=== PATIENT | female | born 1950 | race Caucasian/White ===

== ENCOUNTER 2024-08-12 21:30 | Inpatient (IN) | payer MEDICARE, MEDICAID, SELFPAY ==
[2024-08-12] VITALS (9 sets, daily range): BP systolic 105–119; BP diastolic 58–86; PULSE 98–118; RESP 17–95; TEMP 38–38.9; O2SAT 93–96; BMI 27.4
--- NOTE | 2024-08-12 22:19 | XR_ITS ---
Examination: AP chest single view Technique: AP portable upright chest single view Exam date and time: August 12, 2024 1021 hrs. Indications: Sepsis protocol. Findings: Early pneumonia left base obscuring detail lateral portion left hemidiaphragm Mild enlargement cardiac contour No pulmonary edema Prominent osteopenia Impression: Early left base pneumonia
--- NOTE | 2024-08-12 22:22 | PD.EDSOB ---
ED SOB =RME/HPI General Chief Complaint: Shortness of Breath/Dyspnea Stated Complaint: SOB Arrival date/time: 08/12/24 21:30 RME / HPI RME / HPI Narrative: A 73-year-old female patient with past medical history of dementia with fluctuation level of orientation, CVA with right-sided deficit and chronic dysphagia status post G-tube placement, hypothyroidism, hypertension, hyperlipidemia, type 2 diabetes mellitus, was brought from senior living after she was noticed to have low-grade fever of 100.3, and wheezing with heart rate of 111. As per EMS the patient was wheezing during initial encounter and tachypneic. No history of cough, chest pain, abdominal pain, nausea or vomiting, no abdominal pain or diarrhea however she has chronic constipation. Patient mentally challenged and is unable to provide further details. Of note patient was recently admitted to the hospital because of sepsis secondary to UTI and was found to have leukopenia which was attributed to methimazole. Related Data Home Medications ?Medication ?Instructions ?Recorded ?Confirmed acetaminophen 325 mg tablet 650 mg feeding tube Q4H PRN Pain 03/22/19 06/12/24 bisacodyl 10 mg rectal suppository 10 mg DE PRN PRN Constipation 03/22/19 06/12/24 linagliptin 5 mg tablet (Tradjenta) 5 mg feeding tube QDAY 03/22/19 06/12/24 sennosides 8.6 mg tablet (senna) 8.6 mg feeding tube BID 03/22/19 06/12/24 sertraline 50 mg tablet (Zoloft) 50 mg feeding tube QDAY 10/07/19 06/12/24 atorvastatin 40 mg tablet 40 mg feeding tube HS 01/03/21 06/12/24 furosemide 20 mg tablet 20 mg feeding tube QDAY PRN Edema 01/03/21 06/12/24 polyethylene glycol 3350 17 17 g feeding tube QDAY PRN 01/03/21 06/12/24 gram/dose oral powder (Miralax) Constipation clotrimazole 1 % topical cream 1 applic topical BID 06/12/24 06/12/24 omeprazole 40 mg capsule,delayed 40 mg PO QPM 06/12/24 06/12/24 release Previous Rx's ?Medication ?Instructions ?Recorded amlodipine 10 mg tablet 10 mg feeding tube QDAY 30 days 08/02/24 #30 tabs Allergies Allergy/AdvReac Type Severity Reaction Status Date / Time No Known Allergies Allergy Verified 06/12/24 10:23 ED Exam Narrative Physical exam: GEN: AOx1 for self (baseline as per caregiver), mildly lethargic, has slurred speech, chopped sentences., Looks pale HEENT: NC/AC, oral mucosa dry, neck supple CVS: RRR, S1-S2 present, no murmurs appreciated RESP: CTAB GI: soft, seems to be distended, non tender, NBS MSK: Limited mobility of the right side, no lower extremity edema SKIN: warm and dry SENIOR PRINCIPAL SOFTWARE ENGINEER: Unable to assess due to mental status. Course Quality Measures Current suspected stage: sepsis Possible source: pulmonary and genitourinary Blood cultures ordered: yes Antibiotic ordered: Yes Pertinent labs: 08/12/24 22:30 Lactic Acid 1.9 mMol/L (0.4-2.0) Procalcitonin 0.36 ng/ml (0.0-0.49) sepsis Orders Category Date Time Status Bedside Blood Glucose NOW Care 08/12/24 22:19 Active Bedside COVID-19 Antigen Test NOW Care 08/12/24 22:20 Active Bedside Influenza A&B Antigen Test NOW Care 08/12/24 22:30 Completed Small Equipment Operator Q4H START 00 Care 08/12/24 22:19 Active Jovel [Urinary Catheter] QS Care 08/12/24 22:38 Active Insert IV NOW Care 08/12/24 22:19 Active Neutropenic precautions NOW Care 08/12/24 23:31 Active Occult Blood,Stool (Nursing) NOW Care 08/12/24 23:25 Active Strict Intake and Output Routine Care 08/12/24 22:19 Ordered XR chest 1V SEPSIS PROTOCOL Stat Exams 08/12/24 22:19 Completed Blood Culture (Lab) Stat Lab 08/12/24 22:48 Received CBC Stat Lab 08/12/24 22:30 Completed Comprehensive Metabolic Panel Stat Lab 08/12/24 22:30 Completed Lactate (Lactic Acid) Stat Lab 08/12/24 22:30 Completed Magnesium Stat Lab 08/12/24 22:30 Completed Partial Thromboplastin Time Stat Lab 08/12/24 22:30 Completed Procalcitonin Stat Lab 08/12/24 22:30 Completed Prothrombin Time with INR Stat Lab 08/12/24 22:30 Completed RSV [Respiratory Syncytial Virus Ag] Stat Lab 08/12/24 22:43 Completed Troponin I Stat Lab 08/12/24 22:30 Completed Urinalysis Stat Lab 08/12/24 22:19 Completed Urine Culture Stat Lab 08/12/24 22:19 Ordered Acetaminophen Tab [Tylenol ES Tab] Med 08/12/24 22:26 Discontinued 1,000 mg PO X1 ONE Sodium Chloride 0.9% 500 ml [Ns] 500 ml Med 08/12/24 23:30 Discontinued IV 999 mls/hr cefTRIAXone/D5w 1gm IV premix [Rocephin/D5w 1gm IV Med 08/12/24 22:30 Discontinued premix] 50 ml IV X1 Oxygen Delivery PRN RT 08/12/24 22:19 Active Vital Signs Vital signs: Vital Signs Temperature 100.8 F H 08/12/24 21:34 Pulse Rate 110 H 08/12/24 21:34 Respiratory Rate 20 08/12/24 21:34 Blood Pressure 108/62 08/12/24 21:34 Pulse Oximetry (%) 95 08/12/24 21:34 Oxygen Delivery Method Room Air 08/12/24 21:34 Shortness of Breath / Dyspnea MDM Narrative MDM Narrative:: On evaluation patient was noticed to have sepsis secondary to early pneumonia versus UTI. We noticed also she has severe leukopenia most likely secondary to methimazole. Patient was prescribed methimazole for her hyperthyroidism however 2 weeks ago she was instructed to stop the methimazole however patient was continued on the methimazole. Consultation to the hospitalist team was ordered and the patient will be admitted for treatment of sepsis. We noticed that the patient has 2 echoes one of them showed ejection fraction of 25% and the other 1 showed stage I diastolic dysfunction with ejection fraction of 60%. Patient was on Lasix and was prescribed recently for that reason because of the concern of fluid overload we will only give the patient 500 mL of IV fluids. Patient data External records reviewed:: [facility] previous records and Residential records Clinical information provided by:: beaver trapper Social determinants that could affect healthcare access:: mental health Patient has the following chronic illnesses:: Hypertension, diabetes mellitus, hyperlipidemia, dementia, CVA How is presenting disease/condition affected by chronic disease/condition?: exacerbated by Evaluation data The following diagnostics were reviewed and interpreted by me:: lab results, radiology exam(s) and EKG tracing(s) Lab and/or radiology exams considered but not ordered:: None Interpretation Summary: Sepsis secondary to UTI Sepsis secondary to pneumonia Medications / Prescriptions Medications or Prescriptions considered but not ordered:: None Medication administrations:: Medication Administration History Discontinued Medications Acetaminophen (Acetaminophen 500 Mg Tablet) 1,000 mg PO X1 ONE Stop: 08/12/24 22:27 Last Admin: 08/12/24 22:48 Dose: 1,000 mg Documented By: EMILY Comments: Med given via G-Tube Ceftriaxone Sodium/Dextrose (Rocephin/D5w 1gm Iv Premix) 50 mls @ 100 mls/hr IV X1 ONE Stop: 08/12/24 22:59 Last Infusion: 08/12/24 23:33 Dose: Infused Documented By: Admin: 08/12/24 22:53 Dose: 100 mls/hr Documented By: EMILY Sodium Chloride (Ns) 500 mls @ 999 mls/hr IV .Q31M ONE Stop: 08/13/24 00:00 Last Admin: 08/13/24 00:02 Dose: 999 mls/hr Documented By: ENRICO As above left given Consultations Consultation(s) initiated? (list below): Yes Diagnosis Shortness of Breath Differential Diagnosis: community acquired pneumonia and other Most likely diagnosis given after review of the tests above:: Sepsis secondary to hospital-acquired pneumonia Sepsis secondary to UTI Admission Indicated Admission indicated?: indicated Admission Request Was there a request for admission?: Yes Admission Attestation Admission request attestation: Discussed case with [] from Hospitalist service regarding admission. Discussed patients ED course, exam findings, labs, and radiology results. The Hospitalist [agrees,declines] to accept the patient for admission. Disposition Plan Disposition Plan: Admit Discharge Plan Plan Patient Disposition: Admit Acute Care w/in Hospital Prescriptions/Referrals Prescriptions/Med Rec: No Action sennosides [senna] 8.6 mg tablet 8.6 mg feeding tube BID acetaminophen 325 mg Tablet 650 mg feeding tube Q4H PRN (Reason: Pain) bisacodyl 10 mg Suppository 10 mg DE PRN PRN (Reason: Constipation) Tradjenta 5 mg tablet 5 mg feeding tube QDAY atorvastatin 40 mg Tablet 40 mg feeding tube HS furosemide 20 mg Tablet 20 mg feeding tube QDAY PRN (Reason: Edema) polyethylene glycol 3350 [Miralax] 17 gram/dose Powder 17 g feeding tube QDAY PRN (Reason: Constipation) sertraline [Zoloft] 50 mg Tablet 50 mg feeding tube QDAY amlodipine 10 mg tablet 10 mg feeding tube QDAY 30 Days Qty: 30 0RF omeprazole 40 mg Capsule,Delayed Release(Dr/Ec) 40 mg PO QPM clotrimazole 1 % Cream 1 applic TOPICAL BID Rx Instructions: Apply to all toenails for nail fungus. Referrals: Justin Alva MD [Primary Care Provider] - In 1 week Problem List Clinical Impression: Sepsis, Acute febrile illness, Acute UTI (urinary tract infection), HAP (hospital-acquired pneumonia) Patient/Caregiver Discharge Instructions Print Language: Croatian Stand Alone Forms: [employer] Award Info., Patient Portal Info Letter
[2024-08-12 22:42] LABS: Lactate (Lactic Acid) 1.9 mMol/L (0.4-2.0)
[2024-08-12 22:46] LABS: Basophils % (Auto) 0 % (0-2.5); Eosinophils % (Auto) 0 % (0-10); Hematocrit 21.2 % (36.0-46.0); Immature Granulocytes % (Auto) 0 % (0-0); Lymphocytes # (Auto) 0.2 Thou/mm3 (1.0-4.8); Lymphocytes % (Auto) 19 % (10-50); Mean Corpuscular HGB Conc 35.4 g/dl (31.0-37.0); Mean Corpuscular Hemoglobin 30.9 pg (25.0-35.0); Mean Corpuscular Volume 87 fL (80-100); Monocytes # (Auto) 0.6 Thou/mm3 (0.0-0.8); Monocytes % (Auto) 65 % (0-12); Neutrophils # (Auto) 0.1 Thou/mm3 (1.8-7.7); Neutrophils % (Auto) 16 % (37-80); Nucleated Red Blood Cell % 0 /100 WBC (0); Platelet Count 184 Thou/mm3 (140-440); RDW Standard Deviation 43.6 fL (36.4-46.3); Red Blood Count 2.43 Miln/mm3 (4.00-5.20)
[2024-08-12] MEDS: ACETAMINOPHEN 500 MG TABLET 1000 MG PO (22:48)
[2024-08-12] MEDS: cefTRIAXone/D5w 1gm IV premix 50 ML IV (22:53)
[2024-08-12 22:58] LABS: Hemoglobin 7.5 g/dL (12.0-16.0)
[2024-08-12 23:00] LABS: White Blood Count 0.9 Thou/mm3 (3.6-11.0)
[2024-08-12 23:03] LABS: Bacteria,Urine Rare; Bilirubin,Urine Negative (Negative); Blood,Urine 1+ (Negative); Clarity,Urine Clear (Clear/Hazy); Collection Type, Urine Catheter; Color,Urine Lt-Yellow (Lt Yel-Yel); Glucose, Urine Negative (Negative); Ketones,Urine Negative (Negative); Leukocyte Esterase,Urine Positive (Negative); Nitrite,Urine Negative (Negative); Protein,Urine 1+ (Neg - Trace); RBC,Urine 1 /hpf (0-3); Specific Gravity,Urine 1.011 (1.001-1.035); Squamous Epithelial Cell,Urine 2 /hpf (0-5); WBC,Urine 33 /hpf (0-5)
[2024-08-12 23:22] LABS: Alanine Aminotransferase 37 U/L (10-49); Albumin, Serum 3.3 gm/dL (3.4-4.8); Albumin/Globulin Ratio 1.1 (1.2-2.2); Alkaline Phosphatase 143 U/L (46-116); Anion Gap 6 (7-16); Aspartate Amino Transferase 42 U/L (0-34); BUN/Creatinine Ratio 42 Ratio (12-20); Blood Urea Nitrogen 42 mg/dL (9-23); Calcium 8.5 mg/dL (8.3-10.6); Calcium (Corrected) 9.1 mg/dL (8.5-10.1); Carbon Dioxide 27.8 mMol/L (20.0-31.0); Chloride 88 mMol/L (98-107); Estimated Creatinine Clearance 46.7 mL/min (>60); Glucose 244 mg/dL (74-106); Magnesium 2.5 mg/dL (1.6-2.6); Osmolality,Calculated 264 (275-295); Potassium 4.2 mMol/L (3.4-5.1); Procalcitonin 0.36 ng/ml (0.0-0.49); Sodium 122 mMol/L (136-145); Total Protein 6.3 gm/dL (5.7-8.2); Troponin I < 0.020 ng/mL (0.0-0.045); eGFR > 60 See Note
[2024-08-12 23:32] LABS: Respiratory Syncytial Virus Ag Negative (Negative)
[2024-08-12 23:34] LABS: Bilirubin,Total 0.7 mg/dL (0.3-1.2)
[2024-08-12 23:39] LABS: INR 1.1 (0.9-1.3); Prothrombin Time 11.9 Seconds (9.0-12.2)
[2024-08-13] VITALS (18 sets, daily range): BP systolic 76–117; BP diastolic 43–72; PULSE 81–98; RESP 18–95; TEMP 36.4–38; O2SAT 90–100; BMI 29.0
[2024-08-13] MEDS: SODIUM CHLORIDE 0.9% 500 ML 500 ML 999 ML IV ×2 (00:02→01:26)
--- NOTE | 2024-08-13 01:15 | PD.RESHP ---
Documentation for date of: 08/13/24 [facility] History of Present Illness History of present illness: 73-year-old female patient with significant medical history for dementia, CVA with right-sided deficit, chronic G-tube, HFpEF, hypothyroidism, hypertension, DM2 and hyperlipidemia [facility]ezing and low-grade fever. Patient was recently admitted at [facility] on 07/31/2024 for sepsis secondary to UTI. During last visit patient was also found to have leukopenia and was attributed to methimazole, patient was to have methimazole discontinued. Today patient is accompanied by caregiver who provides further information. Per caregiver, patient's mentation is at baseline but he was observed to be more demanding than usual this morning. There was no cough, nausea, vomiting, diarrhea, abdominal pain or other associate symptoms. In ED patient was found to be tachycardic and febrile with a temperature of 100.8 F which up trended to 102 F. CBC and labs was significant for leukopenia at 0.9, Hgb 7.5 (9.2 on 08/04/2024), HCT 21.2, MCV 87, NA 122, CL 88, BUN 42, glucose 244. Urinalysis indicated leukocyte esterase positive, WBC 33 and rare bacteria. Chest x-ray indicated early left basilar pneumonia. Patient will be admitted for sepsis secondary to UTI vs pneumonia. Review of Systems Review of Systems Systems Reviewed: All systems reviewed, normal except as documented Exam Vital Signs Temp Pulse Resp BP Pulse Ox O2 Del Method 100.4 F 91 18 96/59 L 95 Room Air 08/13/24 00:11 08/13/24 00:11 08/13/24 00:11 08/13/24 00:11 08/13/24 00:11 08/13/24 00:11 Narrative Exam Constitutional: Frail looking elderly woman, in no acute distress, lying in bed, pale looking HEENT: NCAT, EOMI, reactive round pupils b/l, patent nares b/l, moist mucous membranes Lung: CTAB, no wheezing, no rhonchi Heart: Regular S1S2, no murmurs, gallops, or rubs Abdomen: Soft, non-distended, non-tender, bowel sounds present throughout Extremities: No cyanosis, clubbing, or edema, LE pulses present b/l Neurologic: Right upper and lower extremity deficits, AOx1 Skin: Warm, dry, no lesions or rashes noted Results: Labs 08/12/24 22:30 08/12/24 22:30 Labs: Short CBC 08/12/24 Range/Units 22:30 WBC 0.9 L* (3.6-11.0) Thou/mm3 Hgb 7.5 L (12.0-16.0) g/dL Hct 21.2 L* (36.0-46.0) % Plt Count 184 D (140-440) Thou/mm3 BMP 08/12/24 22:30 Sodium 122 L Potassium 4.2 Chloride 88 L Carbon Dioxide 27.8 BUN 42 H Creatinine 1.0 Glucose 244 H Calcium 8.5 Cardiac Enzymes 08/12/24 Range/Units 22:30 Troponin I < 0.020 (0.0-0.045) ng/mL Liver Function 08/12/24 Range/Units 22:30 Total Bilirubin 0.7 (0.3-1.2) mg/dL AST 42 H (0-34) U/L ALT 37 (10-49) U/L Alkaline Phosphatase 143 H (46-116) U/L Albumin 3.3 L (3.4-4.8) gm/dL Urine 08/12/24 Range/Units 22:19 Urine Color Lt-Yellow (Lt Yel-Yel) Urine Clarity Clear (Clear/Hazy) Urine pH 7.0 (5.0-7.0) Ur Specific [place] 1.011 (1.001-1.035) Urine Protein 1+ A (Neg - Trace) Urine Glucose (UA) Negative (Negative) Quality Measures Quality Measures sepsis Current suspected stage: sepsis Possible source: pulmonary and genitourinary Blood cultures ordered: yes Antibiotic ordered: Yes Advance care planning discussed with:: other Medications Home Medications and Allergies Home Medications ?Medication ?Instructions ?Recorded ?Confirmed ?Type acetaminophen 325 mg tablet 650 mg feeding tube Q4H PRN Pain 03/22/19 06/12/24 History bisacodyl 10 mg rectal suppository 10 mg OR PRN PRN Constipation 03/22/19 06/12/24 History linagliptin 5 mg tablet (Tradjenta) 5 mg feeding tube QDAY 03/22/19 06/12/24 History sennosides 8.6 mg tablet (senna) 8.6 mg feeding tube BID 03/22/19 06/12/24 History sertraline 50 mg tablet (Zoloft) 50 mg feeding tube QDAY 10/07/19 06/12/24 History atorvastatin 40 mg tablet 40 mg feeding tube HS 01/03/21 06/12/24 History furosemide 20 mg tablet 20 mg feeding tube QDAY PRN Edema 01/03/21 06/12/24 History polyethylene glycol 3350 17 17 g feeding tube QDAY PRN 01/03/21 06/12/24 History gram/dose oral powder (Miralax) Constipation clotrimazole 1 % topical cream 1 applic topical BID 06/12/24 06/12/24 History omeprazole 40 mg capsule,delayed 40 mg PO QPM 06/12/24 06/12/24 History release Allergies Allergy/AdvReac Type Severity Reaction Status Date / Time No Known Allergies Allergy Verified 06/12/24 10:23 Visit Medications Acetaminophen (Acetaminophen 325 Mg Tablet) 650 mg PO Q6H PRN PRN Reason: Fever >101.5 Stop: 09/12/24 00:55 Albuterol/Ipratropium (Albuterol/Ipratropium (Duoneb) Rt Jelly 3 Ml Nebu) 3 ml INH Q4HRRT PRN PRN Reason: wheezing Stop: 09/12/24 02:59 Heparin Sodium (Porcine) (Heparin Sod Inj 5000 Unit/Ml Vial) 5,000 unit SC Q8HR AJAY Stop: 08/27/24 05:59 Piperacillin/Tazobactam/Dextrose (Zosyn) 3.375 gm in 50 mls @ 100 mls/hr IV Q8HR AJAY Stop: 08/20/24 05:59 Piperacillin/Tazobactam/Dextrose (Zosyn) 3.375 gm in 50 mls @ 100 mls/hr IV X1 ONE Stop: 08/13/24 01:44 Vancomycin/Sodium Chloride (Vancomycin/Ns 1 Gm Ivpb) 200 mls @ 200 mls/hr IV X1 ONE Stop: 08/13/24 02:14 Sodium Chloride (Ns) 1,000 mls @ 999 mls/hr IV .Q1H1M ONE Stop: 08/13/24 02:07 Sodium Chloride (Ns) 500 mls @ 999 mls/hr IV .Q31M ONE Stop: 08/13/24 01:37 Ondansetron HCl (Ondansetron Inj 2 Mg/Ml Inj 2 Ml) 4 mg IV Q6H PRN; Protocol PRN Reason: NAUSEA OR VOMITING Stop: 09/12/24 00:55 Pantoprazole Sodium (Pantoprazole Inj 40 Mg Vial) 40 mg IVP QDAY [facility] Stop: 09/12/24 08:59 Pharmacy Consult (Vancomycin Pharmacy To Dose 1 Each Each) 1 each IV QDAY AJAY Stop: 09/12/24 08:59 Discontinued Medications Acetaminophen (Acetaminophen 500 Mg Tablet) 1,000 mg PO X1 ONE Stop: 08/12/24 22:27 Last Admin: 08/12/24 22:48 Dose: 1,000 mg Ceftriaxone Sodium/Dextrose (Rocephin/D5w 1gm Iv Premix) 50 mls @ 100 mls/hr IV X1 ONE Stop: 08/12/24 22:59 Last Infusion: 08/12/24 23:33 Dose: Infused Sodium Chloride (Ns) 500 mls @ 999 mls/hr IV .Q31M ONE Stop: 08/13/24 00:00 Last Admin: 08/13/24 00:02 Dose: 999 mls/hr Sodium Chloride (Ns) 1,000 mls @ 999 mls/hr IV .Q1H1M AJAY Stop: 09/12/24 01:05 Assessment & Plan Plan 73-year-old female patient with significant medical history for dementia, CVA with right-sided deficit, chronic G-tube, HFpEF, hypothyroidism, hypertension, DM2 and hyperlipidemia [facility] for [facility]ezing and low-grade fever. Urinalysis indicated leukocyte esterase positive, WBC 33 and rare bacteria. Chest x-ray indicated early left basilar pneumonia. Patient will be admitted for sepsis secondary to UTI vs pneumonia. #Sepsis secondary to #Pneumonia #UTI #Neutropenic fever Patient recently admitted for UTI sepsis on 07/31/2024 On admission patient complaining of wheezing and fever Admission vital and labs significant for fever 102 F and WBC 0.9 Chest x-ray indicative of a left base pneumonia UA indicative of mild UTI Plan: ? Admit to med telemetry ? Bolus IV NS per sepsis protocol ? Start Vanco and Zosyn IV ? Neutropenic isolation ? ID Dr Brooks consulted, recommendations are greatly appreciated ? Consider hematology consult ? Blood cultures, cocci and urine cultures ordered ? Acetaminophen for fevers > 100.4 F ? Follow-up CBC #Acute normocytic anemia On admission patient with Hgb 7.5, MCV 87, HCT 21.2%, WBC 0.9 and elevated BUN 42 Most recent Hgb of 9.2 on 08/04/2024 Patient with history of methimazole for hyperthyroidism Plan: ? Occult FOBT pending ? Transfuse Hgb if < 7 ? Rule out aplastic anemia ? Consider hematology consult ? Follow-up CBC #History of CVA #Chronic PEG tube #Right-sided hemiplegia #Hyponatremia #Hypochloremia PEG tube replaced on 08/03/[address] Arreola Admission labs significant for NA 122 Plan: ? Dietitian referral ? Continue maintenance NS IVF until diet restarted ? Replete electrolytes as needed #History of hypertension On home amlodipine 10 mg Currently patient hypotensive Plan: ? Hold BP meds in setting of hypotension and sepsis #Hyperlipidemia Plan: ? Restart home med after reconciliation #Type 2 diabetes mellitus, well controlled HgB A1c of 5.2 % on May 2024 Plan: ? Withhold home medications ? SSI plus Accu-Cheks #History of Hyperthyroidism Plan: ? Withhold methimazole in setting of hypothyroidism and leukopenia ? Follow-up TSH Health Maintenance Dispo: Patient admitted for sepsis secondary to UTI versus pneumonia, neutropenic isolation, ID consulted Diet: N.p.o., PEG feeding, dietitian referral ordered DVT/PPx: Heparin GI ppx: Protonix Lines: PIV Code Status: Full Code This patient care was discussed with my attending Dr. Arthur Prado MD PGY-2 Disclaimer: Minor errors in personal security specialist may be present since this note was dictated by speech recognition software. Attending Provider Attestation/Addendum I reviewed labs, imaging, EKG, home medications and prior available records. Face to face evaluation was performed by me. I have personally examined the patient and discussed assessment and plan with the IM team. I reviewed the resident note and agree with the plan with exceptions as below. 73-year-old female with history of CVA with right-sided weakness status post G-tube, recent admission for UTI, who presented with a chief complaint of fevers and wheezing. She was found to have sepsis secondary to bilateral pneumonia versus UTI. Sepsis secondary to acute UTI versus bilateral pneumonia and lower lobes: In the setting of neutropenic fever. WBC is 0.9. Started the patient on vancomycin/Zosyn and consult ID. Sent cocci IgM. Follow-up urine and blood cultures. Neutropenic fever: WBC is 0.9. Antibiotics as above. Monitor CBC. Patient was on methimazole recently which could be contributing and is still on her medication list however it should be discontinued. Discharge instructions. Will make sure that is discontinued and manage infection as above. If not improving, consider hematology consultation. Hyponatremia: Started the patient on IV fluids and monitor sodium level. Avoid rapid correction.
[2024-08-13] MEDS: ALBUTEROL/IPRATROPIUM (Duoneb) RT SOL 3 ML NEBU INH (01:25)
[2024-08-13] MEDS: PIPER/TAZO 3.375 GM 3.375 GM/50 ML BAG IV ×4 (01:26→21:05)
[2024-08-13] MEDS: SODIUM CHLORIDE 0.9% 1000 ML 1,000 ML 999 ML IV (01:26)
[2024-08-13] MEDS: VANCOMYCIN/NS 1 GM IVPB 200 ML IV (02:52)
[2024-08-13] MEDS: SODIUM CHLORIDE 0.9% 1000 ML 1,000 ML 75 ML IV (02:53)
[2024-08-13] MEDS: HEPARIN SOD INJ 5000 UNIT/ML VIAL SC ×2 (05:35→20:29)
[2024-08-13] MEDS: INSULIN LISPRO (AdmeLOG) 1 UNIT/0.01 ML UNIT SC ×2 (07:33→11:30)
[2024-08-13 08:19] LABS: Basophils % (Auto) 0 % (0-2.5); Eosinophils % (Auto) 0 % (0-10); Hematocrit 23.7 % (36.0-46.0); Immature Granulocytes % (Auto) 0 % (0-0); Lymphocytes # (Auto) 0.1 Thou/mm3 (1.0-4.8); Lymphocytes % (Auto) 16 % (10-50); Mean Corpuscular Hemoglobin 30.9 pg (25.0-35.0); Mean Corpuscular Volume 88 fL (80-100); Monocytes # (Auto) 0.4 Thou/mm3 (0.0-0.8); Monocytes % (Auto) 63 % (0-12); Neutrophils # (Auto) 0.1 Thou/mm3 (1.8-7.7); Neutrophils % (Auto) 21 % (37-80); Nucleated Red Blood Cell % 0 /100 WBC (0); Platelet Count 129 Thou/mm3 (140-440); RDW Standard Deviation 44.7 fL (36.4-46.3); Red Blood Count 2.69 Miln/mm3 (4.00-5.20)
[2024-08-13 08:34] LABS: White Blood Count 0.6 Thou/mm3 (3.6-11.0)
[2024-08-13 08:35] LABS: Hemoglobin 8.3 g/dL (12.0-16.0)
[2024-08-13 09:03] LABS: Alanine Aminotransferase 40 U/L (10-49); Albumin, Serum 2.8 gm/dL (3.4-4.8); Alkaline Phosphatase 129 U/L (46-116); Anion Gap 5 (7-16); Aspartate Amino Transferase 49 U/L (0-34); BUN/Creatinine Ratio 37 Ratio (12-20); Blood Urea Nitrogen 33 mg/dL (9-23); Calcium 7.9 mg/dL (8.3-10.6); Calcium (Corrected) 8.9 mg/dL (8.5-10.1); Carbon Dioxide 26.7 mMol/L (20.0-31.0); Chloride 94 mMol/L (98-107); Creatinine (Component) 0.9 mg/dL (0.6-1.3); Estimated Creatinine Clearance 87.8 mL/min (>60); Globulin 2.8 gm/dL (2.3-3.5); Glucose 198 mg/dL (74-106); Magnesium 2.4 mg/dL (1.6-2.6); Osmolality,Calculated 266 (275-295); Potassium 3.7 mMol/L (3.4-5.1); Sodium 126 mMol/L (136-145); Thyroid Stimulating Hormone 0.22 uIU/mL (0.55-4.78); Total Protein 5.6 gm/dL (5.7-8.2); eGFR > 60 See Note
[2024-08-13] MEDS: VANCOMYCIN/D5W 1,250 MG IVPB 250 ML 120 MG IV ×2 (09:35→21:05)
[2024-08-13] MEDS: PANTOPRAZOLE INJ 40 MG VIAL IVP (09:36)
[2024-08-13 12:16] LABS: Bilirubin,Total 0.5 mg/dL (0.3-1.2)
--- NOTE | 2024-08-13 13:40 | ESPR_ITS ---
<Statement entered by Alta Chinchilla MD - 08/13/24 15:58> I discussed with and supervised the hospitality intern physician who took care of this patient. I personally saw and examined the patient and discussed the assessment and plan with the entire medicine team, including my attending , I agree with most of the assessment and plan as documented below Alta Chinchilla M.D. PGY-2 Documentation for date of: 08/13/24 Subjective Subjective Interval history: 08/13/2024: Patient is an overnight admit from [facility] secondary to subjective fever and wheezing, on presentation was febrile (102 Fahrenheit) with leukopenia/neutropenia. Patient on last admission was told to stop taking methimazole with clear instructions on discharge; however, apparently had the [place] [facility] she was continually given methimazole. She presents currently with neutropenic fever and apparently urinalysis positive for leukocyte esterase, pyuria and some rare bacteriuria along with left base pneumonia. Patient's been started on Zosyn and vancomycin for broad coverage secondary to neutropenic fever. Consulted Dr. Hendrix (cd manufacturing supervisor) for recommendations regarding neutropenic fever and treatment modalities. Started patient back on tube feeds per dietary consultation and recommendation. Will continue to monitor for any acute changes in status. Exam Vital Signs Temp Pulse Resp BP Pulse Ox O2 Del Method 97.6 F 83 22 H 97/60 93 L Room Air 08/13/24 12:00 08/13/24 12:00 08/13/24 12:00 08/13/24 12:00 08/13/24 12:00 08/13/24 12:00 Narrative Exam Physical Exam: GENERAL: Awake, responds to questions appropriately, developmental disorder, waxes and wanes in emotion HEENT: NC/AT. Moist mucosa. Does not follow commands for EOMI. PERRLA. CARDIO: Heart RRR, no obvious murmurs, no JVD. PULM: No coughing or visible SOB. Lungs CTA B/L. GI: Abdomen soft, NT/ND, +BS. PEG tube leaking contents, no erythema or purulent discharge noted. SKIN/MSK/EXT: No wounds/discoloration/rashes/edema/amputations noted. +Pedal pulses present B/L. NEURO: Oriented x1 (person). Unable to assess cranial nerves. Patient has right-sided deficit (no muscle strength or movement of both upper and lower extremities). Left hand fixed in extension, no contractures noted. Objective Labs 08/13/24 07:58 08/13/24 07:58 Labs: Laboratory Results - last 24 hr 08/12/24 08/12/24 08/12/24 22:19 22:30 22:43 WBC 0.9 L* RBC 2.43 L Hgb 7.5 L Hct 21.2 L* MCV 87 MCH 30.9 MCHC 35.4 RDW Std Deviation 43.6 Plt Count 184 D Neut % (Auto) 16 L Lymph % (Auto) 19 [place] % (Auto) 65 H Eos % (Auto) 0 Baso % (Auto) 0 Neut # (Auto) 0.1 L Lymph # (Auto) 0.2 L [place] # (Auto) 0.6 Eos # (Auto) 0.0 Baso # (Auto) 0.0 Immature Gran # (Auto) 0.00 Absolute Nucleated RBC 0.00 Immature Gran % 0 Nucleated RBC % 0 PT 11.9 INR 1.1 APTT 25.0 Sodium 122 L Potassium 4.2 Chloride 88 L Carbon Dioxide 27.8 Anion Gap 6 L BUN 42 H Creatinine 1.0 Estim Creat Clear Calc 46.7 L eGFR > 60 BUN/Creatinine Ratio 42 H Glucose 244 H Calculated Osmolality 264 L Lactic Acid 1.9 Calcium 8.5 Corrected Calcium 9.1 Phosphorus Magnesium 2.5 Total Bilirubin 0.7 AST 42 H ALT 37 Alkaline Phosphatase 143 H Troponin I < 0.020 Total Protein 6.3 Albumin 3.3 L Globulin 3.0 Albumin/Globulin Ratio 1.1 L Procalcitonin 0.36 TSH Ur Collection Type Catheter Urine Color Lt-Yellow Urine Clarity Clear Urine pH 7.0 Ur Specific [place] 1.011 Urine Protein 1+ A Urine Glucose (UA) Negative Urine Ketones Negative Urine Blood 1+ A Urine Nitrite Negative Urine Bilirubin Negative Urine Urobilinogen (Auto) 2.0 Ur Leukocyte Esterase Positive Urine RBC 1 Urine WBC 33 H Ur Squamous Epith Cells 2 Urine Bacteria Rare RSV Rapid Negative 08/13/24 07:58 WBC 0.6 L* RBC 2.69 L Hgb 8.3 L Hct 23.7 L MCV 88 MCH 30.9 MCHC 35.0 RDW Std Deviation 44.7 Plt Count 129 L D Neut % (Auto) 21 L Lymph % (Auto) 16 [place] % (Auto) 63 H Eos % (Auto) 0 Baso % (Auto) 0 Neut # (Auto) 0.1 L Lymph # (Auto) 0.1 L [place] # (Auto) 0.4 Eos # (Auto) 0.0 Baso # (Auto) 0.0 Immature Gran # (Auto) 0.00 Absolute Nucleated RBC 0.00 Immature Gran % 0 Nucleated RBC % 0 PT INR APTT Sodium 126 L Potassium 3.7 D Chloride 94 L Carbon Dioxide 26.7 Anion Gap 5 L BUN 33 H Creatinine 0.9 Estim Creat Clear Calc 87.8 eGFR > 60 BUN/Creatinine Ratio 37 H Glucose 198 H Calculated Osmolality 266 L Lactic Acid Calcium 7.9 L Corrected Calcium 8.9 Phosphorus 2.0 L Magnesium 2.4 Total Bilirubin 0.5 AST 49 H ALT 40 Alkaline Phosphatase 129 H Troponin I Total Protein 5.6 L Albumin 2.8 L D Globulin 2.8 Albumin/Globulin Ratio 1.0 L Procalcitonin TSH 0.22 L Ur Collection Type Urine Color Urine Clarity Urine pH Ur Specific [place] Urine Protein Urine Glucose (UA) Urine Ketones Urine Blood Urine Nitrite Urine Bilirubin Urine Urobilinogen (Auto) Ur Leukocyte Esterase Urine RBC Urine WBC Ur Squamous Epith Cells Urine Bacteria RSV Rapid Quality Measures Quality Measures sepsis Current suspected stage: ruled out Possible source: pulmonary and genitourinary Blood cultures ordered: yes Antibiotic ordered: Yes Advance care planning discussed with:: other Assessment & Plan Assessment Current Active Medications: Generic Name Dose Route Start Last Admin Trade Name Freq PRN Reason Stop Dose Admin Acetaminophen 650 mg 08/13/24 00:56 Acetaminophen 325 Mg Tablet PO 09/12/24 00:55 Q6H PRN Fever >101.5 Albuterol/Ipratropium 3 ml 08/13/24 00:56 08/13/24 01:25 Albuterol/Ipratropium (Duoneb) Rt Jelly 3 Ml Nebu INH 09/12/24 02:59 3 ml Q4HRRT PRN Administration wheezing Dextrose 25 ml 08/13/24 02:15 Dextrose 50%-Water Inj 50 Ml Syringe IV 09/12/24 02:14 Q15MIN PRN BG 50-70 responsive npo pt Dextrose 50 ml 08/13/24 02:15 Dextrose 50%-Water Inj 50 Ml Syringe IV 09/12/24 02:14 Q15MIN PRN BG <50 OR BG <70 & pt unresponsive Glucagon 1 mg 08/13/24 02:15 Glucagon Inj 1 Mg Vial IM Q15MIN PRN BG <70, and no IV access Heparin Sodium (Porcine) 5,000 unit 08/13/24 21:00 Heparin Sod Inj 5000 Unit/Ml Vial SC 08/27/24 20:59 BID AJAY Piperacillin/Tazobactam/Dextrose 3.375 gm in 50 mls @ 12.5 mls/hr 08/13/24 06:00 08/13/24 13:30 Zosyn IV 08/20/24 05:59 12.5 mls/hr Q8HR AJAY Administration Vancomycin HCl/Dextrose 250 mls @ 120 mls/hr 08/13/24 10:00 08/13/24 09:35 Vancomycin/D5w 1,250 Mg Ivpb IV 08/20/24 09:59 120 mls/hr Q12H AJAY Administration Protocol Insulin Human Lispro 0 unit 08/13/24 07:30 08/13/24 11:30 Insulin Lispro (Admelog) 1 Unit/0.01 Ml Unit SC 09/12/24 07:29 2 unit ACHS AJAY Administration Protocol Ondansetron HCl 4 mg 08/13/24 00:56 Ondansetron Inj 2 Mg/Ml Inj 2 Ml IV 09/12/24 00:55 Q6H PRN NAUSEA OR VOMITING Protocol Pantoprazole Sodium 40 mg 08/13/24 09:00 08/13/24 09:36 Pantoprazole Inj 40 Mg Vial IVP 09/12/24 08:59 40 mg QDAY AJAY Administration Pharmacy Consult 1 each 08/13/24 09:00 Vancomycin Pharmacy To Dose 1 Each Each IV 09/12/24 08:59 QDAY PRN PROTOCOL Plan 73-year-old female with a past medical history of dementia, CVA (right-sided deficits), chronic G-tube, hyperthyroidism, hypertension, hyperlipidemia, and type 2 diabetes mellitus who presents from [facility] with fever and wheezing, found to be in neutropenic fever secondary to methimazole; Dr Hendrix (cd manufacturing supervisor) consulted for recommendations. #Neutropenic fever #Leukopenia #Sepsis secondary to pneumonia and/or UTI, less likely Patient was recently [place] to [place] [facility] and given clear instructions to stop taking Methimazole Apparently she was given methimazole at the facility which is at the highest suspicion for her neutropenia On admission patient complaining of wheezing and fever Admission vital and labs significant for fever 102 F and WBC 0.9 Chest x-ray indicative of possible left base pneumonia UA was positive for leukocyte esterase, pyuria and rare bacteriuria Patient did receive sepsis bolus in ED Cocci negative ANC ~ 120 on 08/13 Plan: Consulted cd manufacturing supervisor Dr. Hendrix for recommendations regarding neutropenic fever Continue Vanco and Zosyn IV Neutropenic isolation Canceled ID consult required at this time Blood cultures and urine cultures pending Acetaminophen for fevers > 100.4 F Follow-up with morning CBC #Normocytic anemia, chronic #Iron deficiency anemia versus anemia of chronic disease Patient has had low hemoglobin, between 8 and 9 since 2018 Last iron panel was from 03/2024 which showed decreased iron but preserved TIBC Patient initially presented with hemoglobin of 7.5 Currently up trended to 8.3 Plan: Repeat iron panel and ferritin Night team ordered FOBT but there are no signs of active bleeding at this time #Electrolyte imbalance Status post PEG tube placement due to CVA Plan: Glucerna 1.2 per PEG tube and 25 mL water flush every hour; holding until GI recs in Fluid restriction 1.5 L/day Replete electrolytes as needed Nutritional service consult, appreciate recommendations #History of hypertension On home amlodipine 10 mg Plan: Continue home medication #Hyperlipidemia #History of CVA w/ r-sided deficits On home Atorvastatin 40 mg GT HS Plan: Continue home medication #Type 2 diabetes mellitus, well controlled Last A1c of 5.2 (06/12/2024) On home Tradjenta 5mg Plan: [facility] Hospital management: Lines: PIV Diet: Glucerna 1.2 at 55 mL/h with 10 mL water flushes Bowel: Senna PRN GI prophylaxis: Not needed DVT prophylaxis: Subq heparin Disposition: Neutropenic fever with very low absolute neutrophil count Code: Full Patient seen and examined with attending Dr. Preciado and senior resident Dr. Amor Bhatt, PGY-1 Attending Provider Attestation/Addendum I have examined the patient, reviewed labs and imaging findings, discussed the case with the resident(s), and reviewed entered orders. I agree with the plan of care as outlined in this note, with these additional summaries/recommendations: Patient is a 73-year-old female with a medical history of CVA, bedbound & relatively nonverbal, status post PEG tube, osteoporosis, and recurrent UTIs who was admitted to [facility] for neutropenic Fever. # Drug-induced neutropenia and agranulocytosis # Neutropenic fever Most likely secondary to methimazole which was discontinued on previous admission although appears patient was receiving a prison Tmax 102 F Possible sources include UTI and pneumonia Urinalysis indicative of UTI and CXR showed early left base pneumonia No evidence of mucositis, line infection or vascular lesions No need for acyclovir at this time as no vascular lesions found No evidence of oral or other lesions suggestive of candidiasis and no need for fluconazole at this time, cocci ordered Urine and blood cultures ordered, follow-up results when available Consult in-house hematology/oncology for recommendations on giving Neupogen or G-CSF in this setting Continue IV Zosyn and vancomycin Daily hematology panel Neutropenic precautions # Hypotonic hypochloremic hyponatremia Chronic Volume status: Euvolemic on admission. DDx: Most likely secondary to SIADH vs extrarenal losses from Lasix Workup: urine osmolality pending, random urine sodium 53.5, Plan: Hyponatremia is chronic and has received extensive workup in the past. Continue fluid restriction. #Hyperthyroidism TSH 0.30 & Free T4 1.94. Hold all Thionamides and should be discontinued for life. Patient will need close follow-up with endocrinology #HFpEF Does not appear to be in acute exacerbation at this time. Previous Echo showed Estimated EF 60-65% Continue to monitor, F/U outpatient with cardiology # History of CVA # PEG tube # Dyslipidemia Dietary consulted and continue tube feeds. Patient is conserved with [facility]. Continue home atorvastatin. # Pressure ulcer: Continue wound care. Dr. Preciado
[2024-08-13 14:45] LABS: Cocci Serology, IgM Negative (Negative)
[2024-08-13] MEDS: SOD PHOS ADDITIVE 15 MMOL in SODIUM CHLORIDE 0.9% 250 ML 250 ML 62.5 MMOL IV (17:12)
--- NOTE | 2024-08-13 19:21 | PC.NURSE ---
Per BARRY Hamilton pt supposed to start feeding tube at dinner time but no available feeding pump, I called Dejon almazan a pump, she said she will look/find one. Will wait for the feeding pump and start pt on tube feeding once available.
--- NOTE | 2024-08-13 19:22 | PC.NURSE ---
MD made aware that pts WBD is 0.6, got an order for reverse isolation on pt.
[2024-08-14] VITALS (9 sets, daily range): BP systolic 99–139; BP diastolic 63–79; PULSE 89–102; RESP 20–94; TEMP 36.2–37.1; O2SAT 92–95
[2024-08-14] MEDS: PIPER/TAZO 3.375 GM 3.375 GM/50 ML BAG IV ×3 (05:04→21:08)
[2024-08-14] MEDS: INSULIN LISPRO (AdmeLOG) 1 UNIT/0.01 ML UNIT SC ×4 (05:11→23:28)
[2024-08-14 06:20] LABS: Basophils % (Auto) 0 % (0-2.5); Eosinophils % (Auto) 0 % (0-10); Immature Granulocytes % (Auto) 3 % (0-0); Immature Granulocytes Auto 0.02 Thou/mm3 (0.00-0.00); Lymphocytes # (Auto) 0.2 Thou/mm3 (1.0-4.8); Lymphocytes % (Auto) 19 % (10-50); Mean Corpuscular Hemoglobin 31.2 pg (25.0-35.0); Mean Corpuscular Volume 89 fL (80-100); Monocytes # (Auto) 0.4 Thou/mm3 (0.0-0.8); Monocytes % (Auto) 51 % (0-12); Neutrophils # (Auto) 0.2 Thou/mm3 (1.8-7.7); Neutrophils % (Auto) 27 % (37-80); Nucleated Red Blood Cell % 0 /100 WBC (0); Platelet Count 148 Thou/mm3 (140-440); RDW Standard Deviation 45.1 fL (36.4-46.3); Red Blood Count 2.47 Miln/mm3 (4.00-5.20)
[2024-08-14 06:31] LABS: Hemoglobin 7.7 g/dL (12.0-16.0); White Blood Count 0.8 Thou/mm3 (3.6-11.0)
[2024-08-14 06:34] LABS: Alanine Aminotransferase 42 U/L (10-49); Albumin, Serum 2.8 gm/dL (3.4-4.8); Albumin/Globulin Ratio 1.1 (1.2-2.2); Alkaline Phosphatase 137 U/L (46-116); Anion Gap 9 (7-16); Aspartate Amino Transferase 45 U/L (0-34); BUN/Creatinine Ratio 32 Ratio (12-20); Bilirubin,Total 0.4 mg/dL (0.3-1.2); Blood Urea Nitrogen 32 mg/dL (9-23); Calcium 7.9 mg/dL (8.3-10.6); Calcium (Corrected) 8.9 mg/dL (8.5-10.1); Carbon Dioxide 26.4 mMol/L (20.0-31.0); Chloride 95 mMol/L (98-107); Estimated Creatinine Clearance 46.7 mL/min (>60); Globulin 2.6 gm/dL (2.3-3.5); Glucose 171 mg/dL (74-106); Osmolality,Calculated 271 (275-295); Potassium 3.2 mMol/L (3.4-5.1); Sodium 130 mMol/L (136-145); Total Protein 5.4 gm/dL (5.7-8.2); eGFR > 60 See Note
[2024-08-14 07:05] LABS: Ferritin 372 ng/mL (7.3-270.7); Iron 21 mcg/dL (50-170); Percent Iron Saturation 12 % (20-55); Total Iron Binding Capacity 169 mcg/dL (250-425); Unsaturated Iron Binding 148 (225-295)
[2024-08-14 08:36] LABS: Phosphorous 4.2 mg/dL (2.4-5.1)
[2024-08-14] MEDS: PANTOPRAZOLE INJ 40 MG VIAL IVP (10:34)
[2024-08-14] MEDS: HEPARIN SOD INJ 5000 UNIT/ML VIAL SC ×2 (10:34→20:52)
[2024-08-14] MEDS: VANCOMYCIN/D5W 1,250 MG IVPB 250 ML 120 MG IV (10:35)
[2024-08-14] MEDS: POTASSIUM CHLORIDE 10% 20 MEQ/15 ML UDC 40 MEQ GT (11:50)
[2024-08-14] MEDS: SENNOSIDES SYRUP 8.8 MG/5 ML UDC GT (11:50)
--- NOTE | 2024-08-14 12:12 | ESPR_ITS ---
<Statement entered by Alta Chinchilla MD - 08/14/24 14:56> Patient seen and examined at bedside. Patient was tearful and bedside, insisting to go back to her home. Heme/Onc consulted and recommended to start Neupogen daily, with goal ANC to be around 2000 prior to discharge. Will continue with IV Abx for now for her neutropenic sepsis. Prior to discharge, will confirm with her facility about her current medications, especially stopping Methimazole. Continue with Glucerna for tube feeds. I discussed with and supervised the pr intern physician who took care of this patient. I personally saw and examined the patient and discussed the assessment and plan with the entire medicine team, including my attending , I agree with most of the assessment and plan as documented below Alta Chinchilla M.D. PGY-2 Documentation for date of: 08/14/24 Subjective Subjective Interval history: 08/14/2024: No acute overnight events to report. Patient seen and examined in hospital and remains at her baseline, denies having any concerning symptoms such as chest pain/tightness, generalized pain over shortness of breath. Patient states that she would like to go back to the facility if she can; however, she is still in isolation for neutropenic fever. Dr. Hendrix, hand striper, is following the patient and his recommendations are to start filgrastim until the patient's absolute neutrophil count is greater than 2000; patient's ANC is currently at around 250. Patient's blood cultures have no growth within 24 hours, urine cultures are yet to be sent as they need to be collected. Patient's iron panel came back and shows signs of anemia of chronic disease as ferritin is elevated and the patient has had anemia for several years now. Will continue to monitor closely for neutropenic fever and any status changes. Exam Vital Signs Temp Pulse Resp BP Pulse Ox O2 Del Method 97.2 F 98 20 111/63 94 L Room Air 08/14/24 08:00 08/14/24 09:49 08/14/24 09:49 08/14/24 08:00 08/14/24 09:49 08/14/24 08:00 Narrative Exam Physical Exam: GENERAL: Awake, responds to questions appropriately, developmental disorder, waxes and wanes in emotion HEENT: NC/AT. Moist mucosa. Does not follow commands for EOMI. PERRLA. CARDIO: Heart RRR, no obvious murmurs, no JVD. PULM: No coughing or visible SOB. Lungs CTA B/L. GI: Abdomen soft, NT/ND, +BS. PEG tube leaking contents, no erythema or purulent discharge noted. SKIN/MSK/EXT: No wounds/discoloration/rashes/edema/amputations noted. +Pedal pulses present B/L. NEURO: Oriented x1 (person). Unable to assess cranial nerves. Patient has right-sided deficit (no muscle strength or movement of both upper and lower extremities). Left hand fixed in extension, no contractures noted. Objective Labs 08/15/24 04:27 08/15/24 04:27 Labs: Laboratory Results - last 24 hr 08/13/24 08/14/24 07:58 04:38 WBC 0.8 L* RBC 2.47 L Hgb 7.7 L Hct 22.0 L MCV 89 MCH 31.2 MCHC 35.0 RDW Std Deviation 45.1 Plt Count 148 Neut % (Auto) 27 L Lymph % (Auto) 19 [place] % (Auto) 51 H Eos % (Auto) 0 Baso % (Auto) 0 Neut # (Auto) 0.2 L Lymph # (Auto) 0.2 L [place] # (Auto) 0.4 Eos # (Auto) 0.0 Baso # (Auto) 0.0 Immature Gran # (Auto) 0.02 H Absolute Nucleated RBC 0.00 Immature Gran % 3 H Nucleated RBC % 0 Sodium 130 L Potassium 3.2 L D Chloride 95 L Carbon Dioxide 26.4 Anion Gap 9 BUN 32 H Creatinine 1.0 Estim Creat Clear Calc 46.7 L eGFR > 60 BUN/Creatinine Ratio 32 H Glucose 171 H Calculated Osmolality 271 L Calcium 7.9 L Corrected Calcium 8.9 Phosphorus 4.2 Iron 21 L TIBC 169 L Iron Saturation 12 L Unsat Iron Binding 148 L Ferritin 372 H Total Bilirubin 0.5 0.4 AST 45 H ALT 42 Alkaline Phosphatase 137 H Total Protein 5.4 L Albumin 2.8 L Globulin 2.6 Albumin/Globulin Ratio 1.1 L Coccidioides IgM Ab Negative Quality Measures Quality Measures sepsis Current suspected stage: ruled out Possible source: pulmonary and genitourinary Blood cultures ordered: yes Antibiotic ordered: Yes Advance care planning discussed with:: other Assessment & Plan Assessment Current Active Medications: Generic Name Dose Route Start Last Admin Trade Name Noelq PRN Reason Stop Dose Admin Acetaminophen 650 mg 08/13/24 00:56 Acetaminophen 325 Mg Tablet PO 09/12/24 00:55 Q6H PRN Fever >101.5 Albuterol/Ipratropium 3 ml 08/13/24 00:56 08/13/24 01:25 Albuterol/Ipratropium (Duoneb) Rt Jelly 3 Ml Nebu INH 09/12/24 02:59 3 ml Q4HRRT PRN Administration wheezing Dextrose 25 ml 08/13/24 02:15 Dextrose 50%-Water Inj 50 Ml Syringe IV 09/12/24 02:14 Q15MIN PRN BG 50-70 responsive npo pt Dextrose 50 ml 08/13/24 02:15 Dextrose 50%-Water Inj 50 Ml Syringe IV 09/12/24 02:14 Q15MIN PRN BG <50 OR BG <70 & pt unresponsive Glucagon 1 mg 08/13/24 02:15 Glucagon Inj 1 Mg Vial IM Q15MIN PRN BG <70, and no IV access Heparin Sodium (Porcine) 5,000 unit 08/13/24 21:00 08/14/24 10:34 Heparin Sod Inj 5000 Unit/Ml Vial SC 08/27/24 20:59 5,000 unit BID AJAY Administration Piperacillin/Tazobactam/Dextrose 3.375 gm in 50 mls @ 12.5 mls/hr 08/13/24 06:00 08/14/24 05:04 Zosyn IV 08/20/24 05:59 12.5 mls/hr Q8HR AJAY Administration Vancomycin HCl/Dextrose 250 mls @ 120 mls/hr 08/13/24 10:00 08/14/24 10:35 Vancomycin/D5w 1,250 Mg Ivpb IV 08/20/24 09:59 120 mls/hr Q12H AJAY Administration Protocol Insulin Human Lispro 0 unit 08/14/24 00:00 08/14/24 05:11 Insulin Lispro (Admelog) 1 Unit/0.01 Ml Unit SC 09/13/24 00:00 2 unit Q6HR AJAY Administration Protocol Ondansetron HCl 4 mg 08/13/24 00:56 Ondansetron Inj 2 Mg/Ml Inj 2 Ml IV 09/12/24 00:55 Q6H PRN NAUSEA OR VOMITING Protocol Pantoprazole Sodium 40 mg 08/13/24 09:00 08/14/24 10:34 Pantoprazole Inj 40 Mg Vial IVP 09/12/24 08:59 40 mg QDAY AJAY Administration Pharmacy Consult 1 each 08/13/24 09:00 Vancomycin Pharmacy To Dose 1 Each Each IV 09/12/24 08:59 QDAY PRN PROTOCOL Sennosides 8.8 mg 08/14/24 09:00 08/14/24 11:50 Sennosides Syrup 8.8 Mg/5 Ml Udc GT 09/13/24 08:59 8.8 mg QDAY AJAY Administration Protocol Plan 73-year-old female with a past medical history of dementia, CVA (right-sided deficits), chronic G-tube, hyperthyroidism, hypertension, hyperlipidemia, and type 2 diabetes mellitus who presents from [facility] with fever and wheezing, found to be in neutropenic fever secondary to methimazole; Dr Hendrix (hand striper) consulted for recommendations. #Drug-induced Neutropenia #Neutropenic fever #Leukopenia #Sepsis secondary to pneumonia and/or UTI, less likely Patient [facility] and given clear instructions to stop taking Methimazole Apparently she was given methimazole at the facility which is at the highest suspicion for her neutropenia On admission patient complaining of wheezing and fever Admission vital and labs significant for fever 102 F and WBC 0.9 Chest x-ray indicative of possible left base pneumonia UA was positive for leukocyte esterase, pyuria and rare bacteriuria Patient did receive sepsis bolus in ED Cocci negative Blood cultures no growth 24hrs MRSA Nares positive ANC ~ 250 on 08/14 Plan: Will start patient on 480mg sq of Filgrastim (G-CSF) until ANC >[address] Hendrix for recommendations regarding neutropenic fever Continue Vanco and Zosyn IV Neutropenic isolation Urine cultures pending Acetaminophen for fevers > 100.4 F Follow-up with morning CBC #Normocytic anemia, chronic #Anemia of chronic disease Patient has had low hemoglobin, between 8 and 9 since 2018 Last iron panel was from 03/2024 which showed decreased iron but preserved TIBC Patient initially presented with hemoglobin of 7.5 Currently up trended to 8.3 Iron panel low except Ferritin High/normal Plan: Pending FOBT #Electrolyte imbalance Status post PEG tube placement due to CVA Plan: Glucerna 1.2 per PEG tube and 25 mL water flush every hour; holding until GI recs in Fluid restriction 1.5 L/day Replete electrolytes as needed Nutritional service consult, appreciate recommendations #History of hypertension On home amlodipine 10 mg Plan: Continue home medication #Hyperlipidemia #History of CVA w/ r-sided deficits On home Atorvastatin 40 mg GT HS Plan: Continue home medication #Type 2 diabetes mellitus, well controlled Last A1c of 5.2 (06/12/2024) On home Tradjenta 5mg Plan: [facility] Hospital management: Lines: PIV Diet: Glucerna 1.2 at 55 mL/h with 10 mL water flushes Bowel: Senna PRN GI prophylaxis: Not needed DVT prophylaxis: Subq heparin Disposition: Neutropenic fever with very low absolute neutrophil count Code: Full Patient seen and examined with attending Dr. Preciado and senior resident Dr. Amor Bhatt, PGY-1 Attending Provider Attestation/Addendum I have examined the patient, reviewed labs and imaging findings, discussed the case with the resident(s), and reviewed entered orders. I agree with the plan of care as outlined in this note, with these additional summaries/recommendations: Patient is a 73-year-old female with a medical history of CVA, bedbound & relatively nonverbal, status post PEG tube, osteoporosis, and recurrent UTIs who was admitted to [facility] for neutropenic Fever. # Drug-induced neutropenia and agranulocytosis # Neutropenic fever Most likely secondary to methimazole which was discontinued on previous admission although appears patient was receiving a [facility] Tmax 102 F Possible sources include UTI and pneumonia Urinalysis indicative of UTI and CXR showed early left base pneumonia No evidence of mucositis, line infection or vascular lesions No need for acyclovir at this time as no vascular lesions found No evidence of oral or other lesions suggestive of candidiasis and no need for fluconazole at this time, cocci ordered Urine and blood cultures ordered, follow-up results when available Consult in-house hematology/oncology for recommendations on giving Neupogen or G-CSF in this setting Continue IV Zosyn and vancomycin Daily hematology panel Neutropenic precautions # Hypotonic hypochloremic hyponatremia Chronic Volume status: Euvolemic on admission. DDx: Most likely secondary to SIADH vs extrarenal losses from Lasix Workup: urine osmolality pending, random urine sodium 53.5, Plan: Hyponatremia is chronic and has received extensive workup in the past. Continue fluid restriction. #Hyperthyroidism TSH 0.30 & Free T4 1.94. Hold all Thionamides and should be discontinued for life. Patient will need close follow-up with endocrinology #HFpEF Does not appear to be in acute exacerbation at this time. Previous Echo showed Estimated EF 60-65% Continue to monitor, F/U outpatient with cardiology # History of CVA # PEG tube # Dyslipidemia Dietary consulted and continue tube feeds. Patient is conserved with [facility]. Continue home atorvastatin. # Pressure ulcer: Continue wound care. Dr. Preciado
[2024-08-14 13:45] LABS: Lymphocytes (Manual) 42 % (20-44); Metamyelocytes (Manual) 2 % (0-0); Monocytes (Manual) 30 % (2-9); Neutrophils (Manual) 26 % (50-70)
--- NOTE | 2024-08-14 13:58 | PC.SS ---
SENIOR RESERVATIONS AGENT met with pt at bedside but pt stated that her care team would respond to any questions that I had. SENIOR RESERVATIONS AGENT called Larissa Blanco [phone] from [facility] in [place] to ask assessment questions. Larissa stated that pt can not complete her ADL's and needs assistance from her care team. Pt uses wheel chair and sangeetha lift as a form of DME, and pt is diabetic. Pt's choice of pharmacy is [facility] in [place], and PCP is Dr. Alva and see's Dr. Steiner for Urology. If needed SNF care team would like to speak to social media job titles about options.
[2024-08-14] MEDS: FILGRASTIM INJ (ZARXIO) 300 MCG/0.5 ML SYRINGE SC (14:41)
[2024-08-14 15:53] LABS: Cocci Serology, IgG Negative (Negative)
--- NOTE | 2024-08-14 16:38 | ESCONSULT_ITS ---
RE: ARIELLE FITZGERALD : 1950 DATE OF CONSULTATION: 08/14/2024 REFERRING PHYSICIAN: Mario Bhatt DO REASON FOR CONSULTATION: 1. Gerry sepsis. 2. Neutropenia/anemia. HISTORY OF PRESENT ILLNESS: Mrs. Fitzgerald is a 73-year-old female with a history of dementia, CVA with right-sided deficit, chronic G-tube, hyperparathyroidism, hypertension, type 2 diabetes mellitus who was brought to the senior care because of the wheezing and with low-grade fever. The patient was in the hospital on 07/31/2024 for UTI. During her last visit, the patient was found to have leukopenia and was attributed to methimazole. The patient was to have methimazole discontinued. She was accompanied by a caregiver at this time. As noted from the record that the patient's mentation is at the baseline, but it was observed to be more demanding than usual that morning of the admission. There was no cough, nausea, vomiting, diarrhea, abdominal pain or other associated symptoms. In emergency room, she was found to have and febrile with temperature of 100.8, which was trended to 102. Her WBC was 0.9. Hemoglobin 7.5, hematocrit was 21.2 with MCV of 87. Sodium was 122, chloride was 88, BUN was 42, glucose was 242. Urine found to have a leukocyte esterase positive, 33 wbc's, and rare bacteria. Chest x-ray indicated early left base pneumonia in the patient because of this neutropenia this consultation is obtained. Most of the information is gathered through the record and is very well documented. PAST MEDICAL HISTORY: As mentioned above. No information regarding any kind of surgery except the G-tube placement. No other information is available. SOCIAL HISTORY: Resident of senior care. FAMILY HISTORY: No information. ALLERGIES: NOT KNOWN. PHYSICAL EXAMINATION: GENERAL: She is alert, nonverbal. VITAL SIGNS: He is afebrile. Vitals stable at the moment. HEENT: Pupils are reactive to light and accommodation. Sclerae nonicteric. NECK: Supple. There is no JVD or palpable mass. LUNGS: There is good air entry bilaterally. They are clear to auscultation and percussion. HEART: Regular. ABDOMEN: Soft. Bowel sounds are present. EXTREMITIES: 3+ pedal pulses. There is no cyanosis. CENTRAL NERVOUS SYSTEM: The patient is able to move and follow simple commands, but she has right-sided deficit because of CVA. LABORATORY DATA: Her blood work done today has WBC count of 0.8, hemoglobin 7.7, hematocrit of 22.0 with normal indices, and platelet count is 148,000, neutrophil count is 27%, lymphocyte count is 19% and monocyte count is 51%. On 07/31/2024, WBC of 6.5, hemoglobin is 8.0, hematocrit 22.7 and platelet count at that time was 127,000. No reticulocyte count is available. Her sodium is 130 today, potassium 3.2, chloride is 95, BUN is 32, creatinine 1, and GFR is more than 60. Corrected calcium is 8.9, phosphorus is 4.2. Serum iron is 21. So she has iron deficiency and she should be on iron supplement. Ferritin was 43410. AST is mildly elevated and alkaline phosphatase is 137, which is also elevated. TSH is 0.22, which is low, agree with your present plan of treatment. ASSESSMENT AND PLAN: The patient's should be on G-CSF stimulating factor 480 mcg subcutaneous should be started if not and then one can monitor her neutrophil count. It is reasonable to cover her with a gram-negative and positive organism and hopefully her blood counts were revert back to normal and I will suggest that they should discontinue methimazole. They can have treatment for hyperthyroidism then should consider radioactive iodine treatment. I will follow this patient with you and make the suggestion recommendation accordingly. I thank you, Dr. Mario Bhatt for letting me participate in the care of this interesting patient. If you have any questions, please feel free to contact me. DT: 13:23:00 TT: 16:32:00 Ref: [id number] - TID: [id number] MTDD
[2024-08-14 21:23] LABS: Vancomycin,Trough 34.2 mcg/mL (5.0-10.0)
[2024-08-15] VITALS (11 sets, daily range): BP systolic 111–134; BP diastolic 62–77; PULSE 76–102; RESP 17–97; TEMP 36.3–36.6; O2SAT 90–97
[2024-08-15] MEDS: PIPER/TAZO 3.375 GM 3.375 GM/50 ML BAG IV ×3 (05:07→21:13)
[2024-08-15] MEDS: INSULIN LISPRO (AdmeLOG) 1 UNIT/0.01 ML UNIT SC ×4 (05:18→23:40)
[2024-08-15 06:00] LABS: Basophils % (Auto) 1 % (0-2.5); Eosinophils % (Auto) 2 % (0-10); Hematocrit 22.6 % (36.0-46.0); Immature Granulocytes % (Auto) 8 % (0-0); Immature Granulocytes Auto 0.23 Thou/mm3 (0.00-0.00); Lymphocytes # (Auto) 0.4 Thou/mm3 (1.0-4.8); Lymphocytes % (Auto) 14 % (10-50); Mean Corpuscular HGB Conc 33.6 g/dl (31.0-37.0); Mean Corpuscular Hemoglobin 30.5 pg (25.0-35.0); Mean Corpuscular Volume 91 fL (80-100); Monocytes # (Auto) 0.6 Thou/mm3 (0.0-0.8); Monocytes % (Auto) 22 % (0-12); Neutrophils # (Auto) 1.5 Thou/mm3 (1.8-7.7); Neutrophils % (Auto) 54 % (37-80); Nucleated Red Blood Cell % 0 /100 WBC (0); Platelet Count 178 Thou/mm3 (140-440); Red Blood Count 2.49 Miln/mm3 (4.00-5.20)
[2024-08-15 06:04] LABS: Hemoglobin 7.6 g/dL (12.0-16.0)
[2024-08-15 06:05] LABS: White Blood Count 2.8 Thou/mm3 (3.6-11.0)
[2024-08-15 06:39] LABS: OBS Card Lot # 22002; OBS Developer Lot # 23002; OBS Performed By gundc2; OBS QC OK? Yes; Occult Blood, Stool Negative (Negative)
[2024-08-15 07:06] LABS: Alanine Aminotransferase 37 U/L (10-49); Albumin, Serum 2.8 gm/dL (3.4-4.8); Alkaline Phosphatase 148 U/L (46-116); Anion Gap 8 (7-16); Aspartate Amino Transferase < 10 U/L (0-34); BUN/Creatinine Ratio 35 Ratio (12-20); Bilirubin,Total 0.4 mg/dL (0.3-1.2); Blood Urea Nitrogen 35 mg/dL (9-23); Calcium 8.5 mg/dL (8.3-10.6); Calcium (Corrected) 9.5 mg/dL (8.5-10.1); Carbon Dioxide 27.6 mMol/L (20.0-31.0); Chloride 97 mMol/L (98-107); Estimated Creatinine Clearance 46.9 mL/min (>60); Globulin 2.7 gm/dL (2.3-3.5); Glucose 196 mg/dL (74-106); Osmolality,Calculated 279 (275-295); Potassium 3.6 mMol/L (3.4-5.1); Sodium 133 mMol/L (136-145); Total Protein 5.5 gm/dL (5.7-8.2); Vancomycin,Random 28.6 mcg/mL; eGFR > 60 See Note
[2024-08-15] MEDS: HEPARIN SOD INJ 5000 UNIT/ML VIAL SC ×2 (09:10→20:41)
[2024-08-15] MEDS: POTASSIUM CHLORIDE 10% 20 MEQ/15 ML UDC 40 MEQ GT (09:11)
[2024-08-15] MEDS: PANTOPRAZOLE INJ 40 MG VIAL IVP (09:11)
[2024-08-15 09:57] LABS: Magnesium 2.8 mg/dL (1.6-2.6)
[2024-08-15] MEDS: FILGRASTIM INJ (ZARXIO) 300 MCG/0.5 ML SYRINGE SC (10:13)
--- NOTE | 2024-08-15 11:49 | ESPR_ITS ---
<Statement entered by Alta Chinchilla MD - 08/15/24 22:48> I discussed with and supervised the data analysis intern physician who took care of this patient. I personally saw and examined the patient and discussed the assessment and plan with the entire medicine team, including my attending Dr. Preciado, I agree with most of the assessment and plan as documented below Alta Chinchilla M.D. PGY-2 Documentation for date of: 08/15/24 Subjective Subjective Interval history: 08/15/2024: No acute overnight events to report. Patient seen and examined in hospital bed remains at her baseline. Patient's absolute neutrophil count has increased to greater than 1500 on Filgrastim 300 mg instead of the 480 which was recommended but we currently do not have that in stock in the pharmacy. Patient was given an additional dose of filgrastim and we will monitor her absolute neutrophil count with morning labs. Patient remains on IV antibiotics and urine cultures are pending at this time; blood cultures also repeated as one of the bottles/vials positive for gram-positive cocci. Patient's status remains stable; likely discharge on 08/[address] Exam Vital Signs Temp Pulse Resp BP Pulse Ox O2 Del Method 97.8 F 85 18 115/77 96 Room Air 08/15/24 08:00 08/15/24 08:00 08/15/24 08:00 08/15/24 08:00 08/15/24 08:00 08/15/24 08:00 Narrative Exam Physical Exam: GENERAL: Awake, responds to questions appropriately, developmental disorder, waxes and wanes in emotion HEENT: NC/AT. Moist mucosa. Does not follow commands for EOMI. PERRLA. CARDIO: Heart RRR, no obvious murmurs, no JVD. PULM: No coughing or visible SOB. Lungs CTA B/L. GI: Abdomen soft, NT/ND, +BS. PEG tube leaking contents, no erythema or purulent discharge noted. SKIN/MSK/EXT: No wounds/discoloration/rashes/edema/amputations noted. +Pedal pulses present B/L. NEURO: Oriented x1 (person). Unable to assess cranial nerves. Patient has right-sided deficit (no muscle strength or movement of both upper and lower extremities). Left hand fixed in extension, no contractures noted. Objective Labs 08/15/24 04:27 08/15/24 04:27 Labs: Laboratory Results - last 24 hr 08/13/24 08/14/24 08/14/24 07:58 04:38 20:00 WBC RBC Hgb Hct MCV MCH MCHC RDW Std Deviation Plt Count Neut % (Auto) Lymph % (Auto) Traverse % (Auto) Eos % (Auto) Baso % (Auto) Neut # (Auto) Lymph # (Auto) Traverse # (Auto) Eos # (Auto) Baso # (Auto) Immature Gran # (Auto) Absolute Nucleated RBC Immature Gran % Neutrophils % (Manual) 26 L Monocytes % (Manual) 30 H Metamyelocytes % 2 H Nucleated RBC % Lymphocytes (Manual) 42 Sodium Potassium Chloride Carbon Dioxide Anion Gap BUN Creatinine Estim Creat Clear Calc eGFR BUN/Creatinine Ratio Glucose Calculated Osmolality Calcium Corrected Calcium Magnesium Total Bilirubin AST ALT Alkaline Phosphatase Total Protein Albumin Globulin Albumin/Globulin Ratio Stool Occult Blood Negative Vancomycin Trough Random Vancomycin Coccidioides IgG Ab Negative 08/14/24 08/15/24 20:52 04:27 WBC 2.8 L D RBC 2.49 L Hgb 7.6 L Hct 22.6 L MCV 91 MCH 30.5 MCHC 33.6 RDW Std Deviation 47.0 H Plt Count 178 D Neut % (Auto) 54 Lymph % (Auto) 14 Traverse % (Auto) 22 H Eos % (Auto) 2 Baso % (Auto) 1 Neut # (Auto) 1.5 L Lymph # (Auto) 0.4 L Traverse # (Auto) 0.6 Eos # (Auto) 0.0 Baso # (Auto) 0.0 Immature Gran # (Auto) 0.23 H Absolute Nucleated RBC 0.00 Immature Gran % 8 H Neutrophils % (Manual) Monocytes % (Manual) Metamyelocytes % Nucleated RBC % 0 Lymphocytes (Manual) Sodium 133 L Potassium 3.6 Chloride 97 L Carbon Dioxide 27.6 Anion Gap 8 BUN 35 H Creatinine 1.0 Estim Creat Clear Calc 46.9 L eGFR > 60 BUN/Creatinine Ratio 35 H Glucose 196 H Calculated Osmolality 279 Calcium 8.5 Corrected Calcium 9.5 Magnesium 2.8 H Total Bilirubin 0.4 AST < 10 ALT 37 Alkaline Phosphatase 148 H Total Protein 5.5 L Albumin 2.8 L Globulin 2.7 Albumin/Globulin Ratio 1.0 L Stool Occult Blood Vancomycin Trough 34.2 H* Random Vancomycin 28.6 Coccidioides IgG Ab Quality Measures Quality Measures sepsis Current suspected stage: ruled out Possible source: pulmonary and genitourinary Blood cultures ordered: yes Antibiotic ordered: Yes Advance care planning discussed with:: other Assessment & Plan Assessment Current Active Medications: Generic Name Dose Route Start Last Admin Trade Name Freq PRN Reason Stop Dose Admin Acetaminophen 650 mg 08/13/24 00:56 Acetaminophen 325 Mg Tablet PO 09/12/24 00:55 Q6H PRN Fever >101.5 Albuterol/Ipratropium 3 ml 08/13/24 00:56 08/13/24 01:25 Albuterol/Ipratropium (Duoneb) Rt Jelly 3 Ml Nebu INH 09/12/24 02:59 3 ml Q4HRRT PRN Administration wheezing Dextrose 25 ml 08/13/24 02:15 Dextrose 50%-Water Inj 50 Ml Syringe IV 09/12/24 02:14 Q15MIN PRN BG 50-70 responsive npo pt Dextrose 50 ml 08/13/24 02:15 Dextrose 50%-Water Inj 50 Ml Syringe IV 09/12/24 02:14 Q15MIN PRN BG <50 OR BG <70 & pt unresponsive Glucagon 1 mg 08/13/24 02:15 Glucagon Inj 1 Mg Vial IM Q15MIN PRN BG <70, and no IV access Heparin Sodium (Porcine) 5,000 unit 08/13/24 21:00 08/15/24 09:10 Heparin Sod Inj 5000 Unit/Ml Vial SC 08/27/24 20:59 5,000 unit BID AJAY Administration Piperacillin/Tazobactam/Dextrose 3.375 gm in 50 mls @ 12.5 mls/hr 08/13/24 06:00 08/15/24 05:07 Zosyn IV 08/20/24 05:59 12.5 mls/hr Q8HR AJAY Administration Insulin Human Lispro 0 unit 08/14/24 00:00 08/15/24 05:18 Insulin Lispro (Admelog) 1 Unit/0.01 Ml Unit SC 09/13/24 00:00 2 unit Q6HR AJAY Administration Protocol Ondansetron HCl 4 mg 08/13/24 00:56 Ondansetron Inj 2 Mg/Ml Inj 2 Ml IV 09/12/24 00:55 Q6H PRN NAUSEA OR VOMITING Protocol Pantoprazole Sodium 40 mg 08/13/24 09:00 08/15/24 09:11 Pantoprazole Inj 40 Mg Vial IVP 09/12/24 08:59 40 mg QDAY AJAY Administration Pharmacy Consult 1 each 08/13/24 09:00 Vancomycin Pharmacy To Dose 1 Each Each IV 09/12/24 08:59 QDAY PRN PROTOCOL Plan 73-year-old female with a past medical history of dementia, CVA (right-sided deficits), chronic G-tube, hyperthyroidism, hypertension, hyperlipidemia, and type 2 diabetes mellitus who presents from [facility] with fever and wheezing, found to be in neutropenic fever secondary to methimazole; Dr Hendrix (cured meat packing supervisor) consulted for recommendations. #Drug-induced Neutropenia #Neutropenic fever #Leukopenia #Sepsis secondary to pneumonia and/or UTI, less likely #GPC Cocci from Aerobic Bottle x1 Patient was recently discharged to long term and given clear instructions to stop taking Methimazole Apparently she was given methimazole at the facility which is at the highest suspicion for her neutropenia On admission patient complaining of wheezing and fever Admission vital and labs significant for fever 102 F and WBC 0.9 Chest x-ray indicative of possible left base pneumonia UA was positive for leukocyte esterase, pyuria and rare bacteriuria Patient did receive sepsis bolus in ED Cocci negative Blood cultures aerobic bottle grew GPC; 1/4 vials positive MRSA Nares positive ANC ~ 1500 on 08/15 Plan: Repeat blood cultures ordered Patient given 300 mg subcu Filgrastim as 480 mg dosage have been run out Consulted cured meat packing supervisor Dr. Hendrix for recommendations regarding neutropenic fever Continue Vanco and Zosyn IV Neutropenic isolation discontinued Urine cultures pending Acetaminophen for fevers > 100.4 F Follow-up with morning CBC #Normocytic anemia, chronic #Anemia of chronic disease Patient has had low hemoglobin, between 8 and 9 since 2019 Last iron panel was from 03/2024 which showed decreased iron but preserved TIBC Patient initially presented with hemoglobin of 7.5 Currently up trended to 8.3 Iron panel low except Ferritin High/normal FOBT negative Plan: Follow-up outpatient for chronic anemia; cured meat packing supervisor referral warranted #Electrolyte imbalance Status post PEG tube placement due to CVA Plan: Glucerna 1.2 per PEG tube and 25 mL water flush every hour; holding until GI recs in Fluid restriction 1.5 L/day Replete electrolytes as needed Nutritional service consult, appreciate recommendations #History of hypertension On home amlodipine 10 mg Plan: Continue home medication #Hyperlipidemia #History of CVA w/ r-sided deficits On home Atorvastatin 40 mg GT HS Plan: Continue home medication #Type 2 diabetes mellitus, well controlled Last A1c of 5.2 (06/12/2024) On home Tradjenta 5mg Plan: [facility] Hospital management: Lines: PIV Diet: Glucerna 1.2 at 55 mL/h with 10 mL water flushes Bowel: Senna PRN GI prophylaxis: Not needed DVT prophylaxis: Subq heparin Disposition: ANC Target >2000 Code: Full Patient seen and examined with attending Dr. Preciado and senior resident Dr. Amor Bhatt, PGY-1 Attending Provider Attestation/Addendum I have examined the patient, reviewed labs and imaging findings, discussed the case with the resident(s), and reviewed entered orders. I agree with the plan of care as outlined in this note, with these additional summaries/recommendations: Patient is a 73-year-old female with a medical history of CVA, bedbound & relatively nonverbal, status post PEG tube, osteoporosis, and recurrent UTIs who was admitted to [facility] for neutropenic Fever. # Drug-induced neutropenia and agranulocytosis # Neutropenic fever Most likely secondary to methimazole which was discontinued on previous admission although appears patient was receiving a shelter Tmax 102 F Possible sources include UTI and pneumonia Urinalysis indicative of UTI and CXR showed early left base pneumonia No evidence of mucositis, line infection or vascular lesions No need for acyclovir at this time as no vascular lesions found No evidence of oral or other lesions suggestive of candidiasis and no need for fluconazole at this time, cocci ordered Urine and blood cultures ordered, follow-up results when available Consult in-house hematology/oncology for recommendations on giving Neupogen or G-CSF in this setting Continue IV Zosyn and vancomycin Daily hematology panel Neutropenic precautions Plan: Continue IV antibiotics for now until urine culture results available. Of note 1 aerobic bottle did grow GPC although low suspicion for bacteremia and likely contamination. We will repeat blood cultures given patient is here for neutropenic fever and likely can be discharged if returned negative # Hypotonic hypochloremic hyponatremia Chronic Volume status: Euvolemic on admission. DDx: Most likely secondary to SIADH vs extrarenal losses from Lasix Workup: urine osmolality pending, random urine sodium 53.5, Plan: Hyponatremia is chronic and has received extensive workup in the past. Continue fluid restriction. #Hyperthyroidism TSH 0.30 & Free T4 1.94. Hold all Thionamides and should be discontinued for life. Patient will need close follow-up with endocrinology #HFpEF Does not appear to be in acute exacerbation at this time. Previous Echo showed Estimated EF 60-65% Continue to monitor, F/U outpatient with cardiology # History of CVA # PEG tube # Dyslipidemia Dietary consulted and continue tube feeds. Patient is conserved with [facility]. Continue home atorvastatin. # Pressure ulcer: Continue wound care. Dr. Preciado
--- NOTE | 2024-08-15 14:29 | PC.SS ---
Addendum entered by RIOS Willams 08/15/24 14:36: [facility] contact for medical decision making is Sharron Carrasquillo . Addendum entered by RIOS Willams 08/15/24 14:30: Contacted Larissa Francis [phone], she informs patient is not conserved however is followed by [facility] for medical decision making. Larissa informs she will call back with contact information. Original Note: Rounding note: pending cultures, attending requesting next of kin for the patient.
--- NOTE | 2024-08-15 17:13 | ESPR_ITS ---
RE: ARIELLE FITZGERALD : 1950 DATE OF SERVICE: 08/15/2024 SUBJECTIVE: Mrs. Fitzgerald is a 73-year-old female admitted to the hospital because of sepsis and neutropenia. She also has a history of CVA. OBJECTIVE: General: She is alert, nonverbal. Vital Signs: She is afebrile, vitals stable. Heent: Pupils are reactive to light and accommodation. Sclerae nonicteric. Neck: Supple. There is no JVD or palpable mass. Lungs: There is good air entry bilaterally. They are clear to auscultation. Heart: Regular. Abdomen: Soft. Bowel sounds are present. Extremities: 3+ pedal pulses. Biomedical Scientist: The patient is able to move her extremities. The patient follows very simple commands, but she has right-sided sequelae from CVA. Her blood work today, WBC count of 2.8, hemoglobin 7.6, hematocrit of 22.6, platelet count 178,000, neutrophil count is 54%, lymphocyte count of 14% and monocyte count is 22%. Neutrophil count is improving and hopefully they will stop her parathyroid medication and may switch to something different. DT: 16:47:06 TT: 17:12:00 Ref: [id number] - TID: [id number]
[2024-08-16] VITALS (8 sets, daily range): BP systolic 121–135; BP diastolic 63–81; PULSE 77–90; RESP 18–22; TEMP 36.1–36.6; O2SAT 92–96; BMI 30.4
[2024-08-16] MEDS: INSULIN LISPRO (AdmeLOG) 1 UNIT/0.01 ML UNIT SC ×2 (05:04→11:32)
[2024-08-16] MEDS: PIPER/TAZO 3.375 GM 3.375 GM/50 ML BAG IV ×2 (05:04→13:01)
[2024-08-16 06:54] LABS: Basophils % (Auto) 0 % (0-2.5); Eosinophils # (Auto) 0.1 Thou/mm3 (0.0-0.5); Eosinophils % (Auto) 1 % (0-10); Hematocrit 25.8 % (36.0-46.0); Immature Granulocytes % (Auto) 16 % (0-0); Immature Granulocytes Auto 2.32 Thou/mm3 (0.00-0.00); Lymphocytes # (Auto) 0.9 Thou/mm3 (1.0-4.8); Lymphocytes % (Auto) 6 % (10-50); Mean Corpuscular HGB Conc 32.6 g/dl (31.0-37.0); Mean Corpuscular Hemoglobin 30.4 pg (25.0-35.0); Mean Corpuscular Volume 94 fL (80-100); Monocytes # (Auto) 0.7 Thou/mm3 (0.0-0.8); Monocytes % (Auto) 5 % (0-12); Neutrophils # (Auto) 10.2 Thou/mm3 (1.8-7.7); Neutrophils % (Auto) 72 % (37-80); Nucleated Red Blood Cell # 0.03 Thou/mm3 (0.00-0.00); Nucleated Red Blood Cell % 0 /100 WBC (0); Platelet Count 190 Thou/mm3 (140-440); RDW Standard Deviation 48.7 fL (36.4-46.3); Red Blood Count 2.76 Miln/mm3 (4.00-5.20); White Blood Count 14.2 Thou/mm3 (3.6-11.0)
[2024-08-16 07:10] LABS: Alanine Aminotransferase 35 U/L (10-49); Albumin, Serum 2.9 gm/dL (3.4-4.8); Alkaline Phosphatase 152 U/L (46-116); Anion Gap 8 (7-16); Aspartate Amino Transferase 26 U/L (0-34); BUN/Creatinine Ratio 34 Ratio (12-20); Bilirubin,Total 0.5 mg/dL (0.3-1.2); Blood Urea Nitrogen 34 mg/dL (9-23); Calcium (Corrected) 9.9 mg/dL (8.5-10.1); Chloride 100 mMol/L (98-107); Estimated Creatinine Clearance 47.8 mL/min (>60); Globulin 2.9 gm/dL (2.3-3.5); Glucose 197 mg/dL (74-106); Osmolality,Calculated 284 (275-295); Potassium 4.2 mMol/L (3.4-5.1); Sodium 136 mMol/L (136-145); Total Protein 5.8 gm/dL (5.7-8.2); eGFR > 60 See Note
[2024-08-16 07:12] LABS: Hemoglobin 8.4 g/dL (12.0-16.0)
--- NOTE | 2024-08-16 07:43 | PC.NURSE ---
Pt. Lab WBC came back 14.2. Dr. Bhatt notified and no new orders receive.
[2024-08-16] MEDS: PANTOPRAZOLE INJ 40 MG VIAL IVP (09:15)
[2024-08-16] MEDS: HEPARIN SOD INJ 5000 UNIT/ML VIAL SC (09:15)
[2024-08-16] MEDS: VANCOMYCIN/NS 1 GM IVPB 200 ML IV (09:16)
[2024-08-16 10:10] LABS: Band Neutrophils (Manual) 20 % (0-6); Eosinophils (Manual) 1 % (0-4); Lymphocytes (Manual) 6 % (20-44); Metamyelocytes (Manual) 2 % (0-0); Monocytes (Manual) 4 % (2-9); Myelocytes (Manual) 3 % (0-0); Neutrophils (Manual) 63 % (50-70)
[2024-08-16 10:37] LABS: Path Review Blood Smear Sent to Pathologist
--- NOTE | 2024-08-16 13:50 | ESDS_ITS ---
Planned Discharge Date 08/16/24 DS: Providers Provider Date of admission: 08/13/24 00:56 Primary care physician: Justin Alva MD Admitting Provider: Braxton Gibson MD Attending Provider on Admission: Gallo Abad DO Consults: 08/13/24 02:23 Referral Registered Dietitian Routine Comment: PEG feed 08/13/24 10:15 Consult to Hematology Routine Comment: Neutropenic fever Consulting Provider: Link Hendrix Attending Provider on DC: Mario Bhatt MD Discharging Provider: Mario Bhatt MD DS: Diagnosis Problem List Completed Was Problem List Reviewed/Reconciled?: Yes Hospital Course Hospital Course Hospital course: 73-year-old female with past medical history of dementia, CVA with right-sided deficit, chronic G-tube, HFpEF, hyperthyroidism, DM 2, hyperlipidemia presented from [facility] ([facility]) for wheezing and low-grade fever. Patient was recently admitted at [facility] on 07/31 for sepsis secondary to UTI; on discharge was told to discontinue methimazole which had started causing agranulocytosis. Patient presented to the ED on 08/12 with neutropenic fever with initial ANC of 0; thus, was put on neutropenic precautions and started on IV antibiotics. [employer] Worker, Dr. Hendrix, was consulted and provide recommendations. Patient started on Filgrastim (G-CSF) and gradually made improvements in absolute neutrophil count. Patient's blood and urine cultures were repeated and did not have any growth. Patient returned to her baseline and will be discharged with strict instructions highlighted below. Stop taking Methimazole (thyroid medication), as this can cause low white blood cell count and lead to increased risk of infections Please follow-up with your PCP within 1 week Ask your doctor to repeat CBC to monitor WBC count Ask your PCP for a scene painter referral for chronic anemia If you develop new or worsening fever, shortness of breath, chest pain or dizziness, please come back to the ED immediately Hospital Diagnosis: #Drug-induced Neutropenia #Neutropenic fever #Leukopenia #Sepsis secondary to pneumonia and/or UTI, less likely #GPC Cocci from Aerobic Bottle x1 #Normocytic anemia, chronic #Anemia of chronic disease #Electrolyte imbalance #Hypertension #Hyperlipidemia #History of CVA w/ r-sided deficits #Type 2 diabetes mellitus, well controlled Mario Bhatt, PGY-1 Status at Discharge Overall status at discharge: patient is progressing back to baseline Time Spent with Patient Time attestation: Total time spent providing and/or coordinating discharge services: 45 minutes Time spent: Greater than 30 minutes Exam Vital Signs Temp Pulse Resp BP Pulse Ox O2 Del Method 97.1 F 81 18 127/81 95 Room Air 08/16/24 12:22 08/16/24 12:22 08/16/24 12:22 08/16/24 12:22 08/16/24 12:22 08/16/24 11:45 Narrative Exam Physical Exam: GENERAL: Awake, responds to questions appropriately, developmental disorder, waxes and wanes in emotion HEENT: NC/AT. Moist mucosa. Does not follow commands for EOMI. PERRLA. CARDIO: Heart RRR, no obvious murmurs, no JVD. PULM: No coughing or visible SOB. Lungs CTA B/L. GI: Abdomen soft, NT/ND, +BS. PEG site intact, no erythema or purulent discharge noted. SKIN/MSK/EXT: No wounds/discoloration/rashes/edema/amputations noted. +Pedal pulses present B/L. NEURO: Oriented x1 (person). Unable to assess cranial nerves. Patient has right-sided deficit (no muscle strength or movement of both upper and lower extremities). Left hand fixed in extension. Discharge Plan Plan Patient Disposition: HOME (Self Care) Prescriptions/Referrals Prescriptions/Med Rec: No Action sennosides [senna] 8.6 mg tablet 8.6 mg feeding tube BID acetaminophen 325 mg Tablet 650 mg feeding tube Q4H PRN (Reason: Pain) bisacodyl 10 mg Suppository 10 mg WA PRN PRN (Reason: Constipation) Tradjenta 5 mg tablet 5 mg feeding tube QDAY atorvastatin 40 mg Tablet 40 mg feeding tube HS furosemide 20 mg Tablet 20 mg feeding tube QDAY PRN (Reason: Edema) polyethylene glycol 3350 [Miralax] 17 gram/dose Powder 17 g feeding tube QDAY PRN (Reason: Constipation) sertraline [Zoloft] 50 mg Tablet 50 mg feeding tube QDAY amlodipine 10 mg tablet 10 mg feeding tube QDAY 30 Days Qty: 30 0RF omeprazole 40 mg Capsule,Delayed Release(Dr/Ec) 40 mg PO QPM clotrimazole 1 % Cream 1 applic TOPICAL BID Rx Instructions: Apply to all toenails for nail fungus. Referrals: Justin Alva MD [Primary Care Provider] - Patient/Caregiver Discharge Instructions Other Discharge Activity Instructions:: Stop taking Methimazole (thyroid medication), as this can cause low white blood cell count and lead to increased risk of infections Please follow-up with your PCP within 1 week Ask your doctor to repeat CBC to monitor WBC count Ask your PCP for a scene painter referral for chronic anemia If you develop new or worsening fever, shortness of breath, chest pain or dizziness, please come back to the ED immediately Education Materials: Understanding Urinary Tract ..., Understanding Sepsis Print Language: Setswana Stand Alone Forms: Ema Award Info., Patient Portal Info Letter Discharge Order Discharge Orders: Discharge (Routine); Ordered 08/16/24 Ordered By: Mario Bhatt Quality Discharge Quality Measures VTE prophylaxis MD Attestestation MD Attestation I have discussed and was present for the essential components of the discharge history, physical examination, diagnosis, and discharge treatment plan with the resident. I agree with the patient's discharge care as documented by the resident and amended herein by me. Kyle Abad, . The patient understood all discharge instructions, all questions were answered satisfactorily. The patient was instructed to return to the Emergency Department is symptoms worsened or persisted. Although this document has been carefully reviewed, there may still be some phonetic and other typographical errors. These errors are purely grammatical due to imperfections in the software program and should not be construed in any way to compromise the substance of the patient's medical care during this visit.
== END 2024-08-16 15:50 | disposition home or self-care (01) | DRG 871 ==
LOC: SERX 08-13 01:04 → SERHOLD 08-13 01:26 → S3NX 08-13 03:45
PROVIDERS: Internal Medicine; Student in an Organized Health Care Education/Training Program; Admitting Provider Student in an Organized Health Care Education/Training Program; Emergency Provider Emergency Medicine; PCP Hospitalist; Visit Provider Student in an Organized Health Care Education/Training Program
DX: A41.9 Sepsis, unspecified organism (principal); J18.9 Pneumonia, unspecified organism; N39.0 Urinary tract infection, site not specified; I50.32 Chronic diastolic (congestive) heart failure; I69.351 Hemiplegia and hemiparesis following cerebral infarction affecting right dominant side; E87.1 Hypo-osmolality and hyponatremia; F03.90 Unspecified dementia, unspecified severity, without behavioral disturbance, psychotic disturbance, mood disturbance, and anxiety; I11.0 Hypertensive heart disease with heart failure; E03.9 Hypothyroidism, unspecified; E11.9 Type 2 diabetes mellitus without complications; E78.5 Hyperlipidemia, unspecified; E87.8 Other disorders of electrolyte and fluid balance, not elsewhere classified; I95.9 Hypotension, unspecified; D70.2 Other drug-induced agranulocytosis; M81.0 Age-related osteoporosis without current pathological fracture; D64.9 Anemia, unspecified; E05.90 Thyrotoxicosis, unspecified without thyrotoxic crisis or storm; T38.2X5A Adverse effect of antithyroid drugs, initial encounter; Z22.322 Carrier or suspected carrier of Methicillin resistant Staphylococcus aureus; Z87.440 Personal history of urinary (tract) infections; Z93.1 Gastrostomy status; Z74.01 Bed confinement status; Z79.899 Other long term (current) drug therapy
CPT/HCPCS: 36415; 71045; 80053; 80202; 81001; 82270; 82728; 83540; 83550; 83605; 83735; 84100; 84145; 84443; 84484; 85025; 85610; 85730; 86331; 86635; 87040; 87077; 87081; 87086; 87186; 87400; 87502; 87634; 87811; 93225; 94640; 96361; 96365; 96367; 99285; A9270; J0696; J1643; J1815; J2470; J2543; J3370; J7030; J7040; J7050; Q5101; J1644

== ENCOUNTER 2024-08-23 02:53 | Inpatient (IN) | payer MEDICARE, MEDICAID, SELFPAY ==
[2024-08-23] VITALS (37 sets, daily range): BP systolic 96–148; BP diastolic 59–98; PULSE 95–122; RESP 9–32; TEMP 35.9–37.8; O2SAT 92–99; BMI 28.0; BMI 28.4
--- NOTE | 2024-08-23 02:56 | EKG_ITS ---
[facility] Test Date: 2024-08-23 Pat Name: ARIELLE FITZGERALD Department: Room: - Gender: Female Administrator Of Home Health: : 1950 Requested By: Gloria Black Order Number: [id number] Reading MD: Gloria Black Measurements Intervals [place] Rate: 101 P: 55 [place]: 160 QRS: -5 QRSD: 77 T: 75 QT: 329 QTc: 427 Interpretive Statements SINUS TACHYCARDIA ABNORMAL RHYTHM ECG Compared to ECG 06/12/2024 10:23:00 Sinus rhythm no longer present ST (T wave) deviation no longer present /store/S0/[id number].pdf
--- NOTE | 2024-08-23 02:56 | XR_ITS ---
Examination: AP chest single view Technique one AP portable semiupright chest single view Exam date and time: August 23, 2024 0321 hrs. Comparison July 30, 2024 Indications: Onset chest pain today. Findings: Fairly diffuse opacity in the right lung consistent with pneumonia Reduced inspiratory effort Normal heart size Ectatic thoracic aorta Prominent osteopenia Impression: Diffuse right lung pneumonia
[2024-08-23 03:48] LABS: Lactate (Lactic Acid) 2.9 mMol/L (0.4-2.0)
[2024-08-23 03:49] LABS: Basophils # (Auto) 0.1 Thou/mm3 (0.0-0.2); Basophils % (Auto) 0 % (0-2.5); Eosinophils % (Auto) 0 % (0-10); Hematocrit 38.4 % (36.0-46.0); Hemoglobin 12.6 g/dL (12.0-16.0); Immature Granulocytes % (Auto) 1 % (0-0); Immature Granulocytes Auto 0.24 Thou/mm3 (0.00-0.00); Lymphocytes # (Auto) 0.6 Thou/mm3 (1.0-4.8); Lymphocytes % (Auto) 2 % (10-50); Mean Corpuscular HGB Conc 32.8 g/dl (31.0-37.0); Mean Corpuscular Hemoglobin 30.6 pg (25.0-35.0); Mean Corpuscular Volume 93 fL (80-100); Monocytes # (Auto) 0.5 Thou/mm3 (0.0-0.8); Monocytes % (Auto) 2 % (0-12); Neutrophils # (Auto) 26.9 Thou/mm3 (1.8-7.7); Neutrophils % (Auto) 95 % (37-80); Nucleated Red Blood Cell # 0.07 Thou/mm3 (0.00-0.00); Nucleated Red Blood Cell % 0 /100 WBC (0); Platelet Count 433 Thou/mm3 (140-440); RDW Standard Deviation 52.1 fL (36.4-46.3); Red Blood Count 4.12 Miln/mm3 (4.00-5.20)
[2024-08-23 03:51] LABS: White Blood Count 28.3 Thou/mm3 (3.6-11.0)
--- NOTE | 2024-08-23 03:56 | XR_ITS ---
Examination: CT abdomen with intravenous contrast CT pelvis with intravenous contrast 2-D coronal reconstructions 2-D sagittal reconstructions Date and time of exam:August 23, 2024 at 0557 hrs. Comparison January 02, 2021 Indications: Vomiting abdominal pain shortness of breath today. CTDI: vol (mGy) 16.71 DLP: (mGycm) 1071 Technique: Multiple axial sections of the abdomen and pelvis have been obtained. 64 slice high-resolution scanner used. 3 mm axial sections have been obtained, post intravenous injection 60 cc [id number] 2-D sagittal, coronal reconstructions obtained. Low dose protocols were performed. One or more of the following dose reduction techniques were used; automated exposure control, adjustment of the mA and/or KV according to patient size, use of iterative reconstruction technique. Findings: Extensive bilateral lung opacity, severe right lung with small right pleural effusion Small pericardial effusion No focal liver or splenic lesion Fluid distended stomach Significant patient motion Air in the gallbladder, suspicious for gallbladder small bowel fistula No pancreatic or adrenal mass Bilateral large staghorn renal calculi on this study with moderate renal parenchymal scar formation Multiple fluid distended small bowel loops Aorta normal size Scattered colonic diverticulosis 3.7 cm calcification in a small bowel loop above the urinary bladder which may represent gallstone ileus Atrophic uterus with 30 mm left adnexal cyst Abundant stool in the rectum No urinary bladder wall mass Severe osteopenia Impression: The entire study is degraded by continual patient motion Small bowel obstruction which appears to be secondary to gallstone ileus, large gallstone in the distal small bowel 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
[2024-08-23 04:06] LABS: B-Type Natriuretic Peptide 21 pg/mL (0-100)
[2024-08-23 04:15] LABS: Alanine Aminotransferase 35 U/L (10-49); Albumin, Serum 4.4 gm/dL (3.4-4.8); Albumin/Globulin Ratio 1.2 (1.2-2.2); Alkaline Phosphatase 142 U/L (46-116); Anion Gap 12 (7-16); Aspartate Amino Transferase 22 U/L (0-34); BUN/Creatinine Ratio 34 Ratio (12-20); Blood Urea Nitrogen 34 mg/dL (9-23); Calcium 10.3 mg/dL (8.3-10.6); Calcium (Corrected) 10.3 mg/dL (8.5-10.1); Carbon Dioxide 23.1 mMol/L (20.0-31.0); Chloride 97 mMol/L (98-107); Estimated Creatinine Clearance 47.1 mL/min (>60); Globulin 3.6 gm/dL (2.3-3.5); Glucose 299 mg/dL (74-106); Lipase 105 U/L (12-53); Magnesium 2.2 mg/dL (1.6-2.6); Osmolality,Calculated 283 (275-295); Procalcitonin 0.25 ng/ml (0.0-0.49); Sodium 132 mMol/L (136-145); Troponin I < 0.020 ng/mL (0.0-0.045); eGFR > 60 See Note
[2024-08-23 04:26] LABS: Prothrombin Time 11.4 Seconds (9.0-12.2)
--- NOTE | 2024-08-23 05:23 | PD.EDSOB ---
ED SOB =RME/HPI General Chief Complaint: Shortness of Breath/Dyspnea Stated Complaint: SOB Time Seen by Provider: 08/23/24 02:56 Source: EMS and other (manager completions) Arrival date/time: 08/23/24 02:53 Mode of arrival: EMS RME / HPI RME / HPI Narrative: DR MARIANO MAIN ED EVALUATION: 73yof with PMH of dementia, CVA with right-sided deficit, chronic G-tube, HFpEF, hyperthyroidism, DM 2, hyperlipidemia presented from [facility] ([facility] for shortness of breath. Review of the record shows patient was recently admitted here on 08/13/24 for neutropenic fever with initial ANC of 0; thus, was put on neutropenic precautions and started on IV antibiotics. Patient returned to baseline and was released from the hospital on 08/16/24. Related Data Home Medications ?Medication ?Instructions ?Recorded ?Confirmed acetaminophen 325 mg tablet 650 mg feeding tube Q4H PRN Pain 03/22/19 08/24/24 bisacodyl 10 mg rectal suppository 10 mg AR PRN PRN Constipation 03/22/19 08/24/24 linagliptin 5 mg tablet (Tradjenta) 5 mg feeding tube QDAY 03/22/19 08/24/24 sennosides 8.6 mg tablet (senna) 8.6 mg feeding tube BID 03/22/19 08/24/24 sertraline 50 mg tablet (Zoloft) 50 mg feeding tube QDAY 10/07/19 08/24/24 atorvastatin 40 mg tablet 40 mg feeding tube HS 01/03/21 08/24/24 furosemide 20 mg tablet 20 mg feeding tube QDAY PRN Edema 01/03/21 08/24/24 polyethylene glycol 3350 17 17 g feeding tube QDAY PRN 01/03/21 08/24/24 gram/dose oral powder (Miralax) Constipation clotrimazole 1 % topical cream 1 applic topical BID 06/12/24 08/24/24 omeprazole 40 mg capsule,delayed 40 mg PO QPM 06/12/24 08/24/24 release amlodipine 10 mg tablet 10 mg PO QPM 08/24/24 08/24/24 doxycycline hyclate 100 mg tablet 100 mg PO BID 08/24/24 08/24/24 prednisone 20 mg tablet 40 mg PO QDAY 08/24/24 08/24/24 Allergies Allergy/AdvReac Type Severity Reaction Status Date / Time No Known Allergies Allergy Verified 06/12/24 10:23 Review of Systems Review of Systems Systems Reviewed: All systems reviewed, normal except as documented ED Exam Narrative Physical exam: GENERAL APPEARANCE: alert and oriented to person, well-developed, well-nourished VITALS: All vitals were reviewed and the pulse ox is 93% on high flow nasal cannula, which is normal according to my interpretation. HEENT: Normocephalic, atraumatic; pupils equal, round, reactive to light; EOMI; mucous membranes pink, moist; oropharynx clear NECK: Supple LUNGS: CTABL; no wheezes, no rales, no rhonchi HEART: Regular rate, regular rhythm; normal S1, S2; no murmurs ABDOMEN: non distended; normal BS; soft, no tenderness, no guarding, no rebound; no masses, no organomegaly, no hernia BACK: no CVA tenderness EXTREMITIES: atraumatic; no edema NEUROLOGIC: awake; unintelligible speech PSYCHIATRIC: appropriate mood and affect SKIN: warm, dry, normal color; no rashes Course Course Course Narrative: 0452 Sepsis alert initiated. Orders made at this time are congruent with ED Adult Sepsis Order List. Re-evaluation is to be completed. 0530 Sepsis reassessment performed consisting of lab review, vitals, physical exam including auscultation of heart, lungs, and visual evaluation of capillary refills, mucosal membranes and extremities. Quality Measures Current suspected stage: sepsis Possible source: unknown Blood cultures ordered: yes Antibiotic ordered: Yes Pertinent labs: 08/23/24 08/23/24 03:20 08:16 Lactic Acid 2.9 H mMol/L 5.8 H* mMol/L (0.4-2.0) (0.4-2.0) Procalcitonin 0.25 ng/ml (0.0-0.49) sepsis Orders Category Date Time Status CT Screening NOW Care 08/23/24 03:56 Completed Fixture Builder NOW Care 08/23/24 02:56 Completed EKG (ED ONLY) *Do not use* NOW Care 08/23/24 02:56 Completed Consult to General Surgery Stat Cons 08/23/24 12:[address] abdomen pelvis w con Stat Exams 12/03/24 03:56 Completed EKG (ED Only) Stat Exams 08/23/24 02:56 Draft US gall bladder Stat Exams 08/23/24 06:49 Completed XR chest 1V portable Stat Exams 08/23/24 02:56 Completed B-Type Natriuretic Peptide Stat Lab 08/23/24 03:20 Completed Blood Culture (Lab) Stat Lab 08/23/24 03:55 Completed CBC Stat Lab 08/23/24 03:20 Completed Comprehensive Metabolic Panel Stat Lab 08/23/24 03:20 Completed Lactate (Lactic Acid) Stat Lab 08/23/24 03:20 Completed Lactic Acid, 3 HR Stat Lab 08/23/24 08:16 Completed Lipase Stat Lab 08/23/24 03:20 Completed Magnesium Stat Lab 08/23/24 03:20 Completed Partial Thromboplastin Time Stat Lab 08/23/24 03:20 Completed Procalcitonin Stat Lab 08/23/24 03:20 Completed Prothrombin Time with INR Stat Lab 08/23/24 03:20 Completed Troponin I Stat Lab 08/23/24 03:20 Completed Urinalysis Stat Lab 08/23/24 06:14 Completed Urine Culture Stat Lab 08/23/24 06:14 Completed MethylPREDNISolone.* [SoluMEDROL Inj] Med 08/23/24 12:19 Discontinued 125 mg IVP X1 ONE Norepinephrine/D5W 8mg/250ml [Levophed in D5W 8mg/250ml Med 08/23/24 12:20 Discontinued ] 8 mg in 250 ml IV 0.05 mcg/kg/min Ondansetron Inj [Zofran Inj] Med 08/23/24 05:53 Discontinued 4 mg IV X1 ONE Piper/Tazo 3.375 gm [Zosyn] Med 08/23/24 04:51 Discontinued 3.375 gm in 50 ml IV X1 Piper/Tazo Inj [Zosyn Inj] 3.375 gm Med 08/23/24 12:00 Discontinued Sodium Chloride 0.9% (P) [NS 0.9% mini bag] 100 ml IV Q6HR Piper/Tazo Inj [Zosyn Inj] 3.375 gm Med 08/23/24 05:55 Discontinued Sodium Chloride 0.9% (P) [Ns 0.9% (P)] 50 ml IV X1 Piper/Tazo Inj [Zosyn Inj] 3.375 gm Med 08/23/24 05:59 Discontinued Sodium Chloride 0.9% (P) [Ns 0.9% (P)] 50 ml IV X1 Sodium Chloride 0.45 % [Ns 0.45%] 1,000 ml Med 08/23/24 10:46 Discontinued IV 250 mls/hr Sodium Chloride 0.9% 1000 ml [Ns] 1,000 ml Med 08/23/24 05:40 Discontinued IV 999 mls/hr Sodium Chloride 0.9% 1000 ml [Ns] 1,000 ml Med 08/23/24 05:40 Discontinued IV 999 mls/hr Sodium Chloride 0.9% 1000 ml [Ns] 1,000 ml Med 08/23/24 08:55 Discontinued IV 999 mls/hr Vancomycin Inj 1,000 mg Med 08/23/24 12:20 Discontinued Sodium Chloride 0.9% 250 ml [Ns] 250 ml IV X1 Oxygen Delivery NOW RT 08/23/24 03:39 Completed Vital Signs Vital signs: Vital Signs Pulse Rate 101 H 08/23/24 03:40 Respiratory Rate 32 H 08/23/24 03:40 Pulse Oximetry (%) 96 08/23/24 03:40 Oxygen Flow Rate 30 08/23/24 03:40 Fraction of Inspired Oxygen 85 08/23/24 03:40 Procedures -ED Procedure Comment EKG manual reading, 08/23/24 0334 hours, my interpretation: sinus tachy, rate: 101 bpm, no ST elevation, no acute ischemic changes, interpreted as normal Shortness of Breath / Dyspnea MDM Narrative MDM Narrative:: 0600 Care signed out to Dr. Briceño. Past medical, surgical, social and family history reviewed. Vitals and home medications reviewed. Results and treatment plan discussed. They will assume the care of the patient at this time and will follow the patient, pending work up and final disposition. Scribe Attestation: I, Crispin Belle, am scribing for and in the presence of Dr. Mariano. Provider Notation: Although this document has been carefully reviewed, there may still be some phonetic and other typographical errors. These errors are purely grammatical due to imperfections in the software program and should not be construed in any way to compromise the substance of the patient's medical care during this visit. Patient data External records reviewed:: [facility] previous records and EMS form Clinical information provided by:: patient, EMS and manager completions Social determinants that could affect healthcare access:: housing Patient has the following chronic illnesses:: dementia, CVA with right-sided deficit, chronic G-tube, HFpEF, hyperthyroidism, DM 2, hyperlipidemia How is presenting disease/condition affected by chronic disease/condition?: uneffected by Evaluation data The following diagnostics were reviewed and interpreted by me:: lab results, radiology exam(s) and EKG tracing(s) Lab and/or radiology exams considered but not ordered:: n/a Interpretation Summary: Abd/Pelvis CT pending WBC 28K Medications / Prescriptions Medications or Prescriptions considered but not ordered:: n/a Medication administrations:: Medication Administration History Discontinued Medications Acetaminophen (Acetaminophen 325 Mg Tablet) 650 mg PO Q4HR PRN PRN Reason: PAIN SCALE 1-3 (mild Stop: 09/22/24 12:38 Acetaminophen (Acetaminophen Supp 650 Mg Supp) 650 mg AR Q4HR PRN PRN Reason: PAIN SCALE 1-3 (mild Stop: 09/22/24 12:38 Acetaminophen (Acetaminophen 325 Mg Tablet) 650 mg PO Q4HR PRN PRN Reason: PAIN SCALE 1-3 (mild Stop: 09/22/24 13:02 Acetaminophen (Acetaminophen Supp 650 Mg Supp) 650 mg AR Q4HR PRN PRN Reason: PAIN SCALE 1-3 (mild Stop: 09/22/24 13:02 Acetylcysteine (Acetylcysteine Jelly 20% 4 Ml Nebu) 3 ml INH Q4HRRT [facility] Stop: 09/24/24 10:59 Last Admin: 08/31/24 14:52 Dose: Not Given Documented By: MR Non-Admin Reason: Discontinued Admin: 08/31/24 06:31 Dose: 3 ml Documented By: Admin: 08/31/24 02:06 Dose: 3 ml Documented By: Admin: 08/30/24 22:58 Dose: 3 ml Documented By: Admin: 08/30/24 18:35 Dose: 3 ml Documented By: Admin: 08/30/24 14:23 Dose: 3 ml Documented By: Admin: 08/30/24 10:49 Dose: 3 ml Documented By: [facility] Admin: 08/30/24 06:50 Dose: 3 ml Documented By: [facility] Admin: 08/30/24 02:24 Dose: 3 ml Documented By: Admin: 08/29/24 22:51 Dose: 3 ml Documented By: Admin: 08/29/24 19:04 Dose: 3 ml Documented By: Admin: 08/29/24 15:01 Dose: 3 ml Documented By: Admin: 08/29/24 11:27 Dose: 3 ml Documented By: Admin: 08/29/24 07:14 Dose: 3 ml Documented By: Admin: 08/29/24 03:10 Dose: 3 ml Documented By: Admin: 08/28/24 22:16 Dose: 3 ml Documented By: Admin: 08/28/24 18:37 Dose: 3 ml Documented By: Admin: 08/28/24 14:15 Dose: 3 ml Documented By: Admin: 08/28/24 11:43 Dose: 3 ml Documented By: Admin: 08/28/24 06:28 Dose: 3 ml Documented By: Admin: 08/28/24 02:08 Dose: 3 ml Documented By: Admin: 08/27/24 22:19 Dose: 3 ml Documented By: Admin: 08/27/24 18:03 Dose: 3 ml Documented By: Admin: 08/27/24 14:16 Dose: 3 ml Documented By: Admin: 08/27/24 10:10 Dose: 3 ml Documented By: Admin: 08/27/24 06:34 Dose: 3 ml Documented By: Admin: 08/27/24 03:28 Dose: 3 ml Documented By: Admin: 08/26/24 22:49 Dose: 3 ml Documented By: Admin: 08/26/24 18:23 Dose: 3 ml Documented By: Admin: 08/26/24 14:32 Dose: 3 ml Documented By: Admin: 08/26/24 10:54 Dose: 3 ml Documented By: Admin: 08/26/24 06:23 Dose: 3 ml Documented By: Admin: 08/26/24 02:47 Dose: 3 ml Documented By: Admin: 08/25/24 22:39 Dose: 3 ml Documented By: Admin: 08/25/24 18:55 Dose: 3 ml Documented By: Admin: 08/25/24 15:31 Dose: 3 ml Documented By: Admin: 08/25/24 11:05 Dose: 3 ml Documented By: MR(2) Al Hydrox/Mg Hydrox/Simethicone (Mg Hyd/Al Hyd/Yeimy (Maalox Reg) Susp 30 Ml Udc) 30 ml PO Q4HR PRN PRN Reason: Heartburn or Upset Stomach Stop: 09/22/24 12:38 Albuterol (Albuterol Rt 2.5 Mg/0.5 Ml Nebu) 5 mg INH X1 ONE Stop: 08/25/24 11:36 Last Admin: 08/25/24 11:40 Dose: 5 mg Documented By: MR(2) Albuterol/Ipratropium (Albuterol/Ipratropium (Duoneb) Rt Jelly 3 Ml Nebu) 3 ml INH Q4HRRT AJAY Stop: 09/24/24 10:59 Last Admin: 08/31/24 14:53 Dose: Not Given Documented By: MR Non-Admin Reason: Discontinued Admin: 08/31/24 06:31 Dose: 3 ml Documented By: Admin: 08/31/24 02:06 Dose: 3 ml Documented By: Admin: 08/30/24 22:58 Dose: 3 ml Documented By: Admin: 08/30/24 18:35 Dose: 3 ml Documented By: Admin: 08/30/24 14:22 Dose: 3 ml Documented By: [facility] Admin: 08/30/24 10:49 Dose: 3 ml Documented By: [facility] Admin: 08/30/24 06:50 Dose: 3 ml Documented By: [facility] Admin: 08/30/24 02:24 Dose: 3 ml Documented By: Admin: 08/29/24 22:51 Dose: 3 ml Documented By: Admin: 08/29/24 19:04 Dose: 3 ml Documented By: Admin: 08/29/24 15:01 Dose: 3 ml Documented By: Admin: 08/29/24 11:27 Dose: 3 ml Documented By: Admin: 08/29/24 07:14 Dose: 3 ml Documented By: Admin: 08/29/24 03:10 Dose: 3 ml Documented By: Admin: 08/28/24 22:17 Dose: 3 ml Documented By: Admin: 08/28/24 18:37 Dose: 3 ml Documented By: Admin: 08/28/24 14:15 Dose: 3 ml Documented By: Admin: 08/28/24 11:43 Dose: 3 ml Documented By: Admin: 08/28/24 06:28 Dose: 3 ml Documented By: Admin: 08/28/24 02:08 Dose: 3 ml Documented By: Admin: 08/27/24 22:19 Dose: 3 ml Documented By: Admin: 08/27/24 18:03 Dose: 3 ml Documented By: Admin: 08/27/24 14:17 Dose: 3 ml Documented By: Admin: 08/27/24 10:10 Dose: 3 ml Documented By: Admin: 08/27/24 06:35 Dose: 3 ml Documented By: Admin: 08/27/24 03:28 Dose: 3 ml Documented By: Admin: 08/26/24 22:49 Dose: 3 ml Documented By: Admin: 08/26/24 18:24 Dose: 3 ml Documented By: Admin: 08/26/24 14:32 Dose: 3 ml Documented By: Admin: 08/26/24 10:54 Dose: 3 ml Documented By: Admin: 08/26/24 06:24 Dose: 3 ml Documented By: Admin: 08/26/24 02:47 Dose: 3 ml Documented By: Admin: 08/25/24 22:39 Dose: 3 ml Documented By: Admin: 08/25/24 18:55 Dose: 3 ml Documented By: Admin: 08/25/24 15:31 Dose: 3 ml Documented By: Admin: 08/25/24 11:05 Dose: 3 ml Documented By: MR(2) Artificial Tears (Artificial Tears 225 Drop/15 Ml Btl) 0 drop BOTH EYES PRN PRN PRN Reason: TO KEEP EYES MOIST Stop: 09/27/24 13:51 Last Admin: 08/28/24 16:31 Dose: 1 drop Documented By: BHARATHI Atorvastatin Calcium (Atorvastatin Calcium 20 Mg Tablet) 80 mg GT HS AJAY Stop: 09/28/24 20:59 Last Admin: 08/30/24 21:51 Dose: 80 mg Documented By: Admin: 08/29/24 20:53 Dose: 80 mg Documented By: RH Bisacodyl (Bisacodyl 5 Mg Tabec) 10 mg PO QDAY AJAY; Protocol Stop: 09/23/24 15:59 Last Admin: 08/24/24 19:11 Dose: Not Given Documented By: BHARATHI Non-Admin Reason: Cancelled by Provider Bisacodyl (Bisacodyl 10 Mg Supp) 10 mg AR QDAY AJAY; Protocol Stop: 09/23/24 17:29 Last Admin: 08/31/24 09:13 Dose: 10 mg Documented By: Admin: 08/30/24 09:09 Dose: 10 mg Documented By: Admin: 08/29/24 08:05 Dose: 10 mg Documented By: Admin: 08/28/24 08:33 Dose: 10 mg Documented By: Admin: 08/27/24 09:57 Dose: 10 mg Documented By: Admin: 08/26/24 08:05 Dose: Not Given Documented By: Non-Admin Reason: hold per MD Xiong Admin: 08/25/24 10:58 Dose: 10 mg Documented By: Admin: 08/24/24 17:53 Dose: 10 mg Documented By: ALEXSANDRA Bumetanide (Bumetanide Inj 0.25 Mg/Ml Vial 4 Ml) 1 mg IVP NOW ONE Stop: 08/30/24 15:21 Last Admin: 08/30/24 16:39 Dose: 1 mg Documented By: Dextrose (Dextrose 50%-Water Inj 50 Ml Syringe) 25 ml IV Q15MIN PRN PRN Reason: BG 50-70 responsive npo pt Stop: 09/22/24 12:50 Dextrose (Dextrose 50%-Water Inj 50 Ml Syringe) 50 ml IV Q15MIN PRN PRN Reason: BG <50 OR BG <70 & pt unresponsive Stop: 09/22/24 12:50 Dextrose (Dextrose 50%-Water Inj 50 Ml Syringe) 25 ml IV Q15MIN PRN PRN Reason: BG 50-70 responsive npo pt Stop: 09/22/24 17:45 Dextrose (Dextrose 50%-Water Inj 50 Ml Syringe) 50 ml IV Q15MIN PRN PRN Reason: BG <50 OR BG <70 & pt unresponsive Stop: 09/22/24 17:45 Enoxaparin Sodium (Enoxaparin Sod Inj 40 Mg/0.4 Ml Syringe) 40 mg SC QDAY AJAY Stop: 09/11/24 10:29 Last Admin: 08/29/24 08:05 Dose: 40 mg Documented By: Admin: 08/28/24 12:12 Dose: 40 mg Documented By: BHARATHI Epinephrine (Epinephrine Rt Jelly 0.5 Ml Nebu) 0.5 ml INH X1 ONE Stop: 08/25/24 11:02 Last Admin: 08/25/24 11:05 Dose: 0.5 ml Documented By: (2) Etomidate (Etomidate Inj 2 Mg/Ml Vial 10 Ml) Confirm Administered Dose 20 mg .ROUTE .STK-MED ONE Stop: 08/23/24 14:13 Etomidate (Etomidate Inj 2 Mg/Ml Vial 10 Ml) 20 mg IVP X1 ONE Stop: 08/25/24 12:35 Last Admin: 08/25/24 12:35 Dose: 20 mg Documented By: Fentanyl Citrate (Fentanyl Cit Inj 50 Mcg/Ml Amp 2ml) Confirm Administered Dose 100 mcg .ROUTE .STK-MED ONE Stop: 08/23/24 13:26 Furosemide (Furosemide Inj 10 Mg/Ml Vial 2 Ml) 40 mg IVP X1 ONE Stop: 08/25/24 14:50 Last Admin: 08/25/24 15:51 Dose: 40 mg Documented By: Furosemide (Furosemide Inj 10 Mg/Ml 4ml Vial) 40 mg IVP X1 ONE Stop: 08/26/24 16:01 Last Admin: 08/26/24 16:59 Dose: 40 mg Documented By: LEEANN Furosemide (Furosemide Inj 10 Mg/Ml 4ml Vial) 40 mg IVP X1 ONE Stop: 08/27/24 09:26 Last Admin: 08/27/24 10:00 Dose: 40 mg Documented By: ALEXSANDRA Furosemide (Furosemide Inj 10 Mg/Ml 4ml Vial) 40 mg IVP BIDD [facility] Stop: 09/26/24 17:59 Last Admin: 08/29/24 05:56 Dose: 40 mg Documented By: Admin: 08/28/24 17:46 Dose: 40 mg Documented By: Admin: 08/28/24 05:28 Dose: 40 mg Documented By: Admin: 08/27/24 18:49 Dose: 40 mg Documented By: LEEANN Furosemide (Furosemide Inj 10 Mg/Ml 4ml Vial) 40 mg IVP TID [facility] Stop: 09/28/24 11:59 Last Admin: 08/30/24 05:26 Dose: 40 mg Documented By: Admin: 08/29/24 21:12 Dose: 40 mg Documented By: Admin: 08/29/24 11:25 Dose: 40 mg Documented By: Glucagon (Glucagon Inj 1 Mg Vial) 1 mg IM Q15MIN PRN PRN Reason: BG <70, and no IV access Glycopyrrolate (Glycopyrrolate Inj 0.2 Mg/Ml Vial 5 Ml) 0.8 mg IV X1 ONE Stop: 08/31/24 14:10 Last Admin: 08/31/24 14:16 Dose: 0.8 mg Documented By: Heparin Sodium (Porcine) (Heparin Sod Inj 5000 Unit/Ml Vial) 4,000 unit IV X1 ONE; Protocol Stop: 08/29/24 13:16 Last Admin: 08/29/24 13:20 Dose: 4,000 unit Documented By: Co-signed By: JAGRUTI Heparin Sodium (Porcine) (Heparin Sod Inj 5000 Unit/Ml Vial) 4,000 unit IV PRN ONE Stop: 08/29/24 20:37 Last Admin: 08/29/24 20:47 Dose: 4,000 unit Documented By: LEEANN Co-signed By: ZP Heparin Sodium (Porcine) (Heparin Sod Inj 5000 Unit/Ml Vial) 2,000 unit IV X1 ONE Stop: 08/30/24 12:24 Last Admin: 08/30/24 12:51 Dose: 2,000 unit Documented By: MR Co-signed By: MGD Hydromorphone HCl (Hydromorphone Inj 2 Mg/Ml Vial) 2 mg IVP X1 ONE Stop: 08/28/24 19:04 Last Admin: 08/28/24 19:11 Dose: 2 mg Documented By: LEEANN Piperacillin/Tazobactam/Dextrose (Zosyn) 3.375 gm in 50 mls @ 100 mls/hr IV X1 ONE Stop: 08/23/24 05:20 Last Admin: 08/23/24 05:56 Dose: Not Given Documented By: SF Non-Admin Reason: Duplicate Medication on eMAR Sodium Chloride (Ns) 1,000 mls @ 999 mls/hr IV .Q1H1M ONE Stop: 08/23/24 06:40 Last Infusion: 08/23/24 08:21 Dose: Infused Documented By: Admin: 08/23/24 06:03 Dose: 999 mls/hr Documented By: SHEILA Sodium Chloride (Ns) 1,000 mls @ 999 mls/hr IV .Q1H1M ONE Stop: 08/23/24 06:40 Last Infusion: 08/23/24 08:21 Dose: Infused Documented By: Admin: 08/23/24 06:02 Dose: 999 mls/hr Documented By: SHEILA Piperacillin Sod/Tazobactam (Sod 3.375 gm/ Sodium Chloride) 50 mls @ 100 mls/hr IV X1 ONE Stop: 08/23/24 06:24 Last Infusion: 08/23/24 06:36 Dose: Infused Documented By: Admin: 08/23/24 06:04 Dose: 100 mls/hr Documented By: SHEILA Piperacillin Sod/Tazobactam (Sod 3.375 gm/ Sodium Chloride) 50 mls @ 100 mls/hr IV X1 ONE Stop: 08/23/24 06:28 Last Admin: 08/23/24 06:08 Dose: Not Given Documented By: BAM Non-Admin Reason: Discontinued Sodium Chloride (Ns) 1,000 mls @ 999 mls/hr IV .Q1H1M ONE Stop: 08/23/24 09:55 Last Infusion: 08/23/24 10:51 Dose: Infused Documented By: Admin: 08/23/24 09:19 Dose: 999 mls/hr Documented By: AKASH Sodium Chloride (Ns 0.45%) 1,000 mls @ 250 mls/hr IV .Q4H [facility] Stop: 09/22/24 10:45 Last Infusion: 08/23/24 17:00 Dose: Infused Documented By: Admin: 08/23/24 10:52 Dose: 250 mls/hr Documented By: AKASH Piperacillin Sod/Tazobactam (Sod 3.375 gm/ Sodium Chloride) 100 mls @ 200 mls/hr IV Q6HR [facility] Stop: 08/30/24 11:59 Last Infusion: 08/23/24 14:03 Dose: Infused Documented By: Admin: 08/23/24 12:16 Dose: 200 mls/hr Documented By: AKASH Norepinephrine/Dextrose (Levophed In D5w 8mg/250ml) 8 mg in 250 mls @ 6.506 mls/hr IV .Q24H PRN; Protocol PRN Reason: PER PROTOCOL Stop: 09/22/24 12:19 Last Titration: 08/31/24 14:00 Dose: 0 mcg/kg/min, 0 mls/hr Documented By: Titration: 08/31/24 13:00 Dose: 0.12 mcg/kg/min, 15.615 mls/hr Documented By: Titration: 08/31/24 12:00 Dose: 0.12 mcg/kg/min, 15.615 mls/hr Documented By: Titration: 08/31/24 11:00 Dose: 0.12 mcg/kg/min, 15.615 mls/hr Documented By: Titration: 08/31/24 10:00 Dose: 0.12 mcg/kg/min, 15.615 mls/hr Documented By: Titration: 08/31/24 09:00 Dose: 0.12 mcg/kg/min, 15.615 mls/hr Documented By: Titration: 08/31/24 08:00 Dose: 0.12 mcg/kg/min, 15.615 mls/hr Documented By: Titration: 08/31/24 07:00 Dose: 0.12 mcg/kg/min, 15.615 mls/hr Documented By: Titration: 08/31/24 06:52 Dose: 0.12 mcg/kg/min, 15.615 mls/hr Documented By: Titration: 08/31/24 06:00 Dose: 0.1 mcg/kg/min, 13.013 mls/hr Documented By: Titration: 08/31/24 05:00 Dose: 0.1 mcg/kg/min, 13.013 mls/hr Documented By: Titration: 08/31/24 04:00 Dose: 0.1 mcg/kg/min, 13.013 mls/hr Documented By: Titration: 08/31/24 03:00 Dose: 0.1 mcg/kg/min, 13.013 mls/hr Documented By: Titration: 08/31/24 02:00 Dose: 0.1 mcg/kg/min, 13.013 mls/hr Documented By: Titration: 08/31/24 01:00 Dose: 0.1 mcg/kg/min, 13.013 mls/hr Documented By: Titration: 08/31/24 00:00 Dose: 0.1 mcg/kg/min, 13.013 mls/hr Documented By: Titration: 08/30/24 23:00 Dose: 0.1 mcg/kg/min, 13.013 mls/hr Documented By: Titration: 08/30/24 22:45 Dose: 0.1 mcg/kg/min, 13.013 mls/hr Documented By: Titration: 08/30/24 22:00 Dose: 0.08 mcg/kg/min, 10.41 mls/hr Documented By: Titration: 08/30/24 21:00 Dose: 0.08 mcg/kg/min, 10.41 mls/hr Documented By: Titration: 08/30/24 20:45 Dose: 0.08 mcg/kg/min, 10.41 mls/hr Documented By: Titration: 08/30/24 20:45 Dose: 0.08 mcg/kg/min, 10.41 mls/hr Documented By: Admin: 08/30/24 20:16 Dose: 0.1 mcg/kg/min, 13.013 mls/hr Documented By: Titration: 08/30/24 20:00 Dose: Infused Documented By: Titration: 08/30/24 19:00 Dose: Infused Documented By: Titration: 08/30/24 18:00 Dose: 0.1 mcg/kg/min, 13.013 mls/hr Documented By: Titration: 08/30/24 17:00 Dose: 0.1 mcg/kg/min, 13.013 mls/hr Documented By: Titration: 08/30/24 16:00 Dose: 0.1 mcg/kg/min, 13.013 mls/hr Documented By: Titration: 08/30/24 15:00 Dose: 0.1 mcg/kg/min, 13.013 mls/hr Documented By: Titration: 08/30/24 14:00 Dose: 0.1 mcg/kg/min, 13.013 mls/hr Documented By: Titration: 08/30/24 13:00 Dose: 0.1 mcg/kg/min, 13.013 mls/hr Documented By: Titration: 08/30/24 12:03 Dose: 0.1 mcg/kg/min, 13.013 mls/hr Documented By: Titration: 08/30/24 12:00 Dose: 0.15 mcg/kg/min, 19.519 mls/hr Documented By: Titration: 08/30/24 11:00 Dose: 0.2 mcg/kg/min, 26.025 mls/hr Documented By: Titration: 08/30/24 10:00 Dose: 0.2 mcg/kg/min, 26.025 mls/hr Documented By: Titration: 08/30/24 09:00 Dose: 0.2 mcg/kg/min, 26.025 mls/hr Documented By: Titration: 08/30/24 08:00 Dose: 0.2 mcg/kg/min, 26.025 mls/hr Documented By: Titration: 08/30/24 07:00 Dose: 0.2 mcg/kg/min, 26.025 mls/hr Documented By: Titration: 08/30/24 06:45 Dose: 0.2 mcg/kg/min, 26.025 mls/hr Documented By: Titration: 08/30/24 06:00 Dose: 0.2 mcg/kg/min, 26.025 mls/hr Documented By: Admin: 08/30/24 05:24 Dose: 0.2 mcg/kg/min, 26.025 mls/hr Documented By: Titration: 08/30/24 05:24 Dose: Infused Documented By: Titration: 08/30/24 05:00 Dose: 0.2 mcg/kg/min, 26.025 mls/hr Documented By: Titration: 08/30/24 04:00 Dose: 0.2 mcg/kg/min, 26.025 mls/hr Documented By: Titration: 08/30/24 03:00 Dose: 0.2 mcg/kg/min, 26.025 mls/hr Documented By: Titration: 08/30/24 02:00 Dose: 0.18 mcg/kg/min, 23.423 mls/hr Documented By: Titration: 08/30/24 01:00 Dose: 0.18 mcg/kg/min, 23.423 mls/hr Documented By: Titration: 08/30/24 00:00 Dose: 0.18 mcg/kg/min, 23.423 mls/hr Documented By: Titration: 08/29/24 23:00 Dose: 0.18 mcg/kg/min, 23.423 mls/hr Documented By: Titration: 08/29/24 22:00 Dose: 0.16 mcg/kg/min, 20.82 mls/hr Documented By: Titration: 08/29/24 21:00 Dose: 0.16 mcg/kg/min, 20.82 mls/hr Documented By: Titration: 08/29/24 20:00 Dose: 0.16 mcg/kg/min, 20.82 mls/hr Documented By: Titration: 08/29/24 19:00 Dose: 0.16 mcg/kg/min, 20.82 mls/hr Documented By: Admin: 08/29/24 18:55 Dose: 0.16 mcg/kg/min, 20.82 mls/hr Documented By: Titration: 08/29/24 18:55 Dose: Infused Documented By: Titration: 08/29/24 18:45 Dose: 0.16 mcg/kg/min, 20.82 mls/hr Documented By: Titration: 08/29/24 18:00 Dose: 0.18 mcg/kg/min, 23.423 mls/hr Documented By: Titration: 08/29/24 17:00 Dose: 0.2 mcg/kg/min, 26.025 mls/hr Documented By: Titration: 08/29/24 16:00 Dose: 0.2 mcg/kg/min, 26.025 mls/hr Documented By: Titration: 08/29/24 15:00 Dose: 0.2 mcg/kg/min, 26.025 mls/hr Documented By: Titration: 08/29/24 14:00 Dose: 0.2 mcg/kg/min, 26.025 mls/hr Documented By: Titration: 08/29/24 13:00 Dose: 0.2 mcg/kg/min, 26.025 mls/hr Documented By: Titration: 08/29/24 12:30 Dose: 0.2 mcg/kg/min, 26.025 mls/hr Documented By: Titration: 08/29/24 12:30 Dose: 0.15 mcg/kg/min, 19.519 mls/hr Documented By: Titration: 08/29/24 12:15 Dose: 0.07 mcg/kg/min, 9.109 mls/hr Documented By: Titration: 08/29/24 12:00 Dose: 0.05 mcg/kg/min, 6.506 mls/hr Documented By: Titration: 08/29/24 11:00 Dose: 0.05 mcg/kg/min, 6.506 mls/hr Documented By: Titration: 08/29/24 10:00 Dose: 0.05 mcg/kg/min, 6.506 mls/hr Documented By: Titration: 08/29/24 09:00 Dose: 0.05 mcg/kg/min, 6.506 mls/hr Documented By: Titration: 08/29/24 08:30 Dose: 0.05 mcg/kg/min, 6.506 mls/hr Documented By: Titration: 08/29/24 08:15 Dose: 0.03 mcg/kg/min, 3.904 mls/hr Documented By: Titration: 08/29/24 08:00 Dose: 0.01 mcg/kg/min, 1.301 mls/hr Documented By: Titration: 08/29/24 07:00 Dose: 0.01 mcg/kg/min, 1.301 mls/hr Documented By: Titration: 08/29/24 06:45 Dose: 0.01 mcg/kg/min, 1.301 mls/hr Documented By: Titration: 08/29/24 06:00 Dose: 0.01 mcg/kg/min, 1.301 mls/hr Documented By: Titration: 08/29/24 05:15 Dose: 0.03 mcg/kg/min, 3.904 mls/hr Documented By: Titration: 08/29/24 05:00 Dose: 0.05 mcg/kg/min, 6.506 mls/hr Documented By: Titration: 08/29/24 04:30 Dose: 0.05 mcg/kg/min, 6.506 mls/hr Documented By: Titration: 08/29/24 04:15 Dose: 0.07 mcg/kg/min, 9.109 mls/hr Documented By: Titration: 08/29/24 04:00 Dose: 0.09 mcg/kg/min, 11.711 mls/hr Documented By: Titration: 08/29/24 03:00 Dose: 0.09 mcg/kg/min, 11.711 mls/hr Documented By: Titration: 08/29/24 02:00 Dose: 0.09 mcg/kg/min, 11.711 mls/hr Documented By: Titration: 08/29/24 01:15 Dose: 0.09 mcg/kg/min, 11.711 mls/hr Documented By: Titration: 08/29/24 01:00 Dose: 0.11 mcg/kg/min, 14.314 mls/hr Documented By: Admin: 08/29/24 00:20 Dose: 0.11 mcg/kg/min, 14.314 mls/hr Documented By: Titration: 08/29/24 00:20 Dose: Infused Documented By: Titration: 08/29/24 00:00 Dose: 0.11 mcg/kg/min, 14.314 mls/hr Documented By: Titration: 08/28/24 23:30 Dose: 0.11 mcg/kg/min, 14.314 mls/hr Documented By: Titration: 08/28/24 23:15 Dose: 0.09 mcg/kg/min, 11.711 mls/hr Documented By: Titration: 08/28/24 23:10 Dose: 0.07 mcg/kg/min, 9.109 mls/hr Documented By: Titration: 08/28/24 23:00 Dose: 0.05 mcg/kg/min, 6.506 mls/hr Documented By: Titration: 08/28/24 22:30 Dose: 0.03 mcg/kg/min, 3.904 mls/hr Documented By: Titration: 08/28/24 22:15 Dose: 0.05 mcg/kg/min, 6.506 mls/hr Documented By: Titration: 08/28/24 22:00 Dose: 0.07 mcg/kg/min, 9.109 mls/hr Documented By: Titration: 08/28/24 21:32 Dose: 0.07 mcg/kg/min, 9.109 mls/hr Documented By: Titration: 08/28/24 21:00 Dose: 0.05 mcg/kg/min, 6.506 mls/hr Documented By: Titration: 08/28/24 20:00 Dose: 0.05 mcg/kg/min, 6.506 mls/hr Documented By: Titration: 08/28/24 19:20 Dose: 0.05 mcg/kg/min, 6.506 mls/hr Documented By: Titration: 08/28/24 19:00 Dose: 0.07 mcg/kg/min, 9.109 mls/hr Documented By: Titration: 08/28/24 18:00 Dose: 0.07 mcg/kg/min, 9.109 mls/hr Documented By: Titration: 08/28/24 17:46 Dose: 0.07 mcg/kg/min, 9.109 mls/hr Documented By: Titration: 08/28/24 17:00 Dose: 0.05 mcg/kg/min, 6.506 mls/hr Documented By: Titration: 08/28/24 16:31 Dose: 0.03 mcg/kg/min, 3.904 mls/hr Documented By: Titration: 08/28/24 16:00 Dose: 0.01 mcg/kg/min, 1.301 mls/hr Documented By: Titration: 08/28/24 15:00 Dose: 0.03 mcg/kg/min, 3.904 mls/hr Documented By: Titration: 08/28/24 14:00 Dose: 0.03 mcg/kg/min, 3.904 mls/hr Documented By: Titration: 08/28/24 13:00 Dose: 0.03 mcg/kg/min, 3.904 mls/hr Documented By: Titration: 08/28/24 12:00 Dose: 0.03 mcg/kg/min, 3.904 mls/hr Documented By: Titration: 08/28/24 11:30 Dose: 0.03 mcg/kg/min, 3.904 mls/hr Documented By: Titration: 08/28/24 11:00 Dose: 0.05 mcg/kg/min, 6.506 mls/hr Documented By: Titration: 08/28/24 10:00 Dose: 0.07 mcg/kg/min, 9.109 mls/hr Documented By: Titration: 08/28/24 09:25 Dose: 0.09 mcg/kg/min, 11.711 mls/hr Documented By: Titration: 08/28/24 09:00 Dose: 0.11 mcg/kg/min, 14.314 mls/hr Documented By: Titration: 08/28/24 08:00 Dose: 0.11 mcg/kg/min, 14.314 mls/hr Documented By: Titration: 08/28/24 07:00 Dose: 0.11 mcg/kg/min, 14.314 mls/hr Documented By: Titration: 08/28/24 04:47 Dose: 0.11 mcg/kg/min, 14.314 mls/hr Documented By: Titration: 08/28/24 04:00 Dose: 0.09 mcg/kg/min, 11.711 mls/hr Documented By: Titration: 08/28/24 03:00 Dose: 0.09 mcg/kg/min, 11.711 mls/hr Documented By: Titration: 08/28/24 02:37 Dose: 0.09 mcg/kg/min, 11.711 mls/hr Documented By: Titration: 08/28/24 02:32 Dose: 0.05 mcg/kg/min, 6.506 mls/hr Documented By: Titration: 08/28/24 02:00 Dose: 0.01 mcg/kg/min, 1.301 mls/hr Documented By: Titration: 08/28/24 01:00 Dose: 0.01 mcg/kg/min, 1.301 mls/hr Documented By: Titration: 08/28/24 00:45 Dose: 0.03 mcg/kg/min, 3.904 mls/hr Documented By: Titration: 08/28/24 00:00 Dose: 0.05 mcg/kg/min, 6.506 mls/hr Documented By: Admin: 08/27/24 23:12 Dose: 0.05 mcg/kg/min, 6.506 mls/hr Documented By: Titration: 08/27/24 23:10 Dose: Infused Documented By: Titration: 08/26/24 04:45 Dose: 0 mcg/kg/min, 0 mls/hr Documented By: Titration: 08/26/24 04:00 Dose: 0.02 mcg/kg/min, 2.603 mls/hr Documented By: Titration: 08/26/24 03:45 Dose: 0.02 mcg/kg/min, 2.603 mls/hr Documented By: Titration: 08/26/24 03:00 Dose: 0.04 mcg/kg/min, 5.205 mls/hr Documented By: Titration: 08/26/24 02:45 Dose: 0.04 mcg/kg/min, 5.205 mls/hr Documented By: Titration: 08/26/24 02:00 Dose: 0.06 mcg/kg/min, 7.808 mls/hr Documented By: Titration: 08/26/24 01:00 Dose: 0.06 mcg/kg/min, 7.808 mls/hr Documented By: Titration: 08/26/24 00:00 Dose: 0.06 mcg/kg/min, 7.808 mls/hr Documented By: Titration: 08/25/24 23:00 Dose: 0.06 mcg/kg/min, 7.808 mls/hr Documented By: Titration: 08/25/24 22:00 Dose: 0.06 mcg/kg/min, 7.808 mls/hr Documented By: Titration: 08/25/24 21:00 Dose: 0.06 mcg/kg/min, 7.808 mls/hr Documented By: Titration: 08/25/24 20:00 Dose: 0.04 mcg/kg/min, 5.205 mls/hr Documented By: Titration: 08/25/24 19:00 Dose: 0.04 mcg/kg/min, 5.205 mls/hr Documented By: Titration: 08/25/24 18:00 Dose: 0.04 mcg/kg/min, 5.205 mls/hr Documented By: Titration: 08/25/24 17:00 Dose: 0.04 mcg/kg/min, 5.205 mls/hr Documented By: Titration: 08/25/24 16:00 Dose: 0.04 mcg/kg/min, 5.205 mls/hr Documented By: Titration: 08/25/24 15:46 Dose: 0.04 mcg/kg/min, 5.205 mls/hr Documented By: Titration: 08/25/24 15:00 Dose: 0.02 mcg/kg/min, 2.603 mls/hr Documented By: Titration: 08/25/24 14:00 Dose: 0.02 mcg/kg/min, 2.603 mls/hr Documented By: Titration: 08/25/24 13:16 Dose: 0.02 mcg/kg/min, 2.603 mls/hr Documented By: Titration: 08/25/24 13:00 Dose: 0.04 mcg/kg/min, 5.205 mls/hr Documented By: Titration: 08/25/24 12:50 Dose: 0.06 mcg/kg/min, 7.808 mls/hr Documented By: Titration: 08/25/24 12:45 Dose: 0.08 mcg/kg/min, 10.41 mls/hr Documented By: Titration: 08/25/24 12:40 Dose: 0.1 mcg/kg/min, 13.013 mls/hr Documented By: Titration: 08/25/24 12:35 Dose: 0.05 mcg/kg/min, 6.506 mls/hr Documented By: Titration: 08/25/24 08:00 Dose: 0 mcg/kg/min, 0 mls/hr Documented By: Titration: 08/25/24 07:00 Dose: 0.02 mcg/kg/min, 2.603 mls/hr Documented By: Titration: 08/25/24 06:45 Dose: 0.02 mcg/kg/min, 2.603 mls/hr Documented By: Titration: 08/25/24 06:00 Dose: 0.02 mcg/kg/min, 2.603 mls/hr Documented By: Titration: 08/25/24 02:45 Dose: 0 mcg/kg/min, 0 mls/hr Documented By: Titration: 08/25/24 02:00 Dose: 0.02 mcg/kg/min, 2.603 mls/hr Documented By: Titration: 08/25/24 01:00 Dose: 0.02 mcg/kg/min, 2.603 mls/hr Documented By: Titration: 08/25/24 00:00 Dose: 0.02 mcg/kg/min, 2.603 mls/hr Documented By: Titration: 08/24/24 23:00 Dose: 0.02 mcg/kg/min, 2.603 mls/hr Documented By: Titration: 08/24/24 22:00 Dose: 0.02 mcg/kg/min, 2.603 mls/hr Documented By: Titration: 08/24/24 21:00 Dose: 0.02 mcg/kg/min, 2.603 mls/hr Documented By: Titration: 08/24/24 20:00 Dose: 0.02 mcg/kg/min, 2.603 mls/hr Documented By: Titration: 08/24/24 19:00 Dose: 0.02 mcg/kg/min, 2.603 mls/hr Documented By: Titration: 08/24/24 18:00 Dose: 0.02 mcg/kg/min, 2.603 mls/hr Documented By: Titration: 08/24/24 17:52 Dose: 0.02 mcg/kg/min, 2.603 mls/hr Documented By: Titration: 08/24/24 17:00 Dose: 0.04 mcg/kg/min, 5.205 mls/hr Documented By: Titration: 08/24/24 16:00 Dose: 0.04 mcg/kg/min, 5.205 mls/hr Documented By: Titration: 08/24/24 15:38 Dose: 0.04 mcg/kg/min, 5.205 mls/hr Documented By: Titration: 08/24/24 15:00 Dose: 0.06 mcg/kg/min, 7.808 mls/hr Documented By: Titration: 08/24/24 14:55 Dose: 0.06 mcg/kg/min, 7.808 mls/hr Documented By: Titration: 08/24/24 14:00 Dose: 0.08 mcg/kg/min, 10.41 mls/hr Documented By: Titration: 08/24/24 13:40 Dose: 0.08 mcg/kg/min, 10.41 mls/hr Documented By: Titration: 08/24/24 13:10 Dose: 0.1 mcg/kg/min, 13.013 mls/hr Documented By: Titration: 08/24/24 13:00 Dose: 0.12 mcg/kg/min, 15.615 mls/hr Documented By: Titration: 08/24/24 12:30 Dose: 0.12 mcg/kg/min, 15.615 mls/hr Documented By: Titration: 08/24/24 12:00 Dose: 0.14 mcg/kg/min, 18.218 mls/hr Documented By: Titration: 08/24/24 11:26 Dose: 0.14 mcg/kg/min, 18.218 mls/hr Documented By: Titration: 08/24/24 11:21 Dose: 0.12 mcg/kg/min, 15.615 mls/hr Documented By: Titration: 08/24/24 11:18 Dose: 0.07 mcg/kg/min, 9.109 mls/hr Documented By: Titration: 08/24/24 11:10 Dose: 0.05 mcg/kg/min, 6.506 mls/hr Documented By: Titration: 08/24/24 09:50 Dose: 0 mcg/kg/min, 0 mls/hr Documented By: Titration: 08/24/24 09:35 Dose: 0.01 mcg/kg/min, 1.301 mls/hr Documented By: Titration: 08/24/24 09:18 Dose: 0.03 mcg/kg/min, 3.904 mls/hr Documented By: Titration: 08/24/24 09:00 Dose: 0.05 mcg/kg/min, 6.506 mls/hr Documented By: Titration: 08/24/24 07:00 Dose: 0.05 mcg/kg/min, 6.506 mls/hr Documented By: Admin: 08/24/24 06:49 Dose: 0.05 mcg/kg/min, 6.506 mls/hr Documented By: LIBIA Vancomycin HCl 1,000 mg/ (Sodium Chloride) 250 mls @ 150 mls/hr IV X1 ONE Stop: 08/23/24 13:59 Last Admin: 08/23/24 18:42 Dose: Not Given Documented By: WL Non-Admin Reason: Discontinued Lactated Ringer's (Lactated Ringers) 1,000 mls @ 999 mls/hr IV .Q1H1M ONE Stop: 08/23/24 14:07 Last Infusion: 08/23/24 17:54 Dose: Infused Documented By: Admin: 08/23/24 16:53 Dose: 999 mls/hr Documented By: BHARATHI Piperacillin/Tazobactam/Dextrose (Zosyn) 50 mls @ 12.5 mls/hr IV Q8HR AJAY Stop: 08/30/24 21:59 Piperacillin/Tazobactam/Dextrose (Zosyn) 50 mls @ 100 mls/hr IV Q6HR AJAY Stop: 08/30/24 17:59 Last Infusion: 08/24/24 07:00 Dose: Infused Documented By: Admin: 08/24/24 05:51 Dose: 100 mls/hr Documented By: Infusion: 08/24/24 00:28 Dose: Infused Documented By: Admin: 08/23/24 23:58 Dose: 100 mls/hr Documented By: Infusion: 08/23/24 18:53 Dose: Infused Documented By: Admin: 08/23/24 18:23 Dose: 100 mls/hr Documented By: ALEXSANDRA Propofol (Diprivan Ivpb) 1,000 mg in 100 mls @ 2.082 mls/hr IV .Q24H PRN; Protocol PRN Reason: PER PROTOCOL Stop: 09/22/24 15:42 Last Titration: 08/24/24 11:00 Dose: 35 mcg/kg/min, 14.574 mls/hr Documented By: Titration: 08/24/24 10:44 Dose: 35 mcg/kg/min, 14.574 mls/hr Documented By: Titration: 08/24/24 10:38 Dose: 30 mcg/kg/min, 12.492 mls/hr Documented By: Titration: 08/24/24 10:22 Dose: 25 mcg/kg/min, 10.41 mls/hr Documented By: Titration: 08/24/24 10:13 Dose: 20 mcg/kg/min, 8.328 mls/hr Documented By: Titration: 08/24/24 10:08 Dose: 15 mcg/kg/min, 6.246 mls/hr Documented By: Titration: 08/24/24 10:03 Dose: 10 mcg/kg/min, 4.164 mls/hr Documented By: Titration: 08/24/24 10:00 Dose: 5 mcg/kg/min, 2.082 mls/hr Documented By: Titration: 08/24/24 09:35 Dose: 5 mcg/kg/min, 2.082 mls/hr Documented By: Titration: 08/24/24 08:52 Dose: 10 mcg/kg/min, 4.164 mls/hr Documented By: Titration: 08/24/24 08:26 Dose: 15 mcg/kg/min, 6.246 mls/hr Documented By: Titration: 08/24/24 08:00 Dose: 20 mcg/kg/min, 8.328 mls/hr Documented By: Titration: 08/24/24 07:46 Dose: 20 mcg/kg/min, 8.328 mls/hr Documented By: Titration: 08/24/24 07:38 Dose: 15 mcg/kg/min, 6.246 mls/hr Documented By: Titration: 08/24/24 07:00 Dose: 20 mcg/kg/min, 8.328 mls/hr Documented By: Titration: 08/24/24 06:00 Dose: 20 mcg/kg/min, 8.328 mls/hr Documented By: Titration: 08/24/24 05:00 Dose: 20 mcg/kg/min, 8.328 mls/hr Documented By: Titration: 08/24/24 04:23 Dose: 20 mcg/kg/min, 8.328 mls/hr Documented By: Titration: 08/24/24 04:00 Dose: 15 mcg/kg/min, 6.246 mls/hr Documented By: Titration: 08/24/24 03:00 Dose: 15 mcg/kg/min, 6.246 mls/hr Documented By: Titration: 08/24/24 02:45 Dose: 15 mcg/kg/min, 6.246 mls/hr Documented By: Titration: 08/24/24 02:30 Dose: 10 mcg/kg/min, 4.164 mls/hr Documented By: Titration: 08/24/24 02:00 Dose: 5 mcg/kg/min, 2.082 mls/hr Documented By: Titration: 08/24/24 01:15 Dose: 5 mcg/kg/min, 2.082 mls/hr Documented By: Titration: 08/24/24 01:00 Dose: 10 mcg/kg/min, 4.164 mls/hr Documented By: Titration: 08/24/24 00:00 Dose: 15 mcg/kg/min, 6.246 mls/hr Documented By: Titration: 08/23/24 23:25 Dose: 15 mcg/kg/min, 6.246 mls/hr Documented By: Titration: 08/23/24 23:15 Dose: 10 mcg/kg/min, 4.164 mls/hr Documented By: Admin: 08/23/24 23:06 Dose: 5 mcg/kg/min, 2.082 mls/hr Documented By: CMN Co-signed By: CLT Fentanyl Citrate (Sublimaze Inj 2,500 Mcg/250 Ml Bag) 2,500 mcg in 250 mls @ 2.5 mls/hr IV .Q24H PRN; Protocol PRN Reason: PER PROTOCOL Stop: 08/28/24 16:37 Last Titration: 08/24/24 21:00 Dose: Infused Documented By: Titration: 08/24/24 20:00 Dose: 175 mcg/hr, 17.5 mls/hr Documented By: Titration: 08/24/24 19:00 Dose: 175 mcg/hr, 17.5 mls/hr Documented By: Titration: 08/24/24 19:00 Dose: 175 mcg/hr, 17.5 mls/hr Documented By: Titration: 08/24/24 18:00 Dose: 175 mcg/hr, 17.5 mls/hr Documented By: Titration: 08/24/24 17:00 Dose: 175 mcg/hr, 17.5 mls/hr Documented By: Titration: 08/24/24 16:00 Dose: 175 mcg/hr, 17.5 mls/hr Documented By: Titration: 08/24/24 15:00 Dose: 175 mcg/hr, 17.5 mls/hr Documented By: Titration: 08/24/24 14:00 Dose: 175 mcg/hr, 17.5 mls/hr Documented By: Titration: 08/24/24 13:00 Dose: 175 mcg/hr, 17.5 mls/hr Documented By: Titration: 08/24/24 12:00 Dose: 175 mcg/hr, 17.5 mls/hr Documented By: Titration: 08/24/24 11:00 Dose: 175 mcg/hr, 17.5 mls/hr Documented By: Titration: 08/24/24 10:22 Dose: 125 mcg/hr, 12.5 mls/hr Documented By: Titration: 08/24/24 10:00 Dose: 75 mcg/hr, 7.5 mls/hr Documented By: Titration: 08/24/24 09:00 Dose: 75 mcg/hr, 7.5 mls/hr Documented By: Titration: 08/24/24 08:00 Dose: 75 mcg/hr, 7.5 mls/hr Documented By: Titration: 08/24/24 07:00 Dose: 75 mcg/hr, 7.5 mls/hr Documented By: Titration: 08/24/24 06:00 Dose: 75 mcg/hr, 7.5 mls/hr Documented By: Titration: 08/24/24 05:00 Dose: 75 mcg/hr, 7.5 mls/hr Documented By: Titration: 08/24/24 04:00 Dose: 75 mcg/hr, 7.5 mls/hr Documented By: Titration: 08/24/24 03:30 Dose: 75 mcg/hr, 7.5 mls/hr Documented By: Titration: 08/24/24 03:00 Dose: 25 mcg/hr, 2.5 mls/hr Documented By: Titration: 08/24/24 02:00 Dose: 25 mcg/hr, 2.5 mls/hr Documented By: Titration: 08/24/24 01:00 Dose: 25 mcg/hr, 2.5 mls/hr Documented By: Titration: 08/24/24 00:00 Dose: 25 mcg/hr, 2.5 mls/hr Documented By: Titration: 08/23/24 23:00 Dose: 25 mcg/hr, 2.5 mls/hr Documented By: Titration: 08/23/24 22:00 Dose: 25 mcg/hr, 2.5 mls/hr Documented By: Titration: 08/23/24 21:00 Dose: 25 mcg/hr, 2.5 mls/hr Documented By: Titration: 08/23/24 20:00 Dose: 25 mcg/hr, 2.5 mls/hr Documented By: Titration: 08/23/24 19:00 Dose: 25 mcg/hr, 2.5 mls/hr Documented By: Titration: 08/23/24 18:00 Dose: 25 mcg/hr, 2.5 mls/hr Documented By: Titration: 08/23/24 17:00 Dose: 25 mcg/hr, 2.5 mls/hr Documented By: Admin: 08/23/24 16:47 Dose: 25 mcg/hr, 2.5 mls/hr Documented By: BHARATHI Co-signed By: CALI Lactated Ringer's (Lactated Ringers) 1,000 mls @ 75 mls/hr IV .[id number] AJAY Stop: 08/24/24 17:48 Last Infusion: 08/25/24 03:00 Dose: Infused Documented By: Admin: 08/24/24 10:31 Dose: 75 mls/hr Documented By: Infusion: 08/24/24 07:41 Dose: Infused Documented By: Admin: 08/23/24 18:21 Dose: 75 mls/hr Documented By: ALEXSANDRA Lactated Ringer's (Lactated Ringers) 1,000 mls @ 999 mls/hr IV .Q1H1M ONE Stop: 08/24/24 02:20 Last Infusion: 08/24/24 02:49 Dose: Infused Documented By: Admin: 08/24/24 01:38 Dose: 999 mls/hr Documented By: LIBIA Vancomycin HCl 750 mg/Vancomycin HCl 500 mg/ Sodium Chloride 250 mls @ 120 mls/hr IV DAILY@1000 AJAY; Protocol Stop: 08/31/24 09:59 Last Admin: 08/26/24 09:02 Dose: 120 mls/hr Documented By: Infusion: 08/25/24 12:21 Dose: Infused Documented By: Admin: 08/25/24 10:16 Dose: 120 mls/hr Documented By: Infusion: 08/24/24 12:01 Dose: Infused Documented By: Admin: 08/24/24 09:56 Dose: 120 mls/hr Documented By: ALEXSANDRA Propofol (Diprivan Ivpb) 1,000 mg in 100 mls @ 2.169 mls/hr IV .Q24H PRN; Protocol PRN Reason: PER PROTOCOL Stop: 09/22/24 15:42 Fentanyl Citrate (Sublimaze Inj 2,500 Mcg/250 Ml Bag) 2,500 mcg in 250 mls @ 2.5 mls/hr IV .Q24H PRN; Protocol PRN Reason: PER PROTOCOL Stop: 08/28/24 16:37 Last Titration: 08/29/24 00:21 Dose: Infused Documented By: Titration: 08/29/24 00:00 Dose: 225 mcg/hr, 22.5 mls/hr Documented By: Titration: 08/28/24 23:00 Dose: 225 mcg/hr, 22.5 mls/hr Documented By: Titration: 08/28/24 22:00 Dose: 225 mcg/hr, 22.5 mls/hr Documented By: Titration: 08/28/24 21:00 Dose: 225 mcg/hr, 22.5 mls/hr Documented By: Titration: 08/28/24 20:00 Dose: 225 mcg/hr, 22.5 mls/hr Documented By: Titration: 08/28/24 19:00 Dose: 225 mcg/hr, 22.5 mls/hr Documented By: Titration: 08/28/24 18:00 Dose: 225 mcg/hr, 22.5 mls/hr Documented By: Titration: 08/28/24 17:00 Dose: 225 mcg/hr, 22.5 mls/hr Documented By: Titration: 08/28/24 16:00 Dose: 225 mcg/hr, 22.5 mls/hr Documented By: Titration: 08/28/24 15:00 Dose: 225 mcg/hr, 22.5 mls/hr Documented By: Titration: 08/28/24 14:00 Dose: 225 mcg/hr, 22.5 mls/hr Documented By: Admin: 08/28/24 13:10 Dose: 225 mcg/hr, 22.5 mls/hr Documented By: WL Co-signed By: GE Titration: 08/28/24 13:10 Dose: Infused Documented By: WL Co-signed By: GE Titration: 08/28/24 13:00 Dose: 225 mcg/hr, 22.5 mls/hr Documented By: Titration: 08/28/24 12:00 Dose: 225 mcg/hr, 22.5 mls/hr Documented By: Titration: 08/28/24 11:00 Dose: 225 mcg/hr, 22.5 mls/hr Documented By: Titration: 08/28/24 10:00 Dose: 225 mcg/hr, 22.5 mls/hr Documented By: Titration: 08/28/24 09:00 Dose: 225 mcg/hr, 22.5 mls/hr Documented By: Titration: 08/28/24 08:00 Dose: 225 mcg/hr, 22.5 mls/hr Documented By: Titration: 08/28/24 07:00 Dose: 225 mcg/hr, 22.5 mls/hr Documented By: Titration: 08/28/24 06:50 Dose: 226 mcg/hr, 22.6 mls/hr Documented By: Titration: 08/28/24 06:00 Dose: 225 mcg/hr, 22.5 mls/hr Documented By: Titration: 08/28/24 05:30 Dose: 225 mcg/hr, 22.5 mls/hr Documented By: Titration: 08/28/24 05:00 Dose: 300 mcg/hr, 30 mls/hr Documented By: Titration: 08/28/24 04:00 Dose: 300 mcg/hr, 30 mls/hr Documented By: Titration: 08/28/24 03:33 Dose: 300 mcg/hr, 30 mls/hr Documented By: Titration: 08/28/24 03:00 Dose: 275 mcg/hr, 27.5 mls/hr Documented By: Admin: 08/28/24 02:55 Dose: 225 mcg/hr, 22.5 mls/hr Documented By: RH Co-signed By: MLD Titration: 08/28/24 02:00 Dose: Infused Documented By: Titration: 08/28/24 01:00 Dose: 225 mcg/hr, 22.5 mls/hr Documented By: Titration: 08/28/24 00:00 Dose: 225 mcg/hr, 22.5 mls/hr Documented By: Titration: 08/27/24 23:00 Dose: 225 mcg/hr, 22.5 mls/hr Documented By: Titration: 08/27/24 22:00 Dose: 225 mcg/hr, 22.5 mls/hr Documented By: Titration: 08/27/24 21:00 Dose: 225 mcg/hr, 22.5 mls/hr Documented By: Titration: 08/27/24 20:00 Dose: 225 mcg/hr, 22.5 mls/hr Documented By: Titration: 08/27/24 19:00 Dose: 225 mcg/hr, 22.5 mls/hr Documented By: Titration: 08/27/24 18:00 Dose: 225 mcg/hr, 22.5 mls/hr Documented By: Titration: 08/27/24 17:00 Dose: 225 mcg/hr, 22.5 mls/hr Documented By: Titration: 08/27/24 16:00 Dose: 225 mcg/hr, 22.5 mls/hr Documented By: Titration: 08/27/24 15:00 Dose: 225 mcg/hr, 22.5 mls/hr Documented By: moses Admin: 08/27/24 14:28 Dose: 225 mcg/hr, 22.5 mls/hr Documented By: moses Co-signed By: AG Titration: 08/27/24 14:00 Dose: Infused Documented By: moses Titration: 08/27/24 13:00 Dose: 225 mcg/hr, 22.5 mls/hr Documented By: moses Titration: 08/27/24 12:37 Dose: 225 mcg/hr, 22.5 mls/hr Documented By: moses Titration: 08/27/24 12:00 Dose: 175 mcg/hr, 17.5 mls/hr Documented By: moses Titration: 08/27/24 11:00 Dose: 175 mcg/hr, 17.5 mls/hr Documented By: moses Titration: 08/27/24 10:00 Dose: 175 mcg/hr, 17.5 mls/hr Documented By: moses Titration: 08/27/24 09:00 Dose: 175 mcg/hr, 17.5 mls/hr Documented By: moses Titration: 08/27/24 08:38 Dose: 175 mcg/hr, 17.5 mls/hr Documented By: moses Titration: 08/27/24 08:00 Dose: 225 mcg/hr, 22.5 mls/hr Documented By: moses Titration: 08/27/24 07:00 Dose: 225 mcg/hr, 22.5 mls/hr Documented By: Titration: 08/27/24 06:00 Dose: 225 mcg/hr, 22.5 mls/hr Documented By: Titration: 08/27/24 05:00 Dose: 225 mcg/hr, 22.5 mls/hr Documented By: Titration: 08/27/24 04:00 Dose: 225 mcg/hr, 22.5 mls/hr Documented By: Titration: 08/27/24 03:00 Dose: 225 mcg/hr, 22.5 mls/hr Documented By: Titration: 08/27/24 02:00 Dose: 225 mcg/hr, 22.5 mls/hr Documented By: Admin: 08/27/24 01:35 Dose: 225 mcg/hr, 22.5 mls/hr Documented By: RH Co-signed By: BRIANNA Titration: 08/27/24 01:35 Dose: Infused Documented By: RH Co-signed By: REED Titration: 08/27/24 01:00 Dose: 225 mcg/hr, 22.5 mls/hr Documented By: Titration: 08/27/24 00:00 Dose: 225 mcg/hr, 22.5 mls/hr Documented By: Titration: 08/26/24 23:00 Dose: 225 mcg/hr, 22.5 mls/hr Documented By: Titration: 08/26/24 22:00 Dose: 225 mcg/hr, 22.5 mls/hr Documented By: Titration: 08/26/24 21:00 Dose: 225 mcg/hr, 22.5 mls/hr Documented By: Titration: 08/26/24 20:00 Dose: 275 mcg/hr, 27.5 mls/hr Documented By: Titration: 08/26/24 19:00 Dose: 225 mcg/hr, 22.5 mls/hr Documented By: Titration: 08/26/24 18:00 Dose: 225 mcg/hr, 22.5 mls/hr Documented By: Titration: 08/26/24 17:00 Dose: 225 mcg/hr, 22.5 mls/hr Documented By: Titration: 08/26/24 16:00 Dose: 225 mcg/hr, 22.5 mls/hr Documented By: Admin: 08/26/24 15:05 Dose: 225 mcg/hr, 22.5 mls/hr Documented By: MR Co-signed By: GE Titration: 08/26/24 15:00 Dose: Infused Documented By: Titration: 08/26/24 14:00 Dose: Infused Documented By: Titration: 08/26/24 13:00 Dose: 225 mcg/hr, 22.5 mls/hr Documented By: Titration: 08/26/24 12:00 Dose: 225 mcg/hr, 22.5 mls/hr Documented By: Titration: 08/26/24 11:00 Dose: 225 mcg/hr, 22.5 mls/hr Documented By: Titration: 08/26/24 10:00 Dose: 225 mcg/hr, 22.5 mls/hr Documented By: Titration: 08/26/24 09:00 Dose: 225 mcg/hr, 22.5 mls/hr Documented By: Titration: 08/26/24 08:00 Dose: 225 mcg/hr, 22.5 mls/hr Documented By: Titration: 08/26/24 07:00 Dose: 225 mcg/hr, 22.5 mls/hr Documented By: Titration: 08/26/24 06:45 Dose: 225 mcg/hr, 22.5 mls/hr Documented By: Titration: 08/26/24 06:00 Dose: 225 mcg/hr, 22.5 mls/hr Documented By: Titration: 08/26/24 05:00 Dose: 225 mcg/hr, 22.5 mls/hr Documented By: Titration: 08/26/24 04:00 Dose: 225 mcg/hr, 22.5 mls/hr Documented By: Titration: 08/26/24 03:00 Dose: 225 mcg/hr, 22.5 mls/hr Documented By: Admin: 08/26/24 02:40 Dose: 225 mcg/hr, 22.5 mls/hr Documented By: CLT Co-signed By: CMN Titration: 08/26/24 02:40 Dose: Infused Documented By: CLT Co-signed By: CMN Titration: 08/26/24 02:00 Dose: 225 mcg/hr, 22.5 mls/hr Documented By: CLT Co-signed By: CMN Titration: 08/26/24 01:00 Dose: 225 mcg/hr, 22.5 mls/hr Documented By: CLT Co-signed By: CMN Titration: 08/26/24 00:00 Dose: 225 mcg/hr, 22.5 mls/hr Documented By: Titration: 08/25/24 23:00 Dose: 225 mcg/hr, 22.5 mls/hr Documented By: Titration: 08/25/24 22:00 Dose: 225 mcg/hr, 22.5 mls/hr Documented By: Titration: 08/25/24 21:00 Dose: 225 mcg/hr, 22.5 mls/hr Documented By: Titration: 08/25/24 20:00 Dose: 225 mcg/hr, 22.5 mls/hr Documented By: Titration: 08/25/24 19:00 Dose: 225 mcg/hr, 22.5 mls/hr Documented By: Titration: 08/25/24 18:45 Dose: 225 mcg/hr, 22.5 mls/hr Documented By: Titration: 08/25/24 18:36 Dose: 225 mcg/hr, 22.5 mls/hr Documented By: Titration: 08/25/24 18:00 Dose: 175 mcg/hr, 17.5 mls/hr Documented By: Titration: 08/25/24 17:00 Dose: 125 mcg/hr, 12.5 mls/hr Documented By: Titration: 08/25/24 16:00 Dose: 125 mcg/hr, 12.5 mls/hr Documented By: Titration: 08/25/24 15:00 Dose: 125 mcg/hr, 12.5 mls/hr Documented By: Titration: 08/25/24 14:00 Dose: 125 mcg/hr, 12.5 mls/hr Documented By: Titration: 08/25/24 13:00 Dose: 75 mcg/hr, 7.5 mls/hr Documented By: Admin: 08/25/24 12:41 Dose: 25 mcg/hr, 2.5 mls/hr Documented By: Co-signed By: ECHO Titration: 08/25/24 12:41 Dose: Infused Documented By: MR Co-signed By: GE Titration: 08/25/24 08:00 Dose: 0 mcg/hr, 0 mls/hr Documented By: Titration: 08/25/24 07:00 Dose: 175 mcg/hr, 17.5 mls/hr Documented By: Titration: 08/25/24 06:45 Dose: 175 mcg/hr, 17.5 mls/hr Documented By: Titration: 08/25/24 06:00 Dose: 175 mcg/hr, 17.5 mls/hr Documented By: Titration: 08/25/24 05:00 Dose: 175 mcg/hr, 17.5 mls/hr Documented By: Titration: 08/25/24 04:00 Dose: 175 mcg/hr, 17.5 mls/hr Documented By: Titration: 08/25/24 03:00 Dose: 175 mcg/hr, 17.5 mls/hr Documented By: Titration: 08/25/24 02:00 Dose: 175 mcg/hr, 17.5 mls/hr Documented By: Titration: 08/25/24 01:00 Dose: 175 mcg/hr, 17.5 mls/hr Documented By: Titration: 08/25/24 00:00 Dose: 175 mcg/hr, 17.5 mls/hr Documented By: Titration: 08/24/24 23:00 Dose: 175 mcg/hr, 17.5 mls/hr Documented By: Titration: 08/24/24 22:00 Dose: 175 mcg/hr, 17.5 mls/hr Documented By: Admin: 08/24/24 19:17 Dose: 175 mcg/hr, 17.5 mls/hr Documented By: ALEXSANDRA Co-signed By: BHARATHI Propofol (Diprivan Ivpb) 1,000 mg in 100 mls @ 2.169 mls/hr IV .Q24H PRN; Protocol PRN Reason: PER PROTOCOL Stop: 09/22/24 15:42 Last Titration: 08/25/24 08:00 Dose: 0 mcg/kg/min, 0 mls/hr Documented By: Titration: 08/25/24 07:00 Dose: 30 mcg/kg/min, 13.014 mls/hr Documented By: Titration: 08/25/24 06:45 Dose: 30 mcg/kg/min, 13.014 mls/hr Documented By: Titration: 08/25/24 06:00 Dose: 30 mcg/kg/min, 13.014 mls/hr Documented By: Titration: 08/25/24 05:00 Dose: 35 mcg/kg/min, 15.183 mls/hr Documented By: Titration: 08/25/24 04:00 Dose: 35 mcg/kg/min, 15.183 mls/hr Documented By: Titration: 08/25/24 03:00 Dose: 35 mcg/kg/min, 15.183 mls/hr Documented By: Admin: 08/25/24 02:36 Dose: 35 mcg/kg/min, 15.183 mls/hr Documented By: CMN Co-signed By: BB Titration: 08/25/24 02:00 Dose: Infused Documented By: Titration: 08/25/24 01:30 Dose: 30 mcg/kg/min, 13.014 mls/hr Documented By: Titration: 08/25/24 01:00 Dose: 35 mcg/kg/min, 15.183 mls/hr Documented By: Titration: 08/25/24 00:00 Dose: 35 mcg/kg/min, 15.183 mls/hr Documented By: Titration: 08/24/24 22:00 Dose: 35 mcg/kg/min, 15.183 mls/hr Documented By: Titration: 08/24/24 21:00 Dose: 35 mcg/kg/min, 15.183 mls/hr Documented By: Titration: 08/24/24 20:00 Dose: 35 mcg/kg/min, 15.183 mls/hr Documented By: Titration: 08/24/24 19:00 Dose: 35 mcg/kg/min, 15.183 mls/hr Documented By: Admin: 08/24/24 18:04 Dose: 35 mcg/kg/min, 15.183 mls/hr Documented By: ALEXSANDRA Co-signed By: MR Titration: 08/24/24 18:04 Dose: Infused Documented By: ALEXSANDRA Co-signed By: MR Titration: 08/24/24 18:03 Dose: 35 mcg/kg/min, 15.183 mls/hr Documented By: ALEXSANDRA Co-signed By: MR Titration: 08/24/24 18:00 Dose: 35 mcg/kg/min, 15.183 mls/hr Documented By: ALEXSANDRA Co-signed By: MR Titration: 08/24/24 17:30 Dose: 35 mcg/kg/min, 15.183 mls/hr Documented By: ALEXSANDRA Co-signed By: MR Titration: 08/24/24 17:00 Dose: 30 mcg/kg/min, 13.014 mls/hr Documented By: ALEXSANDRA Co-signed By: MR Titration: 08/24/24 16:00 Dose: 30 mcg/kg/min, 13.014 mls/hr Documented By: Titration: 08/24/24 15:00 Dose: 30 mcg/kg/min, 13.014 mls/hr Documented By: Titration: 08/24/24 14:00 Dose: 30 mcg/kg/min, 13.014 mls/hr Documented By: Titration: 08/24/24 13:00 Dose: 30 mcg/kg/min, 13.014 mls/hr Documented By: Titration: 08/24/24 12:00 Dose: 30 mcg/kg/min, 13.014 mls/hr Documented By: Titration: 08/24/24 11:21 Dose: 30 mcg/kg/min, 13.014 mls/hr Documented By: Admin: 08/24/24 11:18 Dose: 35 mcg/kg/min, 15.183 mls/hr Documented By: ALEXSANDRA Co-signed By: BHARATHI Piperacillin/Tazobactam/Dextrose (Zosyn) 50 mls @ 12.5 mls/hr IV Q6HR AJAY Stop: 08/30/24 17:59 Last Admin: 08/26/24 05:23 Dose: 12.5 mls/hr Documented By: Infusion: 08/26/24 03:49 Dose: Infused Documented By: Admin: 08/25/24 23:49 Dose: 12.5 mls/hr Documented By: Infusion: 08/25/24 22:28 Dose: Infused Documented By: Admin: 08/25/24 18:28 Dose: 12.5 mls/hr Documented By: Infusion: 08/25/24 18:20 Dose: Infused Documented By: Admin: 08/25/24 14:20 Dose: 12.5 mls/hr Documented By: Infusion: 08/25/24 10:01 Dose: Infused Documented By: Admin: 08/25/24 06:01 Dose: 12.5 mls/hr Documented By: Infusion: 08/25/24 03:47 Dose: Infused Documented By: Admin: 08/24/24 23:47 Dose: 12.5 mls/hr Documented By: Infusion: 08/24/24 21:52 Dose: Infused Documented By: Admin: 08/24/24 17:52 Dose: 12.5 mls/hr Documented By: Infusion: 08/24/24 15:35 Dose: Infused Documented By: Admin: 08/24/24 11:32 Dose: 12.5 mls/hr Documented By: ALEXSANDRA Lactated Ringer's (Lactated Ringers) 500 mls @ 75 mls/hr IV .Q6H40M [facility] Stop: 08/25/24 01:55 Last Infusion: 08/25/24 04:03 Dose: Infused Documented By: Admin: 08/24/24 21:24 Dose: 75 mls/hr Documented By: LIBIA Dexmedetomidine/Sodium Chloride (Precedex Ivpb) 400 mcg in 100 mls @ 3.695 mls/hr IV .Q24H PRN; Protocol PRN Reason: Per PROTOCOL Stop: 09/24/24 18:39 Last Titration: 08/28/24 09:00 Dose: Infused Documented By: Titration: 08/28/24 08:00 Dose: 1.4 mcg/kg/hr, 25.865 mls/hr Documented By: Titration: 08/28/24 07:00 Dose: 1.4 mcg/kg/hr, 25.865 mls/hr Documented By: Titration: 08/28/24 06:00 Dose: 1.4 mcg/kg/hr, 25.865 mls/hr Documented By: Titration: 08/28/24 05:00 Dose: 1.4 mcg/kg/hr, 25.865 mls/hr Documented By: Admin: 08/28/24 04:15 Dose: 1.4 mcg/kg/hr, 25.865 mls/hr Documented By: RH Co-signed By: MLD Titration: 08/28/24 04:15 Dose: Infused Documented By: RH Co-signed By: MLD Titration: 08/28/24 04:00 Dose: Infused Documented By: RH Co-signed By: MLD Titration: 08/28/24 03:00 Dose: 1.4 mcg/kg/hr, 25.865 mls/hr Documented By: Titration: 08/28/24 02:31 Dose: 1.4 mcg/kg/hr, 25.865 mls/hr Documented By: Titration: 08/28/24 02:00 Dose: 1.2 mcg/kg/hr, 22.17 mls/hr Documented By: Titration: 08/28/24 01:30 Dose: 1.2 mcg/kg/hr, 22.17 mls/hr Documented By: Titration: 08/28/24 01:00 Dose: 1 mcg/kg/hr, 18.475 mls/hr Documented By: Titration: 08/28/24 00:30 Dose: 0.8 mcg/kg/hr, 14.78 mls/hr Documented By: Titration: 08/28/24 00:00 Dose: 0.6 mcg/kg/hr, 11.085 mls/hr Documented By: Titration: 08/27/24 23:00 Dose: 0.8 mcg/kg/hr, 14.78 mls/hr Documented By: Titration: 08/27/24 22:00 Dose: 0.8 mcg/kg/hr, 14.78 mls/hr Documented By: Admin: 08/27/24 21:49 Dose: 1 mcg/kg/hr, 18.475 mls/hr Documented By: Titration: 08/27/24 21:49 Dose: Infused Documented By: Titration: 08/27/24 21:10 Dose: 1 mcg/kg/hr, 18.475 mls/hr Documented By: Titration: 08/27/24 21:00 Dose: 1.2 mcg/kg/hr, 22.17 mls/hr Documented By: RH Co-signed By: Titration: 08/27/24 20:00 Dose: 1.2 mcg/kg/hr, 22.17 mls/hr Documented By: Titration: 08/27/24 19:00 Dose: 1.2 mcg/kg/hr, 22.17 mls/hr Documented By: Titration: 08/27/24 18:00 Dose: 1 mcg/kg/hr, 18.475 mls/hr Documented By: Titration: 08/27/24 17:00 Dose: 1 mcg/kg/hr, 18.475 mls/hr Documented By: Admin: 08/27/24 16:38 Dose: 1 mcg/kg/hr, 18.475 mls/hr Documented By: RH Co-signed By: moses Titration: 08/27/24 16:00 Dose: Infused Documented By: Titration: 08/27/24 15:00 Dose: 1 mcg/kg/hr, 18.475 mls/hr Documented By: moses Titration: 08/27/24 14:00 Dose: 1 mcg/kg/hr, 18.475 mls/hr Documented By: moses Titration: 08/27/24 13:24 Dose: 1 mcg/kg/hr, 18.475 mls/hr Documented By: moses Titration: 08/27/24 13:00 Dose: 1.2 mcg/kg/hr, 22.17 mls/hr Documented By: moses Titration: 08/27/24 12:00 Dose: 1.2 mcg/kg/hr, 22.17 mls/hr Documented By: moses Titration: 08/27/24 11:00 Dose: 1.2 mcg/kg/hr, 22.17 mls/hr Documented By: moses Admin: 08/27/24 10:22 Dose: 1.2 mcg/kg/hr, 22.17 mls/hr Documented By: ALEXSANDRA Co-signed By: BHARATHI Titration: 08/27/24 09:23 Dose: Infused Documented By: ALEXSANDRA Co-signed By: BHARATHI Titration: 08/27/24 06:00 Dose: 1.2 mcg/kg/hr, 22.17 mls/hr Documented By: Titration: 08/27/24 05:00 Dose: 1.2 mcg/kg/hr, 22.17 mls/hr Documented By: Admin: 08/27/24 04:52 Dose: 1.2 mcg/kg/hr, 22.17 mls/hr Documented By: RH Co-signed By: REED Titration: 08/27/24 04:09 Dose: Infused Documented By: RH Co-signed By: REED Titration: 08/27/24 04:00 Dose: 1.2 mcg/kg/hr, 22.17 mls/hr Documented By: Titration: 08/27/24 03:00 Dose: 1.2 mcg/kg/hr, 22.17 mls/hr Documented By: Titration: 08/27/24 02:00 Dose: 1.2 mcg/kg/hr, 22.17 mls/hr Documented By: Titration: 08/27/24 01:00 Dose: 1.2 mcg/kg/hr, 22.17 mls/hr Documented By: Titration: 08/27/24 00:00 Dose: 1.2 mcg/kg/hr, 22.17 mls/hr Documented By: Admin: 08/26/24 23:11 Dose: 1.2 mcg/kg/hr, 22.17 mls/hr Documented By: RH Co-signed By: REED Titration: 08/26/24 23:00 Dose: Infused Documented By: Titration: 08/26/24 22:00 Dose: 1.2 mcg/kg/hr, 22.17 mls/hr Documented By: Titration: 08/26/24 21:00 Dose: 1.2 mcg/kg/hr, 22.17 mls/hr Documented By: Titration: 08/26/24 20:00 Dose: 1.2 mcg/kg/hr, 22.17 mls/hr Documented By: Titration: 08/26/24 19:00 Dose: 1.2 mcg/kg/hr, 22.17 mls/hr Documented By: Admin: 08/26/24 18:26 Dose: 1.2 mcg/kg/hr, 22.17 mls/hr Documented By: RH Co-signed By: GE Titration: 08/26/24 18:00 Dose: Infused Documented By: Titration: 08/26/24 17:00 Dose: 1.2 mcg/kg/hr, 22.17 mls/hr Documented By: Titration: 08/26/24 16:00 Dose: 1.2 mcg/kg/hr, 22.17 mls/hr Documented By: Titration: 08/26/24 15:00 Dose: 1.2 mcg/kg/hr, 22.17 mls/hr Documented By: Titration: 08/26/24 14:00 Dose: 1.2 mcg/kg/hr, 22.17 mls/hr Documented By: Admin: 08/26/24 13:06 Dose: 1.2 mcg/kg/hr, 22.17 mls/hr Documented By: MR Co-signed By: HR Titration: 08/26/24 13:00 Dose: Infused Documented By: Titration: 08/26/24 12:00 Dose: 1.2 mcg/kg/hr, 22.17 mls/hr Documented By: Titration: 08/26/24 11:00 Dose: 1.2 mcg/kg/hr, 22.17 mls/hr Documented By: Titration: 08/26/24 10:00 Dose: 1.2 mcg/kg/hr, 22.17 mls/hr Documented By: Titration: 08/26/24 09:00 Dose: 1.2 mcg/kg/hr, 22.17 mls/hr Documented By: Titration: 08/26/24 08:00 Dose: 1.2 mcg/kg/hr, 22.17 mls/hr Documented By: Admin: 08/26/24 07:53 Dose: 1.2 mcg/kg/hr, 22.17 mls/hr Documented By: MR Co-signed By: GE Titration: 08/26/24 07:00 Dose: Infused Documented By: Titration: 08/26/24 06:45 Dose: Infused Documented By: Titration: 08/26/24 06:00 Dose: 1.2 mcg/kg/hr, 22.17 mls/hr Documented By: Titration: 08/26/24 05:23 Dose: 1.2 mcg/kg/hr, 22.17 mls/hr Documented By: Titration: 08/26/24 05:00 Dose: 1.2 mcg/kg/hr, 22.17 mls/hr Documented By: Titration: 08/26/24 04:00 Dose: 1.2 mcg/kg/hr, 22.17 mls/hr Documented By: Titration: 08/26/24 03:00 Dose: 1.2 mcg/kg/hr, 22.17 mls/hr Documented By: Admin: 08/26/24 02:01 Dose: 1.2 mcg/kg/hr, 22.17 mls/hr Documented By: Titration: 08/26/24 02:01 Dose: Infused Documented By: Titration: 08/26/24 02:00 Dose: 1.2 mcg/kg/hr, 22.17 mls/hr Documented By: Titration: 08/26/24 01:00 Dose: 1.2 mcg/kg/hr, 22.17 mls/hr Documented By: Titration: 08/26/24 00:30 Dose: 1.2 mcg/kg/hr, 22.17 mls/hr Documented By: Titration: 08/26/24 00:00 Dose: 1 mcg/kg/hr, 18.475 mls/hr Documented By: Titration: 08/25/24 23:30 Dose: 0.8 mcg/kg/hr, 14.78 mls/hr Documented By: Titration: 08/25/24 23:00 Dose: 0.6 mcg/kg/hr, 11.085 mls/hr Documented By: Titration: 08/25/24 22:30 Dose: 0.6 mcg/kg/hr, 11.085 mls/hr Documented By: Titration: 08/25/24 21:00 Dose: 0.6 mcg/kg/hr, 11.085 mls/hr Documented By: Titration: 08/25/24 20:00 Dose: 0.4 mcg/kg/hr, 7.39 mls/hr Documented By: Admin: 08/25/24 19:18 Dose: 0.2 mcg/kg/hr, 3.695 mls/hr Documented By: CLT Co-signed By: LIBIA Potassium Chloride (Kcl Ivpb) 10 meq in 100 mls @ 100 mls/hr IV Q1H [facility] Stop: 08/26/24 12:28 Last Admin: 08/26/24 06:41 Dose: Not Given Documented By: CLT Non-Admin Reason: Cancelled by Provider Potassium Chloride (Kcl Ivpb) 20 meq in 100 mls @ 50 mls/hr IV Q2H [facility] Stop: 08/26/24 10:34 Last Admin: 08/26/24 06:57 Dose: Not Given Documented By: CLT Non-Admin Reason: wrong rate Potassium Chloride (Kcl Ivpb) 20 meq in 100 mls @ 100 mls/hr IV Q1H [facility]AY Stop: 08/26/24 08:59 Last Admin: 08/26/24 07:57 Dose: 100 mls/hr Documented By: Infusion: 08/26/24 07:57 Dose: Infused Documented By: Admin: 08/26/24 07:03 Dose: 100 mls/hr Documented By: CLT Meropenem 1,000 mg/ Sodium (Chloride) 50 mls @ 100 mls/hr IV Q12HR [facility] Stop: 09/02/24 20:59 Last Admin: 08/31/24 09:15 Dose: 100 mls/hr Documented By: Infusion: 08/30/24 22:21 Dose: Infused Documented By: Admin: 08/30/24 21:51 Dose: 100 mls/hr Documented By: Infusion: 08/30/24 09:42 Dose: Infused Documented By: Admin: 08/30/24 09:12 Dose: 100 mls/hr Documented By: Infusion: 08/29/24 21:20 Dose: Infused Documented By: Admin: 08/29/24 20:50 Dose: 100 mls/hr Documented By: Infusion: 08/29/24 08:52 Dose: Infused Documented By: Admin: 08/29/24 08:22 Dose: 100 mls/hr Documented By: Infusion: 08/28/24 21:01 Dose: Infused Documented By: Admin: 08/28/24 20:31 Dose: 100 mls/hr Documented By: Infusion: 08/28/24 09:11 Dose: Infused Documented By: Admin: 08/28/24 08:33 Dose: 100 mls/hr Documented By: Infusion: 08/27/24 22:22 Dose: Infused Documented By: Admin: 08/27/24 21:52 Dose: 100 mls/hr Documented By: Infusion: 08/27/24 10:27 Dose: Infused Documented By: Admin: 08/27/24 09:57 Dose: 100 mls/hr Documented By: Infusion: 08/26/24 22:13 Dose: Infused Documented By: Admin: 08/26/24 21:43 Dose: 100 mls/hr Documented By: RH Ampicillin Sodium 2,000 mg/ (Sodium Chloride) 100 mls @ 200 mls/hr IV Q6HR [facility] Stop: 09/03/24 11:59 Ampicillin Sodium 2,000 mg/ (Sodium Chloride) 100 mls @ 100 mls/hr IV Q4H ONE Stop: 08/27/24 12:51 Last Admin: 08/29/24 06:58 Dose: Not Given Documented By: MR Non-Admin Reason: Discontinued Ampicillin Sodium 2,000 mg/ (Sodium Chloride) 100 mls @ 100 mls/hr IV Q4HR [facility]AY Stop: 09/03/24 11:59 Last Admin: 08/30/24 05:25 Dose: 100 mls/hr Documented By: Infusion: 08/30/24 02:52 Dose: Infused Documented By: Admin: 08/30/24 01:52 Dose: 100 mls/hr Documented By: KAJalen Infusion: 08/29/24 22:12 Dose: Infused Documented By: Admin: 08/29/24 21:12 Dose: 100 mls/hr Documented By: Infusion: 08/29/24 18:49 Dose: Infused Documented By: Admin: 08/29/24 17:49 Dose: 100 mls/hr Documented By: Infusion: 08/29/24 14:22 Dose: Infused Documented By: Admin: 08/29/24 13:22 Dose: 100 mls/hr Documented By: Infusion: 08/29/24 12:22 Dose: Infused Documented By: Admin: 08/29/24 11:22 Dose: 100 mls/hr Documented By: Infusion: 08/29/24 06:56 Dose: Infused Documented By: Admin: 08/29/24 05:56 Dose: 100 mls/hr Documented By: Infusion: 08/29/24 04:22 Dose: Infused Documented By: Admin: 08/29/24 03:22 Dose: 100 mls/hr Documented By: Infusion: 08/28/24 22:54 Dose: Infused Documented By: Admin: 08/28/24 21:54 Dose: 100 mls/hr Documented By: Infusion: 08/28/24 21:54 Dose: Infused Documented By: Infusion: 08/28/24 18:36 Dose: 0 mls/hr Documented By: Admin: 08/28/24 17:46 Dose: 100 mls/hr Documented By: Infusion: 08/28/24 16:31 Dose: Infused Documented By: Admin: 08/28/24 15:08 Dose: 100 mls/hr Documented By: Infusion: 08/28/24 11:27 Dose: Infused Documented By: Admin: 08/28/24 10:20 Dose: 100 mls/hr Documented By: Infusion: 08/28/24 06:29 Dose: Infused Documented By: Admin: 08/28/24 05:29 Dose: 100 mls/hr Documented By: Infusion: 08/28/24 02:30 Dose: Infused Documented By: Admin: 08/28/24 01:13 Dose: 100 mls/hr Documented By: Infusion: 08/27/24 22:51 Dose: Infused Documented By: Admin: 08/27/24 21:51 Dose: 100 mls/hr Documented By: Infusion: 08/27/24 19:49 Dose: Infused Documented By: Admin: 08/27/24 18:49 Dose: 100 mls/hr Documented By: Infusion: 08/27/24 14:00 Dose: Infused Documented By: Admin: 08/27/24 13:00 Dose: 100 mls/hr Documented By: moses Propofol (Diprivan Ivpb) 1,000 mg in 100 mls @ 2.082 mls/hr IV .Q24H PRN; Protocol PRN Reason: PER PROTOCOL Stop: 09/23/24 10:55 Propofol (Diprivan Ivpb) Confirm Administered Dose 1,000 mg in 100 mls @ ud IV .STK-MED ONE Stop: 08/28/24 03:57 Last Admin: 08/28/24 04:28 Dose: Not Given Documented By: RH Non-Admin Reason: Override Medication Propofol (Diprivan Ivpb) 1,000 mg in 100 mls @ 2.082 mls/hr IV .Q24H PRN; Protocol PRN Reason: PER PROTOCOL Stop: 09/23/24 10:55 Last Titration: 08/31/24 14:00 Dose: 50 mcg/kg/min, 20.82 mls/hr Documented By: Titration: 08/31/24 13:00 Dose: 50 mcg/kg/min, 20.82 mls/hr Documented By: Titration: 08/31/24 12:00 Dose: 50 mcg/kg/min, 20.82 mls/hr Documented By: Admin: 08/31/24 11:26 Dose: 50 mcg/kg/min, 20.82 mls/hr Documented By: MR Co-signed By: HR Titration: 08/31/24 11:00 Dose: Infused Documented By: Titration: 08/31/24 10:00 Dose: 50 mcg/kg/min, 20.82 mls/hr Documented By: Titration: 08/31/24 09:00 Dose: 50 mcg/kg/min, 20.82 mls/hr Documented By: Titration: 08/31/24 08:00 Dose: 50 mcg/kg/min, 20.82 mls/hr Documented By: Titration: 08/31/24 07:00 Dose: 50 mcg/kg/min, 20.82 mls/hr Documented By: Titration: 08/31/24 06:45 Dose: 50 mcg/kg/min, 20.82 mls/hr Documented By: Admin: 08/31/24 05:54 Dose: 50 mcg/kg/min, 20.82 mls/hr Documented By: RH Co-signed By: CLT Titration: 08/31/24 05:54 Dose: Infused Documented By: RH Co-signed By: CLT Titration: 08/31/24 05:00 Dose: 50 mcg/kg/min, 20.82 mls/hr Documented By: Titration: 08/31/24 04:00 Dose: 50 mcg/kg/min, 20.82 mls/hr Documented By: Titration: 08/31/24 03:00 Dose: 50 mcg/kg/min, 20.82 mls/hr Documented By: Titration: 08/31/24 02:00 Dose: 50 mcg/kg/min, 20.82 mls/hr Documented By: Admin: 08/31/24 01:05 Dose: 50 mcg/kg/min, 20.82 mls/hr Documented By: RH Co-signed By: CLT Titration: 08/31/24 01:05 Dose: Infused Documented By: RH Co-signed By: CLT Titration: 08/31/24 01:00 Dose: 50 mcg/kg/min, 20.82 mls/hr Documented By: Titration: 08/31/24 00:00 Dose: 50 mcg/kg/min, 20.82 mls/hr Documented By: Titration: 08/30/24 23:00 Dose: 50 mcg/kg/min, 20.82 mls/hr Documented By: Titration: 08/30/24 22:00 Dose: 50 mcg/kg/min, 20.82 mls/hr Documented By: Titration: 08/30/24 21:00 Dose: 50 mcg/kg/min, 20.82 mls/hr Documented By: Admin: 08/30/24 20:38 Dose: 50 mcg/kg/min, 20.82 mls/hr Documented By: RH Co-signed By: CMN Titration: 08/30/24 20:00 Dose: Infused Documented By: Titration: 08/30/24 19:00 Dose: 50 mcg/kg/min, 20.82 mls/hr Documented By: Titration: 08/30/24 19:00 Dose: 50 mcg/kg/min, 20.82 mls/hr Documented By: Titration: 08/30/24 18:00 Dose: 50 mcg/kg/min, 20.82 mls/hr Documented By: Titration: 08/30/24 17:00 Dose: 50 mcg/kg/min, 20.82 mls/hr Documented By: Titration: 08/30/24 16:00 Dose: 50 mcg/kg/min, 20.82 mls/hr Documented By: Admin: 08/30/24 15:00 Dose: 50 mcg/kg/min, 20.82 mls/hr Documented By: MR Co-signed By: MGD Titration: 08/30/24 15:00 Dose: Infused Documented By: MR Co-signed By: MGD Titration: 08/30/24 14:00 Dose: 50 mcg/kg/min, 20.82 mls/hr Documented By: Titration: 08/30/24 13:00 Dose: 50 mcg/kg/min, 20.82 mls/hr Documented By: Titration: 08/30/24 12:00 Dose: 50 mcg/kg/min, 20.82 mls/hr Documented By: Titration: 08/30/24 11:00 Dose: 50 mcg/kg/min, 20.82 mls/hr Documented By: Admin: 08/30/24 10:53 Dose: 50 mcg/kg/min, 20.82 mls/hr Documented By: MR Co-signed By: RM Titration: 08/30/24 10:00 Dose: Infused Documented By: Titration: 08/30/24 09:00 Dose: 50 mcg/kg/min, 20.82 mls/hr Documented By: Titration: 08/30/24 08:00 Dose: 50 mcg/kg/min, 20.82 mls/hr Documented By: Titration: 08/30/24 07:00 Dose: 50 mcg/kg/min, 20.82 mls/hr Documented By: Titration: 08/30/24 06:45 Dose: 50 mcg/kg/min, 20.82 mls/hr Documented By: Titration: 08/30/24 06:00 Dose: 50 mcg/kg/min, 20.82 mls/hr Documented By: Titration: 08/30/24 05:00 Dose: 50 mcg/kg/min, 20.82 mls/hr Documented By: Admin: 08/30/24 04:44 Dose: 50 mcg/kg/min, 20.82 mls/hr Documented By: RH Co-signed By: CMN Titration: 08/30/24 04:44 Dose: Infused Documented By: RH Co-signed By: CMN Titration: 08/30/24 04:00 Dose: 50 mcg/kg/min, 20.82 mls/hr Documented By: RH Co-signed By: CMN Titration: 08/30/24 03:00 Dose: 50 mcg/kg/min, 20.82 mls/hr Documented By: RH Co-signed By: CMN Titration: 08/30/24 02:00 Dose: 50 mcg/kg/min, 20.82 mls/hr Documented By: RH Co-signed By: CMN Titration: 08/30/24 01:00 Dose: 50 mcg/kg/min, 20.82 mls/hr Documented By: Admin: 08/30/24 00:53 Dose: 50 mcg/kg/min, 20.82 mls/hr Documented By: RH Co-signed By: CMN Titration: 08/30/24 00:00 Dose: Infused Documented By: Titration: 08/29/24 23:00 Dose: 50 mcg/kg/min, 20.82 mls/hr Documented By: Titration: 08/29/24 22:00 Dose: 50 mcg/kg/min, 20.82 mls/hr Documented By: Titration: 08/29/24 21:00 Dose: 50 mcg/kg/min, 20.82 mls/hr Documented By: Admin: 08/29/24 19:02 Dose: 50 mcg/kg/min, 20.82 mls/hr Documented By: RH Co-signed By: CMN Titration: 08/29/24 19:02 Dose: Infused Documented By: RH Co-signed By: CMN Titration: 08/29/24 19:00 Dose: 50 mcg/kg/min, 20.82 mls/hr Documented By: RH Co-signed By: CMN Titration: 08/29/24 18:00 Dose: 50 mcg/kg/min, 20.82 mls/hr Documented By: Titration: 08/29/24 17:00 Dose: 50 mcg/kg/min, 20.82 mls/hr Documented By: Titration: 08/29/24 16:00 Dose: 50 mcg/kg/min, 20.82 mls/hr Documented By: Titration: 08/29/24 15:00 Dose: 50 mcg/kg/min, 20.82 mls/hr Documented By: Admin: 08/29/24 14:34 Dose: 50 mcg/kg/min, 20.82 mls/hr Documented By: MR Co-signed By: moses Titration: 08/29/24 14:22 Dose: Infused Documented By: MR Co-signed By: moses Titration: 08/29/24 14:00 Dose: 50 mcg/kg/min, 20.82 mls/hr Documented By: Titration: 08/29/24 13:30 Dose: 50 mcg/kg/min, 20.82 mls/hr Documented By: Titration: 08/29/24 13:00 Dose: 45 mcg/kg/min, 18.738 mls/hr Documented By: Titration: 08/29/24 12:00 Dose: 45 mcg/kg/min, 18.738 mls/hr Documented By: Titration: 08/29/24 11:39 Dose: 40 mcg/kg/min, 16.656 mls/hr Documented By: Titration: 08/29/24 11:00 Dose: 35 mcg/kg/min, 14.574 mls/hr Documented By: Titration: 08/29/24 10:00 Dose: 35 mcg/kg/min, 14.574 mls/hr Documented By: Titration: 08/29/24 09:00 Dose: 35 mcg/kg/min, 14.574 mls/hr Documented By: Admin: 08/29/24 08:21 Dose: 35 mcg/kg/min, 14.574 mls/hr Documented By: MR Co-signed By: moses Titration: 08/29/24 08:00 Dose: Infused Documented By: Titration: 08/29/24 07:00 Dose: 35 mcg/kg/min, 14.574 mls/hr Documented By: Titration: 08/29/24 06:45 Dose: 30 mcg/kg/min, 12.492 mls/hr Documented By: Titration: 08/29/24 06:00 Dose: 30 mcg/kg/min, 12.492 mls/hr Documented By: Titration: 08/29/24 05:00 Dose: 30 mcg/kg/min, 12.492 mls/hr Documented By: Titration: 08/29/24 04:00 Dose: 30 mcg/kg/min, 12.492 mls/hr Documented By: Titration: 08/29/24 03:00 Dose: 30 mcg/kg/min, 12.492 mls/hr Documented By: Titration: 08/29/24 02:00 Dose: 30 mcg/kg/min, 12.492 mls/hr Documented By: Titration: 08/29/24 01:00 Dose: 30 mcg/kg/min, 12.492 mls/hr Documented By: Titration: 08/29/24 00:30 Dose: 30 mcg/kg/min, 12.492 mls/hr Documented By: Titration: 08/29/24 00:15 Dose: 35 mcg/kg/min, 14.574 mls/hr Documented By: Titration: 08/29/24 00:00 Dose: 40 mcg/kg/min, 16.656 mls/hr Documented By: Titration: 08/28/24 23:45 Dose: 40 mcg/kg/min, 16.656 mls/hr Documented By: Titration: 08/28/24 23:40 Dose: 45 mcg/kg/min, 18.738 mls/hr Documented By: Admin: 08/28/24 23:35 Dose: 50 mcg/kg/min, 20.82 mls/hr Documented By: RH Co-signed By: Titration: 08/28/24 23:35 Dose: Infused Documented By: RH Co-signed By: Titration: 08/28/24 23:10 Dose: 50 mcg/kg/min, 20.82 mls/hr Documented By: Titration: 08/28/24 23:05 Dose: 45 mcg/kg/min, 18.738 mls/hr Documented By: Titration: 08/28/24 23:00 Dose: 40 mcg/kg/min, 16.656 mls/hr Documented By: Titration: 08/28/24 22:45 Dose: 40 mcg/kg/min, 16.656 mls/hr Documented By: Titration: 08/28/24 22:35 Dose: 35 mcg/kg/min, 14.574 mls/hr Documented By: Titration: 08/28/24 22:30 Dose: 30 mcg/kg/min, 12.492 mls/hr Documented By: Titration: 08/28/24 22:00 Dose: 25 mcg/kg/min, 10.41 mls/hr Documented By: Titration: 08/28/24 21:00 Dose: 25 mcg/kg/min, 10.41 mls/hr Documented By: Titration: 08/28/24 20:00 Dose: 25 mcg/kg/min, 10.41 mls/hr Documented By: Titration: 08/28/24 20:00 Dose: 25 mcg/kg/min, 10.41 mls/hr Documented By: Titration: 08/28/24 19:00 Dose: 25 mcg/kg/min, 10.41 mls/hr Documented By: Titration: 08/28/24 18:00 Dose: 25 mcg/kg/min, 10.41 mls/hr Documented By: Titration: 08/28/24 17:00 Dose: 25 mcg/kg/min, 10.41 mls/hr Documented By: Admin: 08/28/24 16:49 Dose: 25 mcg/kg/min, 10.41 mls/hr Documented By: WL Co-signed By: GE Titration: 08/28/24 16:18 Dose: Infused Documented By: WL Co-signed By: GE Titration: 08/28/24 16:00 Dose: 25 mcg/kg/min, 10.41 mls/hr Documented By: Titration: 08/28/24 15:00 Dose: 25 mcg/kg/min, 10.41 mls/hr Documented By: Titration: 08/28/24 14:20 Dose: 25 mcg/kg/min, 10.41 mls/hr Documented By: Titration: 08/28/24 14:00 Dose: 20 mcg/kg/min, 8.328 mls/hr Documented By: Titration: 08/28/24 13:00 Dose: 15 mcg/kg/min, 6.246 mls/hr Documented By: Titration: 08/28/24 12:00 Dose: 15 mcg/kg/min, 6.246 mls/hr Documented By: Titration: 08/28/24 11:00 Dose: 15 mcg/kg/min, 6.246 mls/hr Documented By: Titration: 08/28/24 10:00 Dose: 15 mcg/kg/min, 6.246 mls/hr Documented By: Titration: 08/28/24 09:00 Dose: 15 mcg/kg/min, 6.246 mls/hr Documented By: Titration: 08/28/24 08:17 Dose: 15 mcg/kg/min, 6.246 mls/hr Documented By: Titration: 08/28/24 08:10 Dose: 10 mcg/kg/min, 4.164 mls/hr Documented By: Titration: 08/28/24 08:00 Dose: 5 mcg/kg/min, 2.082 mls/hr Documented By: Titration: 08/28/24 07:00 Dose: 5 mcg/kg/min, 2.082 mls/hr Documented By: Titration: 08/28/24 06:35 Dose: 5 mcg/kg/min, 2.082 mls/hr Documented By: Titration: 08/28/24 06:30 Dose: 10 mcg/kg/min, 4.164 mls/hr Documented By: Titration: 08/28/24 06:25 Dose: 15 mcg/kg/min, 6.246 mls/hr Documented By: Titration: 08/28/24 06:20 Dose: 20 mcg/kg/min, 8.328 mls/hr Documented By: Titration: 08/28/24 06:15 Dose: 25 mcg/kg/min, 10.41 mls/hr Documented By: Titration: 08/28/24 06:10 Dose: 30 mcg/kg/min, 12.492 mls/hr Documented By: Titration: 08/28/24 06:05 Dose: 35 mcg/kg/min, 14.574 mls/hr Documented By: Titration: 08/28/24 06:00 Dose: 40 mcg/kg/min, 16.656 mls/hr Documented By: Titration: 08/28/24 05:00 Dose: 45 mcg/kg/min, 18.738 mls/hr Documented By: Titration: 08/28/24 04:40 Dose: 45 mcg/kg/min, 18.738 mls/hr Documented By: Titration: 08/28/24 04:35 Dose: 40 mcg/kg/min, 16.656 mls/hr Documented By: Titration: 08/28/24 04:30 Dose: 35 mcg/kg/min, 14.574 mls/hr Documented By: Titration: 08/28/24 04:25 Dose: 30 mcg/kg/min, 12.492 mls/hr Documented By: Titration: 08/28/24 04:20 Dose: 25 mcg/kg/min, 10.41 mls/hr Documented By: Titration: 08/28/24 04:15 Dose: 20 mcg/kg/min, 8.328 mls/hr Documented By: Titration: 08/28/24 04:10 Dose: 15 mcg/kg/min, 6.246 mls/hr Documented By: Titration: 08/28/24 04:05 Dose: 10 mcg/kg/min, 4.164 mls/hr Documented By: Admin: 08/28/24 04:00 Dose: 5 mcg/kg/min, 2.082 mls/hr Documented By: RH Co-signed By: BRIANNA Dexmedetomidine HCl 400 mcg/ (Sodium Chloride) 104 mls @ 3.994 mls/hr IV .Q24H PRN; Protocol PRN Reason: Per PROTOCOL Stop: 09/27/24 08:37 Dexmedetomidine HCl 400 mcg/ (Sodium Chloride) 100 mls @ 3.84 mls/hr IV .Q24H PRN; Protocol PRN Reason: Per PROTOCOL Stop: 09/27/24 08:37 Last Titration: 08/28/24 13:00 Dose: 0 mcg/kg/hr, 0 mls/hr Documented By: Titration: 08/28/24 12:00 Dose: 1.4 mcg/kg/hr, 26.88 mls/hr Documented By: Titration: 08/28/24 11:00 Dose: 1.4 mcg/kg/hr, 26.88 mls/hr Documented By: Titration: 08/28/24 10:00 Dose: 1.4 mcg/kg/hr, 26.88 mls/hr Documented By: Admin: 08/28/24 09:26 Dose: 1.4 mcg/kg/hr, 26.88 mls/hr Documented By: WL Co-signed By: ECHO Fentanyl Citrate (Sublimaze Inj 2,500 Mcg/250 Ml Bag) 2,500 mcg in 250 mls @ 2.5 mls/hr IV .Q24H PRN; Protocol PRN Reason: PER PROTOCOL Stop: 09/02/24 15:59 Last Titration: 08/31/24 14:00 Dose: 300 mcg/hr, 30 mls/hr Documented By: Titration: 08/31/24 13:00 Dose: 300 mcg/hr, 30 mls/hr Documented By: Titration: 08/31/24 12:00 Dose: 300 mcg/hr, 30 mls/hr Documented By: Titration: 08/31/24 11:00 Dose: 300 mcg/hr, 30 mls/hr Documented By: Titration: 08/31/24 10:00 Dose: 300 mcg/hr, 30 mls/hr Documented By: Titration: 08/31/24 09:00 Dose: 300 mcg/hr, 30 mls/hr Documented By: Titration: 08/31/24 08:00 Dose: 300 mcg/hr, 30 mls/hr Documented By: Titration: 08/31/24 07:00 Dose: 300 mcg/hr, 30 mls/hr Documented By: Titration: 08/31/24 06:45 Dose: 300 mcg/hr, 30 mls/hr Documented By: Admin: 08/31/24 05:55 Dose: 300 mcg/hr, 30 mls/hr Documented By: RH Co-signed By: CLT Titration: 08/31/24 05:55 Dose: Infused Documented By: RH Co-signed By: CLT Titration: 08/31/24 05:00 Dose: 300 mcg/hr, 30 mls/hr Documented By: Titration: 08/31/24 04:00 Dose: 300 mcg/hr, 30 mls/hr Documented By: Titration: 08/31/24 03:00 Dose: 300 mcg/hr, 30 mls/hr Documented By: Titration: 08/31/24 02:00 Dose: 300 mcg/hr, 30 mls/hr Documented By: Titration: 08/31/24 01:00 Dose: 300 mcg/hr, 30 mls/hr Documented By: Titration: 08/31/24 00:00 Dose: 300 mcg/hr, 30 mls/hr Documented By: Titration: 08/30/24 23:00 Dose: 300 mcg/hr, 30 mls/hr Documented By: Titration: 08/30/24 22:00 Dose: 300 mcg/hr, 30 mls/hr Documented By: Admin: 08/30/24 21:34 Dose: 300 mcg/hr, 30 mls/hr Documented By: RH Co-signed By: BB Titration: 08/30/24 21:34 Dose: Infused Documented By: RH Co-signed By: BB Titration: 08/30/24 21:00 Dose: Infused Documented By: RH Co-signed By: BB Titration: 08/30/24 20:00 Dose: 300 mcg/hr, 30 mls/hr Documented By: Titration: 08/30/24 19:00 Dose: 300 mcg/hr, 30 mls/hr Documented By: Titration: 08/30/24 18:00 Dose: 300 mcg/hr, 30 mls/hr Documented By: Titration: 08/30/24 17:00 Dose: 300 mcg/hr, 30 mls/hr Documented By: Titration: 08/30/24 16:00 Dose: 300 mcg/hr, 30 mls/hr Documented By: Titration: 08/30/24 15:00 Dose: 300 mcg/hr, 30 mls/hr Documented By: Titration: 08/30/24 14:00 Dose: 300 mcg/hr, 30 mls/hr Documented By: Titration: 08/30/24 13:00 Dose: 300 mcg/hr, 30 mls/hr Documented By: Admin: 08/30/24 12:38 Dose: 300 mcg/hr, 30 mls/hr Documented By: MR Co-signed By: VL Titration: 08/30/24 12:14 Dose: Infused Documented By: MR Co-signed By: VL Titration: 08/30/24 12:00 Dose: 300 mcg/hr, 30 mls/hr Documented By: Titration: 08/30/24 11:00 Dose: 300 mcg/hr, 30 mls/hr Documented By: Titration: 08/30/24 10:00 Dose: 300 mcg/hr, 30 mls/hr Documented By: Titration: 08/30/24 09:00 Dose: 300 mcg/hr, 30 mls/hr Documented By: Titration: 08/30/24 08:00 Dose: 300 mcg/hr, 30 mls/hr Documented By: Titration: 08/30/24 07:00 Dose: 300 mcg/hr, 30 mls/hr Documented By: Titration: 08/30/24 06:45 Dose: 300 mcg/hr, 30 mls/hr Documented By: Titration: 08/30/24 06:00 Dose: 300 mcg/hr, 30 mls/hr Documented By: Titration: 08/30/24 05:00 Dose: 300 mcg/hr, 30 mls/hr Documented By: Titration: 08/30/24 04:00 Dose: 300 mcg/hr, 30 mls/hr Documented By: Admin: 08/30/24 03:53 Dose: 300 mcg/hr, 30 mls/hr Documented By: RH Co-signed By: CMN Titration: 08/30/24 03:53 Dose: Infused Documented By: RH Co-signed By: CMN Titration: 08/30/24 03:00 Dose: 300 mcg/hr, 30 mls/hr Documented By: RH Co-signed By: CMN Titration: 08/30/24 02:00 Dose: 300 mcg/hr, 30 mls/hr Documented By: RH Co-signed By: CMN Titration: 08/30/24 01:00 Dose: 300 mcg/hr, 30 mls/hr Documented By: Titration: 08/30/24 00:00 Dose: 300 mcg/hr, 30 mls/hr Documented By: Titration: 08/29/24 23:00 Dose: 300 mcg/hr, 30 mls/hr Documented By: Titration: 08/29/24 22:00 Dose: 300 mcg/hr, 30 mls/hr Documented By: Titration: 08/29/24 21:00 Dose: 300 mcg/hr, 30 mls/hr Documented By: Titration: 08/29/24 20:00 Dose: 300 mcg/hr, 30 mls/hr Documented By: Admin: 08/29/24 19:45 Dose: 300 mcg/hr, 30 mls/hr Documented By: RH Co-signed By: KAA Titration: 08/29/24 19:45 Dose: Infused Documented By: RH Co-signed By: KAA Titration: 08/29/24 19:00 Dose: 300 mcg/hr, 30 mls/hr Documented By: RH Co-signed By: KAA Titration: 08/29/24 18:00 Dose: 300 mcg/hr, 30 mls/hr Documented By: Titration: 08/29/24 17:00 Dose: 300 mcg/hr, 30 mls/hr Documented By: Titration: 08/29/24 16:00 Dose: 300 mcg/hr, 30 mls/hr Documented By: Titration: 08/29/24 15:00 Dose: 300 mcg/hr, 30 mls/hr Documented By: Titration: 08/29/24 14:00 Dose: 300 mcg/hr, 30 mls/hr Documented By: Titration: 08/29/24 13:30 Dose: 300 mcg/hr, 30 mls/hr Documented By: Titration: 08/29/24 13:00 Dose: 275 mcg/hr, 27.5 mls/hr Documented By: Titration: 08/29/24 12:00 Dose: 275 mcg/hr, 27.5 mls/hr Documented By: Admin: 08/29/24 11:39 Dose: 275 mcg/hr, 27.5 mls/hr Documented By: MR Co-signed By: KR Titration: 08/29/24 11:00 Dose: Infused Documented By: Titration: 08/29/24 10:00 Dose: 275 mcg/hr, 27.5 mls/hr Documented By: Titration: 08/29/24 09:00 Dose: 275 mcg/hr, 27.5 mls/hr Documented By: Titration: 08/29/24 08:00 Dose: 275 mcg/hr, 27.5 mls/hr Documented By: Titration: 08/29/24 07:00 Dose: 225 mcg/hr, 22.5 mls/hr Documented By: Titration: 08/29/24 06:45 Dose: 225 mcg/hr, 22.5 mls/hr Documented By: Titration: 08/29/24 06:00 Dose: 225 mcg/hr, 22.5 mls/hr Documented By: Titration: 08/29/24 05:00 Dose: 225 mcg/hr, 22.5 mls/hr Documented By: Titration: 08/29/24 04:00 Dose: 225 mcg/hr, 22.5 mls/hr Documented By: Titration: 08/29/24 03:00 Dose: 225 mcg/hr, 22.5 mls/hr Documented By: Titration: 08/29/24 02:00 Dose: 225 mcg/hr, 22.5 mls/hr Documented By: Titration: 08/29/24 01:00 Dose: 225 mcg/hr, 22.5 mls/hr Documented By: Admin: 08/29/24 00:21 Dose: 225 mcg/hr, 22.5 mls/hr Documented By: RH Co-signed By: Micafungin Sodium 100 mg/ (Sodium Chloride) 100 mls @ 100 mls/hr IV QDAY AJAY Stop: 09/13/24 11:56 Last Admin: 08/31/24 09:13 Dose: 100 mls/hr Documented By: Infusion: 08/30/24 10:12 Dose: Infused Documented By: Admin: 08/30/24 09:12 Dose: 100 mls/hr Documented By: Infusion: 08/29/24 14:22 Dose: Infused Documented By: Admin: 08/29/24 13:22 Dose: 100 mls/hr Documented By: MR Heparin Sodium/Dextrose (Heparin In D5w Ivpb) 25,000 unit in 250 mls @ 9.264 mls/hr IV .Q24H AJAY; Protocol Stop: 09/12/24 13:14 Last Titration: 08/31/24 14:00 Dose: 0 units/kg/hr, 0 mls/hr Documented By: MR Co-signed By: RM Admin: 08/31/24 06:48 Dose: 18 units/kg/hr, 13.896 mls/hr Documented By: RH Co-signed By: MR Titration: 08/31/24 06:48 Dose: Infused Documented By: RH Co-signed By: MR Titration: 08/31/24 02:48 Dose: 18 units/kg/hr, 13.896 mls/hr Documented By: RH Co-signed By: CMN Titration: 08/30/24 20:30 Dose: 18 units/kg/hr, 13.896 mls/hr Documented By: RH Co-signed By: CMN Admin: 08/30/24 12:31 Dose: 20 units/kg/hr, 15.44 mls/hr Documented By: MR Co-signed By: MGD Titration: 08/30/24 12:29 Dose: Infused Documented By: MR Co-signed By: VL Titration: 08/30/24 06:45 Dose: 18 units/kg/hr, 13.896 mls/hr Documented By: MR Co-signed By: VL Titration: 08/30/24 03:00 Dose: 18 units/kg/hr, 13.896 mls/hr Documented By: RH Co-signed By: ZP Titration: 08/29/24 20:46 Dose: 16 units/kg/hr, 12.352 mls/hr Documented By: RH Co-signed By: ZP Admin: 08/29/24 13:21 Dose: 12 units/kg/hr, 9.264 mls/hr Documented By: MR Co-signed By: Comments: ptt 29 Magnesium Sulfate (Magnesium Sulfate Ivpb) 2 gm in 50 mls @ 25 mls/hr IV X1 ONE Stop: 08/29/24 17:11 Last Admin: 08/29/24 15:59 Dose: 25 mls/hr Documented By: MR Ampicillin Sodium 2,000 mg/ (Sodium Chloride) 100 mls @ 100 mls/hr IV Q8HR AJAY Stop: 09/03/24 11:59 Last Admin: 08/30/24 13:52 Dose: 100 mls/hr Documented By: MR Albumin Human (Albuminar-25 Ivpb) 25 gm in 100 mls @ 100 mls/hr IV TID AJAY Stop: 09/02/24 09:59 Last Admin: 08/31/24 05:22 Dose: 100 mls/hr Documented By: Infusion: 08/30/24 22:51 Dose: Infused Documented By: Admin: 08/30/24 21:51 Dose: 100 mls/hr Documented By: Infusion: 08/30/24 14:53 Dose: Infused Documented By: Admin: 08/30/24 13:53 Dose: 100 mls/hr Documented By: Infusion: 08/30/24 11:06 Dose: Infused Documented By: Admin: 08/30/24 10:06 Dose: 100 mls/hr Documented By: Bumetanide 20 mg/ IV (Miscellaneous Supplies) 80 mls @ 4 mls/hr IV .Q20H AJAY Stop: 08/31/24 11:33 Last Admin: 08/30/24 17:41 Dose: 1 mg/hr, 4 mls/hr Documented By: Fentanyl Citrate (Sublimaze Inj 2,500 Mcg/250 Ml Bag) 2,500 mcg in 250 mls @ 2.5 mls/hr IV .Q24H PRN; Protocol PRN Reason: PER PROTOCOL Stop: 09/05/24 13:52 Last Titration: 08/31/24 14:40 Dose: 0 mcg/hr, 0 mls/hr Documented By: Admin: 08/31/24 14:05 Dose: 300 mcg/hr, 30 mls/hr Documented By: MR Co-signed By: SAUD Insulin Human Lispro (Insulin Lispro (Admelog) 1 Unit/0.01 Ml Unit) 0 unit SC ACHS [facility]; Protocol Stop: 09/22/24 16:59 Last Admin: 08/23/24 18:42 Dose: Not Given Documented By: BHARATHI Non-Admin Reason: Discontinued Insulin Human Lispro (Insulin Lispro (Admelog) 1 Unit/0.01 Ml Unit) 0 unit SC Q6HR AJAY; Protocol Stop: 09/22/24 17:59 Last Admin: 08/31/24 11:54 Dose: Not Given Documented By: MR Non-Admin Reason: pt transitioning to comfort care Admin: 08/31/24 05:22 Dose: 1 unit Documented By: LEEANN Co-signed By: LIBIA Admin: 08/31/24 01:29 Dose: Not Given Documented By: RH Non-Admin Reason: NPO Admin: 08/30/24 18:52 Dose: 1 unit Documented By: Co-signed By: PHUONG Admin: 08/30/24 11:42 Dose: 1 unit Documented By: Co-signed By: AT Admin: 08/30/24 06:11 Dose: 1 unit Documented By: RH Co-signed By: LIBIA Admin: 08/30/24 00:45 Dose: 2 unit Documented By: RH Co-signed By: FAUSTINO Admin: 08/29/24 18:09 Dose: 2 unit Documented By: RH Co-signed By: Admin: 08/29/24 12:03 Dose: 1 unit Documented By: MR Co-signed By: SAUD Admin: 08/29/24 06:15 Dose: 2 unit Documented By: RH Co-signed By: Admin: 08/29/24 00:14 Dose: 1 unit Documented By: RH Co-signed By: BRIANNA Admin: 08/28/24 17:47 Dose: 1 unit Documented By: BHARATHI Co-signed By: ECHO Admin: 08/28/24 12:11 Dose: 2 unit Documented By: BHARATHI Co-signed By: ECHO Admin: 08/28/24 07:08 Dose: Not Given Documented By: RH Non-Admin Reason: BG 133 Trickle feeding Admin: 08/28/24 00:59 Dose: Not Given Documented By: RH Non-Admin Reason: Per Protocol Admin: 08/27/24 18:00 Dose: Not Given Documented By: RH Non-Admin Reason: Per Protocol Admin: 08/27/24 13:01 Dose: 1 unit Documented By: moses Co-signed By: ALEXSANDRA Admin: 08/27/24 05:56 Dose: Not Given Documented By: RH Non-Admin Reason: NPO Admin: 08/27/24 05:56 Dose: Not Given Documented By: RH Non-Admin Reason: NPO Admin: 08/26/24 18:25 Dose: Not Given Documented By: RH Non-Admin Reason: Per Protocol Admin: 08/26/24 12:39 Dose: 1 unit Documented By: Co-signed By: HR Admin: 08/26/24 05:23 Dose: Not Given Documented By: CLT Non-Admin Reason: NPO Admin: 08/25/24 23:52 Dose: 2 unit Documented By: CLT Co-signed By: ERWIN Admin: 08/25/24 18:28 Dose: 2 unit Documented By: Co-signed By: SAUD Admin: 08/25/24 13:07 Dose: Not Given Documented By: MR Non-Admin Reason: npo bs 168 Comments: MD mims Admin: 08/25/24 05:50 Dose: Not Given Documented By: LIBIA Non-Admin Reason: Per Protocol Admin: 08/24/24 23:50 Dose: Not Given Documented By: LIBIA Non-Admin Reason: Per Protocol Admin: 08/24/24 17:53 Dose: Not Given Documented By: ALEXSANDRA Non-Admin Reason: Per Protocol Admin: 08/24/24 11:31 Dose: Not Given Documented By: ALEXSANDRA Non-Admin Reason: Per Protocol Admin: 08/24/24 05:49 Dose: 1 unit Documented By: LIBIA Co-signed By: RIGOBERTO Admin: 08/24/24 00:06 Dose: 3 unit Documented By: LIBIA Co-signed By: RISHI Admin: 08/23/24 18:20 Dose: Not Given Documented By: ALEXSANDRA Non-Admin Reason: NPO Ketamine HCl (Ketamine Inj 50 Mg/Ml Syringe) Confirm Administered Dose 50 mg .ROUTE .STK-MED ONE Stop: 08/23/24 14:01 Ketamine HCl (Ketamine Inj 50 Mg/Ml Syringe) Confirm Administered Dose 50 mg .ROUTE .STK-MED ONE Stop: 08/23/24 14:01 Ketamine HCl (Ketamine Inj 50 Mg/Ml Syringe) Confirm Administered Dose 50 mg .ROUTE .STK-MED ONE Stop: 08/23/24 14:02 Lidocaine HCl (Lidocaine Jelly 2% 5 Ml Tube) Confirm Administered Dose 5 ml .ROUTE .STK-MED ONE Stop: 08/23/24 13:26 Lidocaine HCl (Lidocaine Inj Pf 2% 5 Ml Vial) Confirm Administered Dose 5 ml .ROUTE .STK-MED ONE Stop: 08/23/24 13:26 Lorazepam (Lorazepam 2 Mg/Ml Vial) 2 mg IVP Q5M PRN; Protocol PRN Reason: COMFORT CARE Stop: 09/05/24 11:08 Last Admin: 08/31/24 14:10 Dose: 2 mg Documented By: Admin: 08/31/24 13:53 Dose: 2 mg Documented By: Magnesium Hydroxide (Milk Of Magnesia Susp 30 Ml Udc) 30 ml PO QDAY PRN PRN Reason: CONSTIPATION Stop: 09/22/24 12:38 Magnesium Hydroxide (Milk Of Magnesia Susp 30 Ml Udc) 30 ml PO QDAY PRN PRN Reason: CONSTIPATION Stop: 09/22/24 13:02 Methylprednisolone Sodium Succinate (Methylprednisolone Sod Succ 62.5 Mg/Ml 2ml Vial) 125 mg IVP X1 ONE Stop: 08/23/24 12:20 Last Admin: 08/23/24 12:52 Dose: 125 mg Documented By: AKASH Metoclopramide HCl (Metoclopramide Inj 5 Mg/Ml Vial 2 Ml) Confirm Administered Dose 10 mg .ROUTE .STK-MED ONE Stop: 08/23/24 13:26 Metoprolol Tartrate (Metoprolol Tartrate 25 Mg Tablet) 25 mg GT BID AJAY Stop: 09/28/24 12:14 Last Admin: 08/29/24 12:36 Dose: Not Given Documented By: MR Non-Admin Reason: hold per MD Mejia Metoprolol Tartrate (Metoprolol Tartrate Inj 1 Mg/Ml Amp 5 Ml) Confirm Administered Dose 5 mg .ROUTE .STK-MED ONE Stop: 08/30/24 12:01 Last Admin: 08/30/24 12:15 Dose: Not Given Documented By: MR Non-Admin Reason: stk med Metoprolol Tartrate (Metoprolol Tartrate Inj 1 Mg/Ml Amp 5 Ml) 5 mg IVP X1 ONE Stop: 08/30/24 12:01 Last Admin: 08/30/24 12:05 Dose: 5 mg Documented By: MR Midazolam HCl (Midazolam Inj 1 Mg/Ml Vial 2 Ml) Confirm Administered Dose 2 mg .ROUTE .STK-MED ONE Stop: 08/23/24 13:26 Midazolam HCl (Midazolam Inj 1 Mg/Ml Vial 2 Ml) 2 mg IV X1 ONE Stop: 08/28/24 22:49 Last Admin: 08/28/24 22:53 Dose: 2 mg Documented By: RH Midazolam HCl (Midazolam Inj 1 Mg/Ml Vial 2 Ml) 2 mg IV X1 ONE Stop: 08/29/24 08:00 Last Admin: 08/29/24 08:05 Dose: 2 mg Documented By: MR Midazolam HCl (Midazolam Inj 1 Mg/Ml Vial 2 Ml) 2 mg IV X1 ONE Stop: 08/29/24 13:32 Last Admin: 08/29/24 13:36 Dose: 2 mg Documented By: MR Morphine Sulfate (Morphine Sulf Inj 10 Mg/Ml Vial) 2 mg IVP Q30M PRN; Protocol PRN Reason: COMFORT CARE Stop: 09/05/24 11:08 Last Admin: 08/31/24 13:53 Dose: 2 mg Documented By: MR Morphine Sulfate (Morphine Sulf Inj 10 Mg/Ml Vial) 5 mg IVP Q15MIN PRN PRN Reason: PAIN Stop: 09/05/24 14:08 Last Admin: 08/31/24 14:07 Dose: 5 mg Documented By: MR Comments: Morphine Sulfate (Morphine Sulf Inj 10 Mg/Ml Vial) Confirm Administered Dose 10 mg .ROUTE .STK-MED ONE Stop: 08/31/24 14:05 Last Admin: 08/31/24 14:47 Dose: Not Given Documented By: MR Non-Admin Reason: stk med Nitroglycerin (Nitroglycerin 0.4 Mg Subl Btl #25) 0.4 mg SL Q5MIN PRN PRN Reason: CHEST PAIN Ondansetron HCl (Ondansetron Inj 2 Mg/Ml Inj 2 Ml) 4 mg IV X1 ONE Stop: 08/23/24 05:54 Last Admin: 08/23/24 06:03 Dose: 4 mg Documented By: SHEILA Ondansetron HCl (Ondansetron Inj 2 Mg/Ml Inj 2 Ml) Confirm Administered Dose 4 mg .ROUTE .STK-MED ONE Stop: 08/23/24 13:26 Pantoprazole Sodium (Pantoprazole Inj 40 Mg Vial) 40 mg IVP BID [facility] Stop: 09/24/24 13:29 Last Admin: 08/31/24 09:12 Dose: 40 mg Documented By: Admin: 08/30/24 21:51 Dose: 40 mg Documented By: Admin: 08/30/24 09:09 Dose: 40 mg Documented By: Admin: 08/29/24 20:50 Dose: 40 mg Documented By: Admin: 08/29/24 08:05 Dose: 40 mg Documented By: Admin: 08/28/24 20:30 Dose: 40 mg Documented By: Admin: 08/28/24 08:32 Dose: 40 mg Documented By: Admin: 08/27/24 21:52 Dose: 40 mg Documented By: Admin: 08/27/24 09:56 Dose: 40 mg Documented By: Admin: 08/26/24 21:44 Dose: 40 mg Documented By: Admin: 08/26/24 08:06 Dose: 40 mg Documented By: Admin: 08/25/24 20:39 Dose: 40 mg Documented By: Admin: 08/25/24 15:50 Dose: 40 mg Documented By: MR Pharmacy Consult (Vancomycin Pharmacy To Dose 1 Each Each) 1 each IV QDAY@0700 PRN PRN Reason: CONSULT Stop: 09/24/24 06:59 Phenylephrine HCl (Phenylephrine Inj In Ns 100 Mcg/Ml 10 Ml Syringe) Confirm Administered Dose 1,000 mcg .ROUTE .STK-MED ONE Stop: 08/23/24 13:29 Polyethylene Glycol (Polyethylene Glycol 17 Gm Packet) 17 gm GT QDAY [facility] Stop: 09/23/24 15:59 Last Admin: 08/31/24 09:12 Dose: 17 gm Documented By: Admin: 08/30/24 09:12 Dose: 17 gm Documented By: Admin: 08/29/24 08:06 Dose: 17 gm Documented By: Admin: 08/28/24 08:34 Dose: 17 gm Documented By: Admin: 08/27/24 09:56 Dose: 17 gm Documented By: Admin: 08/26/24 08:05 Dose: Not Given Documented By: MR Non-Admin Reason: hold per MD Xiong Admin: 08/25/24 10:36 Dose: 17 gm Documented By: Admin: 08/24/24 17:52 Dose: 17 gm Documented By: ALEXSANDRA Potassium Chloride (Potassium Chloride 10% 20 Meq/15 Ml Udc) 40 meq GT X1 ONE Stop: 08/26/24 06:29 Last Admin: 08/26/24 06:41 Dose: 40 meq Documented By: CLT Potassium Chloride (Potassium Chloride 10% 20 Meq/15 Ml Udc) 40 meq GT X1 ONE Stop: 08/27/24 09:26 Last Admin: 08/27/24 10:00 Dose: 40 meq Documented By: ALEXSANDRA Potassium Chloride (Potassium Chloride 10% 20 Meq/15 Ml Udc) 40 meq GT X1 ONE Stop: 08/28/24 07:47 Last Admin: 08/28/24 08:32 Dose: 40 meq Documented By: BHARATHI Potassium Chloride (Potassium Chloride 10% 20 Meq/15 Ml Udc) 40 meq GT X1 ONE Stop: 08/29/24 15:12 Last Admin: 08/29/24 15:59 Dose: 40 meq Documented By: Potassium Chloride (Potassium Chloride 10% 20 Meq/15 Ml Udc) 40 meq GT X1 ONE Stop: 08/30/24 08:15 Last Admin: 08/30/24 09:09 Dose: 40 meq Documented By: Potassium Chloride (Potassium Chloride 10% 20 Meq/15 Ml Udc) 40 meq GT X1 ONE Stop: 08/31/24 07:52 Last Admin: 08/31/24 09:16 Dose: 40 meq Documented By: Propofol (Propofol Inj 10 Mg/Ml Vial 20 Ml) Confirm Administered Dose 200 mg IV .STK-MED ONE Stop: 08/23/24 13:26 Rocuronium Elliott (Rocuronium Inj 10 Mg/Ml Vial 10 Ml) Confirm Administered Dose 100 mg .ROUTE .STK-MED ONE Stop: 08/23/24 13:26 Rocuronium Elliott (Rocuronium Inj 10 Mg/Ml Vial 10 Ml) Confirm Administered Dose 100 mg .ROUTE .STK-MED ONE Stop: 08/23/24 14:53 Rocuronium Elliott (Rocuronium Inj 10 Mg/Ml Vial 10 Ml) 75 mg IVP X1 ONE Stop: 08/25/24 12:35 Last Admin: 08/25/24 12:36 Dose: 75 mg Documented By: Co-signed By: ECHO Comments: intubated Rocuronium Elliott (Rocuronium Inj 10 Mg/Ml Vial 10 Ml) 50 mg IVP X1 ONE Stop: 08/29/24 08:40 Last Admin: 08/29/24 08:44 Dose: 50 mg Documented By: Co-signed By: moses Rocuronium Elliott (Rocuronium Inj 10 Mg/Ml Vial 10 Ml) 50 mg IVP X1 ONE Stop: 08/29/24 13:32 Last Admin: 08/29/24 13:36 Dose: 50 mg Documented By: Co-signed By: moses Rocuronium Elliott (Rocuronium Inj 10 Mg/Ml Vial 10 Ml) 50 mg IVP X1 ONE Stop: 08/30/24 11:23 Last Admin: 08/30/24 11:30 Dose: 50 mg Documented By: Co-signed By: [email or web address] Comments: pt agonal breathing and abdominal breathing Scopolamine (Scopolamine 1 Mg Tdsy) 1 mg TOP Q3D AJAY Stop: 09/30/24 10:29 Last Admin: 08/31/24 10:53 Dose: 1 mg Documented By: Sennosidebetty (Senna Tablet) 1 tab GT BID AJAY; Protocol Stop: 09/23/24 20:59 Last Admin: 08/31/24 09:14 Dose: 1 tab Documented By: Admin: 08/30/24 21:51 Dose: 1 tab Documented By: Admin: 08/30/24 09:13 Dose: 1 tab Documented By: Admin: 08/29/24 20:49 Dose: 1 tab Documented By: Admin: 08/29/24 08:06 Dose: 1 tab Documented By: Admin: 08/28/24 20:31 Dose: 1 tab Documented By: Admin: 08/28/24 08:32 Dose: 1 tab Documented By: Admin: 08/27/24 21:52 Dose: 1 tab Documented By: Admin: 08/27/24 09:58 Dose: 1 tab Documented By: Admin: 08/26/24 21:44 Dose: 1 tab Documented By: Admin: 08/26/24 08:05 Dose: Not Given Documented By: Non-Admin Reason: hold per MD Capellan Admin: 08/25/24 20:40 Dose: 1 tab Documented By: Admin: 08/25/24 10:36 Dose: 1 tab Documented By: Admin: 08/24/24 21:21 Dose: 1 tab Documented By: LIBIA Sodium Bicarbonate (Sodium Bicarb Inj 8.4% Syr 50 Ml Syringe) 50 ml IV X1 ONE Stop: 08/28/24 04:46 Last Admin: 08/28/24 04:50 Dose: 50 ml Documented By: LEEANN Sodium Bicarbonate (Sodium Bicarb Inj 8.4% Syr 50 Ml Syringe) Confirm Administered Dose 50 ml IV .STK-MED ONE Stop: 08/28/24 04:44 Last Admin: 08/28/24 05:17 Dose: Not Given Documented By: LEEANN Non-Admin Reason: Override Medication Sodium Chloride (Sodium Chloride Rt 10% 15 Ml Nebu) 5 ml INH X1 ONE Stop: 08/23/24 12:51 Last Admin: 08/23/24 16:02 Dose: Not Given Documented By: KASHIF Non-Admin Reason: Other, see note Comments: PT intubated ET secretions collected Sodium Chloride (Sodium Chloride Rt 10% 15 Ml Nebu) 5 ml INH X1 ONE Stop: 08/23/24 15:36 Last Admin: 08/23/24 16:41 Dose: Not Given Documented By: KASHIF Non-Admin Reason: Duplicate Medication on eMAR Sodium Chloride (Sodium Chloride Rt Jelly 0.9% 3 Ml Nebu) 3 ml INH PRN PRN PRN Reason: SOLN Stop: 09/24/24 11:00 Last Admin: 08/25/24 11:40 Dose: 3 ml Documented By: (2) as above Consultations Consultation(s) initiated? (list below): No Diagnosis Shortness of Breath Differential Diagnosis: acute exacerbation of chronic obstructive airways disease, congestive heart failure, community acquired pneumonia, asthma with exacerbation and pulmonary embolism Most likely diagnosis given after review of the tests above:: See clinical impression below Admission Indicated Admission indicated?: not indicated (Sign out, CT pending) Admission Request Was there a request for admission?: No Disposition Plan Disposition Plan: other (specify) (Sign out CT pending) Critical Care Time Critical Care Time Critical Care Time: Yes Total Critical Care Time (min.): 35 Attestation: The high probability of sudden, clinically significant deterioration in the patient?s condition required the highest level of my preparedness to intervene urgently. The services I provided to this patient were to treat and/or prevent clinically significant deterioration. Services included the following: chart data review, reviewing nursing notes and/or old charts, documentation time, c consultant collaboration regarding findings and treatment options, medication orders and management, direct patient care, vital sign assessments and ordering, interpreting and reviewing diagnostic studies and lab tests. Aggregate critical care time includes only time during which I was engaged in work directly related to the patient?s care, as described above, whether at bedside or elsewhere in the Emergency Department. It did not include time spent performing other reported procedures or the services of residents, students, nurses or physician assistants. Discharge Plan Plan Patient Disposition: Admit Acute Care w/in Hospital Problem List Clinical Impression: Sepsis
--- NOTE | 2024-08-23 05:51 | PC.NURSE ---
Since arival periodicly drained fluid from stomach to porotect pt from aspirating when she vomits. 600cc lacy liquid has been removed from feeding tube. pt has remained stable. RT here with pt to set up for transporting pt to CT. report Given to Lety REDDY.
--- NOTE | 2024-08-23 05:55 | PC.NURSE ---
Pts long term care phlebotomist has been with pt since arrival and is at beside providing comfort measures and moral support. to pt
--- NOTE | 2024-08-23 05:59 | PC.RT ---
pt taken to ct RT Laney given report took over pt on CT, spo2 95% while on CT I was DC at this time.
[2024-08-23] MEDS: SODIUM CHLORIDE 0.9% 1000 ML 1,000 ML 999 ML IV ×3 (06:02→09:19)
[2024-08-23] MEDS: ONDANSETRON INJ 2 MG/ML INJ 2 ML 4 MG IV (06:03)
[2024-08-23] MEDS: PIPER/TAZO INJ 3.375 GM in SODIUM CHLORIDE 0.9% (P) 50 ML IV (06:04)
[2024-08-23 06:16] LABS: Collection Type, Urine Clean Catch
[2024-08-23 06:28] LABS: Bacteria,Urine Rare; Bilirubin,Urine Negative (Negative); Blood,Urine Trace (Negative); Budding Yeast,Urine Present; Clarity,Urine Turbid (Clear/Hazy); Color,Urine Yellow (Lt Yel-Yel); Glucose, Urine Trace (Negative); Ketones,Urine Negative (Negative); Leukocyte Esterase,Urine Positive (Negative); Nitrite,Urine Negative (Negative); PH,Urine 6.5 (5.0-7.0); Protein,Urine Trace (Neg - Trace); RBC,Urine 5 /hpf (0-3); Specific Gravity,Urine 1.013 (1.001-1.035); Squamous Epithelial Cell,Urine 9 /hpf (0-5); Urobilinogen,Urine Negative mg/dL (0.0-1.0); WBC,Urine 211 /hpf (0-5)
[2024-08-23 06:42] LABS: Reflex Lactate? Y
--- NOTE | 2024-08-23 06:48 | PD.EDADDENDU ---
Emergency Room Addendum Addendum Narrative: 0600: Care assumed from Dr. Mariano, the previous shift emergency physician. Past medical, surgical, social and family history reviewed. Vitals and home medications reviewed. I will assume the care of the patient at this time, pending CT abdomen/pelvis report and final disposition Please refer to the emergency department record for history and examination from initial visit.? EMS notes reviewed by me. Nursing notes reviewed by me. Vital signs reviewed by me. [place] medical records reviewed by me. I reviewed admission from 08/12/2024 through 08/16/2024 for sepsis secondary to UTI vs PNA. 0640: I spoke with teleradiologist Dr. Jackson regarding CT abdomen results. 0650: On my examination, patient does not complain of any pain. On abdominal examination there is no tenderness. 0658: I spoke with surgeon Dr. Corrales. Discussed patients PMHx, HPI, ED course, exam findings, labs, and radiology results. Recommended transferring the patient for a dedicated hepatobiliary surgeon. 0740: I spoke with caregiver at bedside and veterans contact representative, we dicussed CT results and plan to transfer for surgery. 0745: I spoke with our transfer nurse Autumn, transfer is initiated. 1135: I spoke with [facility] transfer nurse and general surgeon who have consulted the hepatobiliary team. General surgeon reports they have evaluated the images and recommended alleviating the blockage. At this time states there is not need for transfer. 1138: I spoke with surgeon Dr. Corrales and [facility]' surgeon recommendations. State she will discuss case with surgeon Dr. Schmitt. After receiving 3L of NS patient is hypotensive, 98/59. Will start on low dose Levophed and Vancomycin. 1225: I spoke with mural artist Dr. Appiah. Discussed patients PMHx, HPI, ED course, exam findings, labs, and radiology results. He accepts the patient for admission. RADIOLOGY Ordering Physician: Date of Service: Procedure(s): Accession Number(s): CT scan of the abdomen and pelvis with intravenous contrast (axial sections with sagittal and coronal reformats) August 23, 2024 at 0555 hours Clinical History: vomiting Comparison: January 02, 2021 Findings: The evaluation is limited due to motion artifact. Multifocal air space opacities are seen in both visualized lungs, more prominent on the right side. Small right pleural effusion is noted. Enlarged pancreatic head is noted with extensive surrounding fat stranding. There is circumferential wall thickening of the adjacent 2nd part of duodenum. The gallbladder is also thick walled and gas filled with mild pericholecystic fat stranding.. The liver, spleen and adrenals are unremarkable. Nonobstructing renal calculi are seen bilaterally measuring 1.4 x 1.2 cm on the right side and 0.9 x 0.8 cm on the left side. A percutaneous gastrostomy tube is seen with its bulb within the body of the stomach. Dilated and fluid filled small bowel loops, measuring up to 3.9 cm and demonstrating air-fluid levels in the mid abdomen with transition at the ileum. There is large lamellated gallbladder calculus in the lumen of the ileum. Distally the ileal loops are collapsed. The appendix is not clearly visualized. There are occasional colonic diverticula without evidence of diverticulitis. The urinary bladder is unremarkable. The uterus demonstrates multiple small calcified fibroids. A 3 cm cyst is noted in the left ovary. Possibly small cyst is noted in the right ovary measuring 2.2 cm There is no free fluid or free air. Degenerative changes are identified in the spine. A 1.8 cm hemangioma is noted in the L4 vertebral body. There is diffuse osteopenia. Impression: 1. Findings consistent with small bowel obstruction with transition at the ileum caused by large intraluminal gallstones in the ileum. Recommend clinical correlation and follow-up. 2. Findings suggestive of acute pancreatitis with reactive inflammatory changes in the duodenum and gallbladder. An intraluminal gas in the gallbladder. 3. Findings suggestive of bilateral pneumonia. Small right pleural effusion. Recommend clinical correlation and follow-up. 4. Other findings as described above. Discussion Details: Results verbally communicated to : Dr. Briceño at 06:38 AM 08/23/2024 Report Electronically Signed By: Mitzi Jackson 08/23/2024 6:54:31 AM [EST]
--- NOTE | 2024-08-23 06:49 | XR_ITS ---
Examination: Abdomen sonogram, Limited Date and time of exam: August 23, 2024 at 0728 hrs. Indications: Shortness of breath and vomiting onset today Technique: Real-time estrada scale transabdominal sonographic images of the upper abdomen obtained. Findings: Gallbladder wall appears connected to intestine, supporting diagnosis of small bowel ileus on the CT abdomen pelvis study August 23, 2024 0555 hrs. Gallbladder wall is thickened 0.5 cm Common bile duct 0.3 cm Pancreatic head 2.9 cm Liver 11.5 cm lobular contour no focal liver lesions Small right pleural effusion Normal hepatopedal portal venous flow Patent IVC Impression: Gallbladder sonogram supports diagnosis of gallstone ileus
--- NOTE | 2024-08-23 06:55 | PRELIM_ITS ---
CT scan of the abdomen and pelvis with intravenous contrast (axial sections with sagittal and coronal reformats) August 23, 2024 at 0555 hoursClinical History: vomitingComparison: January 02, 2021Findin gs:The evaluation is limited due to motion artifact. Multifocal air space opacities are seen in both visualized lungs, more prominent on the right side. Small right pleural effusion is noted.Enlarged pa ncreatic head is noted with extensive surrounding fat stranding. There is circumferential wall thicke desi of the adjacent 2nd part of duodenum. The gallbladder is also thick walled and gas filled with mild pericholecystic fat stranding.. The liver, spleen and adrenals are unremarkable.Nonobstructing r enal calculi are seen bilaterally measuring 1.4 x 1.2 cm on the right side and 0.9 x 0.8 cm on the le ft side. A percutaneous gastrostomy tube is seen with its bulb within the body of the stomach. Dilate d and fluid filled small bowel loops, measuring up to 3.9 cm and demonstrating air-fluid levels in th e mid abdomen with transition at the ileum. There is large lamellated gallbladder calculus in the lum en of the ileum. Distally the ileal loops are collapsed. The appendix is not clearly visualized. Ther e are occasional colonic diverticula without evidence of diverticulitis. The urinary bladder is unrem arkable. The uterus demonstrates multiple small calcified fibroids. A 3 cm cyst is noted in the left ovary. Possibly small cyst is noted in the right ovary measuring 2.2 cm There is no free fluid or fr ee air.Degenerative changes are identified in the spine. A 1.8 cm hemangioma is noted in the L4 verte bral body. There is diffuse osteopenia. Impression:1. Findings consistent with small bowel obstructio n with transition at the ileum caused by large intraluminal gallstones in the ileum. Recommend clinic al correlation and follow-up. 2. Findings suggestive of acute pancreatitis with reactive inflammatory changes in the duodenum and gallbladder. An intraluminal gas in the gallbladder.3. Findings suggesti ve of bilateral pneumonia. Small right pleural effusion. Recommend clinical correlation and follow-up .4. Other findings as described above. Discussion Details: Results verbally communicated to : Dr. Mack wisdom at 06:38 AM 08/23/2024 Report Electronically Signed By: Mitzi Jackson 08/23/2024 6:54:31 AM [EST]
--- NOTE | 2024-08-23 07:15 | PC.NURSE ---
In to assess pt. Pt with c/o SOB. Orders received and initiated. Call light is within reach. Caregiver is at bedside. Plan of care ongoing.
--- NOTE | 2024-08-23 07:35 | PC.NURSE ---
Provider at bedside to assess and discuss plan of care with pt and care provider.
--- NOTE | 2024-08-23 08:17 | PC.CM ---
Addendum entered by Autumn Barajas RN 08/23/24 11:57: I received a call back from Irene with [facility]. She states both of her doctors Dr. Dumont (surgery) and dr. Mancuso (hepato) reviewed the information and reviewed the images and they do not feel patient needs an acute higher level transfer. Irene states she gave the information and recommendations to Dr. Briceño. He told her he would cancel the transfer. I will reach out to Dr. Briceño to see if he is going to cancel or does he want me to try other facilities. Addendum entered by Autumn Barajas RN 08/23/24 08:55: 0845 I received a call back from Irene with the transfer center at [facility]. She states the CT report that was sent was not legible. She asked me to refex the report. I faxed the report at this time. Addendum entered by Autumn Barajas RN 08/23/24 08:37: 0820 I spoke to Irene at [facility] and I verified she received the faxed information and she was able to view the images I pushed over. She states she was going to reach out to GI and to surgery. I provided the direct number to Dr. Briceño. Original Note: [id number] I received a referral to transfer patient to tertiary center for hepatobiliary surgery. I sent referral to [facility].
[2024-08-23 08:51] LABS: Lactic Acid, 3 HR 5.8 mMol/L (0.4-2.0)
[2024-08-23] MEDS: SODIUM CHLORIDE 0.45 % 1,000 ML 250 ML IV (10:52)
[2024-08-23] MEDS: PIPER/TAZO INJ 3.375 GM in SODIUM CHLORIDE 0.9% (P) 100 ML IV (12:16)
[2024-08-23] MEDS: MethylPREDNISolone SOD SUCC 62.5 MG/ML 2ML VIAL 125 MG IVP (12:52)
[2024-08-23 13:28] LABS: Lactate (Lactic Acid) 2.5 mMol/L (0.4-2.0)
--- NOTE | 2024-08-23 13:31 | ESHP_ITS ---
<Statement entered by Darcy Appiah MD - 08/24/24 08:01> TOTAL CC TIME: 45 MIN I saw and evaluated the patient. I reviewed the resident?s note and agree with findings and plan as documented in the resident?s note. Upon my evaluation, this patient had a high probability of imminent or life- threatening deterioration due to septic shock, acute hypoxic respiratory failure which required my direct attention, intervention, and personal management. This time is exclusive of time spent on procedures, which are documented separately if performed. Patient seen and examined in the Emergency Department room 19 Patient suffered aspiration event with severe right sided infiltrates greater than left due to small bowel obstruction caused by a massive gallstone in the small bowel via fistulous tract to the gallbladder. Continue with broad-spectrum antibiotics Patient is currently on high flow nasal cannula and will be intubated prior to surgery Lactic acidosis was noted and bedside IVC ultrasound exam consistent with fully collapsible IVC on respiration consistent volume responsive state Additional 1 L of LR was ordered in the emergency room We will track lactic acid Several phone calls were made to the patient's conservatorship to obtain consent for central line however the managers on-call said they were not charge of making decisions for the patient unfortunately. Documentation for date of: 08/23/24 HPI History of Present Illness History of present illness: The patient is a 73-year-old female with significant past medical history of hypertension, DM 2, hyperlipidemia, dementia, hyperthyroidism, CVA with right- sided deficit, chronic G-tube, HFpEF and double of mental delay disorder presented from [facility] for SOB for 1 day. The patient was recently admitted on 08/13/2024 for wheezing and low-grade fever. The patient is verbally none comprehensive and history was obtained from patient's chief operator lock tender and chart review. In the ED vitals were significant for blood pressure 112/59, pulse 101, RR 32 and saturating 96% on HFNC with O2 flow 30 L/min and FiO2 85%. White count 28.3, sodium 132, chloride 97, BUN 34, blood sugar 299, lactic acid 2.9 that trended up to 5.8, UA significant for WBC 211, leukocyte esterase positive with rare bacteria. Chest x-ray revealed diffuse right lung pneumonia, abdomen/pelvis CT revealed SBO secondary to gallstone ileus, large gallstone in the distal small bowel. 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 Gallbladder ultrasound was supporting diagnosis of gallstone ileus. Patient received 3 L of normal saline bolus along with Zosyn. PMH: As mentioned above Medications: To be reconciled Surgical history: S/p gastrostomy tube Review of Systems Review of Systems ROS Unobtainable: unobtainable due to medical condition Exam Vital Signs Temp Pulse Resp BP Pulse Ox O2 Del Method O2 Flow Rate 97.5 F 109 H 28 H 104/67 92 L Oxy Mask 30 08/23/24 13:15 08/23/24 13:15 08/23/24 13:15 08/23/24 13:15 08/23/24 13:15 08/23/24 13:15 08/23/24 13:15 FiO2 70 08/23/24 13:15 Narrative Exam General: Elderly female with protruding tongue, No acute distress, Alert and Oriented x herself only, at baseline HEENT: Mildly dry mucous membranes, oropharynx clear Neck: Supple, No masses, No JVD CVS: Tachycardic, No murmurs, rubs or gallops Lungs: Mild wheeze throughout the lung field, no cracles or rhonchi Abd: Soft, NT/ND, +BS, no organomegaly, Peg tube on place Ext: No edema, warm and well perfused Skin: No rash Psych: Unobtainable Results: Labs 08/23/24 03:20 08/23/24 03:20 Labs: Short CBC 08/23/24 Range/Units 03:20 WBC 28.3 H D (3.6-11.0) Thou/mm3 Hgb 12.6 D (12.0-16.0) g/dL Hct 38.4 (36.0-46.0) % Plt Count 433 D (140-440) Thou/mm3 BMP 08/23/24 03:20 Sodium 132 L Potassium 5.0 Chloride 97 L Carbon Dioxide 23.1 BUN 34 H Creatinine 1.0 Glucose 299 H Calcium 10.3 Cardiac Enzymes 08/23/24 Range/Units 03:20 Troponin I < 0.020 (0.0-0.045) ng/mL Liver Function 08/23/24 Range/Units 03:20 Total Bilirubin 1.0 (0.3-1.2) mg/dL AST 22 (0-34) U/L ALT 35 (10-49) U/L Alkaline Phosphatase 142 H (46-116) U/L Albumin 4.4 (3.4-4.8) gm/dL Urine 08/23/24 Range/Units 06:14 Urine Color Yellow (Lt Yel-Yel) Urine Clarity Turbid A (Clear/Hazy) Urine pH 6.5 (5.0-7.0) Ur Specific [place] 1.013 (1.001-1.035) Urine Protein Trace (Neg - Trace) Urine Glucose (UA) Trace (Negative) Quality Measures Quality Measures sepsis Current suspected stage: septic shock (LA >4 and/or hypotension) Sepsis reassessment completed at (date): 08/23/24 Sepsis reassessment completed at (time): 03:30 Possible source: unknown Blood cultures ordered: yes Antibiotic ordered: Yes Advance care planning discussed with:: other (chief operator lock tender) Medications Home Medications and Allergies Home Medications ?Medication ?Instructions ?Recorded ?Confirmed ?Type acetaminophen 325 mg tablet 650 mg feeding tube Q4H PRN Pain 03/22/19 08/14/24 History bisacodyl 10 mg rectal suppository 10 mg AL PRN PRN Constipation 03/22/19 08/14/24 History linagliptin 5 mg tablet (Tradjenta) 5 mg feeding tube QDAY 03/22/19 08/14/24 History sennosides 8.6 mg tablet (senna) 8.6 mg feeding tube BID 03/22/19 08/14/24 History sertraline 50 mg tablet (Zoloft) 50 mg feeding tube QDAY 10/07/19 08/14/24 History atorvastatin 40 mg tablet 40 mg feeding tube HS 01/03/21 08/14/24 History furosemide 20 mg tablet 20 mg feeding tube QDAY PRN Edema 01/03/21 08/14/24 History polyethylene glycol 3350 17 17 g feeding tube QDAY PRN 01/03/21 08/14/24 History gram/dose oral powder (Miralax) Constipation clotrimazole 1 % topical cream 1 applic topical BID 06/12/24 08/14/24 History omeprazole 40 mg capsule,delayed 40 mg PO QPM 06/12/24 08/14/24 History release Allergies Allergy/AdvReac Type Severity Reaction Status Date / Time No Known Allergies Allergy Verified 06/12/24 10:23 Visit Medications Acetaminophen (Acetaminophen 325 Mg Tablet) 650 mg PO Q4HR PRN PRN Reason: PAIN SCALE 1-3 (mild Stop: 09/22/24 13:02 Acetaminophen (Acetaminophen Supp 650 Mg Supp) 650 mg AL Q4HR PRN PRN Reason: PAIN SCALE 1-3 (mild Stop: 09/22/24 13:02 Dextrose (Dextrose 50%-Water Inj 50 Ml Syringe) 25 ml IV Q15MIN PRN PRN Reason: BG 50-70 responsive npo pt Stop: 09/22/24 12:50 Dextrose (Dextrose 50%-Water Inj 50 Ml Syringe) 50 ml IV Q15MIN PRN PRN Reason: BG <50 OR BG <70 & pt unresponsive Stop: 09/22/24 12:50 Piperacillin Sod/Tazobactam (Sod 3.375 gm/ Sodium Chloride) 100 mls @ 200 mls/hr IV Q6HR AJAY Stop: 08/30/24 11:59 Last Admin: 08/23/24 12:16 Dose: 200 mls/hr Norepinephrine/Dextrose (Levophed In D5w 8mg/250ml) 8 mg in 250 mls @ 6.506 mls/hr IV .Q24H PRN; Protocol PRN Reason: PER PROTOCOL Stop: 09/22/24 12:19 Vancomycin HCl 1,000 mg/ (Sodium Chloride) 250 mls @ 150 mls/hr IV X1 ONE Stop: 08/23/24 13:59 Lactated Ringer's (Lactated Ringers) 1,000 mls @ 999 mls/hr IV .Q1H1M ONE Stop: 08/23/24 14:07 Insulin Human Lispro (Insulin Lispro (Admelog) 1 Unit/0.01 Ml Unit) 0 unit SC [facility]; Protocol Stop: 09/22/24 16:59 Magnesium Hydroxide (Milk Of Magnesia Susp 30 Ml Udc) 30 ml PO QDAY PRN PRN Reason: CONSTIPATION Stop: 09/22/24 13:02 Discontinued Medications Acetaminophen (Acetaminophen 325 Mg Tablet) 650 mg PO Q4HR PRN PRN Reason: PAIN SCALE 1-3 (mild Stop: 09/22/24 12:38 Acetaminophen (Acetaminophen Supp 650 Mg Supp) 650 mg AL Q4HR PRN PRN Reason: PAIN SCALE 1-3 (mild Stop: 09/22/24 12:38 Al Hydrox/Mg Hydrox/Simethicone (Mg Hyd/Al Hyd/Yeimy (Maalox Reg) Susp 30 Ml Udc) 30 ml PO Q4HR PRN PRN Reason: Heartburn or Upset Stomach Stop: 09/22/24 12:38 Piperacillin/Tazobactam/Dextrose (Zosyn) 3.375 gm in 50 mls @ 100 mls/hr IV X1 ONE Stop: 08/23/24 05:20 Last Admin: 08/23/24 05:56 Dose: Not Given Sodium Chloride (Ns) 1,000 mls @ 999 mls/hr IV .Q1H1M ONE Stop: 08/23/24 06:40 Last Infusion: 08/23/24 08:21 Dose: Infused Sodium Chloride (Ns) 1,000 mls @ 999 mls/hr IV .Q1H1M ONE Stop: 08/23/24 06:40 Last Infusion: 08/23/24 08:21 Dose: Infused Piperacillin Sod/Tazobactam (Sod 3.375 gm/ Sodium Chloride) 50 mls @ 100 mls/hr IV X1 ONE Stop: 08/23/24 06:24 Last Infusion: 08/23/24 06:36 Dose: Infused Piperacillin Sod/Tazobactam (Sod 3.375 gm/ Sodium Chloride) 50 mls @ 100 mls/hr IV X1 ONE Stop: 08/23/24 06:28 Last Admin: 08/23/24 06:08 Dose: Not Given Sodium Chloride (Ns) 1,000 mls @ 999 mls/hr IV .Q1H1M ONE Stop: 08/23/24 09:55 Last Infusion: 08/23/24 10:51 Dose: Infused Sodium Chloride (Ns 0.45%) 1,000 mls @ 250 mls/hr IV .Q4H AJAY Stop: 09/22/24 10:45 Last Admin: 08/23/24 10:52 Dose: 250 mls/hr Magnesium Hydroxide (Milk Of Magnesia Susp 30 Ml Udc) 30 ml PO QDAY PRN PRN Reason: CONSTIPATION Stop: 09/22/24 12:38 Methylprednisolone Sodium Succinate (Methylprednisolone Sod Succ 62.5 Mg/Ml 2ml Vial) 125 mg IVP X1 ONE Stop: 08/23/24 12:20 Last Admin: 08/23/24 12:52 Dose: 125 mg Nitroglycerin (Nitroglycerin 0.4 Mg Subl Btl #25) 0.4 mg SL Q5MIN PRN PRN Reason: CHEST PAIN Ondansetron HCl (Ondansetron Inj 2 Mg/Ml Inj 2 Ml) 4 mg IV X1 ONE Stop: 08/23/24 05:54 Last Admin: 08/23/24 06:03 Dose: 4 mg Sodium Chloride (Sodium Chloride Rt 10% 15 Ml Nebu) 5 ml INH X1 ONE Stop: 08/23/24 12:51 Assessment & Plan Plan The patient is a 73-year-old female with significant past medical history of hypertension, DM 2, hyperlipidemia, dementia, hyperthyroidism, CVA with right- sided deficit, chronic G-tube, HFpEF and double of mental delay disorder presented from [facility] for SOB for 1 day and is admitted to ICU for further management of septic shock secondary to gallstone ileus . 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 She is verbally none comprehensive. Cardio: #Septic shock Secondary to gallstone ileus revealed in CT abdomen/pelvis, large gallstone in the distal small bowel. Air density in the gallbladder supporting gallbladder small bowel fistula. Met 3/4 SIRS criteria with pulse 101, RR 32, and WBC 28.3, lactic acid trended up to 5.8. Patient received 3 L of IV normal saline in the ED. -Started on IV Zosyn 3.375 g every 6 hourly -Ordered 1 L IV LR bolus -Dr. Corrales on board, will proceed with ex laparotomy -Central line access for pressor support if needed, patient is not conserved, consent to be obtained -Continue with IV LR -Blood culture, urine culture and sputum culture ordered -Trend lactic acid level -Daily a.m. labs for CBC, CMP and electrolytes #Sinus tachycardia Secondary to septic shock -Management as per septic shock #History of HTN -Currently patient is hypotensive Pulmonary: #Acute hypoxic respiratory failure Likely secondary to right-sided pneumonia, likely healthcare associated pneumonia as patient was recently in the hospital, less likely due to septic shock. Patient was initially placed on HF NC, later on oxy mask. -Patient was intubated during laparotomy, we will continue to mechanically ventilated the patient at this point, we will try SBT tomorrow morning -We will continue on Zosyn 3.375 g every 6 hourly -ABG in the a.m. GI: #Gallstone ileus Complicating as septic shock -Dr. Goldsmith to perform ex laparotomy and repair of small bowel fistula #Chronic PEG tube -NPO for now Renal: #Pseudohyponatremia -In the setting of high blood sugar of 299 -Blood sugar management #Lactic acidosis In the setting of septic shock -Ordered 1 L bolus LR -Continue to trend lactic acid level every 6 hourly #Hypercalcemia Secondary to septic shock with hypovolemia Corrected calcium 10.3 -Ordered 1 L bolus LR #Asymptomatic bacteriuria Patient is verbally none comprehensive, it is difficult to distinguish with UTI -On antibiotics Endo: #Diabetes mellitus type 2 -On sliding scale insulin #Hypothyroidism -Will resume home medication methimazole 5 mg twice daily after extubating the patient Hematology: #Leukocytosis Secondary to septic shock -Manage the underlying cause -Daily a.m. CBC ID: -On Zosyn as above MSK/skin: -Clean surgical site Health maintenance: Dispo: Patient admitted to ICU for further management of septic shock requiring pressor support DVT prophylaxis: On SCDs, as chemical prophylaxis is not indicated in the setting of recent surgery Diet: N.p.o. for now Lines: Peripheral lines, plan for central line tomorrow if blood pressure is soft CODE STATUS: Full code The patient's management plan was discussed with my attending physician MD Lorenzo Shirley MD, PGY2
--- NOTE | 2024-08-23 13:39 | PD.SURCONS ---
HPI Consult details History of present illness: 73F with HTN, HLD, DMII, hyperthyroidism, CVA with right-sided deficit, G tube, and developmental delay presenting for shortness of breath. Pt is accompanied by a caregiver from her living facility who was informed that pt had been vomiting prompting eval in ER. In ER pt has required HFNC, was found to have SBO due to gallstone ileus, with leukocytosis and lactic acidosis Review of Systems Review of Systems ROS Unobtainable: All systems reviewed & no additional complaints except as documented Meds Home Medications and Allergies Home Medications ?Medication ?Instructions ?Recorded ?Confirmed ?Type acetaminophen 325 mg tablet 650 mg feeding tube Q4H PRN Pain 03/22/19 08/14/24 History bisacodyl 10 mg rectal suppository 10 mg AR PRN PRN Constipation 03/22/19 08/14/24 History linagliptin 5 mg tablet (Tradjenta) 5 mg feeding tube QDAY 03/22/19 08/14/24 History sennosides 8.6 mg tablet (senna) 8.6 mg feeding tube BID 03/22/19 08/14/24 History sertraline 50 mg tablet (Zoloft) 50 mg feeding tube QDAY 10/07/19 08/14/24 History atorvastatin 40 mg tablet 40 mg feeding tube HS 01/03/21 08/14/24 History furosemide 20 mg tablet 20 mg feeding tube QDAY PRN Edema 01/03/21 08/14/24 History polyethylene glycol 3350 17 17 g feeding tube QDAY PRN 01/03/21 08/14/24 History gram/dose oral powder (Miralax) Constipation clotrimazole 1 % topical cream 1 applic topical BID 06/12/24 08/14/24 History omeprazole 40 mg capsule,delayed 40 mg PO QPM 06/12/24 08/14/24 History release Allergies Allergy/AdvReac Type Severity Reaction Status Date / Time No Known Allergies Allergy Verified 06/12/24 10:23 Exam Vital Signs Temp Pulse Resp BP Pulse Ox O2 Del Method O2 Flow Rate 97.5 F 109 H 28 H 104/67 92 L Oxy Mask 30 08/23/24 13:15 08/23/24 13:15 08/23/24 13:15 08/23/24 13:15 08/23/24 13:15 08/23/24 13:15 08/23/24 13:15 FiO2 70 08/23/24 13:15 Constitutional Constitutional: no acute distress Routine Respiratory Exam Respiratory: Present rhonchi and respiratory distress Routine Abdominal Exam Abdominal: Present soft, tenderness (mild tenderness diffusely) and distended Results Results: Laboratory Laboratory results: results reviewed Results: Imaging CT scan - abdomen: report reviewed and image reviewed Assessment & Plan Plan 73F with HTN, HLD, DMII, hyperthyroidism, CVA with right-sided deficit, G tube, and developmental delay presenting for shortness of breath and vomiting, findings consistent with gallstone ileus. I explained risks/benefits of surgery with Dr Burden who provides consent for her procedures, he expressed understanding and provided consent
--- NOTE | 2024-08-23 14:00 | PC.NURSE ---
pt taken to OR.
--- NOTE | 2024-08-23 14:03 | PC.NURSE ---
received report from Herlinda, patient to go to OR for surgery before transfer to room 259
--- NOTE | 2024-08-23 14:43 | PC.CC ---
Pt Ananth Tomas is a 73 yr old female admitted to hospitalist services for septic shock. PRODUCTION MINER CC met with pt and medicare sales representative at bedside. Hx provided by medicare sales representative at this time. Pt is from [address] Pt is connected with [facility] who is pts medical decision maker. [facility] is owned and operated by Thelma Treviño [phone]. At baseline pt is bed bound/wheel chair bound due to right sided deficit following stroke. Pt is max assist in completing her ADLs. pt is diabetic on oral medication for management. PT is followed by Dr. Alva for primary care. At D/c pt will return to facility. Facility staff can transport pt back to facility if stable.
--- NOTE | 2024-08-23 15:12 | ESOP_ITS ---
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 She had already received preoperative antibiotics and was prepped and draped in usual sterile fashion. After timeout an upper midline incision was made with a #10 blade and the tissues were dissected with electrocautery. When the peritoneum was reached the small bowel was eviscerated and examined. A large gallstone was easily identified at the mid ileum and a longitudinal incision was made with a #15 blade directly over the stone. The stone was removed intact and the enterotomy was closed in a longitudinal fashion in 2 layers, with 2-0 Vicryl suture running followed by 2-0 silk Lembert sutures. The small bowel was examined in its entirety and no other stones were identified. The small bowel was returned to the abdomen and the fascia was closed with 0 PDS suture. The wound was irrigated and skin was closed with molly and covered with Telfa, gauze and Tegaderm. Given patient's preoperative respiratory status she is to remain intubated and transferred to ICU in stable condition Pathology / specimen Other (Gallstone) Estimated Blood Loss 25 Surgeon Jessi Corrales MD Surgical Staff Operation Date: 08/23/24 13:30 Case Staff PACS ADMINISTRATOR: Zeeshan Bloom RN First Assistant: Luis Patel
--- NOTE | 2024-08-23 16:09 | PC.NURSE ---
Dr. Arizmendi made aware of patient having an NG tube and Gtube, per Dr. Arizmendi, NG was placed to suction during surgery, orders received for sedation goal RASS -2
[2024-08-23 16:14] LABS: Base Excess -9 (-3-3); HCO3 19 mEq/L (20-26); Inspired Oxygen, FIO2 75 %; O2 Saturation 95 % (91-98); PCO2 45 mmHg (32.0-48.0); PO2 90 mmHg (83-108); pH, Arterial 7.22 (7.35-7.45)
[2024-08-23 16:20] LABS: Allen Test Not Performed; Puncture Site Site Not Noted
[2024-08-23 16:23] LABS: Reflex Lactate? Y
[2024-08-23] MEDS: fentaNYL 2,500 MCG/250 ML BAG 2,500 MCG/250 ML BAG IV (16:47)
[2024-08-23] MEDS: RINGERS LACTATED 1000 ML 1,000 ML 999 ML IV (16:53)
[2024-08-23 17:31] LABS: Lactic Acid, 3 HR 1.8 mMol/L (0.4-2.0)
[2024-08-23] MEDS: RINGERS LACTATED 1000 ML 1,000 ML 75 ML IV (18:21)
[2024-08-23] MEDS: PIPER/TAZO 3.375 GM 50 ML IV ×2 (18:23→23:58)
--- NOTE | 2024-08-23 19:25 | PC.NURSE ---
Dr. Arizmendi aware of no SCD machine available
--- NOTE | 2024-08-23 22:26 | XR_ITS ---
Examination: AP chest single view Technique one AP portable semiupright chest single view Exam date and time: August 23, 2024 10:54 PM Comparison August 23, 2024 0321 hrs. Indications: Hypoxic respiratory failure, postintubation Findings: Interval extensive bilateral lung opacity, edema and/or pneumonia Mild enlargement cardiac contour. Tracheal tube tip 4.4 cm above tamir Orogastric tube in the stomach tip below the level film Impression: Interval extensive bilateral lung opacity, pulmonary edema and/or pneumonia Tracheal tube tip 4.4 cm above tamir
[2024-08-23 22:42] LABS: Base Excess -8 (-3-3); HCO3 19 mEq/L (20-26); Inspired Oxygen, FIO2 70 %; O2 Saturation 91 % (91-98); PCO2 43 mmHg (32.0-48.0); PO2 68 mmHg (83-108); pH, Arterial 7.25 (7.35-7.45)
[2024-08-23 22:43] LABS: Allen Test Performed/OK; Puncture Site Right Radial
[2024-08-23] MEDS: PROPOFOL 1,000 MG IVPB 1,000 MG/100 ML VIAL 2.082 MG IV (23:06)
[2024-08-24] VITALS (102 sets, daily range): BP systolic 72–159; BP diastolic 47–98; PULSE 73–128; RESP 14–26; TEMP 35.8–36.1; O2SAT 92–100; BMI 29.3
[2024-08-24] MEDS: INSULIN LISPRO (AdmeLOG) 1 UNIT/0.01 ML UNIT SC ×2 (00:06→05:49)
[2024-08-24] MEDS: RINGERS LACTATED 1000 ML 1,000 ML 999 ML IV (01:38)
[2024-08-24] MEDS: PIPER/TAZO 3.375 GM 50 ML IV ×4 (05:51→23:47)
[2024-08-24 05:57] LABS: Basophils % (Auto) 0 % (0-2.5); Eosinophils % (Auto) 0 % (0-10); Hematocrit 28.8 % (36.0-46.0); Immature Granulocytes % (Auto) 1 % (0-0); Immature Granulocytes Auto 0.48 Thou/mm3 (0.00-0.00); Lymphocytes # (Auto) 0.3 Thou/mm3 (1.0-4.8); Lymphocytes % (Auto) 1 % (10-50); Mean Corpuscular HGB Conc 30.9 g/dl (31.0-37.0); Mean Corpuscular Hemoglobin 30.8 pg (25.0-35.0); Mean Corpuscular Volume 100 fL (80-100); Monocytes # (Auto) 0.3 Thou/mm3 (0.0-0.8); Monocytes % (Auto) 1 % (0-12); Neutrophils # (Auto) 42.8 Thou/mm3 (1.8-7.7); Neutrophils % (Auto) 98 % (37-80); Nucleated Red Blood Cell # 0.02 Thou/mm3 (0.00-0.00); Nucleated Red Blood Cell % 0 /100 WBC (0); Platelet Count 180 Thou/mm3 (140-440); RDW Standard Deviation 58.4 fL (36.4-46.3); Red Blood Count 2.89 Miln/mm3 (4.00-5.20)
[2024-08-24 06:10] LABS: Hemoglobin 8.9 g/dL (12.0-16.0); White Blood Count 43.9 Thou/mm3 (3.6-11.0)
[2024-08-24 06:27] LABS: Path Review Blood Smear Sent to Pathologist
[2024-08-24 06:38] LABS: Alanine Aminotransferase 23 U/L (10-49); Albumin/Globulin Ratio 1.4 (1.2-2.2); Alkaline Phosphatase 77 U/L (46-116); Anion Gap 12 (7-16); Aspartate Amino Transferase 22 U/L (0-34); BUN/Creatinine Ratio 34 Ratio (12-20); Bilirubin,Total 0.5 mg/dL (0.3-1.2); Blood Urea Nitrogen 37 mg/dL (9-23); Calcium (Corrected) 8.8 mg/dL (8.5-10.1); Carbon Dioxide 17.6 mMol/L (20.0-31.0); Chloride 109 mMol/L (98-107); Creatinine (Component) 1.1 mg/dL (0.6-1.3); Estimated Creatinine Clearance 42.7 mL/min (>60); Globulin 2.2 gm/dL (2.3-3.5); Glucose 168 mg/dL (74-106); Osmolality,Calculated 290 (275-295); Potassium 4.2 mMol/L (3.4-5.1); Sodium 139 mMol/L (136-145); Total Protein 5.2 gm/dL (5.7-8.2); eGFR 54 See Note
[2024-08-24] MEDS: Norepinephrine/D5W 8mg/250ml 8 MG/250 ML BAG 6.506 MG IV (06:49)
--- NOTE | 2024-08-24 07:56 | PC.NURSE ---
attempted to call Thelma stiles conservator at [facility] to complete home med rec., no answer at this time
[2024-08-24 09:29] LABS: Lactate (Lactic Acid) 1.9 mMol/L (0.4-2.0)
[2024-08-24] MEDS: VANCOMYCIN IV (09:56)
[2024-08-24] MEDS: SODIUM CHLORIDE 0.9% IV (09:56)
--- NOTE | 2024-08-24 10:12 | PC.DIETICIAN ---
Nutrition prescription When indicated, consider: Glucerna 1.2 at 20 ml/hr via PEG tube by pump. Advance 10 ml every 8 hrs to goal rate of 55 ml/hr x 24 hrs. If no IV fluids, water flushes of 25 ml/hr (or per MD).
[2024-08-24] MEDS: RINGERS LACTATED 1000 ML 1,000 ML 75 ML IV (10:31)
[2024-08-24] MEDS: PROPOFOL 1,000 MG IVPB 1,000 MG/100 ML VIAL 15.183 MG IV ×2 (11:18→18:04)
--- NOTE | 2024-08-24 14:43 | PD.SURPROG ---
Documentation for date of: 08/24/24 Subjective Subjective Brief History: 73F with HTN, HLD, DMII, hyperthyroidism, CVA with right-sided deficit, G tube, and developmental delay presenting for shortness of breath. Pt is accompanied by a caregiver from her living facility who was informed that pt had been vomiting prompting eval in ER. In ER pt has required HFNC, was found to have SBO due to gallstone ileus, with leukocytosis and lactic acidosis Narrative: Unable to tolerate weaning sedation, requiring low dose pressor support, afebrile, NG to suction with minimal output, WBC 40s Exam Vital Signs Temp Pulse Resp BP Pulse Ox O2 Del Method O2 Flow Rate 97.0 F 84 16 106/68 98 Mechanical Ventilation 30 08/24/24 12:00 08/24/24 14:19 08/24/24 13:04 08/24/24 14:19 08/24/24 14:19 08/24/24 12:00 08/23/24 13:15 FiO2 40 08/24/24 14:19 Constitutional Constitutional: mild distress Routine Respiratory Exam Respiratory: Present no resp distress Routine Abdominal Exam Abdominal: Present soft, distended (mild distention) and wound (midline wound with serosanguinous drainage) Results Results: Laboratory Laboratory results: results reviewed Assessment & Plan Plan 73F with HTN, HLD, DMII, hyperthyroidism, CVA with right-sided deficit, G tube, and developmental delay presenting for shortness of breath and vomiting, findings consistent with gallstone ileus s/p enterotomy, removal of stone and repair of enterotomy 08/23, remaining critically ill NG to LIS Await return of bowel function Continue abx Procedures Procedures Laparotomy, enterotomy with removal of gallstone
--- NOTE | 2024-08-24 15:07 | PC.NURSE ---
at [address] Arizmendi made aware of the patients hourly urine output
--- NOTE | 2024-08-24 15:14 | PC.NURSE ---
at 0808 spoke with Laura, patient is conserved, number to contact for safety and security manager of the day is . at [phone] spoke with Ericka gavin, social media content specialist at [facility], to give update on patients condition
--- NOTE | 2024-08-24 15:23 | PC.SS ---
Update: Patient is intubated/sedated. Patient on pressors. Feeding on hold. No ski issues. Possible candidate for extubation tomorrow.
--- NOTE | 2024-08-24 15:47 | ESPR_ITS ---
<Statement entered by Darcy Appiah MD - 08/28/24 09:13> TOTAL CC TIME: 35 MIN I saw and evaluated the patient. I reviewed the resident?s note and agree with findings and plan as documented in the resident?s note. Upon my evaluation, this patient had a high probability of imminent or life- threatening deterioration due to aspiration pneumonia w/ acute hypxoic resp failure which required my direct attention, intervention, and personal management. This time is exclusive of time spent on procedures, which are documented separately if performed. cont abx - f/u final clx results adjust MV as appropriate current Pplt <30 transition to PSV when appropriate Documentation for date of: 08/24/24 Subjective Subjective Interval history: 08/24/2024: The patient was examined at the bedside this morning. The patient was sedated and mechanically ventilated. Patient was started on Levophed drip this morning. Labs are significant for white count 43.9, hemoglobin 8.9, chloride 4.2, bicarb 17.6, BUN 37 and creatinine 1.1. SAT was attempted, but patient was agitated and heart rate went up to 130s with respiratory distress. Patient was started back on sedation. Due to respiratory distress, associated with abdominal breathing, there was mild sanguinous secretion from the incision site, that was seen and examined by Dr. Corrales and dressing was changed. Exam Vital Signs Temp Pulse Resp BP Pulse Ox O2 Del Method O2 Flow Rate 97.0 F 84 16 115/63 97 Mechanical Ventilation 30 08/24/24 12:00 08/24/24 15:00 08/24/24 13:04 08/24/24 15:00 08/24/24 15:00 08/24/24 12:00 08/23/24 13:15 FiO2 40 08/24/24 14:19 Narrative Exam General: Elderly female, sedated and mechanically ventillated HEENT: moist mucous membranes, oropharynx clear Neck: Supple, No masses, No JVD CVS: Tachycardic, No murmurs, rubs or gallops Lungs: Mild wheeze throughout the lung field, no cracles or rhonchi Abd: Soft, NT/ND, +BS, no organomegaly, Peg tube on place, Upper midline incision in clean dressing Ext: No edema, warm and well perfused Skin: mild erythema over right side of incision Psych: Unobtainable Objective Labs 12/04/24 04:45 08/24/24 04:45 Labs: Laboratory Results - last 24 hr 08/23/24 08/23/24 08/23/24 16:06 16:58 22:31 WBC RBC Hgb Hct MCV MCH MCHC RDW Std Deviation Plt Count Neut % (Auto) Lymph % (Auto) Bosque % (Auto) Eos % (Auto) Baso % (Auto) Neut # (Auto) Lymph # (Auto) Bosque # (Auto) Eos # (Auto) Baso # (Auto) Immature Gran # (Auto) Absolute Nucleated RBC Immature Gran % Nucleated RBC % Smear Path Review Puncture Site Site Not Noted Right Radial ABG pH 7.22 L 7.25 L ABG pCO2 45 43 ABG pO2 90 68 L D ABG HCO3 19 L 19 L ABG O2 Saturation 95 91 ABG Base Excess -9 L -8 L FiO2 75 70 Sodium Potassium Chloride Carbon Dioxide Anion Gap BUN Creatinine Estim Creat Clear Calc eGFR BUN/Creatinine Ratio Glucose Calculated Osmolality Lactic Acid 1.8 Calcium Corrected Calcium Total Bilirubin AST ALT Alkaline Phosphatase Total Protein Albumin Globulin Albumin/Globulin Ratio 08/24/24 08/24/24 04:45 09:10 WBC 43.9 H* D RBC 2.89 L Hgb 8.9 L D Hct 28.8 L MCV 100 MCH 30.8 MCHC 30.9 L RDW Std Deviation 58.4 H Plt Count 180 D Neut % (Auto) 98 H Lymph % (Auto) 1 L Bosque % (Auto) 1 Eos % (Auto) 0 Baso % (Auto) 0 Neut # (Auto) 42.8 H Lymph # (Auto) 0.3 L Bosque # (Auto) 0.3 Eos # (Auto) 0.0 Baso # (Auto) 0.0 Immature Gran # (Auto) 0.48 H Absolute Nucleated RBC 0.02 H Immature Gran % 1 H Nucleated RBC % 0 Smear Path Review Sent to Pathologist Puncture Site ABG pH ABG pCO2 ABG pO2 ABG HCO3 ABG O2 Saturation ABG Base Excess FiO2 Sodium 139 Potassium 4.2 D Chloride 109 H Carbon Dioxide 17.6 L Anion Gap 12 BUN 37 H Creatinine 1.1 Estim Creat Clear Calc 42.7 L eGFR 54 L BUN/Creatinine Ratio 34 H Glucose 168 H D Calculated Osmolality 290 Lactic Acid 1.9 Calcium 8.0 L D Corrected Calcium 8.8 D Total Bilirubin 0.5 D AST 22 ALT 23 Alkaline Phosphatase 77 D Total Protein 5.2 L Albumin 3.0 L D Globulin 2.2 L Albumin/Globulin Ratio 1.4 ABG Interpretation ABG results: 08/23/24 08/23/24 16:06 22:31 ABG pH 7.22 L 7.25 L ABG pCO2 45 43 ABG pO2 90 68 L D ABG HCO3 19 L 19 L ABG O2 Saturation 95 91 ABG Base Excess -9 L -8 L Quality Measures Quality Measures sepsis Current suspected stage: septic shock (LA >4 and/or hypotension) Sepsis reassessment completed at (date): 08/24/24 Sepsis reassessment completed at (time): 07:15 Possible source: unknown Blood cultures ordered: yes Antibiotic ordered: Yes Advance care planning discussed with:: other Assessment & Plan Assessment Current Active Medications: Generic Name Dose Route Start Last Admin Trade Name Freq PRN Reason Stop Dose Admin Acetaminophen 650 mg 08/23/24 13:03 Acetaminophen 325 Mg Tablet PO 09/22/24 13:02 Q4HR PRN PAIN SCALE 1-3 (mild Acetaminophen 650 mg 08/23/24 13:03 Acetaminophen Supp 650 Mg Supp TX 09/22/24 13:02 Q4HR PRN PAIN SCALE 1-3 (mild Dextrose 25 ml 08/23/24 17:46 Dextrose 50%-Water Inj 50 Ml Syringe IV 09/22/24 17:45 Q15MIN PRN BG 50-70 responsive npo pt Dextrose 50 ml 08/23/24 17:46 Dextrose 50%-Water Inj 50 Ml Syringe IV 09/22/24 17:45 Q15MIN PRN BG <50 OR BG <70 & pt unresponsive Glucagon 1 mg 08/23/24 17:46 Glucagon Inj 1 Mg Vial IM Q15MIN PRN BG <70, and no IV access Norepinephrine/Dextrose 8 mg in 250 mls @ 6.506 mls/hr 08/23/24 12:20 08/24/24 15:38 Levophed In D5w 8mg/250ml IV 09/22/24 12:19 0.04 mcg/kg/min .Q24H PRN 5.205 mls/hr PER PROTOCOL Titration Protocol 0.05 MCG/KG/MIN Lactated Ringer's 1,000 mls @ 75 mls/hr 08/23/24 17:49 08/24/24 10:31 Lactated Ringers IV 08/24/24 17:48 75 mls/hr .[id number] AJAY Administration Vancomycin HCl 750 mg/ 250 mls @ 120 mls/hr 08/24/24 10:00 08/24/24 12:01 Vancomycin HCl 500 mg/ Sodium IV 08/31/24 09:59 Infused Chloride DAILY@1000 AJAY Infusion Fentanyl Citrate 2,500 mcg in 250 mls @ 2.5 mls/hr 08/24/24 08:20 Sublimaze Inj 2,500 Mcg/250 Ml Bag IV 08/28/24 16:37 .Q24H PRN PER PROTOCOL Protocol 25 MCG/HR Propofol 1,000 mg in 100 mls @ 2.169 mls/hr 08/24/24 10:56 08/24/24 15:00 Diprivan Ivpb IV 09/22/24 15:42 30 mcg/kg/min .Q24H PRN 13.014 mls/hr PER PROTOCOL Titration Protocol 5 MCG/KG/MIN Piperacillin/Tazobactam/Dextrose 50 mls @ 12.5 mls/hr 08/24/24 12:00 08/24/24 11:32 Zosyn IV 08/30/24 17:59 12.5 mls/hr Q6HR AJAY Administration Insulin Human Lispro 0 unit 08/23/24 18:00 08/24/24 11:31 Insulin Lispro (Admelog) 1 Unit/0.01 Ml Unit SC 09/22/24 17:59 Not Given Q6HR AJAY Protocol Magnesium Hydroxide 30 ml 08/23/24 13:03 Milk Of Magnesia Susp 30 Ml Udc PO 09/22/24 13:02 QDAY PRN CONSTIPATION Pharmacy Consult 1 each 08/25/24 07:00 Vancomycin Pharmacy To Dose 1 Each Each IV 09/24/24 06:59 QDAY@0700 PRN CONSULT Plan The patient is a 73-year-old female with significant past medical history of hypertension, DM 2, hyperlipidemia, dementia, hyperthyroidism, CVA with right- sided deficit, chronic G-tube, HFpEF and double of mental delay disorder presented from [facility] for SOB for 1 day and is admitted to ICU for further management of septic shock secondary to gallstone ileus . 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 She is verbally none comprehensive. Cardio: #Septic shock Secondary to aspiration pneumonia in the setting of gallstone ileus revealed in CT abdomen/pelvis, large gallstone in the distal small bowel. Air density in the gallbladder supporting gallbladder small bowel fistula. Met 3/4 SIRS criteria with pulse 101, RR 32, and WBC 28.3, lactic acid trended up to 5.8. Patient received 3 L of IV normal saline in the ED. -Started on IV Zosyn 3.375 g every 6 hourly -Ordered 1 L IV LR bolus -Dr. Corrales on board, will proceed with ex laparotomy -Central line access for pressor support if needed, patient is not conserved, consent to be obtained -Continue with IV LR 75cc/hr -Blood culture 1 bottle GPC +, urine culture and sputum culture ordered -Lactic acid trended down -Daily a.m. labs for CBC, CMP and electrolytes #Sinus tachycardia Secondary to septic shock -Management as per septic shock #History of HTN -Currently patient is hypotensive requiring pressure support Pulmonary: #Acute hypoxic respiratory failure Secondary to right-sided pneumonia, likely aspiration pneumonia as patient had episodes of vomiting, less likely due to septic shock. Patient was initially placed on HF NC, later on oxy mask and during ex laparotomy she was intubated -Patient was intubated during laparotomy, we will continue to mechanically ventilated the patient at this point, SAT was failed due to respiratory distress -We will continue on Zosyn 3.375 g every 6 hourly, -Added vancomycin on 08/24 -ABG in the a.m. GI: #Gallstone ileus -Dr. Goldsmith performed ex laparotomy and billiary stone was removed without repair of fistula due to multiple co-morbidity. #Chronic PEG tube -NPO for now, ok for meds -On bowel regimen Renal: #Pseudohyponatremia, resolved #Lactic acidosis, resolved #Hypercalcemia, resolved #Asymptomatic bacteriuria Patient is verbally none comprehensive, it is difficult to distinguish with UTI -On antibiotics Endo: #Diabetes mellitus type 2 -On sliding scale insulin #Hyperthyroidism -Will resume home medication methimazole 5 mg twice daily after extubating the patient Hematology: #Leukocytosis Secondary to septic shock -Manage the underlying cause -Daily a.m. CBC ID: -On Zosyn as above -Added vancomycin IV MSK/skin: -Clean surgical site Health maintenance: Dispo: Patient admitted to ICU for further management of septic shock requiring pressure support DVT prophylaxis: On SCDs, as chemical prophylaxis is not indicated in the setting of recent surgery Diet: N.p.o. for now Lines: Peripheral lines, plan for central line tomorrow if blood pressure is soft CODE STATUS: Full code The patient's management plan was discussed with my attending physician MD Lorenzo Shirley MD, PGY2
--- NOTE | 2024-08-24 16:02 | PC.NURSE ---
at [address] Arizmendi continue LR at 75ml/hr
--- NOTE | 2024-08-24 17:23 | PC.NURSE ---
patient currently has an NG with low intermittent suction ordered and in place, as well as PEG tube, at [address] Arizmendi about patients Miralax and dulcolax, per Dr. Arizmendi give through NG tube with suction off, turn on suction after 30 minutes
--- NOTE | 2024-08-24 17:30 | PC.NURSE ---
at 0836 RASS changed with order from -[address] Arizmendi for SBT, at 1003 patient began to be tachycardic at 118 and restless, per Dr. Appiah, patient to remain intubated today, RASS changed to -2, propofol and fentanyl increased per protocol, at 1030 Dr. Arizmendi notified of patients continued HR at 130 and restlessness, Dr. Arizmendi also made aware of increased bleeding saturating patients abdominal incision dressing, no orders received at this time
[2024-08-24] MEDS: POLYETHYLENE GLYCOL 17 GM PACKET GT (17:52)
[2024-08-24] MEDS: bisacodyL 10 MG SUPP PR (17:53)
[2024-08-24] MEDS: fentaNYL 2,500 MCG/250 ML BAG 2,500 MCG/250 ML BAG 17.5 MCG IV (19:17)
[2024-08-24] MEDS: SENNA TABLET 1 TAB GT (21:21)
[2024-08-24] MEDS: RINGERS LACTATED 500 ML 500 ML 75 ML IV (21:24)
[2024-08-25] VITALS (110 sets, daily range): BP systolic 71–171; BP diastolic 49–136; PULSE 74–190; RESP 7–35; TEMP 35.8–37.2; O2SAT 90–100
[2024-08-25] MEDS: PROPOFOL 1,000 MG IVPB 1,000 MG/100 ML VIAL 15.183 MG IV (02:36)
[2024-08-25] MEDS: PIPER/TAZO 3.375 GM 50 ML IV ×4 (06:01→23:49)
[2024-08-25 06:18] LABS: Basophils % (Auto) 0 % (0-2.5); Eosinophils % (Auto) 0 % (0-10); Hematocrit 24.6 % (36.0-46.0); Immature Granulocytes % (Auto) 2 % (0-0); Immature Granulocytes Auto 0.36 Thou/mm3 (0.00-0.00); Lymphocytes # (Auto) 0.4 Thou/mm3 (1.0-4.8); Lymphocytes % (Auto) 2 % (10-50); Mean Corpuscular HGB Conc 31.3 g/dl (31.0-37.0); Mean Corpuscular Volume 99 fL (80-100); Monocytes # (Auto) 0.2 Thou/mm3 (0.0-0.8); Monocytes % (Auto) 1 % (0-12); Neutrophils # (Auto) 17.1 Thou/mm3 (1.8-7.7); Neutrophils % (Auto) 95 % (37-80); Nucleated Red Blood Cell # 0.04 Thou/mm3 (0.00-0.00); Nucleated Red Blood Cell % 0 /100 WBC (0); Platelet Count 120 Thou/mm3 (140-440); RDW Standard Deviation 58.4 fL (36.4-46.3); Red Blood Count 2.48 Miln/mm3 (4.00-5.20); White Blood Count 18.1 Thou/mm3 (3.6-11.0)
[2024-08-25 06:24] LABS: Hemoglobin 7.7 g/dL (12.0-16.0)
[2024-08-25 06:53] LABS: Alanine Aminotransferase 20 U/L (10-49); Albumin, Serum 2.8 gm/dL (3.4-4.8); Albumin/Globulin Ratio 1.2 (1.2-2.2); Alkaline Phosphatase 83 U/L (46-116); Anion Gap 9 (7-16); Aspartate Amino Transferase 11 U/L (0-34); BUN/Creatinine Ratio 36 Ratio (12-20); Bilirubin,Total 0.3 mg/dL (0.3-1.2); Blood Urea Nitrogen 40 mg/dL (9-23); Calcium 8.1 mg/dL (8.3-10.6); Calcium (Corrected) 9.1 mg/dL (8.5-10.1); Carbon Dioxide 20.7 mMol/L (20.0-31.0); Chloride 110 mMol/L (98-107); Creatinine (Component) 1.1 mg/dL (0.6-1.3); Estimated Creatinine Clearance 43.1 mL/min (>60); Globulin 2.3 gm/dL (2.3-3.5); Glucose 114 mg/dL (74-106); Osmolality,Calculated 290 (275-295); Potassium 3.8 mMol/L (3.4-5.1); Sodium 140 mMol/L (136-145); Total Protein 5.1 gm/dL (5.7-8.2); eGFR 54 See Note
[2024-08-25 07:42] LABS: Base Excess -5 (-3-3); HCO3 20 mEq/L (20-26); Inspired Oxygen, FIO2 40 %; O2 Saturation 96 % (91-98); PCO2 37 mmHg (32.0-48.0); PO2 79 mmHg (83-108); pH, Arterial 7.35 (7.35-7.45)
[2024-08-25 07:45] LABS: Allen Test Performed/OK; Puncture Site Left Radial
[2024-08-25 10:16] LABS: Phosphorous 4.4 mg/dL (2.4-5.1)
[2024-08-25] MEDS: SODIUM CHLORIDE 0.9% IV (10:16)
[2024-08-25] MEDS: VANCOMYCIN IV (10:16)
--- NOTE | 2024-08-25 10:24 | PD.SURPROG ---
Documentation for date of: 08/25/24 Subjective Subjective Brief History: 73F with HTN, HLD, DMII, hyperthyroidism, CVA with right-sided deficit, G tube, and developmental delay presenting for shortness of breath. Pt is accompanied by a caregiver from her living facility who was informed that pt had been vomiting prompting eval in ER. In ER pt has required HFNC, was found to have SBO due to gallstone ileus, with leukocytosis and lactic acidosis Narrative: Weaned off pressor support, currently undergoing spontaneous breathing trial. Remaining afebrile, minimal NG output but has not yet had a BM Exam Vital Signs Temp Pulse Resp BP Pulse Ox O2 Del Method O2 Flow Rate 96.5 F L 130 H 22 H 126/70 93 L Mechanical Ventilation 4 08/25/24 03:45 08/25/24 10:12 08/25/24 10:12 08/25/24 06:30 08/25/24 10:12 08/25/24 03:45 08/25/24 10:12 FiO2 40 08/25/24 06:22 Constitutional Constitutional: mild distress Routine Respiratory Exam Respiratory: Present no resp distress Routine Abdominal Exam Abdominal: Present soft and wound (dressing c/d/i); Absent tenderness or distended Results Results: Laboratory Laboratory results: results reviewed Assessment & Plan Plan 73F with HTN, HLD, DMII, hyperthyroidism, CVA with right-sided deficit, G tube, and developmental delay presenting for shortness of breath and vomiting, findings consistent with gallstone ileus s/p enterotomy, removal of stone and repair of enterotomy 08/23, gradually recovering NG to LIS, await return of bowel function Continue abx Procedures Procedures Laparotomy, enterotomy with removal of gallstone
[2024-08-25] MEDS: POLYETHYLENE GLYCOL 17 GM PACKET GT (10:36)
[2024-08-25] MEDS: SENNA TABLET 1 TAB GT ×2 (10:36→20:40)
[2024-08-25] MEDS: bisacodyL 10 MG SUPP PR (10:58)
[2024-08-25] MEDS: ALBUTEROL/IPRATROPIUM (Duoneb) RT SOL 3 ML NEBU INH ×4 (11:05→22:39)
[2024-08-25] MEDS: EPINEPHrine RT SOL 0.5 ML NEBU INH (11:05)
[2024-08-25] MEDS: ACETYLCYSTEINE SOL 20% 4 ML NEBU 3 ML INH ×4 (11:05→22:39)
[2024-08-25] MEDS: ALBUTEROL RT 2.5 MG/0.5 ML NEBU 5 MG INH (11:40)
[2024-08-25] MEDS: SODIUM CHLORIDE RT SOL 0.9% 3 ML NEBU INH (11:40)
[2024-08-25] MEDS: ETOMIDATE INJ 2 MG/ML VIAL 10 ML 20 MG IVP (12:35)
[2024-08-25] MEDS: ROCURONIUM INJ 10 MG/ML VIAL 10 ML 75 MG IVP (12:36)
[2024-08-25] MEDS: fentaNYL 2,500 MCG/250 ML BAG 2,500 MCG/250 ML BAG IV (12:41)
--- NOTE | 2024-08-25 12:50 | PD.INTPROC ---
Procedures Procedure Date / Time 08/25/24 1250 Intubation Indication(s): acute Resp Failure Informed consent obtained: procedure done urgently Time out done, and the following verified: correct patient, side and site, procedure and patient position Sedative: etomidate Mg given: 20 Paralytic: rocuronium Mg given: 75 Laryngoscope: fiber optic video scope ET tube size: 7.5 ET tube uncuffed: No Tube secured depth (cm): 21 Tube secured location: lips Tube placement confirmation: visualized tube passing through cords, equal breath sounds bilaterally, no breath sounds over epigastrium and confirmation by capnometry Patient tolerated procedure: well and no complications Intubation complications: hypotension
--- NOTE | 2024-08-25 12:51 | ESPR_ITS ---
Documentation for date of: 08/25/24 Subjective Subjective Interval history: This is a 73-year-old female who presented to the hospital on 23 August. She was originally admitted for nausea and vomiting and CT showed small bowel obstruction secondary to a large gallstone. Surgery was consulted and the patient underwent an enterotomy with stone removal and repair of the enterotomy. She was left intubated and transferred to the ICU. Overnight there have been no acute issues. Sedation was held this morning and once the sedation was held her vasopressor requirements disappeared. She was awake and interactive. She met weaning parameters and decision was made to extubate her. Upon extubation patient was noted to have difficulty clearing her secretions. She was deep suctioned multiple times. At one point in time it also appeared that she might have stridor and was treated with racemic epi. She continued to have increased work of breathing and difficulty clearing secretions therefore the decision was made to reintubate her. Critical Care Note Critical care time (min.): 65 Exam Vital Signs Temp Pulse Resp BP Pulse Ox O2 Del Method O2 Flow Rate 98.1 F 146 H 24 H 171/136 H 92 L Mechanical Ventilation 5 08/25/24 08:00 08/25/24 11:48 08/25/24 11:48 08/25/24 11:15 08/25/24 11:48 08/25/24 03:45 08/25/24 11:48 FiO2 40 08/25/24 08:00 Narrative Exam General-elderly, ill-appearing, cognitive delay, obese, awake and agitated HEENT-normocephalic, atraumatic, sclera icteric, pupils equal react responding to light, oral mucosa is hydrated Chest-coarse breath sounds, central rhonchi, no active wheezing, use of accessory muscles, heart rate regular and rhythmic, tachycardic Abdomen-soft, bowel sounds diminished, surgical dressing in place with an incision that looks clean, no rebound or guarding Extremities-minimal edema, pulses palpable, no mottling, no clubbing or cyanosis Physical Exam Completion Physical Exam Complete?: Yes 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 08/25/24 04:42 08/25/24 04:42 Labs: Laboratory Results - last 24 hr 08/25/24 08/25/24 08/25/24 04:42 07:30 09:45 WBC 18.1 H D RBC 2.48 L Hgb 7.7 L Hct 24.6 L MCV 99 MCH 31.0 MCHC 31.3 RDW Std Deviation 58.4 H Plt Count 120 L D Neut % (Auto) 95 H Lymph % (Auto) 2 L [place] % (Auto) 1 Eos % (Auto) 0 Baso % (Auto) 0 Neut # (Auto) 17.1 H Lymph # (Auto) 0.4 L [place] # (Auto) 0.2 Eos # (Auto) 0.0 Baso # (Auto) 0.0 Immature Gran # (Auto) 0.36 H Absolute Nucleated RBC 0.04 H Immature Gran % 2 H Nucleated RBC % 0 Puncture Site Left Radial ABG pH 7.35 D ABG pCO2 37 ABG pO2 79 L ABG HCO3 20 ABG O2 Saturation 96 ABG Base Excess -5 L FiO2 40 Sodium 140 Potassium 3.8 Chloride 110 H Carbon Dioxide 20.7 Anion Gap 9 BUN 40 H Creatinine 1.1 Estim Creat Clear Calc 43.1 L eGFR 54 L BUN/Creatinine Ratio 36 H Glucose 114 H D Calculated Osmolality 290 Calcium 8.1 L Corrected Calcium 9.1 Phosphorus 4.4 Magnesium 2.0 Total Bilirubin 0.3 AST 11 ALT 20 Alkaline Phosphatase 83 Total Protein 5.1 L Albumin 2.8 L Globulin 2.3 Albumin/Globulin Ratio 1.2 Assessment & Plan Additional Assessment Additional Assessment: In summary this is 73-year-old female admitted to the ICU for acute hypoxic respiratory failure who is also status post enterotomy a/p [employer]INE[employer] Cognitive delay-at baseline Sedated CV HFpEF-patient is noted to be net +10 L since hospital arrival -Will need diuresis Resp Acute hypoxic resp failure-patient was extubated this morning after meeting weaning parameters. However after extubation she had an increased work of breathing and difficulty clearing her secretions. She was deep suctioned multiple times however with only modest success. she was reintubated - fu on CXR and ABG Aspiration PNA- sputum cx growing GPC and GNR, on vanc and zosyn - on mucomyst/duonebs - CPT q4hrs Renal Renal calculi GI SBO s/p enterotomy- followed by surgery and doing well Gallbladder small bowel fistula GI proph- PPI q12 Endo Stable Heme Leukocytosis- improved from yesterday - in part reactive however likely mostly related to infectious process Anemia- there was a drop from yesterday - when PEG placed to LIS dark brown material suctioned back - repeat h/h Thrombocytopenia- slight drop today, monitor DVT proph- chemical DVT proph on hold while GIB being evaluated ID ? UTI- UA with WBC and rare bacteria Pneumonia-on antibiotics Bacteremia-patient had 1 out of 2 blood cultures with GPC's that are currently still awaiting identification case d/w ICU team labs, imaging, records reviewed ~ 65ccmin required for eval, exam, review, intervention, discussion and formulation of POC for this critically ill pt with acute resp failure on MV at high risk for further and ongoing decompensation Provider Notation Provider Notation: Although this document has been carefully reviewed, there may still be some phonetic and other typographical errors. These errors are purely grammatical due to imperfections in the software program and should not be construed in any way to compromise the substance of the patient's medical care during this visit. Thank you for the opportunity and privilege in assisting you with this patient's care and management.
[2024-08-25 13:21] LABS: Base Excess -9 (-3-3); HCO3 18 mEq/L (20-26); Inspired Oxygen, FIO2 100 %; O2 Saturation 101 % (91-98); PCO2 43 mmHg (32.0-48.0); PO2 358 mmHg (83-108); pH, Arterial 7.23 (7.35-7.45)
[2024-08-25 13:24] LABS: Allen Test Performed/OK; Puncture Site Left Radial
--- NOTE | 2024-08-25 14:51 | XR_ITS ---
Examination: AP chest single view TECHNIQUE: AP portable supine chest single view Exam date and time: August 23, 2024 1103 hours INDICATIONS: Hypoxic respiratory failure post central line placement FINDINGS: Interval insertion right central line with tip in SVC satisfactory position No pneumothorax Mild enlargement cardiac contour Prominent vascular congestion with extensive bilateral lung opacity edema and/or pneumonia Endotracheal tube tip 4.8 cm above tamir IMPRESSION: Interval right internal jugular central line, tip SVC satisfactory position, no pneumothorax
--- NOTE | 2024-08-25 15:16 | PD.RESPROC ---
Procedures Procedure Date / Time 08/25/24 5553 Procedural Time Out Time out performed: Yes Central Line Placement Right IJ: Indication(s): shock Informed consent obtained: implied Time out done, and the following verified: correct patient, side and site, procedure, patient position and implants and/or equipment Patient placed on monitor/pulse ox: Yes Hand Hygiene: scrub, soap & water and alcohol-based hand rub Central line prep: Povidone-Iodine 1%, Chlorhexidine scrub and sterile drapes applied Local anesthesia used: lidocaine 1% Amount of anesthesia used (mL): 3 Ultrasound used for placement: Yes Sterile Technique if Ultrasound used, including sterile gel: yes Central line lumen inserted: triple Post procedure: sutured in place, good blood return, all ports aspirated, flushed, capped and sterile dressing applied Post procedure x-ray: tip of catheter in good position and no pneumothorax seen Patient tolerated procedure: well and no complications EBL(ml): 3 Complications: none Procedure comment: Attending note I was present for and assisted in all keith aspects of this procedure. Pt tolerated the procedure well with no complications
[2024-08-25] MEDS: PANTOPRAZOLE INJ 40 MG VIAL IVP ×2 (15:50→20:39)
[2024-08-25] MEDS: FUROSEMIDE INJ 10 MG/ML VIAL 2 ML 40 MG IVP (15:51)
[2024-08-25 17:11] LABS: Basophils # (Auto) 0.1 Thou/mm3 (0.0-0.2); Basophils % (Auto) 0 % (0-2.5); Eosinophils % (Auto) 0 % (0-10); Hematocrit 24.9 % (36.0-46.0); Immature Granulocytes % (Auto) 2 % (0-0); Immature Granulocytes Auto 0.61 Thou/mm3 (0.00-0.00); Lymphocytes # (Auto) 0.3 Thou/mm3 (1.0-4.8); Lymphocytes % (Auto) 1 % (10-50); Mean Corpuscular HGB Conc 32.1 g/dl (31.0-37.0); Mean Corpuscular Hemoglobin 31.5 pg (25.0-35.0); Mean Corpuscular Volume 98 fL (80-100); Monocytes # (Auto) 0.2 Thou/mm3 (0.0-0.8); Monocytes % (Auto) 1 % (0-12); Neutrophils # (Auto) 27.4 Thou/mm3 (1.8-7.7); Neutrophils % (Auto) 96 % (37-80); Nucleated Red Blood Cell % 0 /100 WBC (0); Platelet Count 143 Thou/mm3 (140-440); RDW Standard Deviation 57.4 fL (36.4-46.3); Red Blood Count 2.54 Miln/mm3 (4.00-5.20); White Blood Count 28.5 Thou/mm3 (3.6-11.0)
--- NOTE | 2024-08-25 18:03 | PD.RESPRO ---
Documentation for date of: 08/25/24 Subjective Subjective Interval history: 08/24/2024: The patient was examined at the bedside this morning. The patient was sedated and mechanically ventilated. Patient was started on Levophed drip this morning. Labs are significant for white count 43.9, hemoglobin 8.9, chloride 4.2, bicarb 17.6, BUN 37 and creatinine 1.1. SAT was attempted, but patient was agitated and heart rate went up to 130s with respiratory distress. Patient was started back on sedation. Due to respiratory distress, associated with abdominal breathing, there was mild sanguinous secretion from the incision site, that was seen and examined by Dr. Corrales and dressing was changed. 08/25/2024: The patient was examined at the bedside this morning. The patient was sedated and mechanically ventilated. Patient was again started on Levophed this morning. Her white count trended down to 18,. However, when a spontaneous awakening trial once done, her blood pressure significantly improved. The patient was tapered off of pressor and sedatives and after that patient was extubated. However, due to excessive work of breathing and tachycardia with heart rate of 140s, the decision was made to reintubate the patient. The patient was also started on pressor support with Levophed. Central line was placed on right IJ. Exam Vital Signs Temp Pulse Resp BP Pulse Ox O2 Del Method O2 Flow Rate 98.9 F 122 H 28 H 120/72 99 Mechanical Ventilation 5 08/25/24 16:00 08/25/24 17:15 08/25/24 15:32 08/25/24 17:15 08/25/24 17:15 08/25/24 03:45 08/25/24 11:48 FiO2 100 08/25/24 16:00 Narrative Exam General: Elderly female, sedated and mechanically ventillated HEENT: moist mucous membranes, oropharynx clear Neck: Supple, No masses, No JVD, central line over rt IJ CVS: Tachycardic, No murmurs, rubs or gallops Lungs: Mild wheeze throughout the lung field, no cracles or rhonchi Abd: Soft, NT/ND, +BS, no organomegaly, Peg tube on place, Upper midline incision in clean dressing Ext: No edema, warm and well perfused, mild bruises over bilateral forearm Skin: mild erythema over right side of incision Psych: Unobtainable Objective Labs 08/26/24 07:47 08/26/24 05:17 Labs: Laboratory Results - last 24 hr 08/25/24 08/25/24 08/25/24 04:42 07:30 09:45 WBC 18.1 H D RBC 2.48 L Hgb 7.7 L Hct 24.6 L MCV 99 MCH 31.0 MCHC 31.3 RDW Std Deviation 58.4 H Plt Count 120 L D Neut % (Auto) 95 H Lymph % (Auto) 2 L [place] % (Auto) 1 Eos % (Auto) 0 Baso % (Auto) 0 Neut # (Auto) 17.1 H Lymph # (Auto) 0.4 L [place] # (Auto) 0.2 Eos # (Auto) 0.0 Baso # (Auto) 0.0 Immature Gran # (Auto) 0.36 H Absolute Nucleated RBC 0.04 H Immature Gran % 2 H Nucleated RBC % 0 Puncture Site Left Radial ABG pH 7.35 D ABG pCO2 37 ABG pO2 79 L ABG HCO3 20 ABG O2 Saturation 96 ABG Base Excess -5 L FiO2 40 Sodium 140 Potassium 3.8 Chloride 110 H Carbon Dioxide 20.7 Anion Gap 9 BUN 40 H Creatinine 1.1 Estim Creat Clear Calc 43.1 L eGFR 54 L BUN/Creatinine Ratio 36 H Glucose 114 H D Calculated Osmolality 290 Calcium 8.1 L Corrected Calcium 9.1 Phosphorus 4.4 Magnesium 2.0 Total Bilirubin 0.3 AST 11 ALT 20 Alkaline Phosphatase 83 Total Protein 5.1 L Albumin 2.8 L Globulin 2.3 Albumin/Globulin Ratio 1.2 08/25/24 08/25/24 13:14 16:47 WBC 28.5 H D RBC 2.54 L Hgb 8.0 L Hct 24.9 L MCV 98 MCH 31.5 MCHC 32.1 RDW Std Deviation 57.4 H Plt Count 143 Neut % (Auto) 96 H Lymph % (Auto) 1 L [place] % (Auto) 1 Eos % (Auto) 0 Baso % (Auto) 0 Neut # (Auto) 27.4 H Lymph # (Auto) 0.3 L [place] # (Auto) 0.2 Eos # (Auto) 0.0 Baso # (Auto) 0.1 Immature Gran # (Auto) 0.61 H Absolute Nucleated RBC 0.00 Immature Gran % 2 H Nucleated RBC % 0 Puncture Site Left Radial ABG pH 7.23 L D ABG pCO2 43 ABG pO2 358 H D ABG HCO3 18 L ABG O2 Saturation 101 H ABG Base Excess -9 L FiO2 100 Sodium Potassium Chloride Carbon Dioxide Anion Gap BUN Creatinine Estim Creat Clear Calc eGFR BUN/Creatinine Ratio Glucose Calculated Osmolality Calcium Corrected Calcium Phosphorus Magnesium Total Bilirubin AST ALT Alkaline Phosphatase Total Protein Albumin Globulin Albumin/Globulin Ratio ABG Interpretation ABG results: 08/23/24 08/23/24 08/25/24 16:06 22:31 07:30 ABG pH 7.22 L 7.25 L 7.35 D ABG pCO2 45 43 37 ABG pO2 90 68 L D 79 L ABG HCO3 19 L 19 L 20 ABG O2 Saturation 95 91 96 ABG Base Excess -9 L -8 L -5 L 08/25/24 13:14 ABG pH 7.23 L D ABG pCO2 43 ABG pO2 358 H D ABG HCO3 18 L ABG O2 Saturation 101 H ABG Base Excess -9 L Quality Measures Quality Measures sepsis Current suspected stage: septic shock (LA >4 and/or hypotension) Sepsis reassessment completed at (date): 08/25/24 Sepsis reassessment completed at (time): 07:30 Possible source: unknown Blood cultures ordered: yes Antibiotic ordered: Yes Advance care planning discussed with:: other Assessment & Plan Assessment Current Active Medications: Generic Name Dose Route Start Last Admin Trade Name Freq PRN Reason Stop Dose Admin Acetaminophen 650 mg 08/23/24 13:03 Acetaminophen 325 Mg Tablet PO 09/22/24 13:02 Q4HR PRN PAIN SCALE 1-3 (mild Acetaminophen 650 mg 08/23/24 13:03 Acetaminophen Supp 650 Mg Supp SD 09/22/24 13:02 Q4HR PRN PAIN SCALE 1-3 (mild Acetylcysteine 3 ml 08/25/24 11:00 08/25/24 15:31 Acetylcysteine Jelly 20% 4 Ml Nebu INH 09/24/24 10:59 3 ml Q4HRRT AJAY Administration Albuterol/Ipratropium 3 ml 08/25/24 11:00 08/25/24 15:31 Albuterol/Ipratropium (Duoneb) Rt Jelly 3 Ml Nebu INH 09/24/24 10:59 3 ml Q4HRRT AJAY Administration Bisacodyl 10 mg 08/24/24 17:30 08/25/24 10:58 Bisacodyl 10 Mg Supp SD 09/23/24 17:29 10 mg QDAY AJAY Administration Protocol Dextrose 25 ml 08/23/24 17:46 Dextrose 50%-Water Inj 50 Ml Syringe IV 09/22/24 17:45 Q15MIN PRN BG 50-70 responsive npo pt Dextrose 50 ml 08/23/24 17:46 Dextrose 50%-Water Inj 50 Ml Syringe IV 09/22/24 17:45 Q15MIN PRN BG <50 OR BG <70 & pt unresponsive Glucagon 1 mg 08/23/24 17:46 Glucagon Inj 1 Mg Vial IM Q15MIN PRN BG <70, and no IV access Norepinephrine/Dextrose 8 mg in 250 mls @ 6.506 mls/hr 08/23/24 12:20 08/25/24 08:00 Levophed In D5w 8mg/250ml IV 09/22/24 12:19 0 mcg/kg/min .Q24H PRN 0 mls/hr PER PROTOCOL Titration Protocol 0.05 MCG/KG/MIN Vancomycin HCl 750 mg/ 250 mls @ 120 mls/hr 08/24/24 10:00 08/25/24 10:16 Vancomycin HCl 500 mg/ Sodium IV 08/31/24 09:59 120 mls/hr Chloride DAILY@1000 AJAY Administration Fentanyl Citrate 2,500 mcg in 250 mls @ 2.5 mls/hr 08/24/24 08:20 08/25/24 17:00 Sublimaze Inj 2,500 Mcg/250 Ml Bag IV 08/28/24 16:37 125 mcg/hr .Q24H PRN 12.5 mls/hr PER PROTOCOL Titration Protocol 25 MCG/HR Propofol 1,000 mg in 100 mls @ 2.169 mls/hr 08/24/24 10:56 08/25/24 08:00 Diprivan Ivpb IV 09/22/24 15:42 0 mcg/kg/min .Q24H PRN 0 mls/hr PER PROTOCOL Titration Protocol 5 MCG/KG/MIN Piperacillin/Tazobactam/Dextrose 50 mls @ 12.5 mls/hr 08/24/24 12:00 08/25/24 14:20 Zosyn IV 08/30/24 17:59 12.5 mls/hr Q6HR AJAY Administration Insulin Human Lispro 0 unit 08/23/24 18:00 08/25/24 13:07 Insulin Lispro (Admelog) 1 Unit/0.01 Ml Unit SC 09/22/24 17:59 Not Given Q6HR AJAY Protocol Magnesium Hydroxide 30 ml 08/23/24 13:03 Milk Of Magnesia Susp 30 Ml Udc PO 09/22/24 13:02 QDAY PRN CONSTIPATION Pantoprazole Sodium 40 mg 08/25/24 13:30 08/25/24 15:50 Pantoprazole Inj 40 Mg Vial IVP 09/24/24 13:29 40 mg BID AJAY Administration Pharmacy Consult 1 each 08/25/24 07:00 Vancomycin Pharmacy To Dose 1 Each Each IV 09/24/24 06:59 QDAY@0700 PRN CONSULT Polyethylene Glycol 17 gm 08/24/24 16:00 08/25/24 10:36 Polyethylene Glycol 17 Gm Packet GT 09/23/24 15:59 17 gm QDAY AJAY Administration Sennosides 1 tab 08/24/24 21:00 08/25/24 10:36 Senna Tablet GT 09/23/24 20:59 1 tab BID AJAY Administration Protocol Sodium Chloride 3 ml 08/25/24 11:01 08/25/24 11:40 Sodium Chloride Rt Jelly 0.9% 3 Ml Nebu INH 09/24/24 11:00 3 ml PRN PRN Administration SOLN Plan The patient is a 73-year-old female with significant past medical history of hypertension, DM 2, hyperlipidemia, dementia, hyperthyroidism, CVA with right-sided deficit, chronic G-tube, HFpEF and double of mental delay disorder presented from [facility] for SOB for 1 day and is admitted to ICU for further management of septic shock secondary aspiration pneumonia . MANAGER REQUIREMENTS: Patient is sedated and mechanically ventillated for AHRF -Extubation was failed as patient's respiratory effort was increased #Developmental delay disorder #Dementia #Hx of CVA with right sided deficit Patient is at her baseline with alert and oriented to herself only. She is verbally none comprehensive. Cardio: #Shock More likely septic shock Secondary to aspiration pneumonia in the setting of gallstone ileus revealed in CT abdomen/pelvis, large gallstone in the distal small bowel. Air density in the gallbladder supporting gallbladder small bowel fistula. Met 3/4 SIRS criteria with pulse 101, RR 32, and WBC 28.3, lactic acid trended up to 5.8. Patient received 3 L of IV normal saline in the ED. -On IV Zosyn 3.375 g every 6 hourly -Ordered 1 L IV LR bolus -Placed Rt IJ Central line access 08/25/24 -Blood culture 1 bottle GPC +, urine culture and sputum culture ordered -Lactic acid trended down -Daily a.m. labs for CBC, CMP and electrolytes #Sinus tachycardia Secondary to shock -Management as per shock #History of HTN -Currently patient is hypotensive requiring pressure support Pulmonary: #Acute hypoxic respiratory failure Secondary to right-sided pneumonia, likely aspiration pneumonia as patient had episodes of vomiting, less likely due to septic shock. Patient was initially placed on HF NC, later on oxy mask and during ex laparotomy she was intubated -Patient was intubated again following extubation, due to failed extubation -We will continue on Zosyn 3.375 g every 6 hourly, -Added vancomycin on 08/24 -ABG in the a.m. GI: #Gallstone ileus -Dr. Goldsmith performed ex laparotomy and billiary stone was removed without repair of fistula due to multiple co-morbidity. #Chronic PEG tube -NPO for now, ok for meds -On bowel regimen Renal: #Pseudohyponatremia, resolved #Lactic acidosis, resolved #Hypercalcemia, resolved #Asymptomatic bacteriuria Patient is verbally none comprehensive, it is difficult to distinguish with UTI -On antibiotics Endo: #Diabetes mellitus type 2 -On sliding scale insulin #Hyperthyroidism -Will resume home medication methimazole 5 mg twice daily after extubating the patient Hematology: #Leukocytosis Secondary to aspiration pneumonia -Manage the underlying cause -Daily a.m. CBC ID: -On Zosyn as above -Added vancomycin IV MSK/skin: -Clean surgical site -Mild bruises over BL forearm Health maintenance: Dispo: Patient admitted to ICU for further management of septic shock requiring pressure support DVT prophylaxis: On SCDs, as chemical prophylaxis is not indicated in the setting of recent surgery Diet: N.p.o. for now Lines: Peripheral lines, Rt IJ catheter CODE STATUS: Full code The patient's management plan was discussed with my attending physician MD Lorenzo Brewer MD, PGY2
[2024-08-25] MEDS: INSULIN LISPRO (AdmeLOG) 1 UNIT/0.01 ML UNIT SC ×2 (18:28→23:52)
[2024-08-25] MEDS: DEXMEDETOMIDINE 400 MCG IVPB 400 MCG/100 ML BAG IV (19:18)
[2024-08-26] VITALS (100 sets, daily range): BP systolic 86–132; BP diastolic 54–84; PULSE 71–108; RESP 14–33; TEMP 35.9–37.2; O2SAT 91–100; BMI 29.7
[2024-08-26] MEDS: DEXMEDETOMIDINE 400 MCG IVPB 400 MCG/100 ML BAG 22.17 MCG IV ×5 (02:01→23:11)
[2024-08-26] MEDS: fentaNYL 2,500 MCG/250 ML BAG 2,500 MCG/250 ML BAG 22.5 MCG IV ×2 (02:40→15:05)
[2024-08-26] MEDS: ALBUTEROL/IPRATROPIUM (Duoneb) RT SOL 3 ML NEBU INH ×6 (02:47→22:49)
[2024-08-26] MEDS: ACETYLCYSTEINE SOL 20% 4 ML NEBU 3 ML INH ×6 (02:47→22:49)
[2024-08-26 04:45] LABS: Base Excess -3 (-3-3); HCO3 22 mEq/L (20-26); Inspired Oxygen, FIO2 35 %; O2 Saturation 98 % (91-98); PCO2 37 mmHg (32.0-48.0); PO2 85 mmHg (83-108); pH, Arterial 7.38 (7.35-7.45)
[2024-08-26 04:49] LABS: Allen Test Not Performed; Puncture Site Left Radial
[2024-08-26] MEDS: PIPER/TAZO 3.375 GM 50 ML IV (05:23)
[2024-08-26 05:49] LABS: Basophils % (Auto) 0 % (0-2.5); Eosinophils % (Auto) 0 % (0-10); Hematocrit 20.2 % (36.0-46.0); Immature Granulocytes % (Auto) 1 % (0-0); Immature Granulocytes Auto 0.04 Thou/mm3 (0.00-0.00); Lymphocytes # (Auto) 0.3 Thou/mm3 (1.0-4.8); Lymphocytes % (Auto) 3 % (10-50); Mean Corpuscular HGB Conc 32.2 g/dl (31.0-37.0); Mean Corpuscular Hemoglobin 31.1 pg (25.0-35.0); Mean Corpuscular Volume 97 fL (80-100); Monocytes # (Auto) 0.1 Thou/mm3 (0.0-0.8); Monocytes % (Auto) 1 % (0-12); Neutrophils # (Auto) 8.2 Thou/mm3 (1.8-7.7); Neutrophils % (Auto) 95 % (37-80); Nucleated Red Blood Cell % 0 /100 WBC (0); Platelet Count 88 Thou/mm3 (140-440); RDW Standard Deviation 55.6 fL (36.4-46.3); Red Blood Count 2.09 Miln/mm3 (4.00-5.20); White Blood Count 8.6 Thou/mm3 (3.6-11.0)
[2024-08-26 05:51] LABS: Hemoglobin 6.5 g/dL (12.0-16.0)
[2024-08-26 06:22] LABS: Alanine Aminotransferase 13 U/L (10-49); Albumin, Serum 2.6 gm/dL (3.4-4.8); Albumin/Globulin Ratio 1.1 (1.2-2.2); Alkaline Phosphatase 86 U/L (46-116); Anion Gap 10 (7-16); Aspartate Amino Transferase 14 U/L (0-34); BUN/Creatinine Ratio 31 Ratio (12-20); Bilirubin,Total 0.4 mg/dL (0.3-1.2); Blood Urea Nitrogen 37 mg/dL (9-23); Calcium 8.2 mg/dL (8.3-10.6); Calcium (Corrected) 9.3 mg/dL (8.5-10.1); Carbon Dioxide 22.2 mMol/L (20.0-31.0); Chloride 111 mMol/L (98-107); Creatinine (Component) 1.2 mg/dL (0.6-1.3); Estimated Creatinine Clearance 39.3 mL/min (>60); Globulin 2.3 gm/dL (2.3-3.5); Glucose 174 mg/dL (74-106); Osmolality,Calculated 297 (275-295); Sodium 143 mMol/L (136-145); Total Protein 4.9 gm/dL (5.7-8.2); eGFR 48 See Note
[2024-08-26 06:26] LABS: Potassium 2.6 mMol/L (3.4-5.1)
--- NOTE | 2024-08-26 06:32 | XR_ITS ---
Examination: AP chest single view Technique one AP portable semiupright chest single view Exam date and time: August 26, 2024 0649 hrs. Comparison August 25, 2024 Indications: Hypoxic respiratory failure, pneumonia post intubation Chest imaging this week Findings: Mild enlargement cardiac contour with prominent vascular congestion Bilateral pneumonia, diffuse and significant in the right lung Right internal jugular central line tip right atrium Endotracheal tube tip 5.3 cm above tamir Prominent osteopenia Impression: Bilateral pneumonia, significant right lung Mild associated heart failure Tracheal tube tip 5.3 cm above tamir Right internal jugular central line tip satisfactory position
[2024-08-26] MEDS: POTASSIUM CHLORIDE 10% 20 MEQ/15 ML UDC 40 MEQ GT (06:41)
[2024-08-26] MEDS: POTASSIUM CHL 20 mEq IVPB 20 MEQ/100 ML BAG 100 MEQ IV ×2 (07:03→07:57)
[2024-08-26 08:05] LABS: Hematocrit 20.8 % (36.0-46.0)
[2024-08-26] MEDS: PANTOPRAZOLE INJ 40 MG VIAL IVP ×2 (08:06→21:44)
--- NOTE | 2024-08-26 08:38 | PD.SURPROG ---
Documentation for date of: 08/26/24 Subjective Subjective Brief History: 73F with HTN, HLD, DMII, hyperthyroidism, CVA with right-sided deficit, G tube, and developmental delay presenting for shortness of breath. Pt is accompanied by a caregiver from her living facility who was informed that pt had been vomiting prompting eval in ER. In ER pt has required HFNC, was found to have SBO due to gallstone ileus, with leukocytosis and lactic acidosis Narrative: Pt was extubated yesterday but required reintubation, remains afebrile and had a BM yesterday. Hgb 6.5 from 8, planned for 1u pRBC Exam Vital Signs Temp Pulse Resp BP Pulse Ox O2 Del Method O2 Flow Rate 97.0 F 87 31 H 103/61 99 Mechanical Ventilation 5 08/26/24 04:00 08/26/24 06:24 08/26/24 06:24 08/26/24 06:19 08/26/24 06:24 08/26/24 04:00 08/25/24 11:48 FiO2 35 08/26/24 06:24 Constitutional Constitutional: no acute distress Routine Respiratory Exam Respiratory: Present no resp distress and patient mechanically ventilated Routine Abdominal Exam Abdominal: Present soft, wound (midline incision c/d/i, no erythema, no bleeding) and drain (PEG with bilious drainage); Absent distended Results Results: Laboratory Laboratory results: results reviewed Results: Imaging Chest x-ray: report reviewed and image reviewed Assessment & Plan Plan 73F with HTN, HLD, DMII, hyperthyroidism, CVA with right-sided deficit, G tube, and developmental delay presenting for shortness of breath and vomiting, findings consistent with gallstone ileus s/p enterotomy, removal of stone and repair of enterotomy 08/23, requiring mechanical ventilation and now with acute anemia OK to initiate trickle feeds from my standpoint Trend Hgb Procedures Procedures Laparotomy, enterotomy with removal of gallstone
[2024-08-26] MEDS: VANCOMYCIN IV (09:02)
[2024-08-26] MEDS: SODIUM CHLORIDE 0.9% IV (09:02)
[2024-08-26 09:35] LABS: INR 1.2 (0.9-1.3)
--- NOTE | 2024-08-26 11:02 | ESPR_ITS ---
Documentation for date of: 08/26/24 Subjective Subjective Interval history: 08/24/2024: The patient was examined at the bedside this morning. The patient was sedated and mechanically ventilated. Patient was started on Levophed drip this morning. Labs are significant for white count 43.9, hemoglobin 8.9, chloride 4.2, bicarb 17.6, BUN 37 and creatinine 1.1. SAT was attempted, but patient was agitated and heart rate went up to 130s with respiratory distress. Patient was started back on sedation. Due to respiratory distress, associated with abdominal breathing, there was mild sanguinous secretion from the incision site, that was seen and examined by Dr. Corrales and dressing was changed. 08/25/2024: The patient was examined at the bedside this morning. The patient was sedated and mechanically ventilated. Patient was again started on Levophed this morning. Her white count trended down to 18,. However, when a spontaneous awakening trial once done, her blood pressure significantly improved. The patient was tapered off of pressor and sedatives and after that patient was extubated. However, due to excessive work of breathing and tachycardia with heart rate of 140s, the decision was made to reintubate the patient. The patient was also started on pressor support with Levophed. Central line was placed on right IJ. 08/26/2024: The patient was examined and evaluated at the bedside this morning. The patient was sedated and mechanically ventilated. She was weaned off of Levophed this morning. Physical examination was significant for upper right extremity edema, labs are significant for hemoglobin of 6.5 with repeat hemoglobin of 6.9. Coagulation panel revealed PT 13.0 with INR and APTT WNL. ABG done this morning was WNL. Chemistry panel revealed potassium 2.6, BUN increasing to 37 with stable creatinine, blood sugar 174. Chest x-ray done this morning revealed mild improvement right lower lobe pneumonia. ET tube secretion growing GPC and GNR with Enterobacter Cloacae that is multi drug resistance. Zosyn was switched to IV meropenem 1 g 3 times daily. The patient sedatives were transitioned to Precedex 1.2 mcg/kg/h and fentanyl 225 mcg/h. We will continue to taper down sedatives as tolerated. Potassium were repleted with 60 mEq IV from central line along with 40 mEq p.o. from OGT. We will repeat potassium and replete as needed. As the patient has been net positive by 11.2 L since admission, and chest x-ray was consistent with pulmonary edema, we will administer Lasix 40 Mg IV x 1 normalizing potassium level. As patient's hemoglobin was low, 1 unit PRBC was ordered. Will order as present H&H and get consultation from GI for any possible GI bleeding. However, patient had 1 overnight bowel movement that was dark or black. Exam Vital Signs Temp Pulse Resp BP Pulse Ox O2 Del Method O2 Flow Rate 97.3 F 71 28 H 99/62 100 Mechanical Ventilation 5 08/26/24 08:00 08/26/24 10:54 08/26/24 10:54 08/26/24 10:21 08/26/24 10:54 08/26/24 04:00 08/25/24 11:48 FiO2 35 08/26/24 10:54 Narrative Exam General: Elderly female, sedated and mechanically ventillated HEENT: moist mucous membranes, oropharynx clear Neck: Supple, No masses, No JVD, central line over rt IJ CVS: Tachycardic, No murmurs, rubs or gallops Lungs: Mild wheeze throughout the lung field, distant sound over right lower lung, no cracles or rhonchi Abd: Soft, NT/ND, +BS, no organomegaly, Peg tube on place, Upper midline incision in clean dressing Ext: Right upper extremity with 2+ pitting edema, warm and well perfused, mild bruises over bilateral forearm Skin: mild erythema over right side of incision Psych: Unobtainable Objective Labs 08/26/24 07:47 08/26/24 05:17 Labs: Laboratory Results - last 24 hr 08/25/24 08/25/24 08/26/24 13:14 16:47 04:20 WBC 28.5 H D RBC 2.54 L Hgb 8.0 L Hct 24.9 L MCV 98 MCH 31.5 MCHC 32.1 RDW Std Deviation 57.4 H Plt Count 143 Neut % (Auto) 96 H Lymph % (Auto) 1 L [place] % (Auto) 1 Eos % (Auto) 0 Baso % (Auto) 0 Neut # (Auto) 27.4 H Lymph # (Auto) 0.3 L [place] # (Auto) 0.2 Eos # (Auto) 0.0 Baso # (Auto) 0.1 Immature Gran # (Auto) 0.61 H Absolute Nucleated RBC 0.00 Immature Gran % 2 H Nucleated RBC % 0 PT INR APTT Puncture Site Left Radial Left Radial ABG pH 7.23 L D 7.38 D ABG pCO2 43 37 ABG pO2 358 H D 85 D ABG HCO3 18 L 22 ABG O2 Saturation 101 H 98 ABG Base Excess -9 L -3 FiO2 100 35 Sodium Potassium Chloride Carbon Dioxide Anion Gap BUN Creatinine Estim Creat Clear Calc eGFR BUN/Creatinine Ratio Glucose Calculated Osmolality Calcium Corrected Calcium Magnesium Total Bilirubin AST ALT Alkaline Phosphatase Total Protein Albumin Globulin Albumin/Globulin Ratio Blood Type Antibody Screen Crossmatch Blood Bank Wristband ID 08/26/24 08/26/24 08/26/24 05:17 07:47 08:37 WBC 8.6 D RBC 2.09 L Hgb 6.5 L* Hct 20.2 L* 20.8 L* MCV 97 MCH 31.1 MCHC 32.2 RDW Std Deviation 55.6 H Plt Count 88 L D Neut % (Auto) 95 H Lymph % (Auto) 3 L [place] % (Auto) 1 Eos % (Auto) 0 Baso % (Auto) 0 Neut # (Auto) 8.2 H Lymph # (Auto) 0.3 L [place] # (Auto) 0.1 Eos # (Auto) 0.0 Baso # (Auto) 0.0 Immature Gran # (Auto) 0.04 H Absolute Nucleated RBC 0.00 Immature Gran % 1 H Nucleated RBC % 0 PT 13.0 H INR 1.2 APTT 28.0 Puncture Site ABG pH ABG pCO2 ABG pO2 ABG HCO3 ABG O2 Saturation ABG Base Excess FiO2 Sodium 143 Potassium 2.6 L* D Chloride 111 H Carbon Dioxide 22.2 Anion Gap 10 BUN 37 H Creatinine 1.2 Estim Creat Clear Calc 39.3 L eGFR 48 L BUN/Creatinine Ratio 31 H Glucose 174 H D Calculated Osmolality 297 H Calcium 8.2 L Corrected Calcium 9.3 Magnesium 2.0 Total Bilirubin 0.4 AST 14 ALT 13 Alkaline Phosphatase 86 Total Protein 4.9 L Albumin 2.6 L Globulin 2.3 Albumin/Globulin Ratio 1.1 L Blood Type A Positive Antibody Screen NEGATIVE Crossmatch See Detail Blood Bank Wristband ID Yes ABG Interpretation ABG results: 08/23/24 08/23/24 08/25/24 16:06 22:31 07:30 ABG pH 7.22 L 7.25 L 7.35 D ABG pCO2 45 43 37 ABG pO2 90 68 L D 79 L ABG HCO3 19 L 19 L 20 ABG O2 Saturation 95 91 96 ABG Base Excess -9 L -8 L -5 L 08/25/24 08/26/24 13:14 04:20 ABG pH 7.23 L D 7.38 D ABG pCO2 43 37 ABG pO2 358 H D 85 D ABG HCO3 18 L 22 ABG O2 Saturation 101 H 98 ABG Base Excess -9 L -3 Quality Measures Quality Measures sepsis Current suspected stage: sepsis Possible source: unknown Blood cultures ordered: yes Antibiotic ordered: Yes Advance care planning discussed with:: other Assessment & Plan Assessment Current Active Medications: Generic Name Dose Route Start Last Admin Trade Name Freq PRN Reason Stop Dose Admin Acetaminophen 650 mg 08/23/24 13:03 Acetaminophen 325 Mg Tablet PO 09/22/24 13:02 Q4HR PRN PAIN SCALE 1-3 (mild Acetaminophen 650 mg 08/23/24 13:03 Acetaminophen Supp 650 Mg Supp SC 09/22/24 13:02 Q4HR PRN PAIN SCALE 1-3 (mild Acetylcysteine 3 ml 08/25/24 11:00 08/26/24 10:54 Acetylcysteine Jelly 20% 4 Ml Nebu INH 09/24/24 10:59 3 ml Q4HRRT AJAY Administration Albuterol/Ipratropium 3 ml 08/25/24 11:00 08/26/24 10:54 Albuterol/Ipratropium (Duoneb) Rt Jelly 3 Ml Nebu INH 09/24/24 10:59 3 ml Q4HRRT AJAY Administration Bisacodyl 10 mg 08/24/24 17:30 08/26/24 08:05 Bisacodyl 10 Mg Supp SC 09/23/24 17:29 Not Given QDAY AJAY Protocol Dextrose 25 ml 08/23/24 17:46 Dextrose 50%-Water Inj 50 Ml Syringe IV 09/22/24 17:45 Q15MIN PRN BG 50-70 responsive npo pt Dextrose 50 ml 08/23/24 17:46 Dextrose 50%-Water Inj 50 Ml Syringe IV 09/22/24 17:45 Q15MIN PRN BG <50 OR BG <70 & pt unresponsive Glucagon 1 mg 08/23/24 17:46 Glucagon Inj 1 Mg Vial IM Q15MIN PRN BG <70, and no IV access Norepinephrine/Dextrose 8 mg in 250 mls @ 6.506 mls/hr 08/23/24 12:20 08/26/24 04:45 Levophed In D5w 8mg/250ml IV 09/22/24 12:19 0 mcg/kg/min .Q24H PRN 0 mls/hr PER PROTOCOL Titration Protocol 0.05 MCG/KG/MIN Vancomycin HCl 750 mg/ 250 mls @ 120 mls/hr 08/24/24 10:00 08/26/24 09:02 Vancomycin HCl 500 mg/ Sodium IV 08/31/24 09:59 120 mls/hr Chloride DAILY@1000 AJAY Administration Protocol Fentanyl Citrate 2,500 mcg in 250 mls @ 2.5 mls/hr 08/24/24 08:20 08/26/24 06:00 Sublimaze Inj 2,500 Mcg/250 Ml Bag IV 08/28/24 16:37 225 mcg/hr .Q24H PRN 22.5 mls/hr PER PROTOCOL Titration Protocol 25 MCG/HR Propofol 1,000 mg in 100 mls @ 2.169 mls/hr 08/24/24 10:56 08/25/24 08:00 Diprivan Ivpb IV 09/22/24 15:42 0 mcg/kg/min .Q24H PRN 0 mls/hr PER PROTOCOL Titration Protocol 5 MCG/KG/MIN Dexmedetomidine/Sodium Chloride 400 mcg in 100 mls @ 3.695 mls/hr 08/25/24 18:40 08/26/24 07:53 Precedex Ivpb IV 09/24/24 18:39 1.2 mcg/kg/hr .Q24H PRN 22.17 mls/hr Per PROTOCOL Administration Protocol 0.2 MCG/KG/HR Meropenem 1,000 mg/ Sodium 50 mls @ 100 mls/hr 08/26/24 21:00 Chloride IV 09/02/24 20:59 Q12HR [facility] Insulin Human Lispro 0 unit 08/23/24 18:00 08/26/24 05:23 Insulin Lispro (Admelog) 1 Unit/0.01 Ml Unit SC 09/22/24 17:59 Not Given Q6HR [facility] Protocol Magnesium Hydroxide 30 ml 08/23/24 13:03 Milk Of Magnesia Susp 30 Ml Udc PO 09/22/24 13:02 QDAY PRN CONSTIPATION Pantoprazole Sodium 40 mg 08/25/24 13:30 08/26/24 08:06 Pantoprazole Inj 40 Mg Vial IVP 09/24/24 13:29 40 mg BID AJAY Administration Pharmacy Consult 1 each 08/25/24 07:00 Vancomycin Pharmacy To Dose 1 Each Each IV 09/24/24 06:59 QDAY@0700 PRN CONSULT Polyethylene Glycol 17 gm 08/24/24 16:00 08/26/24 08:05 Polyethylene Glycol 17 Gm Packet GT 09/23/24 15:59 Not Given QDAY [facility] Sennosides 1 tab 08/24/24 21:00 08/26/24 08:05 Senna Tablet GT 09/23/24 20:59 Not Given BID [facility] Protocol Sodium Chloride 3 ml 08/25/24 11:01 08/25/24 11:40 Sodium Chloride Rt Jelly 0.9% 3 Ml Nebu INH 09/24/24 11:00 3 ml PRN PRN Administration SOLN Plan The patient is a 73-year-old female with significant past medical history of hypertension, DM 2, hyperlipidemia, dementia, hyperthyroidism, CVA with right- sided deficit, chronic G-tube, HFpEF and double of mental delay disorder presented from [facility] for SOB for 1 day and is admitted to ICU for further management of septic shock secondary aspiration pneumonia . [employer]: Patient is sedated and mechanically ventillated for AHRF -Extubation was failed as patient's respiratory effort was increased yesterday, we will continue to taper down her sedatives which are fentanyl and Precedex. #Developmental delay disorder #Hx of CVA with right sided deficit Patient is at her baseline with alert and oriented to herself only. She is verbally none comprehensive. Cardio: #Shock More likely septic shock Secondary to aspiration pneumonia During admission met 3/4 SIRS criteria with pulse 101, RR 32, and WBC 28.3, lactic acid trended up to 5.8. Patient was given around 15 L of IV fluids since admission, and is net positive by 11.2 L. Respiratory secretions sputum culture grew enterobacter cloacae that was multidrug-resistant, blood culture only positive on 1 bottle with GPC on aerobic and anaerobes, final results pending -On IV Zosyn 3.375 g every 6 hourly was switched to meropenem 1 g 3 times daily on 08/26/2024 -Placed Rt IJ Central line access 08/25/24 -Lactic acid trended down -Daily a.m. labs for CBC, CMP and electrolytes #Sinus tachycardia, resolved Secondary to shock -Management as per shock #History of HTN -Currently patient is hypotensive requiring pressure support Pulmonary: #Acute hypoxic respiratory failure Secondary to right-sided pneumonia, likely aspiration pneumonia as patient had episodes of vomiting during presentation, associated with pulmonary edema in the setting of volume overload as patient was given around 15 L of IV fluids and is positive by 11.2 L of fluids since admission Patient was initially placed on HF NC, later on oxy mask and during ex laparotomy she was intubated -Patient was intubated again following extubation, due to failed extubation -Zosyn switched to meropenem 1 g 3 times daily on 08/26/2024 -Added vancomycin on 08/24 -ABG in the a.m. GI: #Gallstone ileus -Dr. Goldsmith performed ex laparotomy and billiary stone was removed without repair of fistula due to multiple co-morbidity. Dressings were changed. #Chronic PEG tube There was blood on suctioning PEG tube, and patient was started on IV pantoprazole 40 Mg twice daily for treatment of possible peptic ulcer disease. -NPO for now, ok for meds -GI Dr. Arreola consulted, appreciate recommendations -On bowel regimen Renal: #Pseudohyponatremia, resolved #Lactic acidosis, resolved #Hypercalcemia, resolved #Asymptomatic bacteriuria Patient is verbally none comprehensive, it is difficult to distinguish with UTI -On antibiotics Endo: #Diabetes mellitus type 2 -On sliding scale insulin #Hyperthyroidism -Will resume home medication methimazole 5 mg twice daily after extubating the patient Hematology: #Leukocytosis, resolved Secondary to aspiration pneumonia -Manage the underlying cause -Daily a.m. CBC #Anemia Likely acute blood loss anemia in the setting of recent surgery followed by possible upper GI bleeding, as patient was sanguinous drainage during slow intermittent suctioning from PEG tube. Hemoglobin of 6.5 this morning, repeat hemoglobin was 6.7. MCV WNL -1 unit PRBC transfused, we will need to post transfusion H&H -GI Dr. Arreola consulted, appreciate recommendations -Monitor H&H and replete if hemoglobin less than 7. #Thrombocytopenia Etiology unknown at this point, less likely shock liver as liver enzymes WNL, and patient has not received any heparin or enoxaparin in the last 15 days. -Continue to monitor with daily CBC -Monitor for any active bleeding ID: -On meropenem as above -On IV vancomycin MSK/skin: -Clean surgical site -Mild bruises over BL forearm -Continue to monitor Health maintenance: Dispo: Patient admitted to ICU for further management of septic shock requiring pressure support DVT prophylaxis: On SCDs, as chemical prophylaxis is not indicated in the setting of recent surgery Diet: N.p.o. for now Lines: Peripheral lines, Rt IJ catheter CODE STATUS: Full code The patient's management plan was discussed with my attending physician MD Lorenzo Brewer MD, PGY2
--- NOTE | 2024-08-26 11:14 | ESPR_ITS ---
Documentation for date of: 08/26/24 Subjective Subjective Interval history: This is a 73-year-old female who presented to the hospital on 23 August. She was originally admitted for nausea and vomiting and CT showed small bowel obstruction secondary to a large gallstone. Surgery was consulted and the patient underwent an enterotomy with stone removal and repair of the enterotomy. She was left intubated and transferred to the ICU. Overnight there have been no acute issues. Sedation was held this morning and once the sedation was held her vasopressor requirements disappeared. She was awake and interactive. She met weaning parameters and decision was made to extubate her. Upon extubation patient was noted to have difficulty clearing her secretions. She was deep suctioned multiple times. At one point in time it also appeared that she might have stridor and was treated with racemic epi. She continued to have increased work of breathing and difficulty clearing secretions therefore the decision was made to reintubate her. 08/26-no acute overnight events, good urinary output though remains significantly net positive, afebrile, hypokalemic this morning Critical Care Note Critical care time (min.): 43 Exam Vital Signs Temp Pulse Resp BP Pulse Ox O2 Del Method O2 Flow Rate 97.3 F 71 28 H 99/62 100 Mechanical Ventilation 5 08/26/24 08:00 08/26/24 10:54 08/26/24 10:54 08/26/24 10:21 08/26/24 10:54 08/26/24 04:00 08/25/24 11:48 FiO2 35 08/26/24 10:54 Narrative Exam General-no acute distress, awake but does not follow commands, normal body habitus HEENT-normocephalic, atraumatic, sclera icteric, ET tube and OG tube in place, oral mucosa is hydrated Chest-lungs clear to auscultation anteriorly, coarse posterior, heart rate regular and rhythmic, murmur, no increased work of breathing Abdomen-soft, nontender, bowel sounds present, PEG tube in place, today's PEG tube is draining bilious material, surgical site clean and intact with no drainage noted Extremities-edema, pulses palpable, no clubbing or mottling, moves all 4 Vent AC/VC Drips Fentanyl Propofol Physical Exam Completion Physical Exam Complete?: Yes Objective - [employer] 08/26/24 07:47 08/26/24 05:17 Labs: Laboratory Results - last 24 hr 08/25/24 08/25/24 08/26/24 13:14 16:47 04:20 WBC 28.5 H D RBC 2.54 L Hgb 8.0 L Hct 24.9 L MCV 98 MCH 31.5 MCHC 32.1 RDW Std Deviation 57.4 H Plt Count 143 Neut % (Auto) 96 H Lymph % (Auto) 1 L [place] % (Auto) 1 Eos % (Auto) 0 Baso % (Auto) 0 Neut # (Auto) 27.4 H Lymph # (Auto) 0.3 L [place] # (Auto) 0.2 Eos # (Auto) 0.0 Baso # (Auto) 0.1 Immature Gran # (Auto) 0.61 H Absolute Nucleated RBC 0.00 Immature Gran % 2 H Nucleated RBC % 0 PT INR APTT Puncture Site Left Radial Left Radial ABG pH 7.23 L D 7.38 D ABG pCO2 43 37 ABG pO2 358 H D 85 D ABG HCO3 18 L 22 ABG O2 Saturation 101 H 98 ABG Base Excess -9 L -3 FiO2 100 35 Sodium Potassium Chloride Carbon Dioxide Anion Gap BUN Creatinine Estim Creat Clear Calc eGFR BUN/Creatinine Ratio Glucose Calculated Osmolality Calcium Corrected Calcium Magnesium Total Bilirubin AST ALT Alkaline Phosphatase Total Protein Albumin Globulin Albumin/Globulin Ratio Blood Type Antibody Screen Crossmatch Blood Bank Wristband ID 08/26/24 08/26/24 08/26/24 05:17 07:47 08:37 WBC 8.6 D RBC 2.09 L Hgb 6.5 L* Hct 20.2 L* 20.8 L* MCV 97 MCH 31.1 MCHC 32.2 RDW Std Deviation 55.6 H Plt Count 88 L D Neut % (Auto) 95 H Lymph % (Auto) 3 L [place] % (Auto) 1 Eos % (Auto) 0 Baso % (Auto) 0 Neut # (Auto) 8.2 H Lymph # (Auto) 0.3 L [place] # (Auto) 0.1 Eos # (Auto) 0.0 Baso # (Auto) 0.0 Immature Gran # (Auto) 0.04 H Absolute Nucleated RBC 0.00 Immature Gran % 1 H Nucleated RBC % 0 PT 13.0 H INR 1.2 APTT 28.0 Puncture Site ABG pH ABG pCO2 ABG pO2 ABG HCO3 ABG O2 Saturation ABG Base Excess FiO2 Sodium 143 Potassium 2.6 L* D Chloride 111 H Carbon Dioxide 22.2 Anion Gap 10 BUN 37 H Creatinine 1.2 Estim Creat Clear Calc 39.3 L eGFR 48 L BUN/Creatinine Ratio 31 H Glucose 174 H D Calculated Osmolality 297 H Calcium 8.2 L Corrected Calcium 9.3 Magnesium 2.0 Total Bilirubin 0.4 AST 14 ALT 13 Alkaline Phosphatase 86 Total Protein 4.9 L Albumin 2.6 L Globulin 2.3 Albumin/Globulin Ratio 1.1 L Blood Type A Positive Antibody Screen NEGATIVE Crossmatch See Detail Blood Bank Wristband ID Yes Assessment & Plan Additional Assessment Additional Assessment: In summary this is 73-year-old female admitted to the ICU for acute hypoxic respiratory failure who is also status post enterotomy a/p [employer] Cognitive delay-at baseline Sedated CV HFpEF-patient is noted to be net +10 L since hospital arrival -Will need diuresis - give lasix 40mg IV once K repleted today Resp Acute hypoxic resp failure-patient was extubated this morning after meeting weaning parameters. However after extubation she had an increased work of breathing and difficulty clearing her secretions. She was deep suctioned multiple times however with only modest success. she was reintubated - fu CXR with some improvement this AM - continue with lasix Aspiration PNA- sputum cx growing GPC and GNR-> resulted out asEnterococcus and Enterobacter, on vanc and zosyn switched to meropenem - on mucomyst/duonebs - CPT q4hrs Renal Renal calculi HypoK- replete IV GI SBO s/p enterotomy- followed by surgery and doing well Gallbladder small bowel fistula ? GI bleed- PPI q12 -> GI eval - transfused 1uPRBCs - fu h/h Endo Stable Heme Leukocytosis- improved from yesterday - in part reactive however likely mostly related to infectious process - resolved today Anemia- ongoing drop - when PEG placed to LIS dark brown material suctioned back yesterday - repeat h/h is still low therefore will transfuse 1u PRBCs Thrombocytopenia- slight drop today, monitor DVT proph- chemical DVT proph on hold while GIB being evaluated ID ? UTI- UA with WBC and rare bacteria Pneumonia-on antibiotics Bacteremia-patient had 1 out of 2 blood cultures with GPC's that are currently still awaiting identification - resulted as enterococcus case d/w ICU team labs, imaging, records reviewed ~ 43ccmin required for eval, exam, review, intervention, discussion and formulation of POC for this critically ill pt with acute resp failure on MV at high risk for further and ongoing decompensation Provider Notation Provider Notation: Although this document has been carefully reviewed, there may still be some phonetic and other typographical errors. These errors are purely grammatical due to imperfections in the software program and should not be construed in any way to compromise the substance of the patient's medical care during this visit. Thank you for the opportunity and privilege in assisting you with this patient's care and management.
[2024-08-26 11:21] LABS: Hemoglobin 6.7 g/dL (12.0-16.0)
[2024-08-26 12:00] LABS: Base Excess, Venous -5 (-3-3); O2 Saturation, Venous 100 % (96-97); PCO2, Venous 38 mmHg (36-56); PO2, Venous 122 mmHg (15-58); pH, Venous 7.34 (7.33-7.66)
[2024-08-26] MEDS: INSULIN LISPRO (AdmeLOG) 1 UNIT/0.01 ML UNIT SC (12:39)
--- NOTE | 2024-08-26 15:22 | PC.SS ---
Update: Patient remains intubated and sedated. Off of pressors. Chest X-Ray conducted today. GI consulting. Patient is [facility] client.
[2024-08-26 16:21] LABS: Basophils % (Auto) 0 % (0-2.5); Eosinophils % (Auto) 0 % (0-10); Hematocrit 26.8 % (36.0-46.0); Immature Granulocytes % (Auto) 0 % (0-0); Immature Granulocytes Auto 0.02 Thou/mm3 (0.00-0.00); Lymphocytes # (Auto) 0.2 Thou/mm3 (1.0-4.8); Lymphocytes % (Auto) 3 % (10-50); Mean Corpuscular HGB Conc 32.8 g/dl (31.0-37.0); Mean Corpuscular Hemoglobin 31.1 pg (25.0-35.0); Mean Corpuscular Volume 95 fL (80-100); Monocytes # (Auto) 0.1 Thou/mm3 (0.0-0.8); Monocytes % (Auto) 1 % (0-12); Neutrophils # (Auto) 6.8 Thou/mm3 (1.8-7.7); Neutrophils % (Auto) 95 % (37-80); Nucleated Red Blood Cell % 0 /100 WBC (0); Platelet Count 85 Thou/mm3 (140-440); RDW Standard Deviation 54.5 fL (36.4-46.3); Red Blood Count 2.83 Miln/mm3 (4.00-5.20); White Blood Count 7.1 Thou/mm3 (3.6-11.0)
[2024-08-26 16:25] LABS: Hemoglobin 8.8 g/dL (12.0-16.0)
[2024-08-26] MEDS: FUROSEMIDE INJ 10 MG/ML 4ML VIAL 40 MG IVP (16:59)
--- NOTE | 2024-08-26 18:52 | PD.IMCONS ---
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 G-tube placement I been consulted as patient having melanotic stools yesterday drop in hemoglobin to 6.5 g has been given 1 unit of PRBC Patient potassium was also 2.6 this morning has been given supplemental potassium cc:: cc: June Mejia MD Review of Systems Review of Systems ROS Unobtainable: unobtainable due to medical condition Past Medical History Surgical History OTHER SURGICAL HX: As in the history of present illness Meds Home Medications and Allergies Home Medications ?Medication ?Instructions ?Recorded ?Confirmed ?Type acetaminophen 325 mg tablet 650 mg feeding tube Q4H PRN Pain 03/22/19 08/24/24 History bisacodyl 10 mg rectal suppository 10 mg AR PRN PRN Constipation 03/22/19 08/24/24 History linagliptin 5 mg tablet (Tradjenta) 5 mg feeding tube QDAY 03/22/19 08/24/24 History sennosides 8.6 mg tablet (senna) 8.6 mg feeding tube BID 03/22/19 08/24/24 History sertraline 50 mg tablet (Zoloft) 50 mg feeding tube QDAY 10/07/19 08/24/24 History atorvastatin 40 mg tablet 40 mg feeding tube HS 01/03/21 08/24/24 History furosemide 20 mg tablet 20 mg feeding tube QDAY PRN Edema 01/03/21 08/24/24 History polyethylene glycol 3350 17 17 g feeding tube QDAY PRN 01/03/21 08/24/24 History gram/dose oral powder (Miralax) Constipation clotrimazole 1 % topical cream 1 applic topical BID 06/12/24 08/24/24 History omeprazole 40 mg capsule,delayed 40 mg PO QPM 06/12/24 08/24/24 History release amlodipine 10 mg tablet 10 mg PO QPM 08/24/24 08/24/24 History doxycycline hyclate 100 mg tablet 100 mg PO BID 08/24/24 08/24/24 History prednisone 20 mg tablet 40 mg PO QDAY 08/24/24 08/24/24 History Allergies Allergy/AdvReac Type Severity Reaction Status Date / Time No Known Allergies Allergy Verified 06/12/24 10:23 Exam Vital Signs Temp Pulse Resp BP Pulse Ox O2 Del Method O2 Flow Rate 98.9 F 87 29 H 113/73 100 Mechanical Ventilation 5 08/26/24 14:44 08/26/24 18:30 08/26/24 18:24 08/26/24 18:30 08/26/24 18:30 08/26/24 04:00 08/25/24 11:48 FiO2 30 08/26/24 18:24 Constitutional Comments: Chronically ill-appearing Routine Respiratory Exam Comments: Mechanically ventilated with endotracheal intubation Routine Abdominal Exam Comments: tube in place Results Labs 08/26/24 16:09 08/26/24 11:31 Labs: Short CBC 08/26/24 08/26/24 08/26/24 Range/Units 05:17 07:47 16:09 WBC 8.6 D 7.1 (3.6-11.0) Thou/mm3 Hgb 6.5 L* 6.7 L* 8.8 L D (12.0-16.0) g/dL Hct 20.2 L* 20.8 L* 26.8 L (36.0-46.0) % Plt Count 88 L D 85 L (140-440) Thou/mm3 BMP 08/23/24 08/26/24 08/26/24 03:20 05:17 11:31 Sodium 132 L 143 Potassium 5.0 2.6 L* D 4.0 D Chloride 97 L 111 H Carbon Dioxide 23.1 22.2 BUN 34 H 37 H Creatinine 1.0 1.2 Glucose 299 H 174 H D Calcium 10.3 8.2 L Cardiac Enzymes 08/23/24 Range/Units 03:20 Troponin I < 0.020 (0.0-0.045) ng/mL Liver Function 08/23/24 08/26/24 Range/Units 03:20 05:17 Total Bilirubin 1.0 0.4 (0.3-1.2) mg/dL AST 22 14 (0-34) U/L ALT 35 13 (10-49) U/L Alkaline Phosphatase 142 H 86 (46-116) U/L Albumin 4.4 2.6 L (3.4-4.8) gm/dL ABG Interpretation ABG results: 08/23/24 08/23/24 08/25/24 16:06 22:31 07:30 ABG pH 7.22 L 7.25 L 7.35 D ABG pCO2 45 43 37 ABG pO2 90 68 L D 79 L ABG HCO3 19 L 19 L 20 ABG O2 Saturation 95 91 96 ABG Base Excess -9 L -8 L -5 L VBG pH VBG pCO2 VBG pO2 VBG Base Excess 08/25/24 08/26/24 08/26/24 13:14 04:20 11:31 ABG pH 7.23 L D 7.38 D ABG pCO2 43 37 ABG pO2 358 H D 85 D ABG HCO3 18 L 22 ABG O2 Saturation 101 H 98 ABG Base Excess -9 L -3 VBG pH 7.34 VBG pCO2 38 VBG pO2 122 H VBG Base Excess -5 L Assessment and Plan Additional Assessment & Plan Additional Plan: # Occult GI bleeding most likely upper requiring blood transfusion initial presentation in the form of melena Plan is Fiberoptic esophagogastroduodenoscopy with possible biopsy possible therapeutic intervention under intravenous moderate sedation scheduled for today Further evaluation after above Other medical problems include # Acute hypoxic respiratory failure requiring endotracheal intubation and mechanical ventilation # GPC and GNR in the tracheal culture patient on IV meropenem # Acute posthemorrhagic anemia requiring blood transfusion # 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
[2024-08-26] MEDS: MEROPENEM INJ 1,000 MG in SODIUM CHLORIDE 0.9% (P) 50 ML 100 MG IV (21:43)
[2024-08-26] MEDS: SENNA TABLET 1 TAB GT (21:44)
[2024-08-27] VITALS (38 sets, daily range): BP systolic 64–146; BP diastolic 46–110; PULSE 83–150; RESP 24–40; TEMP 36.2–36.7; O2SAT 95–100; BMI 30.8
[2024-08-27] MEDS: fentaNYL 2,500 MCG/250 ML BAG 2,500 MCG/250 ML BAG 22.5 MCG IV ×2 (01:35→14:28)
[2024-08-27] MEDS: ALBUTEROL/IPRATROPIUM (Duoneb) RT SOL 3 ML NEBU INH ×6 (03:28→22:19)
[2024-08-27] MEDS: ACETYLCYSTEINE SOL 20% 4 ML NEBU 3 ML INH ×6 (03:28→22:19)
[2024-08-27] MEDS: DEXMEDETOMIDINE 400 MCG IVPB 400 MCG/100 ML BAG 22.17 MCG IV ×2 (04:52→10:22)
[2024-08-27 05:46] LABS: Basophils % (Auto) 0 % (0-2.5); Eosinophils % (Auto) 0 % (0-10); Hematocrit 28.1 % (36.0-46.0); Hemoglobin 9.3 g/dL (12.0-16.0); Immature Granulocytes % (Auto) 1 % (0-0); Immature Granulocytes Auto 0.04 Thou/mm3 (0.00-0.00); Lymphocytes # (Auto) 0.2 Thou/mm3 (1.0-4.8); Lymphocytes % (Auto) 3 % (10-50); Mean Corpuscular HGB Conc 33.1 g/dl (31.0-37.0); Mean Corpuscular Hemoglobin 31.1 pg (25.0-35.0); Mean Corpuscular Volume 94 fL (80-100); Monocytes # (Auto) 0.1 Thou/mm3 (0.0-0.8); Monocytes % (Auto) 2 % (0-12); Neutrophils # (Auto) 4.7 Thou/mm3 (1.8-7.7); Neutrophils % (Auto) 94 % (37-80); Nucleated Red Blood Cell % 0 /100 WBC (0); Platelet Count 94 Thou/mm3 (140-440); RDW Standard Deviation 55.5 fL (36.4-46.3); Red Blood Count 2.99 Miln/mm3 (4.00-5.20)
[2024-08-27 06:07] LABS: Alanine Aminotransferase 12 U/L (10-49); Albumin, Serum 2.9 gm/dL (3.4-4.8); Albumin/Globulin Ratio 1.2 (1.2-2.2); Alkaline Phosphatase 99 U/L (46-116); Anion Gap 12 (7-16); Aspartate Amino Transferase 13 U/L (0-34); BUN/Creatinine Ratio 33 Ratio (12-20); Bilirubin,Total 0.5 mg/dL (0.3-1.2); Blood Urea Nitrogen 36 mg/dL (9-23); Calcium 8.8 mg/dL (8.3-10.6); Calcium (Corrected) 9.7 mg/dL (8.5-10.1); Carbon Dioxide 20.1 mMol/L (20.0-31.0); Chloride 113 mMol/L (98-107); Creatinine (Component) 1.1 mg/dL (0.6-1.3); Estimated Creatinine Clearance 42.9 mL/min (>60); Globulin 2.4 gm/dL (2.3-3.5); Glucose 140 mg/dL (74-106); Magnesium 1.7 mg/dL (1.6-2.6); Osmolality,Calculated 299 (275-295); Phosphorous 4.1 mg/dL (2.4-5.1); Potassium 3.6 mMol/L (3.4-5.1); Sodium 145 mMol/L (136-145); Total Protein 5.3 gm/dL (5.7-8.2); eGFR 54 See Note
--- NOTE | 2024-08-27 06:35 | XR_ITS ---
Examination: AP chest single view Technique: AP portable semiupright chest single view Exam date and time: August 22, 2024 0653 hrs. Comparison August 26, 2024 and chest films dating to August 23, 2024 Findings: Moderate heart failure Mild enlargement cardiac contour with prominent vascular congestion including central vascular engorgement and perihilar edema Extensive pneumonia right lung, not visualized on the August 23, 2024 chest film Right internal jugular central line tip right atrium Endotracheal tube tip 4.9 cm above tamir Impression: Moderate heart failure Bilateral pneumonia, extensive right lung
[2024-08-27 08:00] LABS: Base Excess -5 (-3-3); HCO3 19 mEq/L (20-26); Inspired Oxygen, FIO2 30 %; O2 Saturation 94 % (91-98); PCO2 29 mmHg (32.0-48.0); PO2 66 mmHg (83-108); pH, Arterial 7.41 (7.35-7.45)
[2024-08-27 08:02] LABS: Allen Test Not Performed; Puncture Site Left Radial
[2024-08-27 09:25] LABS: Vancomycin,Trough 26.7 mcg/mL (5.0-10.0)
[2024-08-27] MEDS: PANTOPRAZOLE INJ 40 MG VIAL IVP ×2 (09:56→21:52)
[2024-08-27] MEDS: POLYETHYLENE GLYCOL 17 GM PACKET GT (09:56)
[2024-08-27] MEDS: MEROPENEM INJ 1,000 MG in SODIUM CHLORIDE 0.9% (P) 50 ML 100 MG IV ×2 (09:57→21:52)
[2024-08-27] MEDS: bisacodyL 10 MG SUPP PR (09:57)
[2024-08-27] MEDS: SENNA TABLET 1 TAB GT ×2 (09:58→21:52)
[2024-08-27] MEDS: FUROSEMIDE INJ 10 MG/ML 4ML VIAL 40 MG IVP ×2 (10:00→18:49)
[2024-08-27] MEDS: POTASSIUM CHLORIDE 10% 20 MEQ/15 ML UDC 40 MEQ GT (10:00)
--- NOTE | 2024-08-27 10:49 | PD.INTPROG ---
Documentation for date of: 08/27/24 Subjective Subjective Interval history: This is a 73-year-old female who presented to the hospital on 23 August. She was originally admitted for nausea and vomiting and CT showed small bowel obstruction secondary to a large gallstone. Surgery was consulted and the patient underwent an enterotomy with stone removal and repair of the enterotomy. She was left intubated and transferred to the ICU. Overnight there have been no acute issues. Sedation was held this morning and once the sedation was held her vasopressor requirements disappeared. She was awake and interactive. She met weaning parameters and decision was made to extubate her. Upon extubation patient was noted to have difficulty clearing her secretions. She was deep suctioned multiple times. At one point in time it also appeared that she might have stridor and was treated with racemic epi. She continued to have increased work of breathing and difficulty clearing secretions therefore the decision was made to reintubate her. 08/26-no acute overnight events, good urinary output though remains significantly net positive, afebrile, hypokalemic this morning 08/27- good UOP net neg last 24hr, afebrile, Critical Care Note Critical care time (min.): 39 Exam Vital Signs Temp Pulse Resp BP Pulse Ox O2 Del Method O2 Flow Rate 97.3 F 97 28 H 111/69 100 Mechanical Ventilation 5 08/27/24 00:00 08/27/24 10:10 08/27/24 10:10 08/27/24 10:10 08/27/24 10:10 08/26/24 04:00 08/25/24 11:48 FiO2 30 08/27/24 10:10 Narrative Exam Gen- NAD, intubated, sedated, RASS 0- +1 HEENT- NC/AT, mucosa hydrated, sclera anicteric, ETT/OGT in place Chest- LCTAB, HRRR, no increase in WOB Abd- s/nt/bs+, PEG+ Ext- edema, pulses palp, no clubbing, no mottling Vent AC VC Drips fent precedex Physical Exam Completion Physical Exam Complete?: Yes 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 Labs 08/27/24 05:00 08/27/24 05:00 Labs: Laboratory Results - last 24 hr 08/23/24 08/26/24 08/26/24 03:20 07:47 08:37 WBC RBC Hgb 6.7 L* Hct MCV MCH MCHC RDW Std Deviation Plt Count Neut % (Auto) Lymph % (Auto) [place] % (Auto) Eos % (Auto) Baso % (Auto) Neut # (Auto) Lymph # (Auto) [place] # (Auto) Eos # (Auto) Baso # (Auto) Immature Gran # (Auto) Absolute Nucleated RBC Immature Gran % Nucleated RBC % Puncture Site ABG pH ABG pCO2 ABG pO2 ABG HCO3 ABG O2 Saturation ABG Base Excess VBG pH VBG pCO2 VBG pO2 VBG O2 Sat (Doug) VBG Base Excess FiO2 Sodium 132 L Potassium 5.0 Chloride 97 L Carbon Dioxide 23.1 Anion Gap 12 BUN 34 H Creatinine 1.0 Estim Creat Clear Calc 47.1 L eGFR > 60 BUN/Creatinine Ratio 34 H Glucose 299 H Calculated Osmolality 283 Calcium 10.3 Corrected Calcium 10.3 H Phosphorus Magnesium 2.2 Total Bilirubin 1.0 AST 22 ALT 35 Alkaline Phosphatase 142 H Troponin I < 0.020 Total Protein 8.0 Albumin 4.4 Globulin 3.6 H Albumin/Globulin Ratio 1.2 Lipase 105 H Procalcitonin 0.25 Vancomycin Trough Blood Type A Positive Antibody Screen NEGATIVE Crossmatch See Detail Blood Bank Wristband ID Yes 08/26/24 08/26/24 08/27/24 11:31 16:09 05:00 WBC 7.1 5.0 RBC 2.83 L 2.99 L Hgb 8.8 L D 9.3 L Hct 26.8 L 28.1 L MCV 95 94 MCH 31.1 31.1 MCHC 32.8 33.1 RDW Std Deviation 54.5 H 55.5 H Plt Count 85 L 94 L Neut % (Auto) 95 H 94 H Lymph % (Auto) 3 L 3 L [place] % (Auto) 1 2 Eos % (Auto) 0 0 Baso % (Auto) 0 0 Neut # (Auto) 6.8 4.7 Lymph # (Auto) 0.2 L 0.2 L [place] # (Auto) 0.1 0.1 Eos # (Auto) 0.0 0.0 Baso # (Auto) 0.0 0.0 Immature Gran # (Auto) 0.02 H 0.04 H Absolute Nucleated RBC 0.00 0.00 Immature Gran % 0 1 H Nucleated RBC % 0 0 Puncture Site ABG pH ABG pCO2 ABG pO2 ABG HCO3 ABG O2 Saturation ABG Base Excess VBG pH 7.34 VBG pCO2 38 VBG pO2 122 H VBG O2 Sat (Doug) 100 H VBG Base Excess -5 L FiO2 Sodium 145 Potassium 4.0 D 3.6 Chloride 113 H Carbon Dioxide 20.1 Anion Gap 12 BUN 36 H Creatinine 1.1 Estim Creat Clear Calc 42.9 L eGFR 54 L BUN/Creatinine Ratio 33 H Glucose 140 H Calculated Osmolality 299 H Calcium 8.8 Corrected Calcium 9.7 Phosphorus 4.1 Magnesium 1.7 Total Bilirubin 0.5 AST 13 ALT 12 Alkaline Phosphatase 99 Troponin I Total Protein 5.3 L Albumin 2.9 L Globulin 2.4 Albumin/Globulin Ratio 1.2 Lipase Procalcitonin Vancomycin Trough Blood Type Antibody Screen Crossmatch Blood Bank Wristband ID 08/27/24 08/27/24 07:51 08:55 WBC RBC Hgb Hct MCV MCH MCHC RDW Std Deviation Plt Count Neut % (Auto) Lymph % (Auto) [place] % (Auto) Eos % (Auto) Baso % (Auto) Neut # (Auto) Lymph # (Auto) [place] # (Auto) Eos # (Auto) Baso # (Auto) Immature Gran # (Auto) Absolute Nucleated RBC Immature Gran % Nucleated RBC % Puncture Site Left Radial ABG pH 7.41 ABG pCO2 29 L ABG pO2 66 L ABG HCO3 19 L ABG O2 Saturation 94 ABG Base Excess -5 L VBG pH VBG pCO2 VBG pO2 VBG O2 Sat (Doug) VBG Base Excess FiO2 30 Sodium Potassium Chloride Carbon Dioxide Anion Gap BUN Creatinine Estim Creat Clear Calc eGFR BUN/Creatinine Ratio Glucose Calculated Osmolality Calcium Corrected Calcium Phosphorus Magnesium Total Bilirubin AST ALT Alkaline Phosphatase Troponin I Total Protein Albumin Globulin Albumin/Globulin Ratio Lipase Procalcitonin Vancomycin Trough 26.7 H* Blood Type Antibody Screen Crossmatch Blood Bank Wristband ID Assessment & Plan Additional Assessment Additional Assessment: In summary this is 73-year-old female admitted to the ICU for acute hypoxic respiratory failure who is also status post enterotomy a/p [place] Cognitive delay-at baseline Sedated CV HFpEF-patient is noted to be net +10 L since hospital arrival - started on lasix q12 - cont aggressive diuresis Resp Acute hypoxic resp failure-patient was extubated this morning after meeting weaning parameters. However after extubation she had an increased work of breathing and difficulty clearing her secretions. She was deep suctioned multiple times however with only modest success. she was reintubated - fu CXR with some improvement this AM - continue with lasix - improvement in FiO2 needs Aspiration PNA- sputum cx growing GPC and GNR-> resulted out asEnterococcus and Enterobacter, on vanc and zosyn switched to meropenem - on mucomyst/duonebs - CPT q4hrs Renal Renal calculi HypoK- replete IV GI SBO s/p enterotomy- followed by surgery and doing well Gallbladder small bowel fistula ? GI bleed- PPI q12 -> GI eval - transfused 1uPRBCs - fu h/h - EGD done 08/26 which showed gastric ulcers/duodenal ulcers/esophageal ulcers but no active bleeding at that time Endo Stable Heme Leukocytosis- improved from yesterday - in part reactive however likely mostly related to infectious process - resolved today Anemia- transfused 1uPRBCs 08/26 - blood loss anemia - 2/2 mult gastric ulcers noted on EGD yesterday Thrombocytopenia- slight drop - likely 2/2 sepsis DVT proph- chemical DVT proph on hold while GIB being evaluated ID ? UTI- UA with WBC and rare bacteria Pneumonia-on antibiotics Bacteremia-patient had 1 out of 2 blood cultures with GPC's that are currently still awaiting identification - resulted as enterococcus case d/w ICU team labs, imaging, records reviewed ~39 ccmin required for eval, exam, review, intervention, discussion and formulation of POC for this critically ill pt with acute resp failure on MV at high risk for further and ongoing decompensation Provider Notation Provider Notation: Although this document has been carefully reviewed, there may still be some phonetic and other typographical errors. These errors are purely grammatical due to imperfections in the software program and should not be construed in any way to compromise the substance of the patient's medical care during this visit. Thank you for the opportunity and privilege in assisting you with this patient's care and management.
[2024-08-27] MEDS: Ampicillin Inj 2,000 MG in SODIUM CHLORIDE 0.9% (P) 100 ML 100 MG IV ×3 (13:00→21:51)
[2024-08-27] MEDS: INSULIN LISPRO (AdmeLOG) 1 UNIT/0.01 ML UNIT SC (13:01)
[2024-08-27 13:22] LABS: Potassium 4.2 mMol/L (3.4-5.1)
--- NOTE | 2024-08-27 14:06 | ESPR_ITS ---
Documentation for date of: 08/27/24 Subjective Subjective Interval history: Hemoglobin hematocrit stable Upper endoscopy showed distal esophageal erosions/ulcers shallow Rg class III gastric ulcers and erosive duodenitis Exam Vital Signs Temp Pulse Resp BP Pulse Ox O2 Del Method O2 Flow Rate 98.0 F 107 H 28 H 116/64 97 Mechanical Ventilation 5 08/27/24 08:00 08/27/24 12:00 08/27/24 10:10 08/27/24 12:00 08/27/24 12:00 08/27/24 08:00 08/25/24 11:48 FiO2 30 08/27/24 10:10 Objective Labs 08/28/24 04:52 08/28/24 04:52 Labs: Laboratory Results - last 24 hr 08/26/24 08/26/24 08/27/24 08:37 16:09 05:00 WBC 7.1 5.0 RBC 2.83 L 2.99 L Hgb 8.8 L D 9.3 L Hct 26.8 L 28.1 L MCV 95 94 MCH 31.1 31.1 MCHC 32.8 33.1 RDW Std Deviation 54.5 H 55.5 H Plt Count 85 L 94 L Neut % (Auto) 95 H 94 H Lymph % (Auto) 3 L 3 L [place] % (Auto) 1 2 Eos % (Auto) 0 0 Baso % (Auto) 0 0 Neut # (Auto) 6.8 4.7 Lymph # (Auto) 0.2 L 0.2 L [place] # (Auto) 0.1 0.1 Eos # (Auto) 0.0 0.0 Baso # (Auto) 0.0 0.0 Immature Gran # (Auto) 0.02 H 0.04 H Absolute Nucleated RBC 0.00 0.00 Immature Gran % 0 1 H Nucleated RBC % 0 0 Puncture Site ABG pH ABG pCO2 ABG pO2 ABG HCO3 ABG O2 Saturation ABG Base Excess FiO2 Sodium 145 Potassium 3.6 Chloride 113 H Carbon Dioxide 20.1 Anion Gap 12 BUN 36 H Creatinine 1.1 Estim Creat Clear Calc 42.9 L eGFR 54 L BUN/Creatinine Ratio 33 H Glucose 140 H Calculated Osmolality 299 H Calcium 8.8 Corrected Calcium 9.7 Phosphorus 4.1 Magnesium 1.7 Total Bilirubin 0.5 AST 13 ALT 12 Alkaline Phosphatase 99 Total Protein 5.3 L Albumin 2.9 L Globulin 2.4 Albumin/Globulin Ratio 1.2 Vancomycin Trough Crossmatch See Detail 08/27/24 08/27/24 08/27/24 07:51 08:55 12:50 WBC RBC Hgb Hct MCV MCH MCHC RDW Std Deviation Plt Count Neut % (Auto) Lymph % (Auto) [place] % (Auto) Eos % (Auto) Baso % (Auto) Neut # (Auto) Lymph # (Auto) [place] # (Auto) Eos # (Auto) Baso # (Auto) Immature Gran # (Auto) Absolute Nucleated RBC Immature Gran % Nucleated RBC % Puncture Site Left Radial ABG pH 7.41 ABG pCO2 29 L ABG pO2 66 L ABG HCO3 19 L ABG O2 Saturation 94 ABG Base Excess -5 L FiO2 30 Sodium Potassium 4.2 D Chloride Carbon Dioxide Anion Gap BUN Creatinine Estim Creat Clear Calc eGFR BUN/Creatinine Ratio Glucose Calculated Osmolality Calcium Corrected Calcium Phosphorus Magnesium Total Bilirubin AST ALT Alkaline Phosphatase Total Protein Albumin Globulin Albumin/Globulin Ratio Vancomycin Trough 26.7 H* Crossmatch Impressions Impression: # Posthemorrhagic anemia # Distal esophageal erosions/ulcers # Erosive duodenitis # Shallow gastric ulcers Rg class III Continue current management ABG Interpretation ABG results: 08/23/24 08/23/24 08/25/24 16:06 22:31 07:30 ABG pH 7.22 L 7.25 L 7.35 D ABG pCO2 45 43 37 ABG pO2 90 68 L D 79 L ABG HCO3 19 L 19 L 20 ABG O2 Saturation 95 91 96 ABG Base Excess -9 L -8 L -5 L VBG pH VBG pCO2 VBG pO2 VBG Base Excess 08/25/24 08/26/24 08/26/24 13:14 04:20 11:31 ABG pH 7.23 L D 7.38 D ABG pCO2 43 37 ABG pO2 358 H D 85 D ABG HCO3 18 L 22 ABG O2 Saturation 101 H 98 ABG Base Excess -9 L -3 VBG pH 7.34 VBG pCO2 38 VBG pO2 122 H VBG Base Excess -5 L 08/27/24 07:51 ABG pH 7.41 ABG pCO2 29 L ABG pO2 66 L ABG HCO3 19 L ABG O2 Saturation 94 ABG Base Excess -5 L VBG pH VBG pCO2 VBG pO2 VBG Base Excess Assessment & Plan A&P Narrative # Occult GI bleeding most likely upper requiring blood transfusion initial presentation in the form of melena Plan is Fiberoptic esophagogastroduodenoscopy with possible biopsy possible therapeutic intervention under intravenous moderate sedation scheduled for today Further evaluation after above Other medical problems include # Acute hypoxic respiratory failure requiring endotracheal intubation and mechanical ventilation # GPC and GNR in the tracheal culture patient on IV meropenem # Acute posthemorrhagic anemia requiring blood transfusion # 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
--- NOTE | 2024-08-27 14:40 | PD.RESPRO ---
Documentation for date of: 08/27/24 Subjective Subjective Interval history: 08/25/2024: The patient was examined at the bedside this morning. The patient was sedated and mechanically ventilated. Patient was again started on Levophed this morning. Her white count trended down to 18,. However, when a spontaneous awakening trial once done, her blood pressure significantly improved. The patient was tapered off of pressor and sedatives and after that patient was extubated. However, due to excessive work of breathing and tachycardia with heart rate of 140s, the decision was made to reintubate the patient. The patient was also started on pressor support with Levophed. Central line was placed on right IJ. 08/26/2024: The patient was examined and evaluated at the bedside this morning. The patient was sedated and mechanically ventilated. She was weaned off of Levophed this morning. Physical examination was significant for upper right extremity edema, labs are significant for hemoglobin of 6.5 with repeat hemoglobin of 6.9. Coagulation panel revealed PT 13.0 with INR and APTT WNL. ABG done this morning was WNL. Chemistry panel revealed potassium 2.6, BUN increasing to 37 with stable creatinine, blood sugar 174. Chest x-ray done this morning revealed mild improvement right lower lobe pneumonia. ET tube secretion growing GPC and GNR with Enterobacter Cloacae that is multi drug resistance. Zosyn was switched to IV meropenem 1 g 3 times daily. The patient sedatives were transitioned to Precedex 1.2 mcg/kg/h and fentanyl 225 mcg/h. We will continue to taper down sedatives as tolerated. Potassium were repleted with 60 mEq IV from central line along with 40 mEq p.o. from OGT. We will repeat potassium and replete as needed. As the patient has been net positive by 11.2 L since admission, and chest x-ray was consistent with pulmonary edema, we will administer Lasix 40 Mg IV x 1 normalizing potassium level. As patient's hemoglobin was low, 1 unit PRBC was ordered. Will order as present H&H and get consultation from GI for any possible GI bleeding. However, patient had 1 overnight bowel movement that was dark or black. 08/27/2024: The patient was examined and evaluated at the bedside this morning. The patient is sedated and mechanically ventilated. She has not required any Levophed after yesterday morning. Physical exam is significant for right upper extremity 2+ pitting edema, right IJ catheter on place, mild bruises over bilateral upper extremities. Vitals are significant for heart rate ranging from 100 - 110, RR 28, labs are significant for hemoglobin 9.3, platelets 94, ABG revealing pH 7.41, pCO2 29, pO2 62, and ABG O2 saturation 94%. Given the concern for volume overload leading to pulmonary edema, patient was repleted with potassium 40 mEq x 1 and given 40 Mg IV Lasix x 1. Patient is negative by 1100 cc over 24 hours, but continues to be positive by 10 L since admission. We will continue to diurese the patient as needed. As blood culture grew Enterococcus faecalis, vancomycin was switched to ampicillin. And we will continue with meropenem for acute hypoxic respiratory failure secondary to aspiration pneumonia with Enterobacter cloacae and Enterococcus faecalis. Exam Vital Signs Temp Pulse Resp BP Pulse Ox O2 Del Method O2 Flow Rate 97.7 F 99 28 H 98/61 98 Mechanical Ventilation 5 08/27/24 13:00 08/27/24 14:22 08/27/24 14:16 08/27/24 14:16 08/27/24 14:22 08/27/24 13:00 08/25/24 11:48 FiO2 30 08/27/24 14:22 Narrative Exam General: Elderly female, sedated and mechanically ventillated HEENT: moist mucous membranes, oropharynx clear, midline tracheostomy tube on place with mild bleeding from insertion site Neck: Supple, No masses, No JVD, central line over rt IJ CVS: Tachycardic, No murmurs, rubs or gallops Lungs: Mild rhonchi throughout the lung field, distant sound over right lower lung, mild cracles over rt basal lung, no wheeze Abd: Soft, NT/ND, +BS, no organomegaly, Peg tube on place, Upper midline incision in clean dressing Ext: Right upper extremity with 2+ pitting edema, warm and well perfused, mild bruises over bilateral forearm Skin: mild erythema over right side of incision Psych: Unobtainable Objective Labs 08/27/24 05:00 08/27/24 12:50 Labs: Laboratory Results - last 24 hr 08/26/24 08/26/24 08/27/24 08:37 16:09 05:00 WBC 7.1 5.0 RBC 2.83 L 2.99 L Hgb 8.8 L D 9.3 L Hct 26.8 L 28.1 L MCV 95 94 MCH 31.1 31.1 MCHC 32.8 33.1 RDW Std Deviation 54.5 H 55.5 H Plt Count 85 L 94 L Neut % (Auto) 95 H 94 H Lymph % (Auto) 3 L 3 L Collin % (Auto) 1 2 Eos % (Auto) 0 0 Baso % (Auto) 0 0 Neut # (Auto) 6.8 4.7 Lymph # (Auto) 0.2 L 0.2 L Collin # (Auto) 0.1 0.1 Eos # (Auto) 0.0 0.0 Baso # (Auto) 0.0 0.0 Immature Gran # (Auto) 0.02 H 0.04 H Absolute Nucleated RBC 0.00 0.00 Immature Gran % 0 1 H Nucleated RBC % 0 0 Puncture Site ABG pH ABG pCO2 ABG pO2 ABG HCO3 ABG O2 Saturation ABG Base Excess FiO2 Sodium 145 Potassium 3.6 Chloride 113 H Carbon Dioxide 20.1 Anion Gap 12 BUN 36 H Creatinine 1.1 Estim Creat Clear Calc 42.9 L eGFR 54 L BUN/Creatinine Ratio 33 H Glucose 140 H Calculated Osmolality 299 H Calcium 8.8 Corrected Calcium 9.7 Phosphorus 4.1 Magnesium 1.7 Total Bilirubin 0.5 AST 13 ALT 12 Alkaline Phosphatase 99 Total Protein 5.3 L Albumin 2.9 L Globulin 2.4 Albumin/Globulin Ratio 1.2 Vancomycin Trough Crossmatch See Detail 08/27/24 08/27/24 08/27/24 07:51 08:55 12:50 WBC RBC Hgb Hct MCV MCH MCHC RDW Std Deviation Plt Count Neut % (Auto) Lymph % (Auto) Collin % (Auto) Eos % (Auto) Baso % (Auto) Neut # (Auto) Lymph # (Auto) Collin # (Auto) Eos # (Auto) Baso # (Auto) Immature Gran # (Auto) Absolute Nucleated RBC Immature Gran % Nucleated RBC % Puncture Site Left Radial ABG pH 7.41 ABG pCO2 29 L ABG pO2 66 L ABG HCO3 19 L ABG O2 Saturation 94 ABG Base Excess -5 L FiO2 30 Sodium Potassium 4.2 D Chloride Carbon Dioxide Anion Gap BUN Creatinine Estim Creat Clear Calc eGFR BUN/Creatinine Ratio Glucose Calculated Osmolality Calcium Corrected Calcium Phosphorus Magnesium Total Bilirubin AST ALT Alkaline Phosphatase Total Protein Albumin Globulin Albumin/Globulin Ratio Vancomycin Trough 26.7 H* Crossmatch ABG Interpretation ABG results: 08/23/24 08/23/24 08/25/24 16:06 22:31 07:30 ABG pH 7.22 L 7.25 L 7.35 D ABG pCO2 45 43 37 ABG pO2 90 68 L D 79 L ABG HCO3 19 L 19 L 20 ABG O2 Saturation 95 91 96 ABG Base Excess -9 L -8 L -5 L VBG pH VBG pCO2 VBG pO2 VBG Base Excess 08/25/24 08/26/24 08/26/24 13:14 04:20 11:31 ABG pH 7.23 L D 7.38 D ABG pCO2 43 37 ABG pO2 358 H D 85 D ABG HCO3 18 L 22 ABG O2 Saturation 101 H 98 ABG Base Excess -9 L -3 VBG pH 7.34 VBG pCO2 38 VBG pO2 122 H VBG Base Excess -5 L 08/27/24 07:51 ABG pH 7.41 ABG pCO2 29 L ABG pO2 66 L ABG HCO3 19 L ABG O2 Saturation 94 ABG Base Excess -5 L VBG pH VBG pCO2 VBG pO2 VBG Base Excess Quality Measures Quality Measures sepsis Current suspected stage: sepsis Possible source: unknown Blood cultures ordered: yes Antibiotic ordered: Yes Advance care planning discussed with:: other Assessment & Plan Assessment Current Active Medications: Generic Name Dose Route Start Last Admin Trade Name Freq PRN Reason Stop Dose Admin Acetaminophen 650 mg 08/23/24 13:03 Acetaminophen 325 Mg Tablet PO 09/22/24 13:02 Q4HR PRN PAIN SCALE 1-3 (mild Acetaminophen 650 mg 08/23/24 13:03 Acetaminophen Supp 650 Mg Supp DE 09/22/24 13:02 Q4HR PRN PAIN SCALE 1-3 (mild Acetylcysteine 3 ml 08/25/24 11:00 08/27/24 14:16 Acetylcysteine Jelly 20% 4 Ml Nebu INH 09/24/24 10:59 3 ml Q4HRRT AJAY Administration Albuterol/Ipratropium 3 ml 08/25/24 11:00 08/27/24 14:17 Albuterol/Ipratropium (Duoneb) Rt Jelly 3 Ml Nebu INH 09/24/24 10:59 3 ml Q4HRRT AJAY Administration Bisacodyl 10 mg 08/24/24 17:30 08/27/24 09:57 Bisacodyl 10 Mg Supp DE 09/23/24 17:29 10 mg QDAY AJAY Administration Protocol Dextrose 25 ml 08/23/24 17:46 Dextrose 50%-Water Inj 50 Ml Syringe IV 09/22/24 17:45 Q15MIN PRN BG 50-70 responsive npo pt Dextrose 50 ml 08/23/24 17:46 Dextrose 50%-Water Inj 50 Ml Syringe IV 09/22/24 17:45 Q15MIN PRN BG <50 OR BG <70 & pt unresponsive Furosemide 40 mg 08/27/24 18:00 Furosemide Inj 10 Mg/Ml 4ml Vial IVP 09/26/24 17:59 BIDD AJAY Glucagon 1 mg 08/23/24 17:46 Glucagon Inj 1 Mg Vial IM Q15MIN PRN BG <70, and no IV access Norepinephrine/Dextrose 8 mg in 250 mls @ 6.506 mls/hr 08/23/24 12:20 08/26/24 04:45 Levophed In D5w 8mg/250ml IV 09/22/24 12:19 0 mcg/kg/min .Q24H PRN 0 mls/hr PER PROTOCOL Titration Protocol 0.05 MCG/KG/MIN Fentanyl Citrate 2,500 mcg in 250 mls @ 2.5 mls/hr 08/24/24 08:20 08/27/24 14:28 Sublimaze Inj 2,500 Mcg/250 Ml Bag IV 08/28/24 16:37 225 mcg/hr .Q24H PRN 22.5 mls/hr PER PROTOCOL Administration Protocol 25 MCG/HR Propofol 1,000 mg in 100 mls @ 2.169 mls/hr 08/24/24 10:56 08/25/24 08:00 Diprivan Ivpb IV 09/22/24 15:42 0 mcg/kg/min .Q24H PRN 0 mls/hr PER PROTOCOL Titration Protocol 5 MCG/KG/MIN Dexmedetomidine/Sodium Chloride 400 mcg in 100 mls @ 3.695 mls/hr 08/25/24 18:40 08/27/24 14:00 Precedex Ivpb IV 09/24/24 18:39 1 mcg/kg/hr .Q24H PRN 18.475 mls/hr Per PROTOCOL Titration Protocol 0.2 MCG/KG/HR Meropenem 1,000 mg/ Sodium 50 mls @ 100 mls/hr 08/26/24 21:00 08/27/24 09:57 Chloride IV 09/02/24 20:59 100 mls/hr Q12HR AJAY Administration Ampicillin Sodium 2,000 mg/ 100 mls @ 100 mls/hr 08/27/24 12:00 08/27/24 13:00 Sodium Chloride IV 09/03/24 11:59 100 mls/hr Q4HR AJAY Administration Insulin Human Lispro 0 unit 08/23/24 18:00 08/27/24 13:01 Insulin Lispro (Admelog) 1 Unit/0.01 Ml Unit SC 09/22/24 17:59 1 unit Q6HR AJAY Administration Protocol Magnesium Hydroxide 30 ml 08/23/24 13:03 Milk Of Magnesia Susp 30 Ml Udc PO 09/22/24 13:02 QDAY PRN CONSTIPATION Pantoprazole Sodium 40 mg 08/25/24 13:30 08/27/24 09:56 Pantoprazole Inj 40 Mg Vial IVP 09/24/24 13:29 40 mg BID AJAY Administration Polyethylene Glycol 17 gm 08/24/24 16:00 08/27/24 09:56 Polyethylene Glycol 17 Gm Packet GT 09/23/24 15:59 17 gm QDAY AJAY Administration Sennosides 1 tab 08/24/24 21:00 08/27/24 09:58 Senna Tablet GT 09/23/24 20:59 1 tab BID AJAY Administration Protocol Sodium Chloride 3 ml 08/25/24 11:01 08/25/24 11:40 Sodium Chloride Rt Jelly 0.9% 3 Ml Nebu INH 09/24/24 11:00 3 ml PRN PRN Administration SOLN Plan The patient is a 73-year-old female with significant past medical history of hypertension, DM 2, hyperlipidemia, dementia, hyperthyroidism, CVA with right-sided deficit, chronic G-tube, HFpEF and double of mental delay disorder presented from [facility] for SOB for 1 day and is admitted to ICU for further management of septic shock secondary aspiration pneumonia . 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 #Developmental delay disorder #Hx of CVA with right sided deficit Patient is at her baseline with alert and oriented to herself only. She is verbally none comprehensive. Cardio: #Shock, resolved More likely septic shock Secondary to aspiration pneumonia During admission met 3/4 SIRS criteria with pulse 101, RR 32, and WBC 28.3, lactic acid trended up to 5.8. Patient was given around 15 L of IV fluids since admission, and is net positive by 11.2 L. Respiratory secretions sputum culture grew enterobacter cloacae that was multidrug-resistant, blood culture only positive on 1 bottle with GPC on aerobic and anaerobes, final results pending -On IV Zosyn 3.375 g every 6 hourly was switched to meropenem 1 g 3 times daily on 08/26/2024 -Placed Rt IJ Central line access 08/25/24 -Lactic acid trended down -Daily a.m. labs for CBC, CMP and electrolytes #Sinus tachycardia, resolved Secondary to AHRF 2/2 aspiration PNA -Management as per Pulm #History of HTN -Currently patient's BP is stable Pulmonary: #Acute hypoxic respiratory failure Secondary to right-sided pneumonia, likely aspiration pneumonia as patient had episodes of vomiting during presentation, associated with pulmonary edema in the setting of volume overload as patient was given around 15 L of IV fluids and is positive by 11.2 L of fluids since admission Patient was initially placed on HF NC, later on oxy mask and during ex laparotomy she was intubated ET secretion grew Enterococcus faecalis and Enterobacter cloacae, Enterococcus faecalis sensitive to ampicillin and Enterobacter cloacae sensitive to meropenem -Patient was intubated again following extubation, due to failed extubation -Zosyn switched to meropenem 1 g 3 times daily on 08/26/2024 -Added vancomycin on 08/24 -ABG in the a.m. GI: #Esophageal ulcer #Gastric ulcer #Duodenal ulcer #Chronic PEG tube -EGD was done on 08/26/2024 and findings were consistent with esophageal, gastric and duodenal ulcer -GI Dr. Arreola consulted, appreciate recommendations -We will continue on IV pantoprazole 40 Mg twice daily -Started on PEG tube feed #Gallstone ileus -Dr. Goldsmith performed ex laparotomy and billiary stone was removed without repair of fistula due to multiple co-morbidity. Dressings were changed. Renal: #Pseudohyponatremia, resolved #Lactic acidosis, resolved #Hypercalcemia, resolved #Asymptomatic bacteriuria Patient is verbally none comprehensive, it is difficult to distinguish with UTI -On antibiotics Endo: #Diabetes mellitus type 2 -On sliding scale insulin #Hyperthyroidism -Will resume home medication methimazole 5 mg twice daily after extubating the patient Hematology: #Bacteremia Blood culture grew Enterobacter faecalis, sensitive to ampicillin -Started on ampicillin 2 g IV every 4 hourly, has already completed 3 days of vancomycin, we will continue with ampicillin for 4 days until 08/31/2024 -Repeated blood culture #Leukocytosis, resolved Secondary to aspiration pneumonia -Manage the underlying cause -Daily a.m. CBC #Anemia Likely acute blood loss anemia in the setting of recent surgery followed by possible upper GI bleeding, as patient was sanguinous drainage during slow intermittent suctioning from PEG tube. Hemoglobin of 6.5 this morning, repeat hemoglobin was 6.7. MCV WNL -1 unit PRBC transfused, we will need to post transfusion H&H -GI Dr. Arreola consulted, appreciate recommendations -Monitor H&H and replete if hemoglobin less than 7. #Thrombocytopenia Etiology unknown at this point, less likely shock liver as liver enzymes WNL, and patient has not received any heparin or enoxaparin in the last 15 days. -Continue to monitor with daily CBC -Monitor for any active bleeding ID: -On meropenem as above -Discontinue vancomycin -Started on ampicillin for Enterococcus faecalis MSK/skin: -Clean surgical site -Mild bruises over BL forearm -Continue to monitor Health maintenance: Dispo: Patient admitted to ICU for further management of septic shock requiring pressure support DVT prophylaxis: On SCDs, as chemical prophylaxis is not indicated in the setting of recent surgery Diet: N.p.o. for now Lines: Peripheral lines, Rt IJ catheter CODE STATUS: Full code The patient's management plan was discussed with my attending physician MD Lorenzo Brewer MD, PGY2
[2024-08-27] MEDS: DEXMEDETOMIDINE 400 MCG IVPB 400 MCG/100 ML BAG 18.475 MCG IV ×2 (16:38→21:49)
[2024-08-27] MEDS: Norepinephrine/D5W 8mg/250ml 8 MG/250 ML BAG 6.506 MG IV (23:12)
[2024-08-28] VITALS (104 sets, daily range): BP systolic 59–149; BP diastolic 40–125; PULSE 92–165; RESP 21–41; TEMP 36.8–37.5; O2SAT 80–100; BMI 31.1
[2024-08-28] MEDS: Ampicillin Inj 2,000 MG in SODIUM CHLORIDE 0.9% (P) 100 ML 100 MG IV ×6 (01:13→21:54)
[2024-08-28] MEDS: ACETYLCYSTEINE SOL 20% 4 ML NEBU 3 ML INH ×6 (02:08→22:16)
[2024-08-28] MEDS: ALBUTEROL/IPRATROPIUM (Duoneb) RT SOL 3 ML NEBU INH ×6 (02:08→22:17)
[2024-08-28] MEDS: fentaNYL 2,500 MCG/250 ML BAG 2,500 MCG/250 ML BAG 22.5 MCG IV ×2 (02:55→13:10)
[2024-08-28] MEDS: PROPOFOL 1,000 MG IVPB 1,000 MG/100 ML VIAL 2.082 MG IV (04:00)
[2024-08-28] MEDS: DEXMEDETOMIDINE 400 MCG IVPB 400 MCG/100 ML BAG 25.865 MCG IV (04:15)
--- NOTE | 2024-08-28 04:30 | PC.NURSE ---
0300 Resident Graeme called bedsid, patient belly breathing, over breathing vent, maxed on current sedative, made aware of Urine out of 30ml/hr.
[2024-08-28 04:32] LABS: Base Excess -9 (-3-3); HCO3 17 mEq/L (20-26); Inspired Oxygen, FIO2 40 %; O2 Saturation 93 % (91-98); PCO2 39 mmHg (32.0-48.0); PO2 73 mmHg (83-108); pH, Arterial 7.26 (7.35-7.45)
[2024-08-28 04:43] LABS: Allen Test Performed/OK; Puncture Site Right Radial
[2024-08-28] MEDS: Sodium Bicarb Inj 8.4% SYR 50 ML SYRINGE IV (04:50)
[2024-08-28 05:01] LABS: Lactate (Lactic Acid) 1.5 mMol/L (0.4-2.0)
[2024-08-28] MEDS: FUROSEMIDE INJ 10 MG/ML 4ML VIAL 40 MG IVP ×2 (05:28→17:46)
[2024-08-28 05:41] LABS: Basophils % (Auto) 0 % (0-2.5); Eosinophils % (Auto) 0 % (0-10); Hematocrit 28.1 % (36.0-46.0); Hemoglobin 8.9 g/dL (12.0-16.0); Immature Granulocytes % (Auto) 1 % (0-0); Immature Granulocytes Auto 0.05 Thou/mm3 (0.00-0.00); Lymphocytes # (Auto) 0.2 Thou/mm3 (1.0-4.8); Lymphocytes % (Auto) 2 % (10-50); Mean Corpuscular HGB Conc 31.7 g/dl (31.0-37.0); Mean Corpuscular Hemoglobin 30.9 pg (25.0-35.0); Mean Corpuscular Volume 98 fL (80-100); Monocytes # (Auto) 0.3 Thou/mm3 (0.0-0.8); Monocytes % (Auto) 4 % (0-12); Neutrophils # (Auto) 7.1 Thou/mm3 (1.8-7.7); Neutrophils % (Auto) 93 % (37-80); Nucleated Red Blood Cell % 0 /100 WBC (0); Platelet Count 146 Thou/mm3 (140-440); RDW Standard Deviation 59.5 fL (36.4-46.3); Red Blood Count 2.88 Miln/mm3 (4.00-5.20); White Blood Count 7.6 Thou/mm3 (3.6-11.0)
--- NOTE | 2024-08-28 06:10 | XR_ITS ---
Examination: AP chest single view Technique: AP portable semiupright chest single view Exam date and time: August 28, 2024 0628 hrs. Comparison August 27, 2024 and dating to chest films August 23, 2024 Indications: Hypoxic respiratory failure, bilateral pneumonia, severe in the right lung on prior imaging studies with heart failure Findings: Bilateral pneumonia ARDS, severe right lung Mild to moderate enlargement cardiac contour with prominent vascular congestion Endotracheal tube tip 5.7 cm above tamir. Right internal blood or central line tip satisfactory position Significant osteopenia Impression: Again noted bilateral pneumonia ARDS pattern, severe in the right lung Endotracheal tube tip 5.7 cm above tamir Right internal jugular central line tip SVC satisfactory position, no pneumothorax Mild associated heart failure
[2024-08-28 06:14] LABS: Alanine Aminotransferase 13 U/L (10-49); Albumin, Serum 2.8 gm/dL (3.4-4.8); Albumin/Globulin Ratio 1.3 (1.2-2.2); Alkaline Phosphatase 100 U/L (46-116); Anion Gap 16 (7-16); Aspartate Amino Transferase 19 U/L (0-34); BUN/Creatinine Ratio 30 Ratio (12-20); Bilirubin,Total 0.4 mg/dL (0.3-1.2); Blood Urea Nitrogen 42 mg/dL (9-23); Calcium 8.6 mg/dL (8.3-10.6); Calcium (Corrected) 9.6 mg/dL (8.5-10.1); Chloride 112 mMol/L (98-107); Creatinine (Component) 1.4 mg/dL (0.6-1.3); Estimated Creatinine Clearance 32.8 mL/min (>60); Globulin 2.2 gm/dL (2.3-3.5); Glucose 157 mg/dL (74-106); Magnesium 1.7 mg/dL (1.6-2.6); Osmolality,Calculated 313 (275-295); Phosphorous 5.8 mg/dL (2.4-5.1); Potassium 3.6 mMol/L (3.4-5.1); Sodium 151 mMol/L (136-145); eGFR 40 See Note
[2024-08-28 07:16] LABS: Base Excess -7 (-3-3); HCO3 18 mEq/L (20-26); Inspired Oxygen, FIO2 21 %; O2 Saturation 91 % (91-98); PCO2 33 mmHg (32.0-48.0); PO2 63 mmHg (83-108); pH, Arterial 7.35 (7.35-7.45)
[2024-08-28 07:18] LABS: Allen Test Performed/OK; Puncture Site Left Brachial
[2024-08-28] MEDS: PANTOPRAZOLE INJ 40 MG VIAL IVP ×2 (08:32→20:30)
[2024-08-28] MEDS: POTASSIUM CHLORIDE 10% 20 MEQ/15 ML UDC 40 MEQ GT (08:32)
[2024-08-28] MEDS: SENNA TABLET 1 TAB GT ×2 (08:32→20:31)
[2024-08-28] MEDS: bisacodyL 10 MG SUPP PR (08:33)
[2024-08-28] MEDS: MEROPENEM INJ 1,000 MG in SODIUM CHLORIDE 0.9% (P) 50 ML 100 MG IV ×2 (08:33→20:31)
[2024-08-28] MEDS: POLYETHYLENE GLYCOL 17 GM PACKET GT (08:34)
[2024-08-28] MEDS: SODIUM CHLORIDE 0.9% IV (09:26)
[2024-08-28] MEDS: DEXMEDETOMIDINE IV (09:26)
--- NOTE | 2024-08-28 11:32 | PD.RESPRO ---
Documentation for date of: 08/28/24 Subjective Subjective Interval history: 08/25/2024: The patient was examined at the bedside this morning. The patient was sedated and mechanically ventilated. Patient was again started on Levophed this morning. Her white count trended down to 18,. However, when a spontaneous awakening trial once done, her blood pressure significantly improved. The patient was tapered off of pressor and sedatives and after that patient was extubated. However, due to excessive work of breathing and tachycardia with heart rate of 140s, the decision was made to reintubate the patient. The patient was also started on pressor support with Levophed. Central line was placed on right IJ. 08/26/2024: The patient was examined and evaluated at the bedside this morning. The patient was sedated and mechanically ventilated. She was weaned off of Levophed this morning. Physical examination was significant for upper right extremity edema, labs are significant for hemoglobin of 6.5 with repeat hemoglobin of 6.9. Coagulation panel revealed PT 13.0 with INR and APTT WNL. ABG done this morning was WNL. Chemistry panel revealed potassium 2.6, BUN increasing to 37 with stable creatinine, blood sugar 174. Chest x-ray done this morning revealed mild improvement right lower lobe pneumonia. ET tube secretion growing GPC and GNR with Enterobacter Cloacae that is multi drug resistance. Zosyn was switched to IV meropenem 1 g 3 times daily. The patient sedatives were transitioned to Precedex 1.2 mcg/kg/h and fentanyl 225 mcg/h. We will continue to taper down sedatives as tolerated. Potassium were repleted with 60 mEq IV from central line along with 40 mEq p.o. from OGT. We will repeat potassium and replete as needed. As the patient has been net positive by 11.2 L since admission, and chest x-ray was consistent with pulmonary edema, we will administer Lasix 40 Mg IV x 1 normalizing potassium level. As patient's hemoglobin was low, 1 unit PRBC was ordered. Will order as present H&H and get consultation from GI for any possible GI bleeding. However, patient had 1 overnight bowel movement that was dark or black. 08/27/2024: The patient was examined and evaluated at the bedside this morning. The patient is sedated and mechanically ventilated. She has not required any Levophed after yesterday morning. Physical exam is significant 2+ pitting edema, right IJ catheter on place, mild bruises over bilateral upper extremities. Vitals are significant for heart rate ranging from 100 - 110, RR 28, labs are significant for hemoglobin 9.3, platelets 94, ABG revealing pH 7.41, pCO2 29, pO2 62, and ABG O2 saturation 94%. Given the concern for volume overload leading to pulmonary edema, patient was repleted with potassium 40 mEq x 1 and given 40 Mg IV Lasix x 1. Patient is negative by 1100 cc over 24 hours, but continues to be positive by 10 L since admission. We will continue to diurese the patient as needed. As blood culture grew Enterococcus faecalis, vancomycin was switched to ampicillin. And we will continue with meropenem for acute hypoxic respiratory failure secondary to aspiration pneumonia with Enterobacter cloacae and Enterococcus faecalis. 08/28/2024: The patient was evaluated at the bedside this morning. The patient remained sedated and mechanically ventilated. She was also on Levophed. Physical exam was significant for 2+ pitting edema, right IJ catheter on place, mild bruises over bilateral upper extremities that has been improving. Tachycardia has resolved. Labs are significant for hemoglobin stable at 8.9, ABG with pH 7.35, pO2 63, bicarb 18. Labs are significant For sodium 151, BUN and creatinine trended up to 42 and 1.4 respectively. Calculated osmolality 313, phosphorus 5.8. CXR was significant for ARDS pattern with pneumonia prominent on right side, and suggestive of associated mild CHF. We increased the water flush to 70 cc every hourly, we will continue with sedatives as patient seems to be in mild respiratory distress, but we will stop Precedex. Repeat blood culture is pending and thrombocytopenia has improved. We will continue with meropenem and ampicillin. Exam Vital Signs Temp Pulse Resp BP Pulse Ox O2 Del Method O2 Flow Rate 98.2 F 94 28 H 94/67 96 Mechanical Ventilation 5 08/28/24 07:00 08/28/24 09:15 08/28/24 06:28 08/28/24 09:15 08/28/24 09:15 08/28/24 07:00 08/25/24 11:48 FiO2 40 08/28/24 07:00 Narrative Exam General: Elderly female, sedated and mechanically ventillated HEENT: moist mucous membranes, oropharynx clear, midline tracheostomy tube on place Neck: Supple, No masses, No JVD, central line over rt IJ CVS: Tachycardic, No murmurs, rubs or gallops Lungs: Mild rhonchi throughout the lung field, distant sound over right lower lung, mild cracles over rt basal lung, no wheeze Abd: Soft, NT/ND, +BS, no organomegaly, Peg tube on place, Upper midline incision in clean dressing Ext: Right upper extremity with 2+ pitting edema, warm and well perfused, mild bruises over bilateral forearm Skin: No active issues Psych: Unobtainable Objective Labs 08/28/24 04:52 08/28/24 04:52 Labs: Laboratory Results - last 24 hr 08/27/24 08/28/24 08/28/24 12:50 04:20 04:30 WBC RBC Hgb Hct MCV MCH MCHC RDW Std Deviation Plt Count Neut % (Auto) Lymph % (Auto) [place] % (Auto) Eos % (Auto) Baso % (Auto) Neut # (Auto) Lymph # (Auto) [place] # (Auto) Eos # (Auto) Baso # (Auto) Immature Gran # (Auto) Absolute Nucleated RBC Immature Gran % Nucleated RBC % Puncture Site Right Radial ABG pH 7.26 L D ABG pCO2 39 D ABG pO2 73 L ABG HCO3 17 L ABG O2 Saturation 93 ABG Base Excess -9 L FiO2 40 Sodium Potassium 4.2 D Chloride Carbon Dioxide Anion Gap BUN Creatinine Estim Creat Clear Calc eGFR BUN/Creatinine Ratio Glucose Calculated Osmolality Lactic Acid 1.5 Calcium Corrected Calcium Phosphorus Magnesium Total Bilirubin AST ALT Alkaline Phosphatase Total Protein Albumin Globulin Albumin/Globulin Ratio 08/28/24 08/28/24 08/28/24 04:52 05:30 07:11 WBC 7.6 D RBC 2.88 L Hgb 8.9 L Hct 28.1 L MCV 98 MCH 30.9 MCHC 31.7 RDW Std Deviation 59.5 H Plt Count 146 D Neut % (Auto) 93 H Lymph % (Auto) 2 L [place] % (Auto) 4 Eos % (Auto) 0 Baso % (Auto) 0 Neut # (Auto) 7.1 Lymph # (Auto) 0.2 L [place] # (Auto) 0.3 Eos # (Auto) 0.0 Baso # (Auto) 0.0 Immature Gran # (Auto) 0.05 H Absolute Nucleated RBC 0.00 Immature Gran % 1 H Nucleated RBC % 0 Puncture Site Left Brachial ABG pH 7.35 ABG pCO2 33 ABG pO2 63 L ABG HCO3 18 L ABG O2 Saturation 91 ABG Base Excess -7 L FiO2 21 Sodium 151 H Potassium 3.6 D Chloride 112 H Carbon Dioxide 23.0 Anion Gap 16 BUN 42 H Creatinine 1.4 H Estim Creat Clear Calc 32.8 L eGFR 40 L BUN/Creatinine Ratio 30 H Glucose 157 H Calculated Osmolality 313 H Lactic Acid Cancelled Calcium 8.6 Corrected Calcium 9.6 Phosphorus 5.8 H Magnesium 1.7 Total Bilirubin 0.4 AST 19 ALT 13 Alkaline Phosphatase 100 Total Protein 5.0 L Albumin 2.8 L Globulin 2.2 L Albumin/Globulin Ratio 1.3 ABG Interpretation ABG results: 08/23/24 08/23/24 08/25/24 16:06 22:31 07:30 ABG pH 7.22 L 7.25 L 7.35 D ABG pCO2 45 43 37 ABG pO2 90 68 L D 79 L ABG HCO3 19 L 19 L 20 ABG O2 Saturation 95 91 96 ABG Base Excess -9 L -8 L -5 L VBG pH VBG pCO2 VBG pO2 VBG Base Excess 08/25/24 08/26/24 08/26/24 13:14 04:20 11:31 ABG pH 7.23 L D 7.38 D ABG pCO2 43 37 ABG pO2 358 H D 85 D ABG HCO3 18 L 22 ABG O2 Saturation 101 H 98 ABG Base Excess -9 L -3 VBG pH 7.34 VBG pCO2 38 VBG pO2 122 H VBG Base Excess -5 L 08/27/24 08/28/24 08/28/24 07:51 04:20 07:11 ABG pH 7.41 7.26 L D 7.35 ABG pCO2 29 L 39 D 33 ABG pO2 66 L 73 L 63 L ABG HCO3 19 L 17 L 18 L ABG O2 Saturation 94 93 91 ABG Base Excess -5 L -9 L -7 L VBG pH VBG pCO2 VBG pO2 VBG Base Excess Quality Measures Quality Measures sepsis Current suspected stage: septic shock (LA >4 and/or hypotension) Sepsis reassessment completed at (date): 08/28/24 Sepsis reassessment completed at (time): 07:00 Possible source: unknown Blood cultures ordered: yes Antibiotic ordered: Yes Advance care planning discussed with:: other Assessment & Plan Assessment Current Active Medications: Generic Name Dose Route Start Last Admin Trade Name Freq PRN Reason Stop Dose Admin Acetaminophen 650 mg 08/23/24 13:03 Acetaminophen 325 Mg Tablet PO 09/22/24 13:02 Q4HR PRN PAIN SCALE 1-3 (mild Acetaminophen 650 mg 08/23/24 13:03 Acetaminophen Supp 650 Mg Supp ME 09/22/24 13:02 Q4HR PRN PAIN SCALE 1-3 (mild Acetylcysteine 3 ml 08/25/24 11:00 08/28/24 06:28 Acetylcysteine Jelly 20% 4 Ml Nebu INH 09/24/24 10:59 3 ml Q4HRRT AJAY Administration Albuterol/Ipratropium 3 ml 08/25/24 11:00 08/28/24 06:28 Albuterol/Ipratropium (Duoneb) Rt Jelly 3 Ml Nebu INH 09/24/24 10:59 3 ml Q4HRRT AJAY Administration Bisacodyl 10 mg 08/24/24 17:30 08/28/24 08:33 Bisacodyl 10 Mg Supp ME 09/23/24 17:29 10 mg QDAY AJAY Administration Protocol Dextrose 25 ml 08/23/24 17:46 Dextrose 50%-Water Inj 50 Ml Syringe IV 09/22/24 17:45 Q15MIN PRN BG 50-70 responsive npo pt Dextrose 50 ml 08/23/24 17:46 Dextrose 50%-Water Inj 50 Ml Syringe IV 09/22/24 17:45 Q15MIN PRN BG <50 OR BG <70 & pt unresponsive Enoxaparin Sodium 40 mg 08/28/24 10:30 Enoxaparin Sod Inj 40 Mg/0.4 Ml Syringe SC 09/11/24 10:29 QDAY AJAY Furosemide 40 mg 08/27/24 18:00 08/28/24 05:28 Furosemide Inj 10 Mg/Ml 4ml Vial IVP 09/26/24 17:59 40 mg BIDD AJAY Administration Glucagon 1 mg 08/23/24 17:46 Glucagon Inj 1 Mg Vial IM Q15MIN PRN BG <70, and no IV access Norepinephrine/Dextrose 8 mg in 250 mls @ 6.506 mls/hr 08/23/24 12:20 08/28/24 11:00 Levophed In D5w 8mg/250ml IV 09/22/24 12:19 0.05 mcg/kg/min .Q24H PRN 6.506 mls/hr PER PROTOCOL Titration Protocol 0.05 MCG/KG/MIN Fentanyl Citrate 2,500 mcg in 250 mls @ 2.5 mls/hr 08/24/24 08:20 08/28/24 11:00 Sublimaze Inj 2,500 Mcg/250 Ml Bag IV 08/28/24 16:37 225 mcg/hr .Q24H PRN 22.5 mls/hr PER PROTOCOL Titration Protocol 25 MCG/HR Dexmedetomidine/Sodium Chloride 400 mcg in 100 mls @ 3.695 mls/hr 08/25/24 18:40 08/28/24 09:00 Precedex Ivpb IV 09/24/24 18:39 Infused .Q24H PRN Titration Per PROTOCOL Protocol 0.2 MCG/KG/HR Meropenem 1,000 mg/ Sodium 50 mls @ 100 mls/hr 08/26/24 21:00 08/28/24 09:11 Chloride IV 09/02/24 20:59 Infused Q12HR AJAY Infusion Ampicillin Sodium 2,000 mg/ 100 mls @ 100 mls/hr 08/27/24 12:00 08/28/24 11:27 Sodium Chloride IV 09/03/24 11:59 Infused Q4HR AJAY Infusion Propofol 1,000 mg in 100 mls @ 2.082 mls/hr 08/28/24 04:20 08/28/24 11:00 Diprivan Ivpb IV 09/23/24 10:55 15 mcg/kg/min .Q24H PRN 6.246 mls/hr PER PROTOCOL Titration Protocol 5 MCG/KG/MIN Dexmedetomidine HCl 400 mcg/ 100 mls @ 3.84 mls/hr 08/28/24 08:42 08/28/24 11:00 Sodium Chloride IV 09/27/24 08:37 1.4 mcg/kg/hr .Q24H PRN 26.88 mls/hr Per PROTOCOL Titration Protocol 0.2 MCG/KG/HR Insulin Human Lispro 0 unit 08/23/24 18:00 08/28/24 07:08 Insulin Lispro (Admelog) 1 Unit/0.01 Ml Unit SC 09/22/24 17:59 Not Given Q6HR AJAY Protocol Magnesium Hydroxide 30 ml 08/23/24 13:03 Milk Of Magnesia Susp 30 Ml Udc PO 09/22/24 13:02 QDAY PRN CONSTIPATION Pantoprazole Sodium 40 mg 08/25/24 13:30 08/28/24 08:32 Pantoprazole Inj 40 Mg Vial IVP 09/24/24 13:29 40 mg BID AJAY Administration Polyethylene Glycol 17 gm 08/24/24 16:00 08/28/24 08:34 Polyethylene Glycol 17 Gm Packet GT 09/23/24 15:59 17 gm QDAY AJAY Administration Sennosides 1 tab 08/24/24 21:00 08/28/24 08:32 Senna Tablet GT 09/23/24 20:59 1 tab BID AJAY Administration Protocol Sodium Chloride 3 ml 08/25/24 11:01 08/25/24 11:40 Sodium Chloride Rt Jelly 0.9% 3 Ml Nebu INH 09/24/24 11:00 3 ml PRN PRN Administration SOLN Plan The patient is a 73-year-old female with significant past medical history of hypertension, DM 2, hyperlipidemia, dementia, hyperthyroidism, CVA with right-sided deficit, chronic G-tube, HFpEF and double of mental delay disorder presented from [facility] for SOB for 1 day and is admitted to ICU for further management of septic shock secondary aspiration pneumonia . 08/28/2024: The patient was evaluated at the bedside this morning. The patient remained sedated and mechanically ventilated. She was also on Levophed. Physical exam was significant for 2+ pitting edema, right IJ catheter on place, mild bruises over bilateral upper extremities that has been improving. Tachycardia has resolved. Labs are significant for hemoglobin stable at 8.9, ABG with pH 7.35, pO2 63, bicarb 18. Labs are significant For sodium 151, BUN and creatinine trended up to 42 and 1.4 respectively. Calculated osmolality 313, phosphorus 5.8. CXR was significant for ARDS pattern with pneumonia prominent on right side, and suggestive of associated mild CHF. We increased the water flush to 70 cc every hourly, we will continue with sedatives as patient seems to be in mild respiratory distress, but we will stop Precedex. Repeat blood culture is pending and thrombocytopenia has improved. We will continue with meropenem and ampicillin. 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 She is verbally none comprehensive. Cardio: #Shock More likely septic shock contributed by sedatives Secondary to aspiration pneumonia and bacteremia During admission met 3/4 SIRS criteria with pulse 101, RR 32, and WBC 28.3, lactic acid trended up to 5.8. Patient was given around 15 L of IV fluids since admission, and is net positive by 11.2 L. Respiratory secretions sputum culture grew enterobacter cloacae that was multidrug-resistant, blood culture only positive on 1 bottle with GPC on aerobic and anaerobes, final results pending -Continue to treat underlying cause with antibiotics -Placed Rt IJ Central line access 08/25/24 -Lactic acid trended down -Daily a.m. labs for CBC, CMP and electrolytes #Volume overload secondary to excessive fluid resuscitation Patient received about 16 liters of fluid since admission, and is still net positive by 9.5 L. -Continue on Lasix 40 Mg IV twice daily -Continue to monitor I&O's #Sinus tachycardia, resolved Secondary to AHRF 2/2 aspiration PNA -Management as per Pulm #History of HTN -Currently patient's BP is stable Pulmonary: #Acute hypoxic respiratory failure 2/2 #Pulmonary edema 2/2 volume overload due to excessive fluid resuscitation, and #Aspiration pneumonia Secondary to right-sided pneumonia, likely aspiration pneumonia as patient had episodes of vomiting during presentation, associated with pulmonary edema in the setting of volume overload as patient was given around 15 L of IV fluids and is positive by 9.5 L of fluids since admission Patient was initially placed on HF NC, later on oxy mask and during ex laparotomy she was intubated ET secretion grew Enterococcus faecalis and Enterobacter cloacae, Enterococcus faecalis sensitive to ampicillin and Enterobacter cloacae sensitive to meropenem -Patient was intubated again following extubation, due to failed extubation -Zosyn switched to meropenem 1 g 3 times daily on 08/26/2024 -Added vancomycin on 08/24 -ABG in the a.m. GI: #Esophageal ulcer #Gastric ulcer #Duodenal ulcer #Chronic PEG tube -EGD was done on 08/26/2024 and findings were consistent with esophageal, gastric and duodenal ulcer -GI Dr. Arreola consulted, appreciate recommendations -We will continue on IV pantoprazole 40 Mg twice daily -Started on PEG tube feed #Gallstone ileus -Dr. Goldsmith performed ex laparotomy and billiary stone was removed without repair of fistula due to multiple co-morbidity. Dressings were changed. Renal: #SARAI Prerenal secondary to renal congestion in the setting of excessive fluid resuscitation since admission, still patient is positive by 9.5 L since admission. -Continue with IV diuretics -Avoid nephrotoxic drugs -Repeat renal panel in the a.m. #Hyperphosphatemia Secondary to SARAI -Continue to monitor -May need to add sevelamer phosphorus continues to trend up #Mild hyperosmolar hypernatremia Secondary to free water deficit, but patient seems to be volume overloaded in the setting of excessive fluid resuscitation -Free water flushes 70 cc/h started #Pseudohyponatremia, resolved #Lactic acidosis, resolved #Hypercalcemia, resolved #Asymptomatic bacteriuria Patient is verbally none comprehensive, it is difficult to distinguish with UTI -On antibiotics Endo: #Diabetes mellitus type 2 -On sliding scale insulin #Hyperthyroidism -Will resume home medication methimazole 5 mg twice daily after extubating the patient Hematology: #Bacteremia Blood culture grew Enterobacter faecalis, sensitive to ampicillin -Started on ampicillin 2 g IV every 4 hourly, has already completed 3 days of vancomycin, we will continue with ampicillin for 4 days until 08/31/2024 -Repeated blood culture, pending results #Leukocytosis, resolved Secondary to aspiration pneumonia -Manage the underlying cause -Daily a.m. CBC #Anemia, stable Likely acute blood loss anemia in the setting of recent surgery followed by possible upper GI bleeding, as patient was sanguinous drainage during slow intermittent suctioning from PEG tube. Hemoglobin of 6.5 this morning, repeat hemoglobin was 6.7. MCV WNL -1 unit PRBC transfused, we will need to post transfusion H&H -GI Dr. Arreola consulted, appreciate recommendations -Monitor H&H and replete if hemoglobin less than 7. #Thrombocytopenia, resolved Etiology unknown at this point, less likely shock liver as liver enzymes WNL, and patient has not received any heparin or enoxaparin in the last 15 days. -Continue to monitor with daily CBC -Monitor for any active bleeding ID: -On meropenem as above -Discontinue vancomycin -Started on ampicillin for Enterococcus faecalis MSK/skin: -Clean surgical site -Mild bruises over BL forearm -Continue to monitor Health maintenance: Dispo: Patient admitted to ICU for further management of septic shock requiring pressure support DVT prophylaxis: On Lovenox 40 Mg subcu Diet: Tube feed Lines: Peripheral lines, Rt IJ catheter CODE STATUS: Full code The patient's management plan was discussed with my attending physician MD Lorenzo Brewer MD, PGY2
[2024-08-28] MEDS: INSULIN LISPRO (AdmeLOG) 1 UNIT/0.01 ML UNIT SC ×2 (12:11→17:47)
[2024-08-28] MEDS: ENOXAPARIN SOD INJ 40 MG/0.4 ML SYRINGE SC (12:12)
--- NOTE | 2024-08-28 12:47 | ESPR_ITS ---
Documentation for date of: 08/28/24 Subjective Subjective Interval history: This is a 73-year-old female who presented to the hospital on 23 August. She was originally admitted for nausea and vomiting and CT showed small bowel obstruction secondary to a large gallstone. Surgery was consulted and the patient underwent an enterotomy with stone removal and repair of the enterotomy. She was left intubated and transferred to the ICU. Overnight there have been no acute issues. Sedation was held this morning and once the sedation was held her vasopressor requirements disappeared. She was awake and interactive. She met weaning parameters and decision was made to extubate her. Upon extubation patient was noted to have difficulty clearing her secretions. She was deep suctioned multiple times. At one point in time it also appeared that she might have stridor and was treated with racemic epi. She continued to have increased work of breathing and difficulty clearing secretions therefore the decision was made to reintubate her. 08/26-no acute overnight events, good urinary output though remains significantly net positive, afebrile, hypokalemic this morning 08/27- good UOP net neg last 24hr, afebrile, 08/28- overnight had resp distress with breath stacking on the vent reason for which propofol was added. When the propofol was started the patient became more hypotensive and Levophed requirements increased. She is on diuresis and has had good urinary output. Critical Care Note Critical care time (min.): 41 Exam Vital Signs Temp Pulse Resp BP Pulse Ox O2 Del Method O2 Flow Rate 98.2 F 93 28 H 102/64 99 Mechanical Ventilation 5 08/28/24 07:00 08/28/24 11:38 08/28/24 11:38 08/28/24 11:38 08/28/24 11:38 08/28/24 07:00 08/25/24 11:48 FiO2 40 08/28/24 11:38 Narrative Exam Fleuafl-wbm-gkvzlkcmn, elderly, frail HEENT-normocephalic, atraumatic, sclera icteric, pupils reactive, ET tube in place Chest-lungs with some crackles at bases, occasional expiratory wheezes, coarse, heart rate regular and rhythmic, no bruits or murmurs auscultated, some increased work of breathing with breath stacking noted on the ventilator Abdomen-soft, nontender, obese, PEG tube in place Extremities-some edema, pulses palpable, no clubbing or cyanosis, no mottling Vent PRVC Drips Propofol Precedex Fentanyl Levophed Physical Exam Completion Physical Exam Complete?: Yes 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 Labs 08/28/24 04:52 08/28/24 04:52 Labs: Laboratory Results - last 24 hr 08/27/24 08/28/24 08/28/24 12:50 04:20 04:30 WBC RBC Hgb Hct MCV MCH MCHC RDW Std Deviation Plt Count Neut % (Auto) Lymph % (Auto) [place] % (Auto) Eos % (Auto) Baso % (Auto) Neut # (Auto) Lymph # (Auto) [place] # (Auto) Eos # (Auto) Baso # (Auto) Immature Gran # (Auto) Absolute Nucleated RBC Immature Gran % Nucleated RBC % Puncture Site Right Radial ABG pH 7.26 L D ABG pCO2 39 D ABG pO2 73 L ABG HCO3 17 L ABG O2 Saturation 93 ABG Base Excess -9 L FiO2 40 Sodium Potassium 4.2 D Chloride Carbon Dioxide Anion Gap BUN Creatinine Estim Creat Clear Calc eGFR BUN/Creatinine Ratio Glucose Calculated Osmolality Lactic Acid 1.5 Calcium Corrected Calcium Phosphorus Magnesium Total Bilirubin AST ALT Alkaline Phosphatase Total Protein Albumin Globulin Albumin/Globulin Ratio 08/28/24 08/28/24 08/28/24 04:52 05:30 07:11 WBC 7.6 D RBC 2.88 L Hgb 8.9 L Hct 28.1 L MCV 98 MCH 30.9 MCHC 31.7 RDW Std Deviation 59.5 H Plt Count 146 D Neut % (Auto) 93 H Lymph % (Auto) 2 L [place] % (Auto) 4 Eos % (Auto) 0 Baso % (Auto) 0 Neut # (Auto) 7.1 Lymph # (Auto) 0.2 L [place] # (Auto) 0.3 Eos # (Auto) 0.0 Baso # (Auto) 0.0 Immature Gran # (Auto) 0.05 H Absolute Nucleated RBC 0.00 Immature Gran % 1 H Nucleated RBC % 0 Puncture Site Left Brachial ABG pH 7.35 ABG pCO2 33 ABG pO2 63 L ABG HCO3 18 L ABG O2 Saturation 91 ABG Base Excess -7 L FiO2 21 Sodium 151 H Potassium 3.6 D Chloride 112 H Carbon Dioxide 23.0 Anion Gap 16 BUN 42 H Creatinine 1.4 H Estim Creat Clear Calc 32.8 L eGFR 40 L BUN/Creatinine Ratio 30 H Glucose 157 H Calculated Osmolality 313 H Lactic Acid Cancelled Calcium 8.6 Corrected Calcium 9.6 Phosphorus 5.8 H Magnesium 1.7 Total Bilirubin 0.4 AST 19 ALT 13 Alkaline Phosphatase 100 Total Protein 5.0 L Albumin 2.8 L Globulin 2.2 L Albumin/Globulin Ratio 1.3 Assessment & Plan Additional Assessment Additional Assessment: In summary this is 73-year-old female admitted to the ICU for acute hypoxic respiratory failure who is also status post 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 However after extubation she had an increased work of breathing and difficulty clearing her secretions. She was deep suctioned multiple times however with only modest success. she was reintubated - continue with lasix - improvement in FiO2 needs -Breathing over the vent with a respiratory rate in the high 20s low 30s -Not ready for weaning at this point in time Aspiration PNA- sputum cx growing GPC and GNR-> resulted out asEnterococcus and Enterobacter, on vanc and zosyn switched to meropenem - on mucomyst/duonebs - CPT q4hrs Renal Renal calculi HypoK- replete IV HyperNa- add free water to tube feeds SARAI- prerenal v septic ATN - good UOP on lasix - monitor i/os - avoid nephrotoxins (vanc stopped) GI SBO s/p enterotomy- followed by surgery and doing well Gallbladder small bowel fistula GI bleed- PPI q12 - transfused 1uPRBCs - fu h/h - EGD done 08/26 which showed gastric ulcers/duodenal ulcers/esophageal ulcers but no active bleeding at that time - GI recs appreciated Endo Stable Heme Leukocytosis- resolved Anemia- transfused 1uPRBCs 08/26 - blood loss anemia - 2/2 mult gastric ulcers noted on EGD yesterday Thrombocytopenia- slight drop - likely 2/2 sepsis DVT proph- started on chemical proph today ID ? UTI- UA with WBC and rare bacteria Pneumonia-on antibiotics Bacteremia-patient had 1 out of 2 blood cultures with GPC's that are currently still awaiting identification - resulted as enterococcus - repeat Bx obtained and pending case d/w ICU team d/w conservator 2 days ago labs, imaging, records reviewed ~41 ccmin required for eval, exam, review, intervention, discussion and formulation of POC for this critically ill pt with acute resp failure on MV at high risk for further and ongoing decompensation Provider Notation Provider Notation: Although this document has been carefully reviewed, there may still be some phonetic and other typographical errors. These errors are purely grammatical due to imperfections in the software program and should not be construed in any way to compromise the substance of the patient's medical care during this visit. Thank you for the opportunity and privilege in assisting you with this patient's care and management.
[2024-08-28 13:20] LABS: Phosphorous 4.7 mg/dL (2.4-5.1)
--- NOTE | 2024-08-28 15:20 | ESPR_ITS ---
Documentation for date of: 08/28/24 Subjective Subjective Interval history: Slight drop in hemoglobin hematocrit to 8.9 and 28.1 No signs of any active bleeding Exam Vital Signs Temp Pulse Resp BP Pulse Ox O2 Del Method O2 Flow Rate 98.2 F 93 28 H 102/64 99 Mechanical Ventilation 5 08/28/24 07:00 08/28/24 11:38 08/28/24 11:38 08/28/24 11:38 08/28/24 11:38 08/28/24 07:00 08/25/24 11:48 FiO2 40 08/28/24 11:38 Objective Labs 08/28/24 04:52 08/28/24 04:52 Labs: Laboratory Results - last 24 hr 08/28/24 08/28/24 08/28/24 04:20 04:30 04:52 WBC 7.6 D RBC 2.88 L Hgb 8.9 L Hct 28.1 L MCV 98 MCH 30.9 MCHC 31.7 RDW Std Deviation 59.5 H Plt Count 146 D Neut % (Auto) 93 H Lymph % (Auto) 2 L [place] % (Auto) 4 Eos % (Auto) 0 Baso % (Auto) 0 Neut # (Auto) 7.1 Lymph # (Auto) 0.2 L [place] # (Auto) 0.3 Eos # (Auto) 0.0 Baso # (Auto) 0.0 Immature Gran # (Auto) 0.05 H Absolute Nucleated RBC 0.00 Immature Gran % 1 H Nucleated RBC % 0 Puncture Site Right Radial ABG pH 7.26 L D ABG pCO2 39 D ABG pO2 73 L ABG HCO3 17 L ABG O2 Saturation 93 ABG Base Excess -9 L FiO2 40 Sodium 151 H Potassium 3.6 D Chloride 112 H Carbon Dioxide 23.0 Anion Gap 16 BUN 42 H Creatinine 1.4 H Estim Creat Clear Calc 32.8 L eGFR 40 L BUN/Creatinine Ratio 30 H Glucose 157 H Calculated Osmolality 313 H Lactic Acid 1.5 Calcium 8.6 Corrected Calcium 9.6 Phosphorus 5.8 H Magnesium 1.7 Total Bilirubin 0.4 AST 19 ALT 13 Alkaline Phosphatase 100 Total Protein 5.0 L Albumin 2.8 L Globulin 2.2 L Albumin/Globulin Ratio 1.3 08/28/24 08/28/24 08/28/24 05:30 07:11 12:39 WBC RBC Hgb Hct MCV MCH MCHC RDW Std Deviation Plt Count Neut % (Auto) Lymph % (Auto) [place] % (Auto) Eos % (Auto) Baso % (Auto) Neut # (Auto) Lymph # (Auto) [place] # (Auto) Eos # (Auto) Baso # (Auto) Immature Gran # (Auto) Absolute Nucleated RBC Immature Gran % Nucleated RBC % Puncture Site Left Brachial ABG pH 7.35 ABG pCO2 33 ABG pO2 63 L ABG HCO3 18 L ABG O2 Saturation 91 ABG Base Excess -7 L FiO2 21 Sodium Potassium Chloride Carbon Dioxide Anion Gap BUN Creatinine Estim Creat Clear Calc eGFR BUN/Creatinine Ratio Glucose Calculated Osmolality Lactic Acid Cancelled Calcium Corrected Calcium Phosphorus 4.7 Magnesium Total Bilirubin AST ALT Alkaline Phosphatase Total Protein Albumin Globulin Albumin/Globulin Ratio Impressions Impression: #Distal esophageal erosions/ulcers # Shallow gastric ulcers # Erosive duodenitis Continue Protonix Follow CBC ABG Interpretation ABG results: 08/23/24 08/23/24 08/25/24 16:06 22:31 07:30 ABG pH 7.22 L 7.25 L 7.35 D ABG pCO2 45 43 37 ABG pO2 90 68 L D 79 L ABG HCO3 19 L 19 L 20 ABG O2 Saturation 95 91 96 ABG Base Excess -9 L -8 L -5 L VBG pH VBG pCO2 VBG pO2 VBG Base Excess 08/25/24 08/26/24 08/26/24 13:14 04:20 11:31 ABG pH 7.23 L D 7.38 D ABG pCO2 43 37 ABG pO2 358 H D 85 D ABG HCO3 18 L 22 ABG O2 Saturation 101 H 98 ABG Base Excess -9 L -3 VBG pH 7.34 VBG pCO2 38 VBG pO2 122 H VBG Base Excess -5 L 08/27/24 08/28/24 08/28/24 07:51 04:20 07:11 ABG pH 7.41 7.26 L D 7.35 ABG pCO2 29 L 39 D 33 ABG pO2 66 L 73 L 63 L ABG HCO3 19 L 17 L 18 L ABG O2 Saturation 94 93 91 ABG Base Excess -5 L -9 L -7 L VBG pH VBG pCO2 VBG pO2 VBG Base Excess Assessment & Plan A&P Narrative # Occult GI bleeding most likely upper requiring blood transfusion initial presentation in the form of melena Plan is Fiberoptic esophagogastroduodenoscopy with possible biopsy possible therapeutic intervention under intravenous moderate sedation scheduled for today Further evaluation after above Other medical problems include # Acute hypoxic respiratory failure requiring endotracheal intubation and mechanical ventilation # GPC and GNR in the tracheal culture patient on IV meropenem # Acute posthemorrhagic anemia requiring blood transfusion # 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
[2024-08-28] MEDS: Artificial Tears 225 DROP/15 ML BTL BOTH EYES (16:31)
[2024-08-28] MEDS: PROPOFOL 1,000 MG IVPB 1,000 MG/100 ML VIAL 10.41 MG IV (16:49)
--- NOTE | 2024-08-28 19:03 | XR_ITS ---
Examination: AP chest single view Technique: AP portable supine chest single view Exam date and time: August [id number] hrs. Comparison August 28, 2024 0628 hrs. Indications: Sepsis Findings: No significant change in bilateral pneumonia, severe in the right lung Mild enlargement cardiac contour Right internal jugular central line tip SVC Endotracheal tube tip 6.7 cm above tamir Impression: No significant change in bilateral pneumonia, severe right lung
[2024-08-28] MEDS: HYDROmorphone INJ 2 MG/ML VIAL IVP (19:11)
[2024-08-28 20:07] LABS: Base Excess -2 (-3-3); HCO3 23 mEq/L (20-26); Inspired Oxygen, FIO2 40 %; O2 Saturation 90 % (91-98); PCO2 40 mmHg (32.0-48.0); pH, Arterial 7.37 (7.35-7.45)
[2024-08-28 20:10] LABS: PO2 59 mmHg (83-108)
[2024-08-28 20:11] LABS: Allen Test Not Performed; Puncture Site Left Radial
[2024-08-28] MEDS: MIDAZOLAM INJ 1 MG/ML VIAL 2 ML 2 MG IV (22:53)
[2024-08-28] MEDS: PROPOFOL 1,000 MG IVPB 1,000 MG/100 ML VIAL 20.82 MG IV (23:35)
[2024-08-29] VITALS (109 sets, daily range): BP systolic 67–147; BP diastolic 44–94; PULSE 101–152; RESP 20–38; TEMP 36.7–37.2; O2SAT 86–100; BMI 31.3
[2024-08-29] MEDS: INSULIN LISPRO (AdmeLOG) 1 UNIT/0.01 ML UNIT SC ×4 (00:14→18:09)
[2024-08-29] MEDS: Norepinephrine/D5W 8mg/250ml 8 MG/250 ML BAG 14.314 MG IV (00:20)
[2024-08-29] MEDS: fentaNYL 2,500 MCG/250 ML BAG 2,500 MCG/250 ML BAG 22.5 MCG IV (00:21)
[2024-08-29 01:29] LABS: Allen Test Not Performed; Base Excess -2 (-3-3); HCO3 22 mEq/L (20-26); Inspired Oxygen, FIO2 40 %; O2 Saturation 93 % (91-98); PCO2 37 mmHg (32.0-48.0); PO2 64 mmHg (83-108); Puncture Site Left Radial; pH, Arterial 7.39 (7.35-7.45)
[2024-08-29] MEDS: ACETYLCYSTEINE SOL 20% 4 ML NEBU 3 ML INH ×6 (03:10→22:51)
[2024-08-29] MEDS: ALBUTEROL/IPRATROPIUM (Duoneb) RT SOL 3 ML NEBU INH ×6 (03:10→22:51)
[2024-08-29] MEDS: Ampicillin Inj 2,000 MG in SODIUM CHLORIDE 0.9% (P) 100 ML 100 MG IV ×6 (03:22→21:12)
[2024-08-29 04:36] LABS: Base Excess -2 (-3-3); HCO3 22 mEq/L (20-26); Inspired Oxygen, FIO2 40 %; O2 Saturation 98 % (91-98); PCO2 31 mmHg (32.0-48.0); PO2 88 mmHg (83-108); pH, Arterial 7.46 (7.35-7.45)
[2024-08-29 04:53] LABS: Allen Test Performed/OK; Puncture Site Left Radial
[2024-08-29 05:33] LABS: Basophils % (Auto) 0 % (0-2.5); Eosinophils % (Auto) 0 % (0-10); Hematocrit 29.3 % (36.0-46.0); Hemoglobin 9.5 g/dL (12.0-16.0); Immature Granulocytes % (Auto) 1 % (0-0); Immature Granulocytes Auto 0.04 Thou/mm3 (0.00-0.00); Lymphocytes # (Auto) 0.4 Thou/mm3 (1.0-4.8); Lymphocytes % (Auto) 8 % (10-50); Mean Corpuscular HGB Conc 32.4 g/dl (31.0-37.0); Mean Corpuscular Hemoglobin 30.9 pg (25.0-35.0); Mean Corpuscular Volume 95 fL (80-100); Monocytes # (Auto) 0.2 Thou/mm3 (0.0-0.8); Monocytes % (Auto) 4 % (0-12); Neutrophils # (Auto) 4.8 Thou/mm3 (1.8-7.7); Neutrophils % (Auto) 87 % (37-80); Nucleated Red Blood Cell % 0 /100 WBC (0); Platelet Count 107 Thou/mm3 (140-440); RDW Standard Deviation 57.1 fL (36.4-46.3); Red Blood Count 3.07 Miln/mm3 (4.00-5.20); White Blood Count 5.5 Thou/mm3 (3.6-11.0)
[2024-08-29] MEDS: FUROSEMIDE INJ 10 MG/ML 4ML VIAL 40 MG IVP ×3 (05:56→21:12)
[2024-08-29 06:04] LABS: Alanine Aminotransferase 14 U/L (10-49); Albumin, Serum 2.9 gm/dL (3.4-4.8); Albumin/Globulin Ratio 1.2 (1.2-2.2); Alkaline Phosphatase 109 U/L (46-116); Anion Gap 13 (7-16); Aspartate Amino Transferase 21 U/L (0-34); BUN/Creatinine Ratio 26 Ratio (12-20); Bilirubin,Total 0.4 mg/dL (0.3-1.2); Blood Urea Nitrogen 39 mg/dL (9-23); Calcium 8.8 mg/dL (8.3-10.6); Calcium (Corrected) 9.7 mg/dL (8.5-10.1); Chloride 112 mMol/L (98-107); Creatinine (Component) 1.5 mg/dL (0.6-1.3); Estimated Creatinine Clearance 32.3 mL/min (>60); Globulin 2.4 gm/dL (2.3-3.5); Glucose 192 mg/dL (74-106); Magnesium 1.8 mg/dL (1.6-2.6); Osmolality,Calculated 303 (275-295); Phosphorous 3.9 mg/dL (2.4-5.1); Potassium 3.4 mMol/L (3.4-5.1); Sodium 145 mMol/L (136-145); Total Protein 5.3 gm/dL (5.7-8.2); eGFR 37 See Note
[2024-08-29 07:54] LABS: Base Excess -2 (-3-3); HCO3 23 mEq/L (20-26); Inspired Oxygen, FIO2 30 %; O2 Saturation 82 % (91-98); PCO2 39 mmHg (32.0-48.0); pH, Arterial 7.38 (7.35-7.45)
[2024-08-29 08:05] LABS: Allen Test Performed/OK; PO2 48 mmHg (83-108); Puncture Site Left Radial
[2024-08-29] MEDS: PANTOPRAZOLE INJ 40 MG VIAL IVP ×2 (08:05→20:50)
[2024-08-29] MEDS: MIDAZOLAM INJ 1 MG/ML VIAL 2 ML 2 MG IV ×2 (08:05→13:36)
[2024-08-29] MEDS: ENOXAPARIN SOD INJ 40 MG/0.4 ML SYRINGE SC (08:05)
[2024-08-29] MEDS: bisacodyL 10 MG SUPP PR (08:05)
[2024-08-29] MEDS: SENNA TABLET 1 TAB GT ×2 (08:06→20:49)
[2024-08-29] MEDS: POLYETHYLENE GLYCOL 17 GM PACKET GT (08:06)
--- NOTE | 2024-08-29 08:12 | EKG_ITS ---
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
[2024-08-29] MEDS: PROPOFOL 1,000 MG IVPB 1,000 MG/100 ML VIAL 14.574 MG IV (08:21)
[2024-08-29] MEDS: MEROPENEM INJ 1,000 MG in SODIUM CHLORIDE 0.9% (P) 50 ML 100 MG IV ×2 (08:22→20:50)
--- NOTE | 2024-08-29 08:38 | XR_ITS ---
Examination: AP chest single view TECHNIQUE: AP portable sitting chest single view Exam date and time: August 29, 2024 0847 hours Comparison August 2024 INDICATIONS: Reposition tracheal tube FINDINGS: Mild heart failure Mild enlargement cardiac contour with prominent vascular congestion Significant bibasilar pneumonia Endotracheal tube tip 5.8 cm above tamir Right internal jugular central line tip SVC satisfactory position IMPRESSION: Mild heart failure Significant bilateral pneumonia
[2024-08-29] MEDS: ROCURONIUM INJ 10 MG/ML VIAL 10 ML 50 MG IVP ×2 (08:44→13:36)
--- NOTE | 2024-08-29 09:05 | XR_ITS ---
Examination: AP chest single view Technique one AP portable sitting chest single view Exam date and time: August 29, 2024 0934 hours Comparison August 29, 2024 0844 hours INDICATIONS: Hypoxic respiratory failure, pneumonia, repositioned tracheal tube FINDINGS: Significant bilateral pneumonia Right internal jugular central line tip SVC satisfactory position Endotracheal tube tip 2.7 cm above the tamir IMPRESSION: Endotracheal tube tip 2.7 cm above tamir
[2024-08-29 10:05] LABS: Troponin I 4.416 ng/mL (0.0-0.045)
--- NOTE | 2024-08-29 11:36 | PD.SURPROG ---
Documentation for date of: 08/29/24 Subjective Subjective Brief History: 73F with HTN, HLD, DMII, hyperthyroidism, CVA with right-sided deficit, G tube, and developmental delay presenting for shortness of breath. Pt is accompanied by a caregiver from her living facility who was informed that pt had been vomiting prompting eval in ER. In ER pt has required HFNC, was found to have SBO due to gallstone ileus, with leukocytosis and lactic acidosis Narrative: Required paralysis today due to increased work of breathing and tachycardia, remaining afebrile with normal WBC, tolerating tube feeds with no residuals but has not yet had a BM Exam Vital Signs Temp Pulse Resp BP Pulse Ox O2 Del Method O2 Flow Rate 98.9 F 119 H 37 H 107/63 89 L Mechanical Ventilation 5 08/29/24 08:00 08/29/24 11:25 08/29/24 07:14 08/29/24 11:25 08/29/24 10:00 08/28/24 16:00 08/25/24 11:48 FiO2 35 08/29/24 08:00 Constitutional Constitutional: mild distress Routine Respiratory Exam Respiratory: Present patient mechanically ventilated Routine Abdominal Exam Abdominal: Present soft and wound (midline incision with molly intact, no erythema, no fluctuance); Absent tenderness or distended Results Results: Laboratory Laboratory results: results reviewed Assessment & Plan Plan 73F with HTN, HLD, DMII, hyperthyroidism, CVA with right-sided deficit, G tube, and developmental delay presenting for shortness of breath and vomiting, findings consistent with gallstone ileus s/p enterotomy, removal of stone and repair of enterotomy 08/23, continuing to require mechanical ventilation Tube feeds as tolerated Procedures Procedures Laparotomy, enterotomy with removal of gallstone
[2024-08-29] MEDS: fentaNYL 2,500 MCG/250 ML BAG 2,500 MCG/250 ML BAG 27.5 MCG IV (11:39)
--- NOTE | 2024-08-29 11:40 | ESPR_ITS ---
Documentation for date of: 08/29/24 Subjective Subjective Interval history: This is a 73-year-old female who presented to the hospital on 23 August. She was originally admitted for nausea and vomiting and CT showed small bowel obstruction secondary to a large gallstone. Surgery was consulted and the patient underwent an enterotomy with stone removal and repair of the enterotomy. She was left intubated and transferred to the ICU. Overnight there have been no acute issues. Sedation was held this morning and once the sedation was held her vasopressor requirements disappeared. She was awake and interactive. She met weaning parameters and decision was made to extubate her. Upon extubation patient was noted to have difficulty clearing her secretions. She was deep suctioned multiple times. At one point in time it also appeared that she might have stridor and was treated with racemic epi. She continued to have increased work of breathing and difficulty clearing secretions therefore the decision was made to reintubate her. 08/26-no acute overnight events, good urinary output though remains significantly net positive, afebrile, hypokalemic this morning 08/27- good UOP net neg last 24hr, afebrile, 08/28- overnight had resp distress with breath stacking on the vent reason for which propofol was added. When the propofol was started the patient became more hypotensive and Levophed requirements increased. She is on diuresis and has had good urinary output. 08/29- overnight continued to have episodes of vent dysynchrony , irregular HR and tachycardia, good UOP Critical Care Note Critical care time (min.): 45 Exam Vital Signs Temp Pulse Resp BP Pulse Ox O2 Del Method O2 Flow Rate 98.9 F 119 H 37 H 107/63 89 L Mechanical Ventilation 5 08/29/24 08:00 08/29/24 11:25 08/29/24 07:14 08/29/24 11:25 08/29/24 10:00 08/28/24 16:00 08/25/24 11:48 FiO2 35 08/29/24 08:00 Narrative Exam Gen- ill appearing, obese, elderly, frail HEENT- NC/AT, mucosa dry, sclera anicteric, ETT/OGT in place Chest-coarse breath sounds, crackles with occasional expiratory wheeze, use of accessory muscles, HRRR, tachycardic Abd- s/nt/bs+ , surgical wound clean Ext- edema, pulses palp, no clubbing, no mottling Vent AC VC Drips levo prop fent Physical Exam Completion Physical Exam Complete?: Yes Objective - Seamer Panty Hose Labs 08/29/24 04:38 08/29/24 04:38 Labs: Laboratory Results - last 24 hr 08/28/24 08/28/24 08/29/24 12:39 20:00 01:00 WBC RBC Hgb Hct MCV MCH MCHC RDW Std Deviation Plt Count Neut % (Auto) Lymph % (Auto) [place] % (Auto) Eos % (Auto) Baso % (Auto) Neut # (Auto) Lymph # (Auto) [place] # (Auto) Eos # (Auto) Baso # (Auto) Immature Gran # (Auto) Absolute Nucleated RBC Immature Gran % Nucleated RBC % Puncture Site Left Radial Left Radial ABG pH 7.37 7.39 ABG pCO2 40 37 ABG pO2 59 L* 64 L ABG HCO3 23 22 ABG O2 Saturation 90 L 93 ABG Base Excess -2 -2 FiO2 40 40 Sodium Potassium Chloride Carbon Dioxide Anion Gap BUN Creatinine Estim Creat Clear Calc eGFR BUN/Creatinine Ratio Glucose Calculated Osmolality Calcium Corrected Calcium Phosphorus 4.7 Magnesium Total Bilirubin AST ALT Alkaline Phosphatase Troponin I Total Protein Albumin Globulin Albumin/Globulin Ratio 08/29/24 08/29/24 08/29/24 04:07 04:38 07:39 WBC 5.5 RBC 3.07 L Hgb 9.5 L Hct 29.3 L MCV 95 MCH 30.9 MCHC 32.4 RDW Std Deviation 57.1 H Plt Count 107 L D Neut % (Auto) 87 H Lymph % (Auto) 8 L [place] % (Auto) 4 Eos % (Auto) 0 Baso % (Auto) 0 Neut # (Auto) 4.8 Lymph # (Auto) 0.4 L [place] # (Auto) 0.2 Eos # (Auto) 0.0 Baso # (Auto) 0.0 Immature Gran # (Auto) 0.04 H Absolute Nucleated RBC 0.00 Immature Gran % 1 H Nucleated RBC % 0 Puncture Site Left Radial Left Radial ABG pH 7.46 H 7.38 ABG pCO2 31 L 39 ABG pO2 88 D 48 L* D ABG HCO3 22 23 ABG O2 Saturation 98 82 L ABG Base Excess -2 -2 FiO2 40 30 Sodium 145 Potassium 3.4 Chloride 112 H Carbon Dioxide 20.0 Anion Gap 13 BUN 39 H Creatinine 1.5 H Estim Creat Clear Calc 32.3 L eGFR 37 L BUN/Creatinine Ratio 26 H Glucose 192 H Calculated Osmolality 303 H Calcium 8.8 Corrected Calcium 9.7 Phosphorus 3.9 Magnesium 1.8 Total Bilirubin 0.4 AST 21 ALT 14 Alkaline Phosphatase 109 Troponin I Total Protein 5.3 L Albumin 2.9 L Globulin 2.4 Albumin/Globulin Ratio 1.2 08/29/24 09:04 WBC RBC Hgb Hct MCV MCH MCHC RDW Std Deviation Plt Count Neut % (Auto) Lymph % (Auto) [place] % (Auto) Eos % (Auto) Baso % (Auto) Neut # (Auto) Lymph # (Auto) [place] # (Auto) Eos # (Auto) Baso # (Auto) Immature Gran # (Auto) Absolute Nucleated RBC Immature Gran % Nucleated RBC % Puncture Site ABG pH ABG pCO2 ABG pO2 ABG HCO3 ABG O2 Saturation ABG Base Excess FiO2 Sodium Potassium Chloride Carbon Dioxide Anion Gap BUN Creatinine Estim Creat Clear Calc eGFR BUN/Creatinine Ratio Glucose Calculated Osmolality Calcium Corrected Calcium Phosphorus Magnesium Total Bilirubin AST ALT Alkaline Phosphatase Troponin I 4.416 H* Total Protein Albumin Globulin Albumin/Globulin Ratio Assessment & Plan Additional Assessment Additional Assessment: In summary this is 73-year-old female admitted to the ICU for acute hypoxic respiratory failure who is also 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 of ST elevations - trops ordered and noted to be elevated - will trend however pt with recent GIB and gastric/duodenal/esophageal ulcers therefore not felt to be a candidate for heparin/asa/plavix - will consult Cards Resp Acute hypoxic resp failure-patient was extubated this morning after meeting weaning parameters. However after extubation she had an increased work of breathing and difficulty clearing her secretions. She was deep suctioned multiple times however with only modest success. she was reintubated - continue with lasix - improvement in FiO2 needs -Breathing over the vent with a respiratory rate in the high 20s low 30s -Not ready for weaning at this point in time Aspiration PNA- sputum cx growing GPC and GNR-> resulted out asEnterococcus and Enterobacter, on vanc and zosyn switched to meropenem and ampicillin - on mucomyst/duonebs - CPT q4hrs Renal Renal calculi HypoK- replete IV HyperNa- resolved now with free water SARAI- prerenal v septic ATN - good UOP on lasix - monitor i/os - avoid nephrotoxins (vanc stopped) GI SBO s/p enterotomy- followed by surgery and doing well Gallbladder small bowel fistula GI bleed- PPI q12 - transfused 1uPRBCs - fu h/h - EGD done 08/26 which showed gastric ulcers/duodenal ulcers/esophageal ulcers but no active bleeding at that time - GI recs appreciated Endo Stable Heme Leukocytosis- resolved Anemia- transfused 1uPRBCs 08/26 - blood loss anemia - 2/2 mult gastric ulcers noted on EGD Thrombocytopenia- slight drop - likely 2/2 sepsis - some improvement DVT proph- started on chemical proph today ID ? UTI- UA with WBC and rare bacteria Pneumonia-on antibiotics Bacteremia-patient had 1 out of 2 blood cultures with GPC's that are currently still awaiting identification - resulted as enterococcus - repeat Bx obtained and pending Fungemia- started on micafungin today - 1/2 bottles from 08/27 with yeast case d/w ICU team labs, imaging, records reviewed ~45 ccmin required for eval, exam, review, intervention, discussion and formulation of POC for this critically ill pt with acute resp failure on MV at high risk for further and ongoing decompensation Provider Notation Provider Notation: Although this document has been carefully reviewed, there may still be some phonetic and other typographical errors. These errors are purely grammatical due to imperfections in the software program and should not be construed in any way to compromise the substance of the patient's medical care during this visit. Thank you for the opportunity and privilege in assisting you with this patient's care and management.
[2024-08-29 12:58] LABS: Partial Thromboplastin Time 29.2 Seconds (22.0-36.0)
[2024-08-29] MEDS: HEPARIN SOD INJ 5000 UNIT/ML VIAL 4000 UNIT IV ×2 (13:20→20:47)
[2024-08-29] MEDS: Heparin/D5w 25K 250 ML Ivpb 25,000 UNIT/250 ML BAG 9.264 UNIT IV (13:21)
[2024-08-29] MEDS: MICAFUNGIN SODIUM INJ 100 MG in SODIUM CHLORIDE 0.9% 100 ML IV (13:22)
--- NOTE | 2024-08-29 13:46 | ESCONSULT_ITS ---
HPI Data of Consult Requesting Physician: June Mejia MD Admitting Provider: Darcy Appiah MD Attending Provider: June Mejia MD Primary Care Provider: Justin Alva MD Consult Narrative Reason for consult: Elevated troponins History of present illness: 73-year-old female with past medical history of HFpEF (60-65% 05/2024), dementia, CVA with right sided residual deficits, chronic G-tube, hyperthyroidism, DM2, hyperlipidemia, and developmental delay was admitted to the ICU on 08/23/2024 due to septic shock secondary to to gallstone ileus. In ED patient came in with complaints of shortness of breath. Patient is currently sedated and intubated therefore history was taken from chart review. Initially was tachypneic, tachycardic, mildly hypotensive. Initial labs showed WBC 28.3, Hgb 12.6, ABG (pH 7.22, pCO2 45, po2 90), sodium 132, potassium 5, chloride 97, BUN 34, creatinine 1, lactic acid 2.9, magnesium 2.2, lipase 105, and UA was positive for bacteria and leukocyte esterase. Initial imaging included chest x-ray which showed diffuse right lung pneumonia, abdomen/pelvis CT which showed bilateral staghorn renal calculi and possible gallstone ileus, and gallbladder U/S which reported gallstone ileus diagnosis. EKG showed sinus tachycardia. During the patient's hospital course she underwent laparotomy and enterotomy with removal of gallstone by general surgery on 08/23/2024. After this patient remained intubated as she failed extubation attempts due to respiratory distress. Patient also developed hypotension for which she was started on vasopressors. Patient's hemoglobin dropped on 08/26/2024 and she required 1 PRBC to be transfused. GI specialist was also consulted at this time for which patient underwent an EGD on 08/26/2024 and was found to have esophageal ulcers, nonbleeding gastric ulcers, and duodenal erosions without bleeding. Throughout the patient's hospital course she remained intubated and on the night of 08/28/2024 night ICU team thought they might have seen A-fib on the patient's monitor and an EKG was ordered. The ICU team follow-up on the patient's EKG order from last night and saw some ST changes for which to be ordered troponins and troponins came back at 4.416. During my assessment patient was sedated and intubated therefore no history can be taken as she could not provide any complaints. Repeat EKG on 08/29/2024 shows some right-sided ST changes, but this could be due due to past AR on prior days as patient cannot communicate any cardiac symptoms. Last echo on 06/13/2024 showed the following findings: Normal LV size and function. Stage I diastolic dysfunction. Estimated EF 60-65% Normal RV size and function. Trace MR, TR. cc:: cc: June Mejia MD Review of Systems Review of Systems ROS Unobtainable: unobtainable due to mental status, unobtainable due to medical condition and due to endotracheal tube Exam Vital Signs Temp Pulse Resp BP Pulse Ox O2 Del Method O2 Flow Rate 98.7 F 126 H 37 H 146/77 H 92 L Mechanical Ventilation 5 08/29/24 12:00 08/29/24 13:30 08/29/24 07:14 08/29/24 13:30 08/29/24 13:30 08/28/24 16:00 08/25/24 11:48 FiO2 50 08/29/24 12:00 Narrative Exam General: sedated and intubated Eyes: Pupils reactive to light Ears: no visible ear discharge, Hearing grossly intact. Nose: No visible nasal discharge. Mouth/Throat: Dry mucous membranes, no redness, no lesions. Neck: Neck supple, no cervical lymphadenopathy. Lungs: bronchial breath sounds Cardio: Normal S1/S2, tachycardic, no murmur, no JVD assessed Abdomen: Soft, no palpable masses, peristalsis present, no guarding or rebound. Surgical site covered with clean dressing and Peg tube in place without any bleeding. Extremities: Symmetrical, no significant deformities, no peripheral edema , non-tender, peripheral pulses presents. CARO UE swelling likely due to IV. Skin: No rashes, no lesions, warm to touch. Neuro: could not be assessed as patient on sedation Results Labs 08/30/24 03:00 08/30/24 03:00 Labs: Short CBC 08/29/24 Range/Units 04:38 WBC 5.5 (3.6-11.0) Thou/mm3 Hgb 9.5 L (12.0-16.0) g/dL Hct 29.3 L (36.0-46.0) % Plt Count 107 L D (140-440) Thou/mm3 BMP 08/29/24 04:38 Sodium 145 Potassium 3.4 Chloride 112 H Carbon Dioxide 20.0 BUN 39 H Creatinine 1.5 H Glucose 192 H Calcium 8.8 Cardiac Enzymes 08/29/24 Range/Units 09:04 Troponin I 4.416 H* (0.0-0.045) ng/mL Liver Function 08/29/24 Range/Units 04:38 Total Bilirubin 0.4 (0.3-1.2) mg/dL AST 21 (0-34) U/L ALT 14 (10-49) U/L Alkaline Phosphatase 109 (46-116) U/L Albumin 2.9 L (3.4-4.8) gm/dL ABG Interpretation ABG results: 08/23/24 08/23/24 08/25/24 16:06 22:31 07:30 ABG pH 7.22 L 7.25 L 7.35 D ABG pCO2 45 43 37 ABG pO2 90 68 L D 79 L ABG HCO3 19 L 19 L 20 ABG O2 Saturation 95 91 96 ABG Base Excess -9 L -8 L -5 L VBG pH VBG pCO2 VBG pO2 VBG Base Excess 08/25/24 08/26/24 08/26/24 13:14 04:20 11:31 ABG pH 7.23 L D 7.38 D ABG pCO2 43 37 ABG pO2 358 H D 85 D ABG HCO3 18 L 22 ABG O2 Saturation 101 H 98 ABG Base Excess -9 L -3 VBG pH 7.34 VBG pCO2 38 VBG pO2 122 H VBG Base Excess -5 L 08/27/24 08/28/24 08/28/24 07:51 04:20 07:11 ABG pH 7.41 7.26 L D 7.35 ABG pCO2 29 L 39 D 33 ABG pO2 66 L 73 L 63 L ABG HCO3 19 L 17 L 18 L ABG O2 Saturation 94 93 91 ABG Base Excess -5 L -9 L -7 L VBG pH VBG pCO2 VBG pO2 VBG Base Excess 08/28/24 08/29/24 08/29/24 20:00 01:00 04:07 ABG pH 7.37 7.39 7.46 H ABG pCO2 40 37 31 L ABG pO2 59 L* 64 L 88 D ABG HCO3 23 22 22 ABG O2 Saturation 90 L 93 98 ABG Base Excess -2 -2 -2 VBG pH VBG pCO2 VBG pO2 VBG Base Excess 08/29/24 07:39 ABG pH 7.38 ABG pCO2 39 ABG pO2 48 L* D ABG HCO3 23 ABG O2 Saturation 82 L ABG Base Excess -2 VBG pH VBG pCO2 VBG pO2 VBG Base Excess Quality Measures Quality Measures sepsis Current suspected stage: sepsis Possible source: unknown Blood cultures ordered: yes Antibiotic ordered: Yes Advance care planning discussed with:: patient Medications Home Medications and Allergies Home Medications ?Medication ?Instructions ?Recorded ?Confirmed ?Type acetaminophen 325 mg tablet 650 mg feeding tube Q4H PRN Pain 03/22/19 08/24/24 History bisacodyl 10 mg rectal suppository 10 mg KS PRN PRN Constipation 03/22/19 08/24/24 History linagliptin 5 mg tablet (Tradjenta) 5 mg feeding tube QDAY 03/22/19 08/24/24 History sennosides 8.6 mg tablet (senna) 8.6 mg feeding tube BID 03/22/19 08/24/24 History sertraline 50 mg tablet (Zoloft) 50 mg feeding tube QDAY 10/07/19 08/24/24 History atorvastatin 40 mg tablet 40 mg feeding tube HS 01/03/21 08/24/24 History furosemide 20 mg tablet 20 mg feeding tube QDAY PRN Edema 01/03/21 08/24/24 History polyethylene glycol 3350 17 17 g feeding tube QDAY PRN 01/03/21 08/24/24 History gram/dose oral powder (Miralax) Constipation clotrimazole 1 % topical cream 1 applic topical BID 06/12/24 08/24/24 History omeprazole 40 mg capsule,delayed 40 mg PO QPM 06/12/24 08/24/24 History release amlodipine 10 mg tablet 10 mg PO QPM 08/24/24 08/24/24 History doxycycline hyclate 100 mg tablet 100 mg PO BID 08/24/24 08/24/24 History prednisone 20 mg tablet 40 mg PO QDAY 08/24/24 08/24/24 History Allergies Allergy/AdvReac Type Severity Reaction Status Date / Time No Known Allergies Allergy Verified 06/12/24 10:23 Visit Medications Acetaminophen (Acetaminophen 325 Mg Tablet) 650 mg PO Q4HR PRN PRN Reason: PAIN SCALE 1-3 (mild Stop: 09/22/24 13:02 Acetaminophen (Acetaminophen Supp 650 Mg Supp) 650 mg KS Q4HR PRN PRN Reason: PAIN SCALE 1-3 (mild Stop: 09/22/24 13:02 Acetylcysteine (Acetylcysteine Jelly 20% 4 Ml Nebu) 3 ml INH Q4HRRT [facility] Stop: 09/24/24 10:59 Last Admin: 08/29/24 07:14 Dose: 3 ml Albuterol/Ipratropium (Albuterol/Ipratropium (Duoneb) Rt Jelly 3 Ml Nebu) 3 ml INH Q4HRRT [facility] Stop: 09/24/24 10:59 Last Admin: 08/29/24 07:14 Dose: 3 ml Artificial Tears (Artificial Tears 225 Drop/15 Ml Btl) 0 drop BOTH EYES PRN PRN PRN Reason: TO KEEP EYES MOIST Stop: 09/27/24 13:51 Last Admin: 08/28/24 16:31 Dose: 1 drop Atorvastatin Calcium (Atorvastatin Calcium 20 Mg Tablet) 80 mg GT HS [facility] Stop: 09/28/24 20:59 Bisacodyl (Bisacodyl 10 Mg Supp) 10 mg KS QDAY [facility]; Protocol Stop: 09/23/24 17:29 Last Admin: 08/29/24 08:05 Dose: 10 mg Dextrose (Dextrose 50%-Water Inj 50 Ml Syringe) 25 ml IV Q15MIN PRN PRN Reason: BG 50-70 responsive npo pt Stop: 09/22/24 17:45 Dextrose (Dextrose 50%-Water Inj 50 Ml Syringe) 50 ml IV Q15MIN PRN PRN Reason: BG <50 OR BG <70 & pt unresponsive Stop: 09/22/24 17:45 Furosemide (Furosemide Inj 10 Mg/Ml 4ml Vial) 40 mg IVP TID [facility] Stop: 09/28/24 11:59 Last Admin: 08/29/24 11:25 Dose: 40 mg Glucagon (Glucagon Inj 1 Mg Vial) 1 mg IM Q15MIN PRN PRN Reason: BG <70, and no IV access Norepinephrine/Dextrose (Levophed In D5w 8mg/250ml) 8 mg in 250 mls @ 6.506 mls/hr IV .Q24H PRN; Protocol PRN Reason: PER PROTOCOL Stop: 09/22/24 12:19 Last Titration: 08/29/24 08:30 Dose: 0.05 mcg/kg/min, 6.506 mls/hr Meropenem 1,000 mg/ Sodium (Chloride) 50 mls @ 100 mls/hr IV Q12HR [facility] Stop: 09/02/24 20:59 Last Admin: 08/29/24 08:22 Dose: 100 mls/hr Ampicillin Sodium 2,000 mg/ (Sodium Chloride) 100 mls @ 100 mls/hr IV Q4HR [facility] Stop: 09/03/24 11:59 Last Admin: 08/29/24 13:22 Dose: 100 mls/hr Propofol (Diprivan Ivpb) 1,000 mg in 100 mls @ 2.082 mls/hr IV .Q24H PRN; Protocol PRN Reason: PER PROTOCOL Stop: 09/23/24 10:55 Last Titration: 08/29/24 11:00 Dose: 35 mcg/kg/min, 14.574 mls/hr Fentanyl Citrate (Sublimaze Inj 2,500 Mcg/250 Ml Bag) 2,500 mcg in 250 mls @ 2.5 mls/hr IV .Q24H PRN; Protocol PRN Reason: PER PROTOCOL Stop: 09/02/24 15:59 Last Admin: 08/29/24 11:39 Dose: 275 mcg/hr, 27.5 mls/hr Micafungin Sodium 100 mg/ (Sodium Chloride) 100 mls @ 100 mls/hr IV QDAY [facility] Stop: 09/13/24 11:56 Last Admin: 08/29/24 13:22 Dose: 100 mls/hr Heparin Sodium/Dextrose (Heparin In D5w Ivpb) 25,000 unit in 250 mls @ 9.264 mls/hr IV .Q24H [facility]; Protocol Stop: 09/12/24 13:14 Last Admin: 08/29/24 13:21 Dose: 12 units/kg/hr, 9.264 mls/hr Insulin Human Lispro (Insulin Lispro (Admelog) 1 Unit/0.01 Ml Unit) 0 unit SC Q6HR [facility]; Protocol Stop: 09/22/24 17:59 Last Admin: 08/29/24 12:03 Dose: 1 unit Magnesium Hydroxide (Milk Of Magnesia Susp 30 Ml Udc) 30 ml PO QDAY PRN PRN Reason: CONSTIPATION Stop: 09/22/24 13:02 Pantoprazole Sodium (Pantoprazole Inj 40 Mg Vial) 40 mg IVP BID [facility] Stop: 09/24/24 13:29 Last Admin: 08/29/24 08:05 Dose: 40 mg Polyethylene Glycol (Polyethylene Glycol 17 Gm Packet) 17 gm GT QDAY [facility] Stop: 09/23/24 15:59 Last Admin: 08/29/24 08:06 Dose: 17 gm Sennosides (Senna Tablet) 1 tab GT BID [facility]; Protocol Stop: 09/23/24 20:59 Last Admin: 08/29/24 08:06 Dose: 1 tab Sodium Chloride (Sodium Chloride Rt Jelly 0.9% 3 Ml Nebu) 3 ml INH PRN PRN PRN Reason: SOLN Stop: 09/24/24 11:00 Last Admin: 08/25/24 11:40 Dose: 3 ml Discontinued Medications Acetaminophen (Acetaminophen 325 Mg Tablet) 650 mg PO Q4HR PRN PRN Reason: PAIN SCALE 1-3 (mild Stop: 09/22/24 12:38 Acetaminophen (Acetaminophen Supp 650 Mg Supp) 650 mg KS Q4HR PRN PRN Reason: PAIN SCALE 1-3 (mild Stop: 09/22/24 12:38 Al Hydrox/Mg Hydrox/Simethicone (Mg Hyd/Al Hyd/Yeimy (Maalox Reg) Susp 30 Ml Udc) 30 ml PO Q4HR PRN PRN Reason: Heartburn or Upset Stomach Stop: 09/22/24 12:38 Albuterol (Albuterol Rt 2.5 Mg/0.5 Ml Nebu) 5 mg INH X1 ONE Stop: 08/25/24 11:36 Last Admin: 08/25/24 11:40 Dose: 5 mg Bisacodyl (Bisacodyl 5 Mg Tabec) 10 mg PO QDAY [facility]; Protocol Stop: 09/23/24 15:59 Last Admin: 08/24/24 19:11 Dose: Not Given Dextrose (Dextrose 50%-Water Inj 50 Ml Syringe) 25 ml IV Q15MIN PRN PRN Reason: BG 50-70 responsive npo pt Stop: 09/22/24 12:50 Dextrose (Dextrose 50%-Water Inj 50 Ml Syringe) 50 ml IV Q15MIN PRN PRN Reason: BG <50 OR BG <70 & pt unresponsive Stop: 09/22/24 12:50 Enoxaparin Sodium (Enoxaparin Sod Inj 40 Mg/0.4 Ml Syringe) 40 mg SC QDAY [facility] Stop: 09/11/24 10:29 Last Admin: 08/29/24 08:05 Dose: 40 mg Epinephrine (Epinephrine Rt Jelly 0.5 Ml Nebu) 0.5 ml INH X1 ONE Stop: 08/25/24 11:02 Last Admin: 08/25/24 11:05 Dose: 0.5 ml Etomidate (Etomidate Inj 2 Mg/Ml Vial 10 Ml) 20 mg IVP X1 ONE Stop: 08/25/24 12:35 Last Admin: 08/25/24 12:35 Dose: 20 mg Furosemide (Furosemide Inj 10 Mg/Ml Vial 2 Ml) 40 mg IVP X1 ONE Stop: 08/25/24 14:50 Last Admin: 08/25/24 15:51 Dose: 40 mg Furosemide (Furosemide Inj 10 Mg/Ml 4ml Vial) 40 mg IVP X1 ONE Stop: 08/26/24 16:01 Last Admin: 08/26/24 16:59 Dose: 40 mg Furosemide (Furosemide Inj 10 Mg/Ml 4ml Vial) 40 mg IVP X1 ONE Stop: 08/27/24 09:26 Last Admin: 08/27/24 10:00 Dose: 40 mg Furosemide (Furosemide Inj 10 Mg/Ml 4ml Vial) 40 mg IVP BIDD [facility] Stop: 09/26/24 17:59 Last Admin: 08/29/24 05:56 Dose: 40 mg Heparin Sodium (Porcine) (Heparin Sod Inj 5000 Unit/Ml Vial) 4,000 unit IV X1 ONE; Protocol Stop: 08/29/24 13:16 Last Admin: 08/29/24 13:20 Dose: 4,000 unit Hydromorphone HCl (Hydromorphone Inj 2 Mg/Ml Vial) 2 mg IVP X1 ONE Stop: 08/28/24 19:04 Last Admin: 08/28/24 19:11 Dose: 2 mg Piperacillin/Tazobactam/Dextrose (Zosyn) 3.375 gm in 50 mls @ 100 mls/hr IV X1 ONE Stop: 08/23/24 05:20 Last Admin: 08/23/24 05:56 Dose: Not Given Sodium Chloride (Ns) 1,000 mls @ 999 mls/hr IV .Q1H1M ONE Stop: 08/23/24 06:40 Last Infusion: 08/23/24 08:21 Dose: Infused Sodium Chloride (Ns) 1,000 mls @ 999 mls/hr IV .Q1H1M ONE Stop: 08/23/24 06:40 Last Infusion: 08/23/24 08:21 Dose: Infused Piperacillin Sod/Tazobactam (Sod 3.375 gm/ Sodium Chloride) 50 mls @ 100 mls/hr IV X1 ONE Stop: 08/23/24 06:24 Last Infusion: 08/23/24 06:36 Dose: Infused Piperacillin Sod/Tazobactam (Sod 3.375 gm/ Sodium Chloride) 50 mls @ 100 mls/hr IV X1 ONE Stop: 08/23/24 06:28 Last Admin: 08/23/24 06:08 Dose: Not Given Sodium Chloride (Ns) 1,000 mls @ 999 mls/hr IV .Q1H1M ONE Stop: 08/23/24 09:55 Last Infusion: 08/23/24 10:51 Dose: Infused Sodium Chloride (Ns 0.45%) 1,000 mls @ 250 mls/hr IV .Q4H [facility] Stop: 09/22/24 10:45 Last Infusion: 08/23/24 17:00 Dose: Infused Piperacillin Sod/Tazobactam (Sod 3.375 gm/ Sodium Chloride) 100 mls @ 200 mls/hr IV Q6HR [facility] Stop: 08/30/24 11:59 Last Infusion: 08/23/24 14:03 Dose: Infused Vancomycin HCl 1,000 mg/ (Sodium Chloride) 250 mls @ 150 mls/hr IV X1 ONE Stop: 08/23/24 13:59 Last Admin: 08/23/24 18:42 Dose: Not Given Lactated Ringer's (Lactated Ringers) 1,000 mls @ 999 mls/hr IV .Q1H1M ONE Stop: 08/23/24 14:07 Last Infusion: 08/23/24 17:54 Dose: Infused Piperacillin/Tazobactam/Dextrose (Zosyn) 50 mls @ 12.5 mls/hr IV Q8HR [facility] Stop: 08/30/24 21:59 Piperacillin/Tazobactam/Dextrose (Zosyn) 50 mls @ 100 mls/hr IV Q6HR [facility] Stop: 08/30/24 17:59 Last Infusion: 08/24/24 07:00 Dose: Infused Propofol (Diprivan Ivpb) 1,000 mg in 100 mls @ 2.082 mls/hr IV .Q24H PRN; Protocol PRN Reason: PER PROTOCOL Stop: 09/22/24 15:42 Last Titration: 08/24/24 11:00 Dose: 35 mcg/kg/min, 14.574 mls/hr Fentanyl Citrate (Sublimaze Inj 2,500 Mcg/250 Ml Bag) 2,500 mcg in 250 mls @ 2.5 mls/hr IV .Q24H PRN; Protocol PRN Reason: PER PROTOCOL Stop: 08/28/24 16:37 Last Titration: 08/24/24 21:00 Dose: Infused Lactated Ringer's (Lactated Ringers) 1,000 mls @ 75 mls/hr IV .[id number] [facility] Stop: 08/24/24 17:48 Last Infusion: 08/25/24 03:00 Dose: Infused Lactated Ringer's (Lactated Ringers) 1,000 mls @ 999 mls/hr IV .Q1H1M ONE Stop: 08/24/24 02:20 Last Infusion: 08/24/24 02:49 Dose: Infused Vancomycin HCl 750 mg/Vancomycin HCl 500 mg/ Sodium Chloride 250 mls @ 120 mls/hr IV DAILY@1000 [facility]; Protocol Stop: 08/31/24 09:59 Last Admin: 08/26/24 09:02 Dose: 120 mls/hr Propofol (Diprivan Ivpb) 1,000 mg in 100 mls @ 2.169 mls/hr IV .Q24H PRN; Protocol PRN Reason: PER PROTOCOL Stop: 09/22/24 15:42 Fentanyl Citrate (Sublimaze Inj 2,500 Mcg/250 Ml Bag) 2,500 mcg in 250 mls @ 2.5 mls/hr IV .Q24H PRN; Protocol PRN Reason: PER PROTOCOL Stop: 08/28/24 16:37 Last Titration: 08/29/24 00:21 Dose: Infused Propofol (Diprivan Ivpb) 1,000 mg in 100 mls @ 2.169 mls/hr IV .Q24H PRN; Protocol PRN Reason: PER PROTOCOL Stop: 09/22/24 15:42 Last Titration: 08/25/24 08:00 Dose: 0 mcg/kg/min, 0 mls/hr Piperacillin/Tazobactam/Dextrose (Zosyn) 50 mls @ 12.5 mls/hr IV Q6HR [facility] Stop: 08/30/24 17:59 Last Admin: 08/26/24 05:23 Dose: 12.5 mls/hr Lactated Ringer's (Lactated Ringers) 500 mls @ 75 mls/hr IV .Q6H40M [facility] Stop: 08/25/24 01:55 Last Infusion: 08/25/24 04:03 Dose: Infused Dexmedetomidine/Sodium Chloride (Precedex Ivpb) 400 mcg in 100 mls @ 3.695 mls/hr IV .Q24H PRN; Protocol PRN Reason: Per PROTOCOL Stop: 09/24/24 18:39 Last Titration: 08/28/24 09:00 Dose: Infused Potassium Chloride (Kcl Ivpb) 10 meq in 100 mls @ 100 mls/hr IV Q1H [facility] Stop: 08/26/24 12:28 Last Admin: 08/26/24 06:41 Dose: Not Given Potassium Chloride (Kcl Ivpb) 20 meq in 100 mls @ 50 mls/hr IV Q2H [facility] Stop: 08/26/24 10:34 Last Admin: 08/26/24 06:57 Dose: Not Given Potassium Chloride (Kcl Ivpb) 20 meq in 100 mls @ 100 mls/hr IV Q1H [facility] Stop: 08/26/24 08:59 Last Admin: 08/26/24 07:57 Dose: 100 mls/hr Ampicillin Sodium 2,000 mg/ (Sodium Chloride) 100 mls @ 200 mls/hr IV Q6HR [facility] Stop: 09/03/24 11:59 Ampicillin Sodium 2,000 mg/ (Sodium Chloride) 100 mls @ 100 mls/hr IV Q4H ONE Stop: 08/27/24 12:51 Last Admin: 08/29/24 06:58 Dose: Not Given Propofol (Diprivan Ivpb) 1,000 mg in 100 mls @ 2.082 mls/hr IV .Q24H PRN; Protocol PRN Reason: PER PROTOCOL Stop: 09/23/24 10:55 Dexmedetomidine HCl 400 mcg/ (Sodium Chloride) 104 mls @ 3.994 mls/hr IV .Q24H PRN; Protocol PRN Reason: Per PROTOCOL Stop: 09/27/24 08:37 Dexmedetomidine HCl 400 mcg/ (Sodium Chloride) 100 mls @ 3.84 mls/hr IV .Q24H PRN; Protocol PRN Reason: Per PROTOCOL Stop: 09/27/24 08:37 Last Titration: 08/28/24 13:00 Dose: 0 mcg/kg/hr, 0 mls/hr Insulin Human Lispro (Insulin Lispro (Admelog) 1 Unit/0.01 Ml Unit) 0 unit SC ACHS [facility]; Protocol Stop: 09/22/24 16:59 Last Admin: 08/23/24 18:42 Dose: Not Given Magnesium Hydroxide (Milk Of Magnesia Susp 30 Ml Udc) 30 ml PO QDAY PRN PRN Reason: CONSTIPATION Stop: 09/22/24 12:38 Methylprednisolone Sodium Succinate (Methylprednisolone Sod Succ 62.5 Mg/Ml 2ml Vial) 125 mg IVP X1 ONE Stop: 08/23/24 12:20 Last Admin: 08/23/24 12:52 Dose: 125 mg Metoprolol Tartrate (Metoprolol Tartrate 25 Mg Tablet) 25 mg GT BID [facility] Stop: 09/28/24 12:14 Last Admin: 08/29/24 12:36 Dose: Not Given Midazolam HCl (Midazolam Inj 1 Mg/Ml Vial 2 Ml) 2 mg IV X1 ONE Stop: 08/28/24 22:49 Last Admin: 08/28/24 22:53 Dose: 2 mg Midazolam HCl (Midazolam Inj 1 Mg/Ml Vial 2 Ml) 2 mg IV X1 ONE Stop: 08/29/24 08:00 Last Admin: 08/29/24 08:05 Dose: 2 mg Midazolam HCl (Midazolam Inj 1 Mg/Ml Vial 2 Ml) 2 mg IV X1 ONE Stop: 08/29/24 13:32 Last Admin: 08/29/24 13:36 Dose: 2 mg Nitroglycerin (Nitroglycerin 0.4 Mg Subl Btl #25) 0.4 mg SL Q5MIN PRN PRN Reason: CHEST PAIN Ondansetron HCl (Ondansetron Inj 2 Mg/Ml Inj 2 Ml) 4 mg IV X1 ONE Stop: 08/23/24 05:54 Last Admin: 08/23/24 06:03 Dose: 4 mg Pharmacy Consult (Vancomycin Pharmacy To Dose 1 Each Each) 1 each IV QDAY@0700 PRN PRN Reason: CONSULT Stop: 09/24/24 06:59 Potassium Chloride (Potassium Chloride 10% 20 Meq/15 Ml Udc) 40 meq GT X1 ONE Stop: 08/26/24 06:29 Last Admin: 08/26/24 06:41 Dose: 40 meq Potassium Chloride (Potassium Chloride 10% 20 Meq/15 Ml Udc) 40 meq GT X1 ONE Stop: 08/27/24 09:26 Last Admin: 08/27/24 10:00 Dose: 40 meq Potassium Chloride (Potassium Chloride 10% 20 Meq/15 Ml Udc) 40 meq GT X1 ONE Stop: 08/28/24 07:47 Last Admin: 08/28/24 08:32 Dose: 40 meq Rocuronium [place] (Rocuronium Inj 10 Mg/Ml Vial 10 Ml) 75 mg IVP X1 ONE Stop: 08/25/24 12:35 Last Admin: 08/25/24 12:36 Dose: 75 mg Rocuronium [place] (Rocuronium Inj 10 Mg/Ml Vial 10 Ml) 50 mg IVP X1 ONE Stop: 08/29/24 08:40 Last Admin: 08/29/24 08:44 Dose: 50 mg Rocuronium [place] (Rocuronium Inj 10 Mg/Ml Vial 10 Ml) 50 mg IVP X1 ONE Stop: 08/29/24 13:32 Last Admin: 08/29/24 13:36 Dose: 50 mg Sodium Bicarbonate (Sodium Bicarb Inj 8.4% Syr 50 Ml Syringe) 50 ml IV X1 ONE Stop: 08/28/24 04:46 Last Admin: 08/28/24 04:50 Dose: 50 ml Sodium Chloride (Sodium Chloride Rt 10% 15 Ml Nebu) 5 ml INH X1 ONE Stop: 08/23/24 12:51 Last Admin: 08/23/24 16:02 Dose: Not Given Sodium Chloride (Sodium Chloride Rt 10% 15 Ml Nebu) 5 ml INH X1 ONE Stop: 08/23/24 15:36 Last Admin: 08/23/24 16:41 Dose: Not Given Assessment & Plan Plan 73-year-old female with past medical history of HFpEF (60-65% 05/2024), dementia, CVA with right sided residual deficits, chronic G-tube, hyperthyroidism, DM2, hyperlipidemia, and developmental delay was admitted to the ICU on 08/23/2024 due to septic shock secondary to to gallstone ileus. 1. NSTEMI type I versus type II 2. Acute decompensated diastolic heart failure (EF 60 to 65% 05/2024) ?EKG ordered on 08/29/[address] changes ? EKG interpretation could indicate prior AR in the past few days, but unable to correlate given the patient cannot communicate any cardiac symptoms ?Troponins 4.416 ?DDx could be demand ischemia secondary to septic shock versus ACS ?Last echo on 06/13/2024 showed the following findings: Normal LV size and function. Stage I diastolic dysfunction. Estimated EF 60-65% Normal RV size and function. Trace MR, TR. ?Given patient's history of GI ulcers and recent surgery ICU team spoke with specialist in order to start heparin drip. Plan: ? Recommend starting heparin drip as per GI and general surgery gave okay to start ? Recommend starting a beta-hazel as blood pressure allows ? Recommend to start patient on a statin ? Recommend to keep potassium magnesium above 4 and 2 respectively to avoid any further arrhythmias 3. Septic shock 4. Acute hypoxic respiratory failure 5. Gallstone ileus ?Patient underwent surgery by general surgeon for removal of gallstone on 08/23/2024 ? Patient is still currently sedated and intubated as well as on vasopressors ?Patient is currently on ampicillin, meropenem, and micafungin ? Continue current management plan as per ICU team 6. Esophageal ulcer 7. Gastric ulcer 8. Duodenal ulcer ?Patient underwent EGD on 08/26/2024 ?Currently on Protonix ? Continue current management as per ICU team 9. DM2 ?Continue current management as per ICU team 10. Developmental delay 11. CVA with right-sided residual deficits 12. Dementia 13. Chronic G-tube ?Tube feeds which she was started on Thursday ? Continue current management as per ICU team 14. Hyperthyroidism 15. Hyperlipidemia ?Continue current management as per ICU team Continue rest of management as per primary team. We are grateful to be able to participate in Mrs. Tomas's care. Thank you for the consult Plan of care discussed with attending [facility], DrSusana Ontiveros MD PGY-1 Attending Provider Attestation/Addendum I have personally seen and examined the patient separately on the above date of service and discussed the plan of care with the resident. I reviewed the resident Dr. Rivero consultation progress note and agree with the resident findings and plan in the note above and have also edited the documentation to reflect my findings and plan. Cardiac consulted was called by primary team for question of possible AR. I have reviewed the EKG patient does have Q waves in the inferior leads as well as the anteroseptal septal and anterior leads with Q waves with minimal ST elevations but no evidence of any ST depressions. I have reviewed the EKG from the admission and the EKG in the admission does not show the curious of the minimal ST elevations. Patient has been in the hospital for more than 6 days with septic shock and has been on pressors. Patient unable to give any history and and patient probably had a cardiac event over the last couple of days as the troponins now are at 4.3 and are downtrending versus patient possibly has a differential diagnosis of possible acute myopericarditis which is less likely. Reviewed chart and patient has significant developmental delay and is bedbound with PEG tube for nutrition with history of CVA and dementia along with multiple other comorbidities. She presented with septic shock and is on pressors only with norepinephrine along with full sedation. Overall prognosis appears to be poor. I discussed with Dr. Burden who is the conservator for the patient at [facility] who explained today about the patient in detail and recommended no further invasive procedures for the patient and only medical treatment for now with which we agree. Recommend to continue heparin drip if okay with GI as well as surgical team given the patient has history of GI bleed during this admission requiring transfusions and a high risk surgery for the gallstone ileus. Spoke with GI staff Dr. Arreola and he did agree for anticoagulation and patient started on heparin drip as patient also developed atrial fibrillation with RVR this afternoon. Continue to monitor hemoglobin closely. And no beta-hazel for now because the patient is still requiring Levophed for pressor support. Can start amiodarone drip along with bolus if the patient continues to be in A-fib with RVR if there are no contraindications. Recommend heparin drip for 48 hours along with statin for now. Aspirin if okay with GI and surgical team. Patient overall prognosis appears to be poor and her condition is critical. There is a high probability of sudden, clinically significant or life threatening deterioration in the patient condition which required the highest level of physician preparedness to intervene urgently. I have personally spent 65 minutes of critical care time, exclusive of time spent on any procedures, in evaluation and management of this critically ill patient. Dixon Zhao M.D. Interventional Cardiology
[2024-08-29] MEDS: PROPOFOL 1,000 MG IVPB 1,000 MG/100 ML VIAL 20.82 MG IV ×2 (14:34→19:02)
--- NOTE | 2024-08-29 15:51 | PD.RESPRO ---
Documentation for date of: 08/29/24 Subjective Subjective Interval history: 08/25/2024: The patient was examined at the bedside this morning. The patient was sedated and mechanically ventilated. Patient was again started on Levophed this morning. Her white count trended down to 18,. However, when a spontaneous awakening trial once done, her blood pressure significantly improved. The patient was tapered off of pressor and sedatives and after that patient was extubated. However, due to excessive work of breathing and tachycardia with heart rate of 140s, the decision was made to reintubate the patient. The patient was also started on pressor support with Levophed. Central line was placed on right IJ. 08/26/2024: The patient was examined and evaluated at the bedside this morning. The patient was sedated and mechanically ventilated. She was weaned off of Levophed this morning. Physical examination was significant for upper right extremity edema, labs are significant for hemoglobin of 6.5 with repeat hemoglobin of 6.9. Coagulation panel revealed PT 13.0 with INR and APTT WNL. ABG done this morning was WNL. Chemistry panel revealed potassium 2.6, BUN increasing to 37 with stable creatinine, blood sugar 174. Chest x-ray done this morning revealed mild improvement right lower lobe pneumonia. ET tube secretion growing GPC and GNR with Enterobacter Cloacae that is multi drug resistance. Zosyn was switched to IV meropenem 1 g 3 times daily. The patient sedatives were transitioned to Precedex 1.2 mcg/kg/h and fentanyl 225 mcg/h. We will continue to taper down sedatives as tolerated. Potassium were repleted with 60 mEq IV from central line along with 40 mEq p.o. from OGT. We will repeat potassium and replete as needed. As the patient has been net positive by 11.2 L since admission, and chest x-ray was consistent with pulmonary edema, we will administer Lasix 40 Mg IV x 1 normalizing potassium level. As patient's hemoglobin was low, 1 unit PRBC was ordered. Will order as present H&H and get consultation from GI for any possible GI bleeding. However, patient had 1 overnight bowel movement that was dark or black. 08/27/2024: The patient was examined and evaluated at the bedside this morning. The patient is sedated and mechanically ventilated. She has not required any Levophed after yesterday morning. Physical exam is significant 2+ pitting edema, right IJ catheter on place, mild bruises over bilateral upper extremities. Vitals are significant for heart rate ranging from 100 - 110, RR 28, labs are significant for hemoglobin 9.3, platelets 94, ABG revealing pH 7.41, pCO2 29, pO2 62, and ABG O2 saturation 94%. Given the concern for volume overload leading to pulmonary edema, patient was repleted with potassium 40 mEq x 1 and given 40 Mg IV Lasix x 1. Patient is negative by 1100 cc over 24 hours, but continues to be positive by 10 L since admission. We will continue to diurese the patient as needed. As blood culture grew Enterococcus faecalis, vancomycin was switched to ampicillin. And we will continue with meropenem for acute hypoxic respiratory failure secondary to aspiration pneumonia with Enterobacter cloacae and Enterococcus faecalis. 08/28/2024: The patient was evaluated at the bedside this morning. The patient remained sedated and mechanically ventilated. She was also on Levophed. Physical exam was significant for 2+ pitting edema, right IJ catheter on place, mild bruises over bilateral upper extremities that has been improving. Tachycardia has resolved. Labs are significant for hemoglobin stable at 8.9, ABG with pH 7.35, pO2 63, bicarb 18. Labs are significant For sodium 151, BUN and creatinine trended up to 42 and 1.4 respectively. Calculated osmolality 313, phosphorus 5.8. CXR was significant for ARDS pattern with pneumonia prominent on right side, and suggestive of associated mild CHF. We increased the water flush to 70 cc every hourly, we will continue with sedatives as patient seems to be in mild respiratory distress, but we will stop Precedex. Repeat blood culture is pending and thrombocytopenia has improved. We will continue with meropenem and ampicillin. 08/29/2024: Patient seen and examined at bedside. Patient patient sedated mechanically ventilated via intubation. Patient had agonal breathing, auto PEEP, despite sedation, received rocuronium to better tolerate the machine with improved. Blood culture came back positive for yeast 1/2 bottles, micafungin initiated. EKG was ordered to evaluate for possible A-fib, found ST changes, troponins elevated. Consult cardiology, suspects STEMI from few days ago. Not suitable candidate for cath at this time. Consulted with GI and surgery, both okay with initiating heparin drip for medical management. Patient also started on statin. Beta-blockers held due to persistently low blood pressure requiring increasing pressors. Patient on max fentanyl and propofol. Dr. Burden updated on patient's status, request continuing with aggressive management for now, wishes to be kept updated of dressing changes, max pressors, or max sedation. Lasix increased to 3 times daily. Exam Vital Signs Temp Pulse Resp BP Pulse Ox O2 Del Method O2 Flow Rate 98.7 F 128 H 22 H 92/62 93 L Mechanical Ventilation 5 08/29/24 12:00 08/29/24 15:02 08/29/24 15:01 08/29/24 15:01 08/29/24 15:02 08/28/24 16:00 08/25/24 11:48 FiO2 30 08/29/24 15:02 Narrative Exam General: Elderly female, sedated and mechanically ventillated HEENT: dry mucous membranes, oropharynx clear, midline tracheostomy tube on place Neck: Supple, No masses, No JVD, central line over rt IJ CVS: Tachycardic, No murmurs, rubs or gallops Lungs: Coarse lung sounds and rhonchi throughout all lung sharp, expiratory wheeze Abd: Soft, NT/ND, +BS, no organomegaly, Peg tube on place, Upper midline incision in clean dressing without erythema or leak. Ext: 2+ pitting edema in all extremities, warm and well perfused, mild bruises over bilateral forearm Skin: No active issues Psych: Unobtainable Objective Labs 08/29/24 04:38 08/29/24 04:38 Labs: Laboratory Results - last 24 hr 08/28/24 08/29/24 08/29/24 20:00 01:00 04:07 WBC RBC Hgb Hct MCV MCH MCHC RDW Std Deviation Plt Count Neut % (Auto) Lymph % (Auto) [place] % (Auto) Eos % (Auto) Baso % (Auto) Neut # (Auto) Lymph # (Auto) [place] # (Auto) Eos # (Auto) Baso # (Auto) Immature Gran # (Auto) Absolute Nucleated RBC Immature Gran % Nucleated RBC % APTT Puncture Site Left Radial Left Radial Left Radial ABG pH 7.37 7.39 7.46 H ABG pCO2 40 37 31 L ABG pO2 59 L* 64 L 88 D ABG HCO3 23 22 22 ABG O2 Saturation 90 L 93 98 ABG Base Excess -2 -2 -2 FiO2 40 40 40 Sodium Potassium Chloride Carbon Dioxide Anion Gap BUN Creatinine Estim Creat Clear Calc eGFR BUN/Creatinine Ratio Glucose Calculated Osmolality Calcium Corrected Calcium Phosphorus Magnesium Total Bilirubin AST ALT Alkaline Phosphatase Troponin I Total Protein Albumin Globulin Albumin/Globulin Ratio 08/29/24 08/29/24 08/29/24 04:38 07:39 09:04 WBC 5.5 RBC 3.07 L Hgb 9.5 L Hct 29.3 L MCV 95 MCH 30.9 MCHC 32.4 RDW Std Deviation 57.1 H Plt Count 107 L D Neut % (Auto) 87 H Lymph % (Auto) 8 L [place] % (Auto) 4 Eos % (Auto) 0 Baso % (Auto) 0 Neut # (Auto) 4.8 Lymph # (Auto) 0.4 L [place] # (Auto) 0.2 Eos # (Auto) 0.0 Baso # (Auto) 0.0 Immature Gran # (Auto) 0.04 H Absolute Nucleated RBC 0.00 Immature Gran % 1 H Nucleated RBC % 0 APTT Puncture Site Left Radial ABG pH 7.38 ABG pCO2 39 ABG pO2 48 L* D ABG HCO3 23 ABG O2 Saturation 82 L ABG Base Excess -2 FiO2 30 Sodium 145 Potassium 3.4 Chloride 112 H Carbon Dioxide 20.0 Anion Gap 13 BUN 39 H Creatinine 1.5 H Estim Creat Clear Calc 32.3 L eGFR 37 L BUN/Creatinine Ratio 26 H Glucose 192 H Calculated Osmolality 303 H Calcium 8.8 Corrected Calcium 9.7 Phosphorus 3.9 Magnesium 1.8 Total Bilirubin 0.4 AST 21 ALT 14 Alkaline Phosphatase 109 Troponin I 4.416 H* Total Protein 5.3 L Albumin 2.9 L Globulin 2.4 Albumin/Globulin Ratio 1.2 08/29/24 12:23 WBC RBC Hgb Hct MCV MCH MCHC RDW Std Deviation Plt Count Neut % (Auto) Lymph % (Auto) [place] % (Auto) Eos % (Auto) Baso % (Auto) Neut # (Auto) Lymph # (Auto) [place] # (Auto) Eos # (Auto) Baso # (Auto) Immature Gran # (Auto) Absolute Nucleated RBC Immature Gran % Nucleated RBC % APTT 29.2 Puncture Site ABG pH ABG pCO2 ABG pO2 ABG HCO3 ABG O2 Saturation ABG Base Excess FiO2 Sodium Potassium Chloride Carbon Dioxide Anion Gap BUN Creatinine Estim Creat Clear Calc eGFR BUN/Creatinine Ratio Glucose Calculated Osmolality Calcium Corrected Calcium Phosphorus Magnesium Total Bilirubin AST ALT Alkaline Phosphatase Troponin I Total Protein Albumin Globulin Albumin/Globulin Ratio ABG Interpretation ABG results: 08/23/24 08/23/24 08/25/24 16:06 22:31 07:30 ABG pH 7.22 L 7.25 L 7.35 D ABG pCO2 45 43 37 ABG pO2 90 68 L D 79 L ABG HCO3 19 L 19 L 20 ABG O2 Saturation 95 91 96 ABG Base Excess -9 L -8 L -5 L VBG pH VBG pCO2 VBG pO2 VBG Base Excess 08/25/24 08/26/24 08/26/24 13:14 04:20 11:31 ABG pH 7.23 L D 7.38 D ABG pCO2 43 37 ABG pO2 358 H D 85 D ABG HCO3 18 L 22 ABG O2 Saturation 101 H 98 ABG Base Excess -9 L -3 VBG pH 7.34 VBG pCO2 38 VBG pO2 122 H VBG Base Excess -5 L 08/27/24 08/28/24 08/28/24 07:51 04:20 07:11 ABG pH 7.41 7.26 L D 7.35 ABG pCO2 29 L 39 D 33 ABG pO2 66 L 73 L 63 L ABG HCO3 19 L 17 L 18 L ABG O2 Saturation 94 93 91 ABG Base Excess -5 L -9 L -7 L VBG pH VBG pCO2 VBG pO2 VBG Base Excess 08/28/24 08/29/24 08/29/24 20:00 01:00 04:07 ABG pH 7.37 7.39 7.46 H ABG pCO2 40 37 31 L ABG pO2 59 L* 64 L 88 D ABG HCO3 23 22 22 ABG O2 Saturation 90 L 93 98 ABG Base Excess -2 -2 -2 VBG pH VBG pCO2 VBG pO2 VBG Base Excess 08/29/24 07:39 ABG pH 7.38 ABG pCO2 39 ABG pO2 48 L* D ABG HCO3 23 ABG O2 Saturation 82 L ABG Base Excess -2 VBG pH VBG pCO2 VBG pO2 VBG Base Excess Quality Measures Quality Measures sepsis Current suspected stage: sepsis Possible source: unknown Blood cultures ordered: yes Antibiotic ordered: Yes Advance care planning discussed with:: legal surragate Assessment & Plan Assessment Current Active Medications: Generic Name Dose Route Start Last Admin Trade Name Freq PRN Reason Stop Dose Admin Acetaminophen 650 mg 08/23/24 13:03 Acetaminophen 325 Mg Tablet PO 09/22/24 13:02 Q4HR PRN PAIN SCALE 1-3 (mild Acetaminophen 650 mg 08/23/24 13:03 Acetaminophen Supp 650 Mg Supp CA 09/22/24 13:02 Q4HR PRN PAIN SCALE 1-3 (mild Acetylcysteine 3 ml 08/25/24 11:00 08/29/24 15:01 Acetylcysteine Jelly 20% 4 Ml Nebu INH 09/24/24 10:59 3 ml Q4HRRT AJAY Administration Albuterol/Ipratropium 3 ml 08/25/24 11:00 08/29/24 15:01 Albuterol/Ipratropium (Duoneb) Rt Jelly 3 Ml Nebu INH 09/24/24 10:59 3 ml Q4HRRT AJAY Administration Artificial Tears 0 drop 08/28/24 13:52 08/28/24 16:31 Artificial Tears 225 Drop/15 Ml Btl BOTH EYES 09/27/24 13:51 1 drop PRN PRN Administration TO KEEP EYES MOIST Atorvastatin Calcium 80 mg 08/29/24 21:00 Atorvastatin Calcium 20 Mg Tablet GT 09/28/24 20:59 HS AJAY Bisacodyl 10 mg 08/24/24 17:30 08/29/24 08:05 Bisacodyl 10 Mg Supp CA 09/23/24 17:29 10 mg QDAY AJAY Administration Protocol Dextrose 25 ml 08/23/24 17:46 Dextrose 50%-Water Inj 50 Ml Syringe IV 09/22/24 17:45 Q15MIN PRN BG 50-70 responsive npo pt Dextrose 50 ml 08/23/24 17:46 Dextrose 50%-Water Inj 50 Ml Syringe IV 09/22/24 17:45 Q15MIN PRN BG <50 OR BG <70 & pt unresponsive Furosemide 40 mg 08/29/24 12:00 08/29/24 11:25 Furosemide Inj 10 Mg/Ml 4ml Vial IVP 09/28/24 11:59 40 mg TID AJAY Administration Glucagon 1 mg 08/23/24 17:46 Glucagon Inj 1 Mg Vial IM Q15MIN PRN BG <70, and no IV access Norepinephrine/Dextrose 8 mg in 250 mls @ 6.506 mls/hr 08/23/24 12:20 08/29/24 14:00 Levophed In D5w 8mg/250ml IV 09/22/24 12:19 0.2 mcg/kg/min .Q24H PRN 26.025 mls/hr PER PROTOCOL Titration Protocol 0.05 MCG/KG/MIN Meropenem 1,000 mg/ Sodium 50 mls @ 100 mls/hr 08/26/24 21:00 08/29/24 08:22 Chloride IV 09/02/24 20:59 100 mls/hr Q12HR AJAY Administration Ampicillin Sodium 2,000 mg/ 100 mls @ 100 mls/hr 08/27/24 12:00 08/29/24 13:22 Sodium Chloride IV 09/03/24 11:59 100 mls/hr Q4HR AJAY Administration Propofol 1,000 mg in 100 mls @ 2.082 mls/hr 08/28/24 04:20 08/29/24 14:34 Diprivan Ivpb IV 09/23/24 10:55 50 mcg/kg/min .Q24H PRN 20.82 mls/hr PER PROTOCOL Administration Protocol 5 MCG/KG/MIN Fentanyl Citrate 2,500 mcg in 250 mls @ 2.5 mls/hr 08/28/24 16:00 08/29/24 13:30 Sublimaze Inj 2,500 Mcg/250 Ml Bag IV 09/02/24 15:59 300 mcg/hr .Q24H PRN 30 mls/hr PER PROTOCOL Titration Protocol 25 MCG/HR Micafungin Sodium 100 mg/ 100 mls @ 100 mls/hr 08/29/24 11:57 08/29/24 13:22 Sodium Chloride IV 09/13/24 11:56 100 mls/hr QDAY AJAY Administration Heparin Sodium/Dextrose 25,000 unit in 250 mls @ 9.264 mls/hr 08/29/24 13:15 08/29/24 13:21 Heparin In D5w Ivpb IV 09/12/24 13:14 12 units/kg/hr .Q24H AJAY 9.264 mls/hr Administration Protocol 12 UNITS/KG/HR Magnesium Sulfate 2 gm in 50 mls @ 25 mls/hr 08/29/24 15:12 Magnesium Sulfate Ivpb IV 08/29/24 17:11 X1 ONE Insulin Human Lispro 0 unit 08/23/24 18:00 08/29/24 12:03 Insulin Lispro (Admelog) 1 Unit/0.01 Ml Unit SC 09/22/24 17:59 1 unit Q6HR AJAY Administration Protocol Magnesium Hydroxide 30 ml 08/23/24 13:03 Milk Of Magnesia Susp 30 Ml Udc PO 09/22/24 13:02 QDAY PRN CONSTIPATION Pantoprazole Sodium 40 mg 08/25/24 13:30 08/29/24 08:05 Pantoprazole Inj 40 Mg Vial IVP 09/24/24 13:29 40 mg BID AJAY Administration Polyethylene Glycol 17 gm 08/24/24 16:00 08/29/24 08:06 Polyethylene Glycol 17 Gm Packet GT 09/23/24 15:59 17 gm QDAY AJAY Administration Sennosides 1 tab 08/24/24 21:00 08/29/24 08:06 Senna Tablet GT 09/23/24 20:59 1 tab BID AJAY Administration Protocol Sodium Chloride 3 ml 08/25/24 11:01 08/25/24 11:40 Sodium Chloride Rt Jelly 0.9% 3 Ml Nebu INH 09/24/24 11:00 3 ml PRN PRN Administration SOLN Plan The patient is a 73-year-old female with significant past medical history of hypertension, DM 2, hyperlipidemia, dementia, hyperthyroidism, CVA with right-sided deficit, chronic G-tube, HFpEF and double of mental delay disorder presented from [facility] home for SOB for 1 day and is admitted to ICU for further management of septic shock secondary aspiration pneumonia . 08/28/2024: The patient was evaluated at the bedside this morning. The patient remained sedated and mechanically ventilated. She was also on Levophed. Physical exam was significant for 2+ pitting edema, right IJ catheter on place, mild bruises over bilateral upper extremities that has been improving. Tachycardia has resolved. Labs are significant for hemoglobin stable at 8.9, ABG with pH 7.35, pO2 63, bicarb 18. Labs are significant For sodium 151, BUN and creatinine trended up to 42 and 1.4 respectively. Calculated osmolality 313, phosphorus 5.8. CXR was significant for ARDS pattern with pneumonia prominent on right side, and suggestive of associated mild CHF. We increased the water flush to 70 cc every hourly, we will continue with sedatives as patient seems to be in mild respiratory distress, but we will stop Precedex. Repeat blood culture is pending and thrombocytopenia has improved. We will continue with meropenem and ampicillin. PRECISION HONER: Patient is sedated and mechanically ventillated for AHRF -We will continue with propofol and fentanyl drip, discontinue Precedex drip, as the patient is still using accessory respiratory muscles -May need to add Precedex as patient is currently maxed on propofol and fentanyl #Developmental delay disorder #Hx of CVA with right sided deficit Patient is at her baseline with alert and oriented to herself only. She is verbally none comprehensive. Cardio: #NSTEMI type I versus type II EKG showed ST changes, unclear significance. Troponin 4.4, previous troponin 0.02. Cardiology consulted, patient is not a good candidate for cath at this time. Upon review cardiology believes EKG and troponin most likely indicates myocardial infarction in past few days. Recommend medical management at this time. Consulted with GI and surgery, cleared patient for initiating heparin drip. Will monitor closely for signs of bleeding. High intensity statin ordered, beta-blockers held due to low BP. Potassium and magnesium given to maintain levels above 4 and 2 respectively. -Heparin drip -Atorvastatin 80 mg G-tube at bedtime -Trend troponin -Maintain potassium greater than 4, magnesium greater than 2 -Cardio consulted, appreciate recommendations #Shock More likely septic shock contributed by sedatives Secondary to aspiration pneumonia and bacteremia During admission met 3/4 SIRS criteria with pulse 101, RR 32, and WBC 28.3, lactic acid trended up to 5.8. Patient was given around 15 L of IV fluids since admission, and is net positive by 11.2 L. Respiratory secretions sputum culture grew enterobacter cloacae that was multidrug-resistant, blood culture only positive on 1 bottle with GPC on aerobic and anaerobes, final results pending 1 bottle blood culture positive for yeast. Pressor requirements increased today. -Continue to treat underlying cause with antibiotics and antifungals -Placed Rt IJ Central line access 08/25/24 -Lactic acid trended down -Daily a.m. labs for CBC, CMP and electrolytes #Volume overload secondary to excessive fluid resuscitation Patient received about 16 liters of fluid since admission, and is still net positive by 9.5 L. -Continue on Lasix 40 Mg IV 3 times daily -Continue to monitor I&O's #Sinus tachycardia Secondary to AHRF 2/2 aspiration PNA -Management as per Pulm #History of HTN -Currently patient's BP is low, requiring pressors Pulmonary: #Acute hypoxic respiratory failure 2/2 #Pulmonary edema 2/2 volume overload due to excessive fluid resuscitation, and #Aspiration pneumonia Secondary to right-sided pneumonia, likely aspiration pneumonia as patient had episodes of vomiting during presentation, associated with pulmonary edema in the setting of volume overload as patient was given around 15 L of IV fluids and is positive by 9.5 L of fluids since admission Patient was initially placed on HF NC, later on oxy mask and during ex laparotomy she was intubated ET secretion grew Enterococcus faecalis and Enterobacter cloacae, Enterococcus faecalis sensitive to ampicillin and Enterobacter cloacae sensitive to meropenem -Patient was intubated again following extubation, due to failed extubation -Zosyn switched to meropenem 1 g 3 times daily on 08/26/2024 -Added vancomycin on 08/24 -ABG in the a.m. -[facility]: #Esophageal ulcer #Gastric ulcer #Duodenal ulcer #Chronic PEG tube -EGD was done on 08/26/2024 and findings were consistent with esophageal, gastric and duodenal ulcer -GI Dr. Arreola consulted, appreciate recommendations -We will continue on IV pantoprazole 40 Mg twice daily -Started on PEG tube feed #Gallstone ileus, resolved status post laparotomy -Dr. Corrales performed ex laparotomy and billiary stone was removed without repair of fistula due to multiple co-morbidity. Dressings were changed. Renal: #SARAI Prerenal secondary to renal congestion in the setting of excessive fluid resuscitation since admission, still patient is positive by 9.5 L since admission. -Continue with IV diuretics, Lasix 40 mg IV 3 times daily -Avoid nephrotoxic drugs -Repeat renal panel daily #Hyperphosphatemia, resolved Secondary to SARAI -Continue to monitor -May need to add sevelamer phosphorus continues to trend up #Mild hyperosmolar hypernatremia, resolved Secondary to free water deficit, but patient seems to be volume overloaded in the setting of excessive fluid resuscitation -Free water flushes 70 cc/h started #Pseudohyponatremia, resolved #Lactic acidosis, resolved #Hypercalcemia, resolved #Asymptomatic bacteriuria Patient is verbally none comprehensive, it is difficult to distinguish with UTI -On antibiotics Endo: #Diabetes mellitus type 2 -On sliding scale insulin #Hyperthyroidism -Will resume home medication methimazole 5 mg twice daily after extubating the patient Hematology: #Bacteremia Blood culture grew Enterobacter faecalis, sensitive to ampicillin -Started on ampicillin 2 g IV every 4 hourly, has already completed 3 days of vancomycin, we will continue with ampicillin for 4 days until 08/31/2024 -Repeated blood culture, pending results #Fungemia Prelim blood cultures 1/2 bottles grew yeast -Micafungin -Follow-up blood culture results #Leukocytosis, resolved Secondary to aspiration pneumonia -Manage the underlying cause -Daily a.m. CBC #Anemia, stable Likely acute blood loss anemia in the setting of recent surgery followed by possible upper GI bleeding, as patient was sanguinous drainage during slow intermittent suctioning from PEG tube. Hemoglobin of 6.5 this morning, repeat hemoglobin was 6.7. MCV WNL -1 unit PRBC transfused, we will need to post transfusion H&H -GI Dr. Arreola consulted, appreciate recommendations -Monitor H&H and replete if hemoglobin less than 7. -Watch closely in setting of heparin drip #Thrombocytopenia, resolved Etiology unknown at this point, less likely shock liver as liver enzymes WNL, and patient has not received any heparin or enoxaparin in the last 15 days. -Continue to monitor with daily CBC -Monitor for any active bleeding ID: -On meropenem as above -Discontinue vancomycin -Started on ampicillin for Enterococcus faecalis -Micafungin for fungemia MSK/skin: -Clean surgical site -Mild bruises over BL forearm -Continue to monitor Health maintenance: Dispo: Patient admitted to ICU for further management of septic shock requiring pressure support DVT prophylaxis: On Lovenox 40 Mg subcu Diet: Tube feeds, currently held Lines: Peripheral lines, Rt IJ catheter CODE STATUS: Full code The patient's management plan was discussed with my attending physician MD Juan Antonio Brewer MD PGY-1
--- NOTE | 2024-08-29 15:51 | PC.SS ---
Update: Patient remains intubated/sedated. PEG feedings are on hold. Patient receiving pressors.
[2024-08-29] MEDS: POTASSIUM CHLORIDE 10% 20 MEQ/15 ML UDC 40 MEQ GT (15:59)
[2024-08-29] MEDS: Magnesium Sulfate 2 GM Ivpb 2 GM/50 ML BAG IV (15:59)
[2024-08-29 16:14] LABS: Troponin I 4.354 ng/mL (0.0-0.045)
--- NOTE | 2024-08-29 18:50 | PC.NURSE ---
0844 pt is over breathing the vent and is agonal and abdominal breathing with a decrease in oxygen saturations. MD Mejia at bedside made aware orders given to increase sedation and give a dose of versed and Rocuronium. 1335 pt had another episode over breathing the vent with agonal and abdominal breathing with a decrease in oxygen saturations MD Mejia at bedside orders given to increased sedation to max with a rass-4 with another dose of versed and Rocuronium. Will continue to monitor patient
[2024-08-29] MEDS: Norepinephrine/D5W 8mg/250ml 8 MG/250 ML BAG 20.82 MG IV (18:55)
[2024-08-29] MEDS: fentaNYL 2,500 MCG/250 ML BAG 2,500 MCG/250 ML BAG 30 MCG IV (19:45)
[2024-08-29 20:28] LABS: Partial Thromboplastin Time 24.8 Seconds (22.0-36.0)
[2024-08-29] MEDS: ATORVASTATIN CALCIUM 20 MG TABLET 80 MG GT (20:53)
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
[2024-08-30] VITALS (110 sets, daily range): BP systolic 83–169; BP diastolic 49–96; PULSE 43–168; RESP 19–35; TEMP 36.7–37.2; O2SAT 86–98; BMI 32.3
[2024-08-30] MEDS: INSULIN LISPRO (AdmeLOG) 1 UNIT/0.01 ML UNIT SC ×4 (00:45→18:52)
[2024-08-30] MEDS: PROPOFOL 1,000 MG IVPB 1,000 MG/100 ML VIAL 20.82 MG IV ×5 (00:53→20:38)
[2024-08-30] MEDS: Ampicillin Inj 2,000 MG in SODIUM CHLORIDE 0.9% (P) 100 ML 100 MG IV ×3 (01:52→13:52)
[2024-08-30] MEDS: ACETYLCYSTEINE SOL 20% 4 ML NEBU 3 ML INH ×6 (02:24→22:58)
[2024-08-30] MEDS: ALBUTEROL/IPRATROPIUM (Duoneb) RT SOL 3 ML NEBU INH ×6 (02:24→22:58)
[2024-08-30 03:20] LABS: Basophils % (Auto) 0 % (0-2.5); Eosinophils # (Auto) 0.1 Thou/mm3 (0.0-0.5); Eosinophils % (Auto) 1 % (0-10); Hematocrit 27.8 % (36.0-46.0); Immature Granulocytes % (Auto) 1 % (0-0); Immature Granulocytes Auto 0.06 Thou/mm3 (0.00-0.00); Lymphocytes # (Auto) 0.8 Thou/mm3 (1.0-4.8); Lymphocytes % (Auto) 7 % (10-50); Mean Corpuscular Hemoglobin 31.1 pg (25.0-35.0); Mean Corpuscular Volume 97 fL (80-100); Monocytes # (Auto) 0.3 Thou/mm3 (0.0-0.8); Monocytes % (Auto) 3 % (0-12); Neutrophils # (Auto) 9.9 Thou/mm3 (1.8-7.7); Neutrophils % (Auto) 88 % (37-80); Nucleated Red Blood Cell % 0 /100 WBC (0); Platelet Count 118 Thou/mm3 (140-440); RDW Standard Deviation 59.4 fL (36.4-46.3); Red Blood Count 2.86 Miln/mm3 (4.00-5.20); White Blood Count 11.2 Thou/mm3 (3.6-11.0)
[2024-08-30 03:23] LABS: Hemoglobin 8.9 g/dL (12.0-16.0)
[2024-08-30 03:40] LABS: Partial Thromboplastin Time 44.7 Seconds (22.0-36.0)
[2024-08-30 03:45] LABS: Alanine Aminotransferase 13 U/L (10-49); Albumin, Serum 2.6 gm/dL (3.4-4.8); Albumin/Globulin Ratio 1.1 (1.2-2.2); Alkaline Phosphatase 98 U/L (46-116); Anion Gap 11 (7-16); Aspartate Amino Transferase 16 U/L (0-34); BUN/Creatinine Ratio 29 Ratio (12-20); Bilirubin,Total 0.3 mg/dL (0.3-1.2); Blood Urea Nitrogen 52 mg/dL (9-23); Calcium 8.2 mg/dL (8.3-10.6); Calcium (Corrected) 9.3 mg/dL (8.5-10.1); Chloride 111 mMol/L (98-107); Creatinine (Component) 1.8 mg/dL (0.6-1.3); Globulin 2.4 gm/dL (2.3-3.5); Glucose 164 mg/dL (74-106); Magnesium 2.2 mg/dL (1.6-2.6); Osmolality,Calculated 308 (275-295); Potassium 3.8 mMol/L (3.4-5.1); Sodium 146 mMol/L (136-145); eGFR 30 See Note
[2024-08-30] MEDS: fentaNYL 2,500 MCG/250 ML BAG 2,500 MCG/250 ML BAG 30 MCG IV ×3 (03:53→21:34)
[2024-08-30 04:37] LABS: Base Excess -3 (-3-3); HCO3 23 mEq/L (20-26); Inspired Oxygen, FIO2 60 %; O2 Saturation 98 % (91-98); PCO2 42 mmHg (32.0-48.0); PO2 95 mmHg (83-108); pH, Arterial 7.34 (7.35-7.45)
[2024-08-30 04:41] LABS: Allen Test Performed/OK; Puncture Site Right Radial
--- NOTE | 2024-08-30 05:00 | XR_ITS ---
Examination: AP chest single view Technique: AP portable semiupright chest single view Exam date and time: August 30, 2024 0521 hrs. Comparison August 29, 2024 Indications: Hypoxic respiratory failure, significant bilateral pneumonia on earlier chest imaging this week Findings: Significant bilateral lung opacity, more severe in both lungs compared with August 29, 2024, likely edema and/or pneumonia Tracheal tube tip 14 mm above tamir Right internal jugular central line tip SVC satisfactory position no pneumothorax Enlarged cardiac contour Impression: Mild to moderate CHF Worsening bilateral edema and/or pneumonia compared with August 29, 2024 Retract the tracheal tube 2 cm
[2024-08-30] MEDS: Norepinephrine/D5W 8mg/250ml 8 MG/250 ML BAG 26.025 MG IV (05:24)
[2024-08-30] MEDS: FUROSEMIDE INJ 10 MG/ML 4ML VIAL 40 MG IVP (05:26)
--- NOTE | 2024-08-30 08:08 | ECHO_ITS ---
Transthoracic Echo Report Ht (in): 61 Wt (lb): 175 Exam Location: [facility] Status: Inpatient Desk Editor: Herlinda Escoto Indications: Procedure Performed: BP: 111 / 70 HR: 96 Rhythm: Tachycardia Technical Quality: Technically difficult study MEASUREMENTS (Male / Female) Normal Values 2D ECHO LV Diastolic Diameter PLAX 5.0 cm 4.2 - 5.9 / 3.9 - 5.3 cm LV Systolic Diameter PLAX 3.9 cm IVS Diastolic Thickness 0.9 cm 0.6 - 1.0 / 0.6 - 0.9 cm LVPW Diastolic Thickness 0.9 cm 0.6 - 1.0 / 0.6 - 0.9 cm LV Relative Wall Thickness 0.4 LVOT Diameter 2.0 cm LA Volume Index 31.1 cm?/m? 16 - 28 cm?/m? Ascending Aorta Diameter 3.5 cm M-MODE Aortic Root Diameter MM 2.8 cm LA Systolic Diameter MM 3.3 cm LA Ao Ratio MM 1.2 AV Cusp Separation MM 2.1 cm DOPPLER AV Peak Velocity 164.0 cm/s AV Peak Gradient 10.8 mmHg AV Mean Gradient 5.0 mmHg AV Velocity Time Integral 20.9 cm LVOT Peak Velocity 98.8 cm/s LVOT Peak Gradient 3.9 mmHg LVOT Velocity Time Integral 13.1 cm LVOT Cardiac Index 2098.3 cm?/min?m? AV Area Cont Eq vti 2.0 cm? AV Area Cont Eq pk 1.9 cm? MV Peak Velocity 115.0 cm/s MV Peak Gradient 5.3 mmHg MV Mean Velocity 66.3 cm/s MV Mean Gradient 2.0 mmHg MV Area PHT 5.6 cm? Mitral E Point Velocity 79.0 cm/s Mitral A Point Velocity 98.5 cm/s Mitral E to A Ratio 0.8 LV E' Lateral Velocity 5.5 cm/s Mitral E to LV E' Lateral Ratio 14.2 LV E' Septal Velocity 4.6 cm/s Mitral E to LV E' Septal Ratio 17.3 FINDINGS Left Ventricle Normal left ventricular size, wall thickness. Moderate systolic dysfunction. Akinesis mid anterior s eptal, and apex. Hypokinesis lateral wall. The ejection fraction is visually estimated at 35-40 %. Right Ventricle The right ventricle is normal in size and systolic function. Left Atrium The left atrium is normal by two-dimensional, color flow and Doppler imaging with no structural abnormalities, no thrombus formation present. Right Atrium The right atrium is normal by two-dimensional imaging, color flow and Doppler imaging with no struct ural abnormalities, no thrombus formation present. Atrial Septum The interatrial septum appears normal with no evidence of a shunt. Aorta The aorta is normal by two-dimensional, color flow and Doppler interrogation. Mitral Valve The mitral valve is normal by two-dimensional, color flow and Doppler interrogation. There is trace mitral valve regurgitation. Aortic Valve The aortic valve is trileaflet and normal by two-dimensional, color flow and Doppler interrogation. There is no significant aortic valve regurgitation. Tricuspid Valve The tricuspid valve is normal by two-dimensional, color flow and Doppler interrogation. There is tra ce tricuspid valve regurgitation. Pulmonic Valve The pulmonic valve is not well visualized. There is no significant pulmonic valve regurgitation. Vessels The pulmonary artery appears normal. The inferior vena cava pulmonary and hepatic veins appear harriet l. Pericardium The pericardium is normal by two-dimensional imaging. There is no significant pericardial effusion. Other Findings Pleural effusion present. CONCLUSIONS Indication: Post NSTEMI Normal LV size. Moderate systolic dysfunction. Akinesis mid to apical anterior septal, and apex. hypokinesis lateral wall. Estimated EF 35-40%. Stage 1 diastolic dysfunction. Normal RV size and function. Trace MR, TR. Pleural effusion present. Pericardial effusion trace noted and fibrogenous exudate noted on the ventricular elise indicating c hronic effusion. Dixon Zhao (Electronically Signed) Final Date: 30 August 2024 17:24
--- NOTE | 2024-08-30 08:47 | PD.RESPRO ---
Documentation for date of: 08/30/24 Subjective Subjective Interval history: Patient seen this AM. No overnight events. Increasing ventilatory requirements Patient was in A-fib on tele monitor and HR in the 120's highest. Potassium 3.8 and Mg 2.2, recommend to keep above 4 and 2 respectively. Echo had the following findings: Normal LV size. Moderate systolic dysfunction. Akinesis mid to apical anterior septal, and apex. hypokinesis lateral wall. Estimated EF 35-40%. Stage 1 diastolic dysfunction. Normal RV size and function. Trace MR, TR. Pleural effusion present. Pericardial effusion trace noted and fibrogenous exudate noted on the ventricular elise indicating chronic effusion. Echocardiogram results show that the patient did have possible OR recently given the akinesis of the mid to apical anterior septum along with akinetic apex as evidenced by the EKG from which she recovered. EF is also low at 35 to 40%. Continue with conservative management as discussed with Dr. Burden for now. Patient is having multiple medical problems at the present moment including fungemia as well as bacteremia and atrial fibrillation with RVR, recent acute OR,, heart failure for which she was started on Bumex drip and she has increasing ventilator requirements. Overall patient not doing well. Poor prognosis is in critical condition. Also recommend the amiodarone drip for the Atrial fibrillation control along with amiodarone 200 mg twice daily for now and check QTc in the morning if patient is started on amiodarone Exam Vital Signs Temp Pulse Resp BP Pulse Ox O2 Del Method O2 Flow Rate 98.9 F 106 H 22 H 117/70 98 Mechanical Ventilation 5 08/30/24 08:00 08/30/24 08:00 08/30/24 06:51 08/30/24 08:00 08/30/24 08:00 08/28/24 16:00 08/25/24 11:48 FiO2 50 08/30/24 08:02 Narrative Exam General: sedated and intubated Eyes: Pupils reactive to light Ears: no visible ear discharge, Hearing grossly intact. Nose: No visible nasal discharge. Mouth/Throat: Dry mucous membranes, no redness, no lesions. Neck: Neck supple, no cervical lymphadenopathy. Lungs: bronchial breath sounds Cardio: Normal S1/S2, tachycardic, no murmur, no JVD assessed Abdomen: Soft, no palpable masses, peristalsis present, no guarding or rebound. Surgical site covered with clean dressing and Peg tube in place without any bleeding. Extremities: Symmetrical, no significant deformities, no peripheral edema , non-tender, peripheral pulses presents. CARO UE swelling likely due to IV. Skin: No rashes, no lesions, warm to touch. Neuro: could not be assessed as patient on sedation Objective Labs 08/30/24 03:00 08/30/24 03:00 Labs: Laboratory Results - last 24 hr 08/29/24 08/29/24 08/29/24 09:04 12:23 15:15 WBC RBC Hgb Hct MCV MCH MCHC RDW Std Deviation Plt Count Neut % (Auto) Lymph % (Auto) [place] % (Auto) Eos % (Auto) Baso % (Auto) Neut # (Auto) Lymph # (Auto) [place] # (Auto) Eos # (Auto) Baso # (Auto) Immature Gran # (Auto) Absolute Nucleated RBC Immature Gran % Nucleated RBC % APTT 29.2 Puncture Site ABG pH ABG pCO2 ABG pO2 ABG HCO3 ABG O2 Saturation ABG Base Excess FiO2 Sodium Potassium Chloride Carbon Dioxide Anion Gap BUN Creatinine Estim Creat Clear Calc eGFR BUN/Creatinine Ratio Glucose Calculated Osmolality Calcium Corrected Calcium Phosphorus Magnesium Total Bilirubin AST ALT Alkaline Phosphatase Troponin I 4.416 H* 4.354 H* Total Protein Albumin Globulin Albumin/Globulin Ratio 08/29/24 08/30/24 08/30/24 19:43 03:00 04:19 WBC 11.2 H D RBC 2.86 L Hgb 8.9 L Hct 27.8 L MCV 97 MCH 31.1 MCHC 32.0 RDW Std Deviation 59.4 H Plt Count 118 L Neut % (Auto) 88 H Lymph % (Auto) 7 L [place] % (Auto) 3 Eos % (Auto) 1 Baso % (Auto) 0 Neut # (Auto) 9.9 H Lymph # (Auto) 0.8 L [place] # (Auto) 0.3 Eos # (Auto) 0.1 Baso # (Auto) 0.0 Immature Gran # (Auto) 0.06 H Absolute Nucleated RBC 0.00 Immature Gran % 1 H Nucleated RBC % 0 APTT 24.8 44.7 H D Puncture Site Right Radial ABG pH 7.34 L ABG pCO2 42 ABG pO2 95 D ABG HCO3 23 ABG O2 Saturation 98 ABG Base Excess -3 FiO2 60 Sodium 146 H Potassium 3.8 Chloride 111 H Carbon Dioxide 24.0 Anion Gap 11 BUN 52 H Creatinine 1.8 H Estim Creat Clear Calc 27.0 L eGFR 30 L BUN/Creatinine Ratio 29 H Glucose 164 H Calculated Osmolality 308 H Calcium 8.2 L Corrected Calcium 9.3 Phosphorus 5.0 Magnesium 2.2 Total Bilirubin 0.3 AST 16 ALT 13 Alkaline Phosphatase 98 Troponin I Total Protein 5.0 L Albumin 2.6 L Globulin 2.4 Albumin/Globulin Ratio 1.1 L ABG Interpretation ABG results: 08/23/24 08/23/24 08/25/24 16:06 22:31 07:30 ABG pH 7.22 L 7.25 L 7.35 D ABG pCO2 45 43 37 ABG pO2 90 68 L D 79 L ABG HCO3 19 L 19 L 20 ABG O2 Saturation 95 91 96 ABG Base Excess -9 L -8 L -5 L VBG pH VBG pCO2 VBG pO2 VBG Base Excess 08/25/24 08/26/24 08/26/24 13:14 04:20 11:31 ABG pH 7.23 L D 7.38 D ABG pCO2 43 37 ABG pO2 358 H D 85 D ABG HCO3 18 L 22 ABG O2 Saturation 101 H 98 ABG Base Excess -9 L -3 VBG pH 7.34 VBG pCO2 38 VBG pO2 122 H VBG Base Excess -5 L 08/27/24 08/28/24 08/28/24 07:51 04:20 07:11 ABG pH 7.41 7.26 L D 7.35 ABG pCO2 29 L 39 D 33 ABG pO2 66 L 73 L 63 L ABG HCO3 19 L 17 L 18 L ABG O2 Saturation 94 93 91 ABG Base Excess -5 L -9 L -7 L VBG pH VBG pCO2 VBG pO2 VBG Base Excess 08/28/24 08/29/24 08/29/24 20:00 01:00 04:07 ABG pH 7.37 7.39 7.46 H ABG pCO2 40 37 31 L ABG pO2 59 L* 64 L 88 D ABG HCO3 23 22 22 ABG O2 Saturation 90 L 93 98 ABG Base Excess -2 -2 -2 VBG pH VBG pCO2 VBG pO2 VBG Base Excess 08/29/24 08/30/24 07:39 04:19 ABG pH 7.38 7.34 L ABG pCO2 39 42 ABG pO2 48 L* D 95 D ABG HCO3 23 23 ABG O2 Saturation 82 L 98 ABG Base Excess -2 -3 VBG pH VBG pCO2 VBG pO2 VBG Base Excess Quality Measures Quality Measures sepsis Current suspected stage: sepsis Possible source: unknown Blood cultures ordered: yes Antibiotic ordered: Yes Advance care planning discussed with:: other Assessment & Plan Assessment Current Active Medications: Generic Name Dose Route Start Last Admin Trade Name Freq PRN Reason Stop Dose Admin Acetaminophen 650 mg 08/23/24 13:03 Acetaminophen 325 Mg Tablet PO 09/22/24 13:02 Q4HR PRN PAIN SCALE 1-3 (mild Acetaminophen 650 mg 08/23/24 13:03 Acetaminophen Supp 650 Mg Supp MI 09/22/24 13:02 Q4HR PRN PAIN SCALE 1-3 (mild Acetylcysteine 3 ml 08/25/24 11:00 08/30/24 06:50 Acetylcysteine Jelly 20% 4 Ml Nebu INH 09/24/24 10:59 3 ml Q4HRRT AJAY Administration Albuterol/Ipratropium 3 ml 08/25/24 11:00 08/30/24 06:50 Albuterol/Ipratropium (Duoneb) Rt Jelly 3 Ml Nebu INH 09/24/24 10:59 3 ml Q4HRRT AJAY Administration Artificial Tears 0 drop 08/28/24 13:52 08/28/24 16:31 Artificial Tears 225 Drop/15 Ml Btl BOTH EYES 09/27/24 13:51 1 drop PRN PRN Administration TO KEEP EYES MOIST Atorvastatin Calcium 80 mg 08/29/24 21:00 08/29/24 20:53 Atorvastatin Calcium 20 Mg Tablet GT 09/28/24 20:59 80 mg HS AJAY Administration Bisacodyl 10 mg 08/24/24 17:30 08/29/24 08:05 Bisacodyl 10 Mg Supp MI 09/23/24 17:29 10 mg QDAY AJAY Administration Protocol Dextrose 25 ml 08/23/24 17:46 Dextrose 50%-Water Inj 50 Ml Syringe IV 09/22/24 17:45 Q15MIN PRN BG 50-70 responsive npo pt Dextrose 50 ml 08/23/24 17:46 Dextrose 50%-Water Inj 50 Ml Syringe IV 09/22/24 17:45 Q15MIN PRN BG <50 OR BG <70 & pt unresponsive Furosemide 40 mg 08/29/24 12:00 08/30/24 05:26 Furosemide Inj 10 Mg/Ml 4ml Vial IVP 09/28/24 11:59 40 mg TID AJAY Administration Glucagon 1 mg 08/23/24 17:46 Glucagon Inj 1 Mg Vial IM Q15MIN PRN BG <70, and no IV access Norepinephrine/Dextrose 8 mg in 250 mls @ 6.506 mls/hr 08/23/24 12:20 08/30/24 06:00 Levophed In D5w 8mg/250ml IV 09/22/24 12:19 0.2 mcg/kg/min .Q24H PRN 26.025 mls/hr PER PROTOCOL Titration Protocol 0.05 MCG/KG/MIN Meropenem 1,000 mg/ Sodium 50 mls @ 100 mls/hr 08/26/24 21:00 08/29/24 20:50 Chloride IV 09/02/24 20:59 100 mls/hr Q12HR AJAY Administration Ampicillin Sodium 2,000 mg/ 100 mls @ 100 mls/hr 08/27/24 12:00 08/30/24 05:25 Sodium Chloride IV 09/03/24 11:59 100 mls/hr Q4HR AJAY Administration Propofol 1,000 mg in 100 mls @ 2.082 mls/hr 08/28/24 04:20 08/30/24 06:00 Diprivan Ivpb IV 09/23/24 10:55 50 mcg/kg/min .Q24H PRN 20.82 mls/hr PER PROTOCOL Titration Protocol 5 MCG/KG/MIN Fentanyl Citrate 2,500 mcg in 250 mls @ 2.5 mls/hr 08/28/24 16:00 08/30/24 06:00 Sublimaze Inj 2,500 Mcg/250 Ml Bag IV 09/02/24 15:59 300 mcg/hr .Q24H PRN 30 mls/hr PER PROTOCOL Titration Protocol 25 MCG/HR Micafungin Sodium 100 mg/ 100 mls @ 100 mls/hr 08/29/24 11:57 08/29/24 13:22 Sodium Chloride IV 09/13/24 11:56 100 mls/hr QDAY AJAY Administration Heparin Sodium/Dextrose 25,000 unit in 250 mls @ 9.264 mls/hr 08/29/24 13:15 08/30/24 03:00 Heparin In D5w Ivpb IV 09/12/24 13:14 18 units/kg/hr .Q24H AJAY 13.896 mls/hr Titration Protocol 12 UNITS/KG/HR Insulin Human Lispro 0 unit 08/23/24 18:00 08/30/24 06:11 Insulin Lispro (Admelog) 1 Unit/0.01 Ml Unit SC 09/22/24 17:59 1 unit Q6HR AJAY Administration Protocol Magnesium Hydroxide 30 ml 08/23/24 13:03 Milk Of Magnesia Susp 30 Ml Udc PO 09/22/24 13:02 QDAY PRN CONSTIPATION Pantoprazole Sodium 40 mg 08/25/24 13:30 08/29/24 20:50 Pantoprazole Inj 40 Mg Vial IVP 09/24/24 13:29 40 mg BID JAAY Administration Polyethylene Glycol 17 gm 08/24/24 16:00 08/29/24 08:06 Polyethylene Glycol 17 Gm Packet GT 09/23/24 15:59 17 gm QDAY AJAY Administration Sennosides 1 tab 08/24/24 21:00 08/29/24 20:49 Senna Tablet GT 09/23/24 20:59 1 tab BID AJAY Administration Protocol Sodium Chloride 3 ml 08/25/24 11:01 08/25/24 11:40 Sodium Chloride Rt Jelly 0.9% 3 Ml Nebu INH 09/24/24 11:00 3 ml PRN PRN Administration SOLN Plan 73-year-old female with past medical history of HFpEF (60-65% 05/2024), dementia, CVA with right sided residual deficits, chronic G-tube, hyperthyroidism, DM2, hyperlipidemia, and developmental delay was admitted to the ICU on 08/23/2024 due to septic shock secondary to to gallstone ileus. 1. NSTEMI type I versus type II 2. Acute decompensated diastolic heart failure (EF 60 to 65% 05/2024) 3. A-Fib with RVR ?EKG ordered on 08/29/[address] changes ? EKG interpretation could indicate prior OR in the past few days, but unable to correlate given the patient cannot communicate any cardiac symptoms ?Troponins 4.416 ?DDx could be demand ischemia secondary to septic shock versus ACS ?Last echo on 06/13/2024 showed the following findings: Normal LV size and function. Stage I diastolic dysfunction. Estimated EF 60-65% Normal RV size and function. Trace MR, TR. ?Given patient's history of GI ulcers and recent surgery ICU team spoke with specialist in order to start heparin drip. -Echo had the following findings: Normal LV size. Moderate systolic dysfunction. Akinesis mid to apical anterior septal, and apex. hypokinesis lateral wall. Estimated EF 35-40%. Stage 1 diastolic dysfunction. Normal RV size and function. Trace MR, TR. Pleural effusion present. Pericardial effusion trace noted and fibrogenous exudate noted on the ventricular elise indicating chronic effusion. Plan Echocardiogram results show that the patient did have possible OR recently given the akinesis of the mid to apical anterior septum along with akinetic apex as evidenced by the EKG from which she recovered. EF is also low at 35 to 40%. Continue with conservative management as discussed with Dr. Burden for now. Patient is having multiple medical problems at the present moment including fungemia as well as bacteremia and atrial fibrillation with RVR, recent acute OR,, heart failure for which she was started on Bumex drip and she has increasing ventilator requirements. Overall patient not doing well. Poor prognosis is in critical condition. Also recommend the amiodarone drip for the Atrial fibrillation control along with amiodarone 200 mg twice daily for now and check QTc in the morning if patient is started on amiodarone Plan: ? Recommend to continue heparin drip as per GI and general surgery gave okay to start -Recommend to start amiodarone drip and amiodarone 200mg BID for A-fib -recommend to get EKG tomorrow -recommend to continue Bumex drip ? Recommend starting a beta-hazel as blood pressure allows ? Recommend to continue patient on a statin ? Recommend to keep potassium magnesium above 4 and 2 respectively to avoid any further arrhythmias I discussed with Dr. Burden who is the conservator for the patient at [facility] who explained today about the patient in detail and recommended no further invasive procedures for the patient and only medical treatment for now with which we agree. Recommend to continue heparin drip if okay with GI as well as surgical team given the patient has history of GI bleed during this admission requiring transfusions and a high risk surgery for the gallstone ileus. Spoke with GI staff Dr. Arreola and he did agree for anticoagulation and patient started on heparin drip as patient also developed atrial fibrillation with RVR this afternoon. Continue to monitor hemoglobin closely. And no beta-hazel for now because the patient is still requiring Levophed for pressor support. Can start amiodarone drip along with bolus if the patient continues to be in A-fib with RVR if there are no contraindications. Recommend heparin drip for 48 hours along with statin for now. Aspirin if okay with GI and surgical team. Patient overall prognosis appears to be poor and her condition is critical. 4. Septic shock 5. Acute hypoxic respiratory failure 6. Gallstone ileus ?Patient underwent surgery by general surgeon for removal of gallstone on 08/23/2024 ? Patient is still currently sedated and intubated as well as on vasopressors ?Patient is currently on micanfungin and meropenem ? Continue current management plan as per ICU team 7. Esophageal ulcer 8. Gastric ulcer 9. Duodenal ulcer ?Patient underwent EGD on 08/26/2024 ?Currently on Protonix ? Continue current management as per ICU team 10. DM2 ?Continue current management as per ICU team 11. Developmental delay 12. CVA with right-sided residual deficits 13. Dementia 14. Chronic G-tube ?Tube feeds which she was started on Thursday ? Continue current management as per ICU team 15. Hyperthyroidism 16. Hyperlipidemia ?Continue current management as per ICU team Continue rest of management as per primary team. We are grateful to be able to participate in Mrs. Tomas's care. Thank you for the consult Plan of care discussed with attending [employer]eder, Dr. Pavel Ontiveros MD PGY-1 Attending Provider Attestation/Addendum I have personally seen and examined the patient separately on the above date of service and discussed the plan of care with the resident. I reviewed the resident Dr. Rivero consultation progress note and agree with the resident findings and plan in the note above and have also edited the documentation to reflect my findings and plan. Dixon Zhao M.D. Interventional Cardiology
[2024-08-30] MEDS: POTASSIUM CHLORIDE 10% 20 MEQ/15 ML UDC 40 MEQ GT (09:09)
[2024-08-30] MEDS: bisacodyL 10 MG SUPP PR (09:09)
[2024-08-30] MEDS: PANTOPRAZOLE INJ 40 MG VIAL IVP ×2 (09:09→21:51)
[2024-08-30] MEDS: POLYETHYLENE GLYCOL 17 GM PACKET GT (09:12)
[2024-08-30] MEDS: MEROPENEM INJ 1,000 MG in SODIUM CHLORIDE 0.9% (P) 50 ML 100 MG IV ×2 (09:12→21:51)
[2024-08-30] MEDS: MICAFUNGIN SODIUM INJ 100 MG in SODIUM CHLORIDE 0.9% 100 ML IV (09:12)
[2024-08-30] MEDS: SENNA TABLET 1 TAB GT ×2 (09:13→21:51)
[2024-08-30] MEDS: ALBUMIN HUMAN 25% IVPB 25 GM/100 ML BTL IV ×3 (10:06→21:51)
[2024-08-30] MEDS: ROCURONIUM INJ 10 MG/ML VIAL 10 ML 50 MG IVP (11:30)
[2024-08-30] MEDS: METOPROLOL TARTRATE INJ 1 MG/ML AMP 5 ML 5 MG IVP (12:05)
[2024-08-30 12:20] LABS: Partial Thromboplastin Time 49.5 Seconds (22.0-36.0)
[2024-08-30] MEDS: Heparin/D5w 25K 250 ML Ivpb 25,000 UNIT/250 ML BAG 15.44 UNIT IV (12:31)
[2024-08-30] MEDS: HEPARIN SOD INJ 5000 UNIT/ML VIAL 2000 UNIT IV (12:51)
--- NOTE | 2024-08-30 14:35 | ESPR_ITS ---
Documentation for date of: 08/30/24 Subjective Subjective Interval history: This is a 73-year-old female who presented to the hospital on 23 August. She was originally admitted for nausea and vomiting and CT showed small bowel obstruction secondary to a large gallstone. Surgery was consulted and the patient underwent an enterotomy with stone removal and repair of the enterotomy. She was left intubated and transferred to the ICU. Overnight there have been no acute issues. Sedation was held this morning and once the sedation was held her vasopressor requirements disappeared. She was awake and interactive. She met weaning parameters and decision was made to extubate her. Upon extubation patient was noted to have difficulty clearing her secretions. She was deep suctioned multiple times. At one point in time it also appeared that she might have stridor and was treated with racemic epi. She continued to have increased work of breathing and difficulty clearing secretions therefore the decision was made to reintubate her. 08/26-no acute overnight events, good urinary output though remains significantly net positive, afebrile, hypokalemic this morning 08/27- good UOP net neg last 24hr, afebrile, 08/28- overnight had resp distress with breath stacking on the vent reason for which propofol was added. When the propofol was started the patient became more hypotensive and Levophed requirements increased. She is on diuresis and has had good urinary output. 08/29- overnight continued to have episodes of vent dysynchrony , irregular HR and tachycardia, good UOP 08/30- no acute overnight events, has maintained good urinary output on diuresis, afebrile, has required a few doses of block for intermittent vent dyssynchrony and hypoxia despite adequate sedation Critical Care Note Critical care time (min.): 40 Exam Vital Signs Temp Pulse Resp BP Pulse Ox O2 Del Method O2 Flow Rate 99.0 F 116 H 26 H 117/54 L 97 Mechanical Ventilation 5 08/30/24 12:00 08/30/24 14:15 08/30/24 10:50 08/30/24 14:15 08/30/24 14:15 08/28/24 16:00 08/25/24 11:48 FiO2 80 08/30/24 12:00 Narrative Exam General-intubated, sedated, obese, ill-appearing HEENT-normocephalic, atraumatic, sclera icteric, oral mucosa is hydrated, ET tube in place Chest-diminished breath sounds, occasional crackles auscultated, no active wheezing, heart regular rhythmic, there is, tachycardic, no increased work of breathing Abdomen-obese, soft, nontender, sounds present, no rebound or guarding, PEG in place, right sided surgical site appears clean Extremities-edema of, pulses palpable, no clubbing or cyanosis, no mottling Vent AC/VC Drips Levophed Propofol Fentanyl Physical Exam Completion Physical Exam Complete?: Yes Objective - Management Expert Labs 08/30/24 03:00 08/30/24 03:00 Labs: Laboratory Results - last 24 hr 08/29/24 08/29/24 08/30/24 15:15 19:43 03:00 WBC 11.2 H D RBC 2.86 L Hgb 8.9 L Hct 27.8 L MCV 97 MCH 31.1 MCHC 32.0 RDW Std Deviation 59.4 H Plt Count 118 L Neut % (Auto) 88 H Lymph % (Auto) 7 L [place] % (Auto) 3 Eos % (Auto) 1 Baso % (Auto) 0 Neut # (Auto) 9.9 H Lymph # (Auto) 0.8 L [place] # (Auto) 0.3 Eos # (Auto) 0.1 Baso # (Auto) 0.0 Immature Gran # (Auto) 0.06 H Absolute Nucleated RBC 0.00 Immature Gran % 1 H Nucleated RBC % 0 APTT 24.8 44.7 H D Puncture Site ABG pH ABG pCO2 ABG pO2 ABG HCO3 ABG O2 Saturation ABG Base Excess FiO2 Sodium 146 H Potassium 3.8 Chloride 111 H Carbon Dioxide 24.0 Anion Gap 11 BUN 52 H Creatinine 1.8 H Estim Creat Clear Calc 27.0 L eGFR 30 L BUN/Creatinine Ratio 29 H Glucose 164 H Calculated Osmolality 308 H Calcium 8.2 L Corrected Calcium 9.3 Phosphorus 5.0 Magnesium 2.2 Total Bilirubin 0.3 AST 16 ALT 13 Alkaline Phosphatase 98 Troponin I 4.354 H* Total Protein 5.0 L Albumin 2.6 L Globulin 2.4 Albumin/Globulin Ratio 1.1 L 08/30/24 08/30/24 04:19 11:50 WBC RBC Hgb Hct MCV MCH MCHC RDW Std Deviation Plt Count Neut % (Auto) Lymph % (Auto) [place] % (Auto) Eos % (Auto) Baso % (Auto) Neut # (Auto) Lymph # (Auto) [place] # (Auto) Eos # (Auto) Baso # (Auto) Immature Gran # (Auto) Absolute Nucleated RBC Immature Gran % Nucleated RBC % APTT 49.5 H Puncture Site Right Radial ABG pH 7.34 L ABG pCO2 42 ABG pO2 95 D ABG HCO3 23 ABG O2 Saturation 98 ABG Base Excess -3 FiO2 60 Sodium Potassium Chloride Carbon Dioxide Anion Gap BUN Creatinine Estim Creat Clear Calc eGFR BUN/Creatinine Ratio Glucose Calculated Osmolality Calcium Corrected Calcium Phosphorus Magnesium Total Bilirubin AST ALT Alkaline Phosphatase Troponin I Total Protein Albumin Globulin Albumin/Globulin Ratio Assessment & Plan Additional Assessment Additional Assessment: In summary this is 73-year-old female admitted to the ICU for acute hypoxic respiratory failure who is also status post enterotomy a/p PRESIDENT [employer]GONOMIC CONSULTING Cognitive delay-at baseline Sedated -patient was uncomfortable on the fentanyl and Precedex therefore propofol was added - despite deep sedation cont with vent dysynchrony causing hypoxia and desats therefore has required several rounds of NMB CV HFpEF-patient is noted to be net +10 L since hospital arrival -Lasix changed to Bumex today -Despite diuretics remains net positive over the last 24 hours -Will start Bumex every 12 Acute [place]- pt with irregular rhythm and EKG checked but p waves noted - ? of ST elevations - trops ordered and noted to be elevated -> now trending down -Cardiology consult appreciated -Started on heparin drip Shock- 2/2 sepsis - on levo - recent bcx grew yeast - started on micafungin Resp Acute hypoxic resp failure-failed extubation and was reintubated -On diuretics for pulmonary edema -Continues with significant bilateral infiltrates Aspiration PNA- sputum cx growing GPC and GNR-> resulted out asEnterococcus and Enterobacter, on vanc and zosyn switched to meropenem and ampicillin - on mucomyst/duonebs - CPT q4hrs Renal Renal calculi HypoK- replete IV HyperNa- free water SARAI- prerenal v septic ATN - good UOP on lasix - monitor i/os - avoid nephrotoxins (vanc stopped) -Slight worsening of creatinine however patient was noted to be more net positive today -[place] to have some degree of congestive nephropathy GI SBO s/p enterotomy- followed by surgery and doing well Gallbladder small bowel fistula GI bleed- PPI q12 - transfused 1uPRBCs - fu h/h - EGD done 08/26 which showed gastric ulcers/duodenal ulcers/esophageal ulcers but no active bleeding at that time - GI recs appreciated Endo Stable Heme Leukocytosis- resolved Anemia- transfused 1uPRBCs 08/26 - blood loss anemia - 2/2 mult gastric ulcers noted on EGD Thrombocytopenia- slight drop - likely 2/2 sepsis - some improvement DVT proph- started on chemical proph today ID ? UTI- UA with WBC and rare bacteria Pneumonia-on antibiotics Bacteremia-patient had 1 out of 2 blood cultures with GPC's that are currently still awaiting identification - resulted as enterococcus - repeat Bx obtained and pending Fungemia- started on micafungin today - 1/2 bottles from 08/27 with yeast - repeat bcx case d/w ICU team labs, imaging, records reviewed ~40 ccmin required for eval, exam, review, intervention, discussion and formulation of POC for this critically ill pt with acute resp failure on MV at high risk for further and ongoing decompensation Provider Notation Provider Notation: Although this document has been carefully reviewed, there may still be some phonetic and other typographical errors. These errors are purely grammatical due to imperfections in the software program and should not be construed in any way to compromise the substance of the patient's medical care during this visit. Thank you for the opportunity and privilege in assisting you with this patient's care and management.
--- NOTE | 2024-08-30 15:20 | ESPR_ITS ---
Documentation for date of: 08/30/24 Subjective Subjective Interval history: 08/27/2024: The patient was examined and evaluated at the bedside this morning. The patient is sedated and mechanically ventilated. She has not required any Levophed after yesterday morning. Physical exam is significant 2+ pitting edema, right IJ catheter on place, mild bruises over bilateral upper extremities. Vitals are significant for heart rate ranging from 100 - 110, RR 28, labs are significant for hemoglobin 9.3, platelets 94, ABG revealing pH 7.41, pCO2 29, pO2 62, and ABG O2 saturation 94%. Given the concern for volume overload leading to pulmonary edema, patient was repleted with potassium 40 mEq x 1 and given 40 Mg IV Lasix x 1. Patient is negative by 1100 cc over 24 hours, but continues to be positive by 10 L since admission. We will continue to diurese the patient as needed. As blood culture grew Enterococcus faecalis, vancomycin was switched to ampicillin. And we will continue with meropenem for acute hypoxic respiratory failure secondary to aspiration pneumonia with Enterobacter cloacae and Enterococcus faecalis. 08/28/2024: The patient was evaluated at the bedside this morning. The patient remained sedated and mechanically ventilated. She was also on Levophed. Physical exam was significant for 2+ pitting edema, right IJ catheter on place, mild bruises over bilateral upper extremities that has been improving. Tachycardia has resolved. Labs are significant for hemoglobin stable at 8.9, ABG with pH 7.35, pO2 63, bicarb 18. Labs are significant For sodium 151, BUN and creatinine trended up to 42 and 1.4 respectively. Calculated osmolality 313, phosphorus 5.8. CXR was significant for ARDS pattern with pneumonia prominent on right side, and suggestive of associated mild CHF. We increased the water flush to 70 cc every hourly, we will continue with sedatives as patient seems to be in mild respiratory distress, but we will stop Precedex. Repeat blood culture is pending and thrombocytopenia has improved. We will continue with meropenem and ampicillin. 08/29/2024: Patient seen and examined at bedside. Patient patient sedated mechanically ventilated via intubation. Patient had agonal breathing, auto PEEP, despite sedation, received rocuronium to better tolerate the machine with improved. Blood culture came back positive for yeast 1/2 bottles, micafungin initiated. EKG was ordered to evaluate for possible A-fib, found ST changes, troponins elevated. Consult cardiology, suspects STEMI from few days ago. Not suitable candidate for cath at this time. Consulted with GI and surgery, both okay with initiating heparin drip for medical management. Patient also started on statin. Beta-blockers held due to persistently low blood pressure requiring increasing pressors. Patient on max fentanyl and propofol. Dr. Burden updated on patient's status, request continuing with aggressive management for now, wishes to be kept updated of dressing changes, max pressors, or max sedation. Lasix increased to 3 times daily. 08/30/2024: The patient was examined at evaluated at the bedside this morning. The patient remained sedated and mechanically ventilated. She was on max dose of propofol and fentanyl. Pulse rate was ranging from 110s to 130s. Labs were significant for mildly elevated white count of 11.2, hemoglobin stable at 8.9, and platelet down trended 218. ABG this morning was pH 7.34, pCO2 42, pO2 95. Chemistry panel revealed sodium 146, chloride 111, BUN 52 And creatinine elevated to 1.8. TTE done today revealed Moderate systolic dysfunction, akinesis mid to apical anterior septal, and apex with hypokinesis in lateral wall. LVEF 35 to 40% with stage I diastolic dysfunction. Trace pericardial effusion was noted along with fibrinous exudate on the ventricular wall indicating chronic effusion. Her Lasix was switched to Bumex drip. Exam Vital Signs Temp Pulse Resp BP Pulse Ox O2 Del Method O2 Flow Rate 99.0 F 106 H 24 H 117/54 L 98 Mechanical Ventilation 5 08/30/24 12:00 08/30/24 14:23 08/30/24 14:23 08/30/24 14:23 08/30/24 14:23 08/28/24 16:00 08/25/24 11:48 FiO2 60 08/30/24 14:23 Narrative Exam General: Elderly female, sedated and mechanically ventillated HEENT: Mildly dry mucous membranes, ET tube on place Neck: Supple, No masses, No JVD, central line over rt IJ CVS: Tachycardic, No murmurs, rubs or gallops Lungs: Mild rhonchi throughout all lung sharp, no crackles or wheeze appreciated Abd: Soft, NT/ND, +BS, no organomegaly, Peg tube on place, Upper midline incision in clean dressing without erythema or leak. Ext: 2+ pitting edema in all extremities, warm and well perfused, mild bruises over bilateral forearm Skin: No active issues Psych: Unobtainable Objective Labs 08/30/24 03:00 08/30/24 03:00 Labs: Laboratory Results - last 24 hr 08/29/24 08/29/24 08/30/24 15:15 19:43 03:00 WBC 11.2 H D RBC 2.86 L Hgb 8.9 L Hct 27.8 L MCV 97 MCH 31.1 MCHC 32.0 RDW Std Deviation 59.4 H Plt Count 118 L Neut % (Auto) 88 H Lymph % (Auto) 7 L [place] % (Auto) 3 Eos % (Auto) 1 Baso % (Auto) 0 Neut # (Auto) 9.9 H Lymph # (Auto) 0.8 L [place] # (Auto) 0.3 Eos # (Auto) 0.1 Baso # (Auto) 0.0 Immature Gran # (Auto) 0.06 H Absolute Nucleated RBC 0.00 Immature Gran % 1 H Nucleated RBC % 0 APTT 24.8 44.7 H D Puncture Site ABG pH ABG pCO2 ABG pO2 ABG HCO3 ABG O2 Saturation ABG Base Excess FiO2 Sodium 146 H Potassium 3.8 Chloride 111 H Carbon Dioxide 24.0 Anion Gap 11 BUN 52 H Creatinine 1.8 H Estim Creat Clear Calc 27.0 L eGFR 30 L BUN/Creatinine Ratio 29 H Glucose 164 H Calculated Osmolality 308 H Calcium 8.2 L Corrected Calcium 9.3 Phosphorus 5.0 Magnesium 2.2 Total Bilirubin 0.3 AST 16 ALT 13 Alkaline Phosphatase 98 Troponin I 4.354 H* Total Protein 5.0 L Albumin 2.6 L Globulin 2.4 Albumin/Globulin Ratio 1.1 L 08/30/24 08/30/24 04:19 11:50 WBC RBC Hgb Hct MCV MCH MCHC RDW Std Deviation Plt Count Neut % (Auto) Lymph % (Auto) [place] % (Auto) Eos % (Auto) Baso % (Auto) Neut # (Auto) Lymph # (Auto) [place] # (Auto) Eos # (Auto) Baso # (Auto) Immature Gran # (Auto) Absolute Nucleated RBC Immature Gran % Nucleated RBC % APTT 49.5 H Puncture Site Right Radial ABG pH 7.34 L ABG pCO2 42 ABG pO2 95 D ABG HCO3 23 ABG O2 Saturation 98 ABG Base Excess -3 FiO2 60 Sodium Potassium Chloride Carbon Dioxide Anion Gap BUN Creatinine Estim Creat Clear Calc eGFR BUN/Creatinine Ratio Glucose Calculated Osmolality Calcium Corrected Calcium Phosphorus Magnesium Total Bilirubin AST ALT Alkaline Phosphatase Troponin I Total Protein Albumin Globulin Albumin/Globulin Ratio ABG Interpretation ABG results: 08/23/24 08/23/24 08/25/24 16:06 22:31 07:30 ABG pH 7.22 L 7.25 L 7.35 D ABG pCO2 45 43 37 ABG pO2 90 68 L D 79 L ABG HCO3 19 L 19 L 20 ABG O2 Saturation 95 91 96 ABG Base Excess -9 L -8 L -5 L VBG pH VBG pCO2 VBG pO2 VBG Base Excess 08/25/24 08/26/24 08/26/24 13:14 04:20 11:31 ABG pH 7.23 L D 7.38 D ABG pCO2 43 37 ABG pO2 358 H D 85 D ABG HCO3 18 L 22 ABG O2 Saturation 101 H 98 ABG Base Excess -9 L -3 VBG pH 7.34 VBG pCO2 38 VBG pO2 122 H VBG Base Excess -5 L 08/27/24 08/28/24 08/28/24 07:51 04:20 07:11 ABG pH 7.41 7.26 L D 7.35 ABG pCO2 29 L 39 D 33 ABG pO2 66 L 73 L 63 L ABG HCO3 19 L 17 L 18 L ABG O2 Saturation 94 93 91 ABG Base Excess -5 L -9 L -7 L VBG pH VBG pCO2 VBG pO2 VBG Base Excess 08/28/24 08/29/24 08/29/24 20:00 01:00 04:07 ABG pH 7.37 7.39 7.46 H ABG pCO2 40 37 31 L ABG pO2 59 L* 64 L 88 D ABG HCO3 23 22 22 ABG O2 Saturation 90 L 93 98 ABG Base Excess -2 -2 -2 VBG pH VBG pCO2 VBG pO2 VBG Base Excess 08/29/24 08/30/24 07:39 04:19 ABG pH 7.38 7.34 L ABG pCO2 39 42 ABG pO2 48 L* D 95 D ABG HCO3 23 23 ABG O2 Saturation 82 L 98 ABG Base Excess -2 -3 VBG pH VBG pCO2 VBG pO2 VBG Base Excess Quality Measures Quality Measures sepsis Current suspected stage: septic shock (LA >4 and/or hypotension) Sepsis reassessment completed at (date): 08/30/24 Sepsis reassessment completed at (time): 07:30 Possible source: unknown Blood cultures ordered: yes Antibiotic ordered: Yes Advance care planning discussed with:: legal surragate Assessment & Plan Assessment Current Active Medications: Generic Name Dose Route Start Last Admin Trade Name Freq PRN Reason Stop Dose Admin Acetaminophen 650 mg 08/23/24 13:03 Acetaminophen 325 Mg Tablet PO 09/22/24 13:02 Q4HR PRN PAIN SCALE 1-3 (mild Acetaminophen 650 mg 08/23/24 13:03 Acetaminophen Supp 650 Mg Supp [place] 09/22/24 13:02 Q4HR PRN PAIN SCALE 1-3 (mild Acetylcysteine 3 ml 08/25/24 11:00 08/30/24 14:23 Acetylcysteine Jelly 20% 4 Ml Nebu INH 09/24/24 10:59 3 ml Q4HRRT AJAY Administration Albuterol/Ipratropium 3 ml 08/25/24 11:00 08/30/24 14:22 Albuterol/Ipratropium (Duoneb) Rt Jelly 3 Ml Nebu INH 09/24/24 10:59 3 ml Q4HRRT AJAY Administration Artificial Tears 0 drop 08/28/24 13:52 08/28/24 16:31 Artificial Tears 225 Drop/15 Ml Btl BOTH EYES 09/27/24 13:51 1 drop PRN PRN Administration TO KEEP EYES MOIST Atorvastatin Calcium 80 mg 08/29/24 21:00 08/29/24 20:53 Atorvastatin Calcium 20 Mg Tablet GT 09/28/24 20:59 80 mg HS AJAY Administration Bisacodyl 10 mg 08/24/24 17:30 08/30/24 09:09 Bisacodyl 10 Mg Supp [place] 09/23/24 17:29 10 mg QDAY AJAY Administration Protocol Dextrose 25 ml 08/23/24 17:46 Dextrose 50%-Water Inj 50 Ml Syringe IV 09/22/24 17:45 Q15MIN PRN BG 50-70 responsive npo pt Dextrose 50 ml 08/23/24 17:46 Dextrose 50%-Water Inj 50 Ml Syringe IV 09/22/24 17:45 Q15MIN PRN BG <50 OR BG <70 & pt unresponsive Glucagon 1 mg 08/23/24 17:46 Glucagon Inj 1 Mg Vial IM Q15MIN PRN BG <70, and no IV access Norepinephrine/Dextrose 8 mg in 250 mls @ 6.506 mls/hr 08/23/24 12:20 08/30/24 14:00 Levophed In D5w 8mg/250ml IV 09/22/24 12:19 0.1 mcg/kg/min .Q24H PRN 13.013 mls/hr PER PROTOCOL Titration Protocol 0.05 MCG/KG/MIN Meropenem 1,000 mg/ Sodium 50 mls @ 100 mls/hr 08/26/24 21:00 08/30/24 09:12 Chloride IV 09/02/24 20:59 100 mls/hr Q12HR AJAY Administration Propofol 1,000 mg in 100 mls @ 2.082 mls/hr 08/28/24 04:20 08/30/24 15:00 Diprivan Ivpb IV 09/23/24 10:55 50 mcg/kg/min .Q24H PRN 20.82 mls/hr PER PROTOCOL Administration Protocol 5 MCG/KG/MIN Fentanyl Citrate 2,500 mcg in 250 mls @ 2.5 mls/hr 08/28/24 16:00 08/30/24 12:38 Sublimaze Inj 2,500 Mcg/250 Ml Bag IV 09/02/24 15:59 300 mcg/hr .Q24H PRN 30 mls/hr PER PROTOCOL Administration Protocol 25 MCG/HR Micafungin Sodium 100 mg/ 100 mls @ 100 mls/hr 08/29/24 11:57 08/30/24 09:12 Sodium Chloride IV 09/13/24 11:56 100 mls/hr QDAY AJAY Administration Heparin Sodium/Dextrose 25,000 unit in 250 mls @ 9.264 mls/hr 08/29/24 13:15 08/30/24 12:31 Heparin In D5w Ivpb IV 09/12/24 13:14 20 units/kg/hr .Q24H AJAY 15.44 mls/hr Administration Protocol 12 UNITS/KG/HR Ampicillin Sodium 2,000 mg/ 100 mls @ 100 mls/hr 08/30/24 14:00 08/30/24 13:52 Sodium Chloride IV 09/03/24 11:59 100 mls/hr Q8HR AJAY Administration Albumin Human 25 gm in 100 mls @ 100 mls/hr 08/30/24 10:00 08/30/24 13:53 Albuminar-25 Ivpb IV 09/02/24 09:59 100 mls/hr TID AJAY Administration Insulin Human Lispro 0 unit 08/23/24 18:00 08/30/24 11:42 Insulin Lispro (Admelog) 1 Unit/0.01 Ml Unit SC 09/22/24 17:59 1 unit Q6HR AJAY Administration Protocol Magnesium Hydroxide 30 ml 08/23/24 13:03 Milk Of Magnesia Susp 30 Ml Udc PO 09/22/24 13:02 QDAY PRN CONSTIPATION Pantoprazole Sodium 40 mg 08/25/24 13:30 08/30/24 09:09 Pantoprazole Inj 40 Mg Vial IVP 09/24/24 13:29 40 mg BID AJAY Administration Polyethylene Glycol 17 gm 08/24/24 16:00 08/30/24 09:12 Polyethylene Glycol 17 Gm Packet GT 09/23/24 15:59 17 gm QDAY AJAY Administration Sennosides 1 tab 08/24/24 21:00 08/30/24 09:13 Senna Tablet GT 09/23/24 20:59 1 tab BID AJAY Administration Protocol Sodium Chloride 3 ml 08/25/24 11:01 08/25/24 11:40 Sodium Chloride Rt Jelly 0.9% 3 Ml Nebu INH 09/24/24 11:00 3 ml PRN PRN Administration SOLN Plan The patient is a 73-year-old female with significant past medical history of hypertension, DM 2, hyperlipidemia, dementia, hyperthyroidism, CVA with right- sided deficit, chronic G-tube, HFpEF and double of mental delay disorder presented from [facility] home for SOB for 1 day and is admitted to ICU for further management of septic shock secondary to aspiration pneumonia . 08/30/2024: The patient was examined at evaluated at the bedside this morning. The patient remained sedated and mechanically ventilated. She was on max dose of propofol and fentanyl. Pulse rate was ranging from 110s to 130s. Labs were significant for mildly elevated white count of 11.2, hemoglobin stable at 8.9, and platelet down trended 218. ABG this morning was pH 7.34, pCO2 42, pO2 95. Chemistry panel revealed sodium 146, chloride 111, BUN 52 And creatinine elevated to 1.8. TTE done today revealed Moderate systolic dysfunction, akinesis mid to apical anterior septal, and apex with hypokinesis in lateral wall. LVEF 35 to 40% with stage I diastolic dysfunction. Trace pericardial effusion was noted along with fibrinous exudate on the ventricular wall indicating chronic effusion. Her Lasix was switched to Bumex drip. 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 She is verbally none comprehensive. Cardio: #NSTEMI type I EKG showed ST changes, unclear significance. Troponin 4.4, previous troponin 0.02. Cardiology consulted, patient is not a good candidate for cath at this time. Upon review cardiology believes EKG and troponin most likely indicates myocardial infarction in past few days. Recommend medical management at this time. Consulted with GI and surgery, cleared patient for initiating heparin drip. Will monitor closely for signs of bleeding. High intensity statin ordered, beta-blockers held due to low BP. Potassium and magnesium given to maintain levels above 4 and 2 respectively. TTE done on 08/30/2024 revealed Moderate systolic dysfunction, akinesis mid to apical anterior septal, and apex with hypokinesis in lateral wall. LVEF 35 to 40% with stage I diastolic dysfunction. Trace pericardial effusion was noted along with fibrinous exudate on the ventricular wall indicating chronic effusion. -Heparin drip -Atorvastatin 80 mg G-tube at bedtime -Troponins down trended -Maintain potassium greater than 4, magnesium greater than 2 -Cardio consulted, appreciate recommendations #Shock More likely septic shock contributed by sedatives Secondary to aspiration pneumonia and bacteremia During admission met 3/4 SIRS criteria with pulse 101, RR 32, and WBC 28.3, lactic acid trended up to 5.8. Patient was given around 15 L of IV fluids since admission, and is net positive by 11.2 L. Respiratory secretions sputum culture grew enterobacter cloacae that was multidrug-resistant, blood culture only positive on 1 bottle with GPC on aerobic and anaerobes, final results pending 1 bottle blood culture positive for yeast. Patient on Levophed for maintenance of MAP greater than 65. -Continue to treat underlying cause with antibiotics and antifungals -Placed Rt IJ Central line access 08/25/24 -Lactic acid trended down -Daily a.m. labs for CBC, CMP and electrolytes #Volume overload secondary to excessive fluid resuscitation Patient received about 16 liters of fluid since admission, and is still net positive by 9.5 L. -Switched Lasix to Bumex drip 1 mg/h. -Continue to monitor I&O's #Sinus tachycardia Secondary to AHRF 2/2 aspiration PNA -Management as per Pulm #History of HTN -Currently patient's BP is low, requiring pressors Pulmonary: #Acute hypoxic respiratory failure 2/2 #Pulmonary edema 2/2 volume overload due to excessive fluid resuscitation, and #Aspiration pneumonia Secondary to right-sided pneumonia, likely aspiration pneumonia as patient had episodes of vomiting during presentation, associated with pulmonary edema in the setting of volume overload as patient was given around 15 L of IV fluids and is positive by 9.5 L of fluids since admission Patient was initially placed on HF NC, later on oxy mask and during ex laparotomy she was intubated ET secretion grew Enterococcus faecalis and Enterobacter cloacae, Enterococcus faecalis sensitive to ampicillin and Enterobacter cloacae sensitive to meropenem -Patient was intubated again following extubation, due to failed extubation -Zosyn switched to meropenem 1 g 3 times daily on 08/26/2024 -Added vancomycin on 08/24 -ABG in the a.m. -[facility]: #Esophageal ulcer #Gastric ulcer #Duodenal ulcer #Chronic PEG tube -EGD was done on 08/26/2024 and findings were consistent with esophageal, gastric and duodenal ulcer -GI Dr. Arreola consulted, appreciate recommendations -We will continue on IV pantoprazole 40 Mg twice daily -Started on PEG tube feed #Gallstone ileus, resolved status post laparotomy -Dr. Corrales performed ex laparotomy and billiary stone was removed without repair of fistula due to multiple co-morbidity. Dressings were changed. Renal: #SARAI Prerenal secondary to renal congestion in the setting of excessive fluid resuscitation since admission, still patient is positive by 9.5 L since admission. -Continue with IV diuretics, Bumex 1 mg/h drip -Avoid nephrotoxic drugs -Repeat renal panel daily #Hyperphosphatemia, resolved Secondary to SARAI -Continue to monitor -May need to add sevelamer phosphorus continues to trend up #Mild hyperosmolar hypernatremia Secondary to free water deficit, but patient seems to be volume overloaded in the setting of excessive fluid resuscitation -Free water flushes 70 cc/h started #Pseudohyponatremia, resolved #Lactic acidosis, resolved #Hypercalcemia, resolved #Asymptomatic bacteriuria Patient is verbally none comprehensive, it is difficult to distinguish with UTI -On antibiotics Endo: #Diabetes mellitus type 2 -On sliding scale insulin #Hyperthyroidism -Will resume home medication methimazole 5 mg twice daily after extubating the patient Hematology: #Bacteremia Blood culture grew Enterobacter faecalis, sensitive to ampicillin -Started on ampicillin 2 g IV every 4 hourly, has already completed 3 days of vancomycin, we will continue with ampicillin for 4 days until 08/31/2024 -Repeated blood culture, pending results #Fungemia Prelim blood cultures 1/2 bottles grew yeast -Micafungin started on 08/29/2024 -Follow-up blood culture results #Leukocytosis Secondary to aspiration pneumonia -Manage the underlying cause -Daily a.m. CBC #Anemia, stable Likely acute blood loss anemia in the setting of recent surgery followed by possible upper GI bleeding, as patient was sanguinous drainage during slow intermittent suctioning from PEG tube. Hemoglobin of 6.5 this morning, repeat hemoglobin was 6.7. MCV WNL -1 unit PRBC transfused, we will need to post transfusion H&H -GI Dr. Arreola consulted, appreciate recommendations -Monitor H&H and replete if hemoglobin less than 7. -Watch closely in setting of heparin drip #Thrombocytopenia Etiology unknown at this point, less likely shock liver as liver enzymes WNL, and patient has not received any heparin or enoxaparin in the last 15 days. Likely 2/2 sepsis -Continue to monitor with daily CBC -Monitor for any active bleeding ID: -On meropenem as above -Discontinue vancomycin -Started on ampicillin for Enterococcus faecalis -Micafungin for fungemia MSK/skin: -Clean surgical site -Mild bruises over BL forearm -Continue to monitor Health maintenance: Dispo: Patient admitted to ICU for further management of septic shock requiring pressure support DVT prophylaxis: On Lovenox 40 Mg subcu Diet: Tube feeds, currently held Lines: Peripheral lines, Rt IJ catheter CODE STATUS: DNR The patient's management plan was discussed with my attending physician MD Lorenzo Brewer MD PGY-2
[2024-08-30] MEDS: BUMETANIDE INJ 0.25 MG/ML VIAL 4 ML 1 MG IVP (16:39)
[2024-08-30] MEDS: BUMETANIDE INJ 20 MG in CONTAINER,EMPTY 50 ML 1 BAG 4 MG IV (17:41)
[2024-08-30] MEDS: Norepinephrine/D5W 8mg/250ml 8 MG/250 ML BAG 13.013 MG IV (20:16)
[2024-08-30 20:35] LABS: Partial Thromboplastin Time 88.7 Seconds (22.0-36.0)
--- NOTE | 2024-08-30 20:37 | PD.IMPROG ---
Documentation for date of: 08/30/24 Subjective Subjective Interval history: Patient evaluated Hemoglobin hematocrit 8.9 and 27.8 Patient remains mechanically ventilated currently on Bumex drip because of volume overload Exam Vital Signs Temp Pulse Resp BP Pulse Ox O2 Del Method O2 Flow Rate 98.1 F 124 H 22 H 116/55 L 96 Mechanical Ventilation 5 08/30/24 16:00 08/30/24 20:16 08/30/24 18:37 08/30/24 20:16 08/30/24 19:30 08/28/24 16:00 08/25/24 11:48 FiO2 60 08/30/24 19:44 Routine Respiratory Exam Comments: Mechanically ventilated Routine Abdominal Exam Comments: PEG tube in place soft nontender positive bowel sounds Objective Labs 08/30/24 03:00 08/30/24 03:00 Labs: Laboratory Results - last 24 hr 08/30/24 08/30/24 08/30/24 03:00 04:19 11:50 WBC 11.2 H D RBC 2.86 L Hgb 8.9 L Hct 27.8 L MCV 97 MCH 31.1 MCHC 32.0 RDW Std Deviation 59.4 H Plt Count 118 L Neut % (Auto) 88 H Lymph % (Auto) 7 L [place] % (Auto) 3 Eos % (Auto) 1 Baso % (Auto) 0 Neut # (Auto) 9.9 H Lymph # (Auto) 0.8 L [place] # (Auto) 0.3 Eos # (Auto) 0.1 Baso # (Auto) 0.0 Immature Gran # (Auto) 0.06 H Absolute Nucleated RBC 0.00 Immature Gran % 1 H Nucleated RBC % 0 APTT 44.7 H D 49.5 H Puncture Site Right Radial ABG pH 7.34 L ABG pCO2 42 ABG pO2 95 D ABG HCO3 23 ABG O2 Saturation 98 ABG Base Excess -3 FiO2 60 Sodium 146 H Potassium 3.8 Chloride 111 H Carbon Dioxide 24.0 Anion Gap 11 BUN 52 H Creatinine 1.8 H Estim Creat Clear Calc 27.0 L eGFR 30 L BUN/Creatinine Ratio 29 H Glucose 164 H Calculated Osmolality 308 H Calcium 8.2 L Corrected Calcium 9.3 Phosphorus 5.0 Magnesium 2.2 Total Bilirubin 0.3 AST 16 ALT 13 Alkaline Phosphatase 98 Total Protein 5.0 L Albumin 2.6 L Globulin 2.4 Albumin/Globulin Ratio 1.1 L 12/10/24 18:48 WBC RBC Hgb Hct MCV MCH MCHC RDW Std Deviation Plt Count Neut % (Auto) Lymph % (Auto) [place] % (Auto) Eos % (Auto) Baso % (Auto) Neut # (Auto) Lymph # (Auto) [place] # (Auto) Eos # (Auto) Baso # (Auto) Immature Gran # (Auto) Absolute Nucleated RBC Immature Gran % Nucleated RBC % APTT 88.7 H D Puncture Site ABG pH ABG pCO2 ABG pO2 ABG HCO3 ABG O2 Saturation ABG Base Excess FiO2 Sodium Potassium Chloride Carbon Dioxide Anion Gap BUN Creatinine Estim Creat Clear Calc eGFR BUN/Creatinine Ratio Glucose Calculated Osmolality Calcium Corrected Calcium Phosphorus Magnesium Total Bilirubin AST ALT Alkaline Phosphatase Total Protein Albumin Globulin Albumin/Globulin Ratio Impressions Impression: # Shallow gastric ulcer # Distal esophageal ulceration # Erosive duodenitis Continue current management ABG Interpretation ABG results: 08/23/24 08/23/24 08/25/24 16:06 22:31 07:30 ABG pH 7.22 L 7.25 L 7.35 D ABG pCO2 45 43 37 ABG pO2 90 68 L D 79 L ABG HCO3 19 L 19 L 20 ABG O2 Saturation 95 91 96 ABG Base Excess -9 L -8 L -5 L VBG pH VBG pCO2 VBG pO2 VBG Base Excess 08/25/24 08/26/24 08/26/24 13:14 04:20 11:31 ABG pH 7.23 L D 7.38 D ABG pCO2 43 37 ABG pO2 358 H D 85 D ABG HCO3 18 L 22 ABG O2 Saturation 101 H 98 ABG Base Excess -9 L -3 VBG pH 7.34 VBG pCO2 38 VBG pO2 122 H VBG Base Excess -5 L 08/27/24 08/28/24 08/28/24 07:51 04:20 07:11 ABG pH 7.41 7.26 L D 7.35 ABG pCO2 29 L 39 D 33 ABG pO2 66 L 73 L 63 L ABG HCO3 19 L 17 L 18 L ABG O2 Saturation 94 93 91 ABG Base Excess -5 L -9 L -7 L VBG pH VBG pCO2 VBG pO2 VBG Base Excess 08/28/24 08/29/24 08/29/24 20:00 01:00 04:07 ABG pH 7.37 7.39 7.46 H ABG pCO2 40 37 31 L ABG pO2 59 L* 64 L 88 D ABG HCO3 23 22 22 ABG O2 Saturation 90 L 93 98 ABG Base Excess -2 -2 -2 VBG pH VBG pCO2 VBG pO2 VBG Base Excess 08/29/24 08/30/24 07:39 04:19 ABG pH 7.38 7.34 L ABG pCO2 39 42 ABG pO2 48 L* D 95 D ABG HCO3 23 23 ABG O2 Saturation 82 L 98 ABG Base Excess -2 -3 VBG pH VBG pCO2 VBG pO2 VBG Base Excess Assessment & Plan A&P Narrative # Occult GI bleeding most likely upper requiring blood transfusion initial presentation in the form of melena Plan is Fiberoptic esophagogastroduodenoscopy with possible biopsy possible therapeutic intervention under intravenous moderate sedation scheduled for today Further evaluation after above Other medical problems include # Acute hypoxic respiratory failure requiring endotracheal intubation and mechanical ventilation # GPC and GNR in the tracheal culture patient on IV meropenem # Acute posthemorrhagic anemia requiring blood transfusion # 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
[2024-08-30] MEDS: ATORVASTATIN CALCIUM 20 MG TABLET 80 MG GT (21:51)
[2024-08-31] VITALS (55 sets, daily range): BP systolic 86–124; BP diastolic 49–78; PULSE 105–138; RESP 22–26; TEMP 36.9–37.3; O2SAT 89–98; BMI 32.5
[2024-08-31] MEDS: PROPOFOL 1,000 MG IVPB 1,000 MG/100 ML VIAL 20.82 MG IV ×3 (01:05→11:26)
[2024-08-31] MEDS: ACETYLCYSTEINE SOL 20% 4 ML NEBU 3 ML INH ×2 (02:06→06:31)
[2024-08-31] MEDS: ALBUTEROL/IPRATROPIUM (Duoneb) RT SOL 3 ML NEBU INH ×2 (02:06→06:31)
[2024-08-31 03:07] LABS: Basophils % (Auto) 0 % (0-2.5); Eosinophils # (Auto) 0.2 Thou/mm3 (0.0-0.5); Eosinophils % (Auto) 2 % (0-10); Hematocrit 24.6 % (36.0-46.0); Immature Granulocytes % (Auto) 0 % (0-0); Immature Granulocytes Auto 0.04 Thou/mm3 (0.00-0.00); Lymphocytes # (Auto) 0.9 Thou/mm3 (1.0-4.8); Lymphocytes % (Auto) 8 % (10-50); Mean Corpuscular HGB Conc 31.7 g/dl (31.0-37.0); Mean Corpuscular Volume 98 fL (80-100); Monocytes # (Auto) 0.2 Thou/mm3 (0.0-0.8); Monocytes % (Auto) 2 % (0-12); Neutrophils # (Auto) 9.9 Thou/mm3 (1.8-7.7); Neutrophils % (Auto) 88 % (37-80); Nucleated Red Blood Cell % 0 /100 WBC (0); Platelet Count 84 Thou/mm3 (140-440); Red Blood Count 2.52 Miln/mm3 (4.00-5.20); White Blood Count 11.2 Thou/mm3 (3.6-11.0)
[2024-08-31 03:09] LABS: Hemoglobin 7.8 g/dL (12.0-16.0)
[2024-08-31 03:25] LABS: Alanine Aminotransferase 7 U/L (10-49); Albumin/Globulin Ratio 1.4 (1.2-2.2); Alkaline Phosphatase 84 U/L (46-116); Anion Gap 13 (7-16); Aspartate Amino Transferase 13 U/L (0-34); BUN/Creatinine Ratio 27 Ratio (12-20); Bilirubin,Total 0.3 mg/dL (0.3-1.2); Blood Urea Nitrogen 52 mg/dL (9-23); Calcium 8.4 mg/dL (8.3-10.6); Calcium (Corrected) 9.2 mg/dL (8.5-10.1); Carbon Dioxide 23.2 mMol/L (20.0-31.0); Chloride 110 mMol/L (98-107); Creatinine (Component) 1.9 mg/dL (0.6-1.3); Globulin 2.2 gm/dL (2.3-3.5); Glucose 141 mg/dL (74-106); Magnesium 2.1 mg/dL (1.6-2.6); Osmolality,Calculated 306 (275-295); Phosphorous 6.3 mg/dL (2.4-5.1); Potassium 3.6 mMol/L (3.4-5.1); Sodium 146 mMol/L (136-145); Total Protein 5.2 gm/dL (5.7-8.2); eGFR 28 See Note
[2024-08-31 03:36] LABS: Partial Thromboplastin Time 75.8 Seconds (22.0-36.0)
[2024-08-31 04:31] LABS: Base Excess -4 (-3-3); HCO3 23 mEq/L (20-26); Inspired Oxygen, FIO2 55 %; O2 Saturation 92 % (91-98); PCO2 46 mmHg (32.0-48.0); PO2 66 mmHg (83-108)
[2024-08-31 04:37] LABS: Allen Test Not Performed; Puncture Site Left Radial
[2024-08-31] MEDS: INSULIN LISPRO (AdmeLOG) 1 UNIT/0.01 ML UNIT SC (05:22)
[2024-08-31] MEDS: ALBUMIN HUMAN 25% IVPB 25 GM/100 ML BTL IV (05:22)
[2024-08-31] MEDS: fentaNYL 2,500 MCG/250 ML BAG 2,500 MCG/250 ML BAG 30 MCG IV ×2 (05:55→14:05)
[2024-08-31] MEDS: Heparin/D5w 25K 250 ML Ivpb 25,000 UNIT/250 ML BAG 13.896 UNIT IV (06:48)
[2024-08-31 09:11] LABS: Partial Thromboplastin Time 70.3 Seconds (22.0-36.0)
[2024-08-31] MEDS: POLYETHYLENE GLYCOL 17 GM PACKET GT (09:12)
[2024-08-31] MEDS: PANTOPRAZOLE INJ 40 MG VIAL IVP (09:12)
[2024-08-31] MEDS: bisacodyL 10 MG SUPP PR (09:13)
[2024-08-31] MEDS: MICAFUNGIN SODIUM INJ 100 MG in SODIUM CHLORIDE 0.9% 100 ML IV (09:13)
[2024-08-31] MEDS: SENNA TABLET 1 TAB GT (09:14)
[2024-08-31] MEDS: MEROPENEM INJ 1,000 MG in SODIUM CHLORIDE 0.9% (P) 50 ML 100 MG IV (09:15)
[2024-08-31] MEDS: POTASSIUM CHLORIDE 10% 20 MEQ/15 ML UDC 40 MEQ GT (09:16)
--- NOTE | 2024-08-31 09:26 | PD.RESPRO ---
Documentation for date of: 08/31/24 Subjective Subjective Interval history: Patient seen this AM. No overnight events. Patient is continues to have increased ventilator requirements. ICU team spoke with Dr. Burden we will decided that patient will be transition to comfort care once family members are at bedside. Will continue with conservative medical management for now until patient has transition to comfort care later today. Potassium 3.6 and Mg 2.1, recommend to keep above 4 and 2 respectively. Echo had the following findings: Normal LV size. Moderate systolic dysfunction. Akinesis mid to apical anterior septal, and apex. hypokinesis lateral wall. Estimated EF 35-40%. Stage 1 diastolic dysfunction. Normal RV size and function. Trace MR, TR. Pleural effusion present. Pericardial effusion trace noted and fibrogenous exudate noted on the ventricular elise indicating chronic effusion. Echocardiogram results show that the patient did have possible CO recently given the akinesis of the mid to apical anterior septum along with akinetic apex as evidenced by the EKG from which she recovered. EF is also low at 35 to 40%. Patient is having multiple medical problems at the present moment including fungemia as well as bacteremia and atrial fibrillation with RVR, recent acute CO, heart failure for which she was started on Bumex drip and she has increasing ventilator requirements. Overall patient not doing well. Poor prognosis is in critical condition. Also recommend the amiodarone drip for the Atrial fibrillation control along with amiodarone 200 mg twice daily for now and check QTc in the morning if patient is started on amiodarone Exam Vital Signs Temp Pulse Resp BP Pulse Ox O2 Del Method O2 Flow Rate 99.2 F 114 H 23 H 86/57 L 91 L Mechanical Ventilation 5 08/31/24 08:00 08/31/24 09:00 08/31/24 06:36 08/31/24 09:00 08/31/24 09:00 08/28/24 16:00 08/25/24 11:48 FiO2 55 08/31/24 07:15 Narrative Exam General: sedated and intubated Eyes: Pupils reactive to light Ears: no visible ear discharge, Hearing grossly intact. Nose: No visible nasal discharge. Mouth/Throat: Dry mucous membranes, no redness, no lesions. Neck: Neck supple, no cervical lymphadenopathy. Lungs: bronchial breath sounds Cardio: Normal S1/S2, tachycardic, no murmur, no JVD assessed Abdomen: Soft, no palpable masses, peristalsis present, no guarding or rebound. Surgical site covered with clean dressing and Peg tube in place without any bleeding. Extremities: Symmetrical, no significant deformities, no peripheral edema , non-tender, peripheral pulses presents. CARO UE swelling likely due to IV. Skin: No rashes, no lesions, warm to touch. Neuro: could not be assessed as patient on sedation Objective Labs 08/31/24 02:48 08/31/24 02:48 Labs: Laboratory Results - last 24 hr 08/30/24 08/30/24 08/31/24 11:50 18:48 02:48 WBC 11.2 H RBC 2.52 L Hgb 7.8 L Hct 24.6 L MCV 98 MCH 31.0 MCHC 31.7 RDW Std Deviation 58.0 H Plt Count 84 L D Neut % (Auto) 88 H Lymph % (Auto) 8 L [place] % (Auto) 2 Eos % (Auto) 2 Baso % (Auto) 0 Neut # (Auto) 9.9 H Lymph # (Auto) 0.9 L [place] # (Auto) 0.2 Eos # (Auto) 0.2 Baso # (Auto) 0.0 Immature Gran # (Auto) 0.04 H Absolute Nucleated RBC 0.00 Immature Gran % 0 Nucleated RBC % 0 APTT 49.5 H 88.7 H D 75.8 H D Puncture Site ABG pH ABG pCO2 ABG pO2 ABG HCO3 ABG O2 Saturation ABG Base Excess FiO2 Sodium 146 H Potassium 3.6 Chloride 110 H Carbon Dioxide 23.2 Anion Gap 13 BUN 52 H Creatinine 1.9 H Estim Creat Clear Calc 26.0 L eGFR 28 L BUN/Creatinine Ratio 27 H Glucose 141 H Calculated Osmolality 306 H Calcium 8.4 Corrected Calcium 9.2 Phosphorus 6.3 H Magnesium 2.1 Total Bilirubin 0.3 AST 13 ALT 7 L Alkaline Phosphatase 84 Total Protein 5.2 L Albumin 3.0 L Globulin 2.2 L Albumin/Globulin Ratio 1.4 08/31/24 08/31/24 04:14 08:25 WBC RBC Hgb Hct MCV MCH MCHC RDW Std Deviation Plt Count Neut % (Auto) Lymph % (Auto) [place] % (Auto) Eos % (Auto) Baso % (Auto) Neut # (Auto) Lymph # (Auto) [place] # (Auto) Eos # (Auto) Baso # (Auto) Immature Gran # (Auto) Absolute Nucleated RBC Immature Gran % Nucleated RBC % APTT 70.3 H Puncture Site Left Radial ABG pH 7.30 L ABG pCO2 46 ABG pO2 66 L D ABG HCO3 23 ABG O2 Saturation 92 ABG Base Excess -4 L FiO2 55 Sodium Potassium Chloride Carbon Dioxide Anion Gap BUN Creatinine Estim Creat Clear Calc eGFR BUN/Creatinine Ratio Glucose Calculated Osmolality Calcium Corrected Calcium Phosphorus Magnesium Total Bilirubin AST ALT Alkaline Phosphatase Total Protein Albumin Globulin Albumin/Globulin Ratio ABG Interpretation ABG results: 08/23/24 08/23/24 08/25/24 16:06 22:31 07:30 ABG pH 7.22 L 7.25 L 7.35 D ABG pCO2 45 43 37 ABG pO2 90 68 L D 79 L ABG HCO3 19 L 19 L 20 ABG O2 Saturation 95 91 96 ABG Base Excess -9 L -8 L -5 L VBG pH VBG pCO2 VBG pO2 VBG Base Excess 08/25/24 08/26/24 08/26/24 13:14 04:20 11:31 ABG pH 7.23 L D 7.38 D ABG pCO2 43 37 ABG pO2 358 H D 85 D ABG HCO3 18 L 22 ABG O2 Saturation 101 H 98 ABG Base Excess -9 L -3 VBG pH 7.34 VBG pCO2 38 VBG pO2 122 H VBG Base Excess -5 L 08/27/24 08/28/24 08/28/24 07:51 04:20 07:11 ABG pH 7.41 7.26 L D 7.35 ABG pCO2 29 L 39 D 33 ABG pO2 66 L 73 L 63 L ABG HCO3 19 L 17 L 18 L ABG O2 Saturation 94 93 91 ABG Base Excess -5 L -9 L -7 L VBG pH VBG pCO2 VBG pO2 VBG Base Excess 08/28/24 08/29/24 08/29/24 20:00 01:00 04:07 ABG pH 7.37 7.39 7.46 H ABG pCO2 40 37 31 L ABG pO2 59 L* 64 L 88 D ABG HCO3 23 22 22 ABG O2 Saturation 90 L 93 98 ABG Base Excess -2 -2 -2 VBG pH VBG pCO2 VBG pO2 VBG Base Excess 12/06/1408/30/24 08/31/24 07:39 04:19 04:14 ABG pH 7.38 7.34 L 7.30 L ABG pCO2 39 42 46 ABG pO2 48 L* D 95 D 66 L D ABG HCO3 23 23 23 ABG O2 Saturation 82 L 98 92 ABG Base Excess -2 -3 -4 L VBG pH VBG pCO2 VBG pO2 VBG Base Excess Quality Measures Quality Measures sepsis Current suspected stage: ruled out Possible source: unknown Blood cultures ordered: yes Antibiotic ordered: No Advance care planning discussed with:: other Assessment & Plan Assessment Current Active Medications: Generic Name Dose Route Start Last Admin Trade Name Freq PRN Reason Stop Dose Admin Acetaminophen 650 mg 08/23/24 13:03 Acetaminophen 325 Mg Tablet PO 09/22/24 13:02 Q4HR PRN PAIN SCALE 1-3 (mild Acetaminophen 650 mg 08/23/24 13:03 Acetaminophen Supp 650 Mg Supp MO 09/22/24 13:02 Q4HR PRN PAIN SCALE 1-3 (mild Acetylcysteine 3 ml 08/25/24 11:00 08/31/24 06:31 Acetylcysteine Jelly 20% 4 Ml Nebu INH 09/24/24 10:59 3 ml Q4HRRT AJAY Administration Albuterol/Ipratropium 3 ml 08/25/24 11:00 08/31/24 06:31 Albuterol/Ipratropium (Duoneb) Rt Jelly 3 Ml Nebu INH 09/24/24 10:59 3 ml Q4HRRT AJAY Administration Artificial Tears 0 drop 08/28/24 13:52 08/28/24 16:31 Artificial Tears 225 Drop/15 Ml Btl BOTH EYES 09/27/24 13:51 1 drop PRN PRN Administration TO KEEP EYES MOIST Atorvastatin Calcium 80 mg 08/29/24 21:00 08/30/24 21:51 Atorvastatin Calcium 20 Mg Tablet GT 09/28/24 20:59 80 mg HS AJAY Administration Bisacodyl 10 mg 08/24/24 17:30 08/31/24 09:13 Bisacodyl 10 Mg Supp MO 09/23/24 17:29 10 mg QDAY AJAY Administration Protocol Dextrose 25 ml 08/23/24 17:46 Dextrose 50%-Water Inj 50 Ml Syringe IV 09/22/24 17:45 Q15MIN PRN BG 50-70 responsive npo pt Dextrose 50 ml 08/23/24 17:46 Dextrose 50%-Water Inj 50 Ml Syringe IV 09/22/24 17:45 Q15MIN PRN BG <50 OR BG <70 & pt unresponsive Glucagon 1 mg 08/23/24 17:46 Glucagon Inj 1 Mg Vial IM Q15MIN PRN BG <70, and no IV access Norepinephrine/Dextrose 8 mg in 250 mls @ 6.506 mls/hr 08/23/24 12:20 08/31/24 06:52 Levophed In D5w 8mg/250ml IV 09/22/24 12:19 0.12 mcg/kg/min .Q24H PRN 15.615 mls/hr PER PROTOCOL Titration Protocol 0.05 MCG/KG/MIN Meropenem 1,000 mg/ Sodium 50 mls @ 100 mls/hr 08/26/24 21:00 08/31/24 09:15 Chloride IV 09/02/24 20:59 100 mls/hr Q12HR AJAY Administration Propofol 1,000 mg in 100 mls @ 2.082 mls/hr 08/28/24 04:20 08/31/24 05:54 Diprivan Ivpb IV 09/23/24 10:55 50 mcg/kg/min .Q24H PRN 20.82 mls/hr PER PROTOCOL Administration Protocol 5 MCG/KG/MIN Fentanyl Citrate 2,500 mcg in 250 mls @ 2.5 mls/hr 08/28/24 16:00 08/31/24 05:55 Sublimaze Inj 2,500 Mcg/250 Ml Bag IV 09/02/24 15:59 300 mcg/hr .Q24H PRN 30 mls/hr PER PROTOCOL Administration Protocol 25 MCG/HR Micafungin Sodium 100 mg/ 100 mls @ 100 mls/hr 08/29/24 11:57 08/31/24 09:13 Sodium Chloride IV 09/13/24 11:56 100 mls/hr QDAY AJAY Administration Heparin Sodium/Dextrose 25,000 unit in 250 mls @ 9.264 mls/hr 08/29/24 13:15 08/31/24 06:48 Heparin In D5w Ivpb IV 09/12/24 13:14 18 units/kg/hr .Q24H AJAY 13.896 mls/hr Administration Protocol 12 UNITS/KG/HR Albumin Human 25 gm in 100 mls @ 100 mls/hr 08/30/24 10:00 08/31/24 05:22 Albuminar-25 Ivpb IV 09/02/24 09:59 100 mls/hr TID AJAY Administration Bumetanide 20 mg/ IV 80 mls @ 4 mls/hr 08/30/24 15:34 08/30/24 17:41 Miscellaneous Supplies IV 08/31/24 11:33 1 mg/hr .Q20H AJAY 4 mls/hr Administration 1 MG/HR Insulin Human Lispro 0 unit 08/23/24 18:00 08/31/24 05:22 Insulin Lispro (Admelog) 1 Unit/0.01 Ml Unit SC 09/22/24 17:59 1 unit Q6HR AJAY Administration Protocol Magnesium Hydroxide 30 ml 08/23/24 13:03 Milk Of Magnesia Susp 30 Ml Udc PO 09/22/24 13:02 QDAY PRN CONSTIPATION Pantoprazole Sodium 40 mg 08/25/24 13:30 08/31/24 09:12 Pantoprazole Inj 40 Mg Vial IVP 09/24/24 13:29 40 mg BID AJAY Administration Polyethylene Glycol 17 gm 08/24/24 16:00 08/31/24 09:12 Polyethylene Glycol 17 Gm Packet GT 09/23/24 15:59 17 gm QDAY AJAY Administration Sennosides 1 tab 08/24/24 21:00 08/31/24 09:14 Senna Tablet GT 09/23/24 20:59 1 tab BID AJAY Administration Protocol Sodium Chloride 3 ml 08/25/24 11:01 08/25/24 11:40 Sodium Chloride Rt Jelly 0.9% 3 Ml Nebu INH 09/24/24 11:00 3 ml PRN PRN Administration SOLN Plan 73-year-old female with past medical history of HFpEF (60-65% 05/2024), dementia, CVA with right sided residual deficits, chronic G-tube, hyperthyroidism, DM2, hyperlipidemia, and developmental delay was admitted to the ICU on 08/23/2024 due to septic shock secondary to to gallstone ileus. 1. NSTEMI type I versus type II 2. Acute decompensated diastolic heart failure (EF 60 to 65% 05/2024) 3. A-Fib with RVR ?EKG ordered on 08/29/[address] changes ? EKG interpretation could indicate prior CO in the past few days, but unable to correlate given the patient cannot communicate any cardiac symptoms ?Troponins 4.416 ?DDx could be demand ischemia secondary to septic shock versus ACS ?Last echo on 06/13/2024 showed the following findings: Normal LV size and function. Stage I diastolic dysfunction. Estimated EF 60-65% Normal RV size and function. Trace MR, TR. ?Given patient's history of GI ulcers and recent surgery ICU team spoke with specialist in order to start heparin drip. -Echo had the following findings: Normal LV size. Moderate systolic dysfunction. Akinesis mid to apical anterior septal, and apex. hypokinesis lateral wall. Estimated EF 35-40%. Stage 1 diastolic dysfunction. Normal RV size and function. Trace MR, TR. Pleural effusion present. Pericardial effusion trace noted and fibrogenous exudate noted on the ventricular elise indicating chronic effusion. Plan Echocardiogram results show that the patient did have possible CO recently given the akinesis of the mid to apical anterior septum along with akinetic apex as evidenced by the EKG from which she recovered. EF is also low at 35 to 40%. Continue with conservative management as discussed with Dr. Burden for now. Patient is having multiple medical problems at the present moment including fungemia as well as bacteremia and atrial fibrillation with RVR, recent acute CO,, heart failure for which she was started on Bumex drip and she has increasing ventilator requirements. Overall patient not doing well. Poor prognosis is in critical condition. Also recommend the amiodarone drip for the Atrial fibrillation control along with amiodarone 200 mg twice daily for now and check QTc in the morning if patient is started on amiodarone Plan: ? ICU team spoke with Dr. Burden and will transition patient to comfort care once family members are at bedside later today ?Recommend to continue conservative management until patient has transition to comfort care -Recommend to start amiodarone drip and amiodarone 200mg BID for A-fib -recommend to get EKG tomorrow -recommend to continue Bumex drip ? Recommend starting a beta-hazel as blood pressure allows ? Recommend to continue patient on a statin ? Recommend to keep potassium magnesium above 4 and 2 respectively to avoid any further arrhythmias I discussed with Dr. Burden who is the conservator for the patient at [facility] who explained today about the patient in detail and recommended no further invasive procedures for the patient and only medical treatment for now with which we agree. Recommend to continue heparin drip if okay with GI as well as surgical team given the patient has history of GI bleed during this admission requiring transfusions and a high risk surgery for the gallstone ileus. Spoke with GI staff Dr. Arreola and he did agree for anticoagulation and patient started on heparin drip as patient also developed atrial fibrillation with RVR this afternoon. Continue to monitor hemoglobin closely. And no beta-hazel for now because the patient is still requiring Levophed for pressor support. Can start amiodarone drip along with bolus if the patient continues to be in A-fib with RVR if there are no contraindications. Recommend heparin drip for 48 hours along with statin for now. Aspirin if okay with GI and surgical team. Patient overall prognosis appears to be poor and her condition is critical. 4. Septic shock 5. Acute hypoxic respiratory failure 6. Gallstone ileus ?Patient underwent surgery by general surgeon for removal of gallstone on 08/23/2024 ? Patient is still currently sedated and intubated as well as on vasopressors ?Patient is currently on micanfungin and meropenem ? Continue current management plan as per ICU team 7. Esophageal ulcer 8. Gastric ulcer 9. Duodenal ulcer ?Patient underwent EGD on 08/26/2024 ?Currently on Protonix ? Continue current management as per ICU team 10. DM2 ?Continue current management as per ICU team 11. Developmental delay 12. CVA with right-sided residual deficits 13. Dementia 14. Chronic G-tube ?Tube feeds which she was started on Thursday ? Continue current management as per ICU team 15. Hyperthyroidism 16. Hyperlipidemia ?Continue current management as per ICU team Continue rest of management as per primary team. We are grateful to be able to participate in Mrs. Tomas's care. Thank you for the consult Plan of care discussed with attending Road Equipment Operator, Dr. Pavel Ontiveros MD PGY-1 Attending Provider Attestation/Addendum I have personally seen and examined the patient separately on the above date of service and discussed the plan of care with the resident. I reviewed the resident Dr. Rivero consultation progress note and agree with the resident findings and plan in the note above and have also edited the documentation to reflect my findings and plan. Dixon Zhao M.D. Interventional Cardiology
--- NOTE | 2024-08-31 09:40 | PC.RT ---
respiratory treatments and CPT on hold per MD Mejia due to pt being put on comfort care
[2024-08-31] MEDS: SCOPOLAMINE 1 MG TDSY TOP (10:53)
--- NOTE | 2024-08-31 11:15 | PD.INTPROG ---
Documentation for date of: 08/31/24 Subjective Subjective Interval history: This is a 73-year-old female who presented to the hospital on 23 August. She was originally admitted for nausea and vomiting and CT showed small bowel obstruction secondary to a large gallstone. Surgery was consulted and the patient underwent an enterotomy with stone removal and repair of the enterotomy. She was left intubated and transferred to the ICU. Overnight there have been no acute issues. Sedation was held this morning and once the sedation was held her vasopressor requirements disappeared. She was awake and interactive. She met weaning parameters and decision was made to extubate her. Upon extubation patient was noted to have difficulty clearing her secretions. She was deep suctioned multiple times. At one point in time it also appeared that she might have stridor and was treated with racemic epi. She continued to have increased work of breathing and difficulty clearing secretions therefore the decision was made to reintubate her. 08/26-no acute overnight events, good urinary output though remains significantly net positive, afebrile, hypokalemic this morning 08/27- good UOP net neg last 24hr, afebrile, 08/28- overnight had resp distress with breath stacking on the vent reason for which propofol was added. When the propofol was started the patient became more hypotensive and Levophed requirements increased. She is on diuresis and has had good urinary output. 08/29- overnight continued to have episodes of vent dysynchrony , irregular HR and tachycardia, good UOP 08/30- no acute overnight events, has maintained good urinary output on diuresis, afebrile, has required a few doses of block for intermittent vent dyssynchrony and hypoxia despite adequate sedation 08/31-patient with elevated trops and HI, no significant improvement in her overall status. I did have discussion with her conservator Dr. Burden yesterday. Per our discussion the patient does not appear to be improving and shows clear ongoing deterioration with multiorgan failure. The decision was made to make her comfortable and proceed with withdrawal today. She has developed respiratory failure, shock, fungemia, ESBL pneumonia, and acute renal failure. Critical Care Note Critical care time (min.): 0 Exam Vital Signs Temp Pulse Resp BP Pulse Ox O2 Del Method O2 Flow Rate 99.2 F 114 H 23 H 86/57 L 91 L Mechanical Ventilation 5 08/31/24 08:00 08/31/24 09:00 08/31/24 06:36 08/31/24 09:00 08/31/24 09:00 08/28/24 16:00 08/25/24 11:48 FiO2 55 08/31/24 07:15 Narrative Exam General-intubated, sedated, obese body habitus, no acute distress HEENT-normocephalic, atraumatic, sclera icteric, oral mucosa is hydrated, ET tube in place Chest-coarse breath sounds bilaterally, diminished, occasional crackles, no increased work of breathing, heart rhythm rhythmic, no bruits Abdomen-soft, no apparent tenderness, right sided surgical site appears intact, PEG tube in place Extremities-edema, contracted, pulses palpable, no clubbing, no mottling, no cyanosis Vent AC/VC Drips Levophed Fentanyl Propofol Physical Exam Completion Physical Exam Complete?: Yes Objective - [facility] 08/31/24 02:48 08/31/24 02:48 Labs: Laboratory Results - last 24 hr 08/30/24 08/30/24 08/31/24 11:50 18:48 02:48 WBC 11.2 H RBC 2.52 L Hgb 7.8 L Hct 24.6 L MCV 98 MCH 31.0 MCHC 31.7 RDW Std Deviation 58.0 H Plt Count 84 L D Neut % (Auto) 88 H Lymph % (Auto) 8 L Jennings % (Auto) 2 Eos % (Auto) 2 Baso % (Auto) 0 Neut # (Auto) 9.9 H Lymph # (Auto) 0.9 L Jennings # (Auto) 0.2 Eos # (Auto) 0.2 Baso # (Auto) 0.0 Immature Gran # (Auto) 0.04 H Absolute Nucleated RBC 0.00 Immature Gran % 0 Nucleated RBC % 0 APTT 49.5 H 88.7 H D 75.8 H D Puncture Site ABG pH ABG pCO2 ABG pO2 ABG HCO3 ABG O2 Saturation ABG Base Excess FiO2 Sodium 146 H Potassium 3.6 Chloride 110 H Carbon Dioxide 23.2 Anion Gap 13 BUN 52 H Creatinine 1.9 H Estim Creat Clear Calc 26.0 L eGFR 28 L BUN/Creatinine Ratio 27 H Glucose 141 H Calculated Osmolality 306 H Calcium 8.4 Corrected Calcium 9.2 Phosphorus 6.3 H Magnesium 2.1 Total Bilirubin 0.3 AST 13 ALT 7 L Alkaline Phosphatase 84 Total Protein 5.2 L Albumin 3.0 L Globulin 2.2 L Albumin/Globulin Ratio 1.4 08/31/24 08/31/24 04:14 08:25 WBC RBC Hgb Hct MCV MCH MCHC RDW Std Deviation Plt Count Neut % (Auto) Lymph % (Auto) Jennings % (Auto) Eos % (Auto) Baso % (Auto) Neut # (Auto) Lymph # (Auto) Jennings # (Auto) Eos # (Auto) Baso # (Auto) Immature Gran # (Auto) Absolute Nucleated RBC Immature Gran % Nucleated RBC % APTT 70.3 H Puncture Site Left Radial ABG pH 7.30 L ABG pCO2 46 ABG pO2 66 L D ABG HCO3 23 ABG O2 Saturation 92 ABG Base Excess -4 L FiO2 55 Sodium Potassium Chloride Carbon Dioxide Anion Gap BUN Creatinine Estim Creat Clear Calc eGFR BUN/Creatinine Ratio Glucose Calculated Osmolality Calcium Corrected Calcium Phosphorus Magnesium Total Bilirubin AST ALT Alkaline Phosphatase Total Protein Albumin Globulin Albumin/Globulin Ratio Assessment & Plan Additional Assessment Additional Assessment: In summary this is 73-year-old female admitted to the ICU for acute hypoxic respiratory failure who is also status post enterotomy 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 of ST elevations - trops ordered and noted to be elevated -> now trending down -Cardiology consult appreciated -Started on heparin drip -Not a candidate for intervention at this point in time medical management only Shock- 2/2 sepsis - on levo - recent bcx grew yeast - started on micafungin Resp Acute hypoxic resp failure-failed extubation and was reintubated -On diuretics for pulmonary edema -Continues with significant bilateral infiltrates -No improvement Aspiration PNA- sputum cx growing GPC and GNR-> resulted out asEnterococcus and Enterobacter, on vanc and zosyn switched to meropenem and ampicillin - on mucomyst/duonebs - CPT q4hrs Renal Renal calculi HypoK- replete IV HyperNa- free water SARAI- prerenal v septic ATN - good UOP on lasix - monitor i/os - avoid nephrotoxins (vanc stopped) -Slight worsening of creatinine however patient was noted to be more net positive today -[place] to have some degree of congestive nephropathy -No significant change GI SBO s/p enterotomy- followed by surgery and doing well Gallbladder small bowel fistula GI bleed- PPI q12 - transfused 1uPRBCs - fu h/h - EGD done 08/26 which showed gastric ulcers/duodenal ulcers/esophageal ulcers but no active bleeding at that time - GI recs appreciated Endo Stable Heme Leukocytosis- resolved Anemia- transfused 1uPRBCs 08/26 - blood loss anemia - 2/2 mult gastric ulcers noted on EGD Thrombocytopenia- slight drop - likely 2/2 sepsis - some improvement DVT proph- started on chemical proph today ID ? UTI- UA with WBC and rare bacteria Pneumonia-on antibiotics Bacteremia-patient had 1 out of 2 blood cultures with GPC's that are currently still awaiting identification - resulted as enterococcus - repeat Bx obtained and pending Fungemia- started on micafungin today - 1/2 bottles from 08/27 with yeast - repeat bcx In-depth conversation held yesterday with both cardiology as well as Dr. Burden the patient's conservator. The patient has suffered multiple setbacks during her hospital stay. After her surgical procedure she developed an aspiration pneumonia and had a ESBL organism. She had an enterococcal bacteremia followed by fungemia. She has had respiratory failure and was initially extubated however rapidly failed and was reintubated. She has had worsening pulmonary edema and volume overload. She has had acute kidney injury. She was also developed a GI bleed during her stay and after the EGD was performed she was noted to have esophageal, gastric and duodenal ulcers. She developed an MRI with wall motion abnormalities noted however is not a candidate for intervention at this point in time. Given her overall picture and poor progression with ongoing decline the decision was made to transition to comfort care. The patient will be started on as needed morphine and Ativan today once family has arrived at bedside. case d/w ICU team labs, imaging, records reviewed ~36 ccmin required for eval, exam, review, intervention, discussion and formulation of POC for this critically ill pt with acute resp failure on MV at high risk for further and ongoing decompensation Provider Notation Provider Notation: Although this document has been carefully reviewed, there may still be some phonetic and other typographical errors. These errors are purely grammatical due to imperfections in the software program and should not be construed in any way to compromise the substance of the patient's medical care during this visit. Thank you for the opportunity and privilege in assisting you with this patient's care and management.
--- NOTE | 2024-08-31 12:19 | PC.SS ---
Update: Plan is to transition the patient to comfort care. [facility] has approved decision for comfort care on behalf of the patient.
[2024-08-31] MEDS: LORazepam 2 MG/ML VIAL IVP ×2 (13:53→14:10)
[2024-08-31] MEDS: MORPHINE SULF INJ 10 MG/ML VIAL 2 MG IVP (13:53)
[2024-08-31] MEDS: MORPHINE SULF INJ 10 MG/ML VIAL 5 MG IVP (14:07)
[2024-08-31] MEDS: GLYCOPYRROLATE 0.2 MG/ML 0.8 MG IV (14:16)
--- NOTE | 2024-08-31 14:46 | PD.DPN ---
Documentation for date of: 08/31/24 Pronouncement Note Date and Time of Date of : 08/31/24 Time of : 14:40 PCOD Preliminary cause of : Cardiopulmonary arrest Contributing Factors (1) Septic shock due to Enterococcus fecalis: (2) Acute prerenal azotemia: (3) NSTEMI (non-ST elevated myocardial infarction): Summary Additional details: The nurse called me about 14:35 and I immediately responded at bedside. Family members were at bedside. There was no heart sound, no lungs sound, corneal reflex were absent, pupillary light reflex were absent, there was no pulse felt. The patient was pronounced at 14:40 of 08/31/2024. Condolences were offered to the family members at bedside. The patient's care was discussed with my attending physician MD Lorenzo Brewer MD, PGY2 Additional Data Confirmation of : no pulse, no respirations, no heart sounds and pupils fixed and dilated Family: at bedside and contacted Additional persons at bedside: other ([employer] [facility] resident physician) Attending physician: June Mejia MD Was code activated?: No (DNR/DNI) Advance directives: Yes
--- NOTE | 2024-08-31 14:59 | DES_ITS ---
Documentation for date of: 08/31/24 Summary Date and Time Date of admission: 08/23/24 12:39 Date of : 08/31/24 Time of : 14:40 Summary Hospital Course: Ms. Tomas, a 73-year-old female with significant past medical history of hypertension, DM 2, hyperlipidemia, hypothyroidism, CVA with right-sided deficit, chronic G-tube, HFpEF and developmental delay disorder presented to ED on 08/23/2024 with chief complaint of shortness of breath associated with decreased mental status. She was also found to have a small bowel obstruction which appeared to be secondary to gallstone ileus with large gallstone in the distal small bowel, with air density in the gallbladder supporting gallbladder and small bowel fistula. She underwent emergent exploratory laparotomy after intubation and was started on treatment for septic shock secondary to aspiration pneumonia. On 08/25/2024 SAT and SBT trial was performed and she was extubated. However, due to excessive work of breathing and tachycardia with heart rate of 140s the decision was made to reintubate the patient. On further SAT and SBT the patient was found to be on respiratory distress and was continued on sedatives. Cultures from 08/23/2024 for urine grew Pseudomonas aeruginosa, blood culture grew E faecalis and sputum Et tube grew Enterococcus faecalis and Enterobacter cloacae, and E. cloacae was MDR. Patient was started on appropriate antibiotics. Patient underwent EGD on 08/26/2024 for the suspicion of acute blood loss anemia secondary to GI bleed, and was found to have esophageal, gastric and duodenal ulcers without bleeding. And repeat blood cultures on 08/27/2024 grew yeast from anaerobic bottle. The patient was started on micafungin. Due to possible volume overload secondary to excessive fluid resuscitation in the ED as per sepsis protocol, multiple doses of furosemide's were given that was transitioned to Bumex drip. However, patient remained in a state of volume overload and septic shock. EKG done on 06/29/2024 was suggestive for NSTEMI, and troponins were elevated. The patient was started on heparin drip. However, despite aggressive medical management, patient continued to decline. Dr. Burden who is a legal decision maker for this patient was continuously being updated regarding her condition. He initially agreed on continuing ag gressive medical management, but on 08/30/2024 Dr. Burden was contacted and updated regarding the patient's extremely poor prognosis were given and goals of care discussion was done. Dr. Burden believe that at this condition the patient would prefer to not to proceed with aggressive medical management, instead proceed with comfort measures. The family members and relatives were informed about the prognosis, and when they arrived at bedside on 08/31/2024, the patient was placed on comfort measures. Patient was pronounced at 14:40 on 08/31/2024. Patient's family were at bedside and condolences were provided to them. Problems: #Developmental delay disorder #Hx of CVA with right sided deficit #NSTEMI type I #Shock,More likely septic shock contributed by sedatives #Volume overload secondary to excessive fluid resuscitation #Sinus tachycardia #History of HTN #Acute hypoxic respiratory failure 2/2 #Pulmonary edema 2/2 volume overload due to excessive fluid resuscitation, and #Aspiration pneumonia #Esophageal ulcer #Gastric ulcer #Duodenal ulcer #Chronic PEG tube #Gallstone ileus, resolved status post laparotomy #SARAI #Hyperphosphatemia, resolved #Mild hyperosmolar hypernatremia #Pseudohyponatremia, resolved #Lactic acidosis, resolved #Hypercalcemia, resolved #Asymptomatic bacteriuria #Diabetes mellitus type 2 #Hyperthyroidism #Bacteremia #Fungemia #Leukocytosis #Anemia #Thrombocytopenia The patient's care was discussed with my attending physician MD Lorenzo Brewer MD, PGY2 Additional Data Attending physician: June Mejia MD Visit Providers Provider Primary care physician: Justin Alva MD Consults: 08/23/24 12:09 Consult to General Surgery Stat Comment: Consulting Provider: Jessi Corrales 08/26/24 09:33 Consult to Gastroenterology Routine Comment: Consulting Provider: Conor Arreola 08/29/24 10:09 Consult to Cardiology Stat Comment: Consulting Provider: Dixon Zhao 08/29/24 12:18 Consult to Infectious Diseases Routine Comment: Consulting Provider: Lico Brooks Diagnosis Contributing Factors (1) Septic shock due to Enterococcus fecalis: (2) Acute prerenal azotemia: (3) NSTEMI (non-ST elevated myocardial infarction): Discharge Plan Problem List Was Problem List Reviewed/Reconciled?: Yes Plan Patient Disposition: Prescriptions/Referrals Prescriptions/Med Rec: No Action sennosides [senna] 8.6 mg tablet 8.6 mg feeding tube BID acetaminophen 325 mg Tablet 650 mg feeding tube Q4H PRN (Reason: Pain) bisacodyl 10 mg Suppository 10 mg CO PRN PRN (Reason: Constipation) Tradjenta 5 mg tablet 5 mg feeding tube QDAY atorvastatin 40 mg Tablet 40 mg feeding tube HS furosemide 20 mg Tablet 20 mg feeding tube QDAY PRN (Reason: Edema) polyethylene glycol 3350 [Miralax] 17 gram/dose Powder 17 g feeding tube QDAY PRN (Reason: Constipation) sertraline [Zoloft] 50 mg Tablet 50 mg feeding tube QDAY amlodipine 10 mg tablet 10 mg feeding tube QDAY 30 Days Qty: 30 0RF prednisone 20 mg Tablet 40 mg PO QDAY Rx Instructions: x 5days until 08/23/2024 amlodipine 10 mg Tablet 10 mg PO QPM doxycycline hyclate 100 mg Tablet 100 mg PO BID omeprazole 40 mg Capsule,Delayed Release(Dr/Ec) 40 mg PO QPM clotrimazole 1 % Cream 1 applic TOPICAL BID Rx Instructions: Apply to all toenails for nail fungus. Referrals: Justin Alva MD [Primary Care Provider] - Patient/Caregiver Discharge Instructions Print Language: [place]ian
--- NOTE | 2024-08-31 17:21 | PC.NURSE ---
Donor called at 0938 spoke with [facility] [phone], call was transferred to Olivier who ruled out the patient as a donor and stated patient was not a candidate and to proceed with comfort care.
--- NOTE | 2024-08-31 17:25 | PC.NURSE ---
At 0921 Funmi from the senior living was notified and updated on the patients status. The senior living stated they are going to send some of there staff to sit with the patient at 1 pm for comfort care.
--- NOTE | 2024-08-31 17:27 | PC.NURSE ---
Dr Burden was notified that the patient , stated that [facility] social science manager Edna Carrasquillo will call me back with the information and set up mortuary.
== END 2024-08-31 14:40 | disposition expired | DRG 853 ==
LOC: SERX 12:15 → SERHOLD 13:29 → S2SX 15:29
PROVIDERS: Emergency Medicine; Internal Medicine; Internal Medicine Cardiovascular Disease; Specialist; Student in an Organized Health Care Education/Training Program; Surgery; Admitting Provider Internal Medicine; Emergency Provider Emergency Medicine; PCP Hospitalist; Visit Provider Internal Medicine
PROC: 0FT40ZZ Resection of Gallbladder, Open Approach (ICD-10-PCS; CPT 49000; principal; 2024-08-23 13:15)
PROC: 0DJ08ZZ Inspection of Upper Intestinal Tract, Via Natural or Artificial Opening Endoscopic (ICD-10-PCS; CPT 43239; principal; 2024-08-26 19:00)
DX: A41.81 Sepsis due to Enterococcus (principal); I21.4 Non-ST elevation (NSTEMI) myocardial infarction; R65.21 Severe sepsis with septic shock; J18.9 Pneumonia, unspecified organism; J96.01 Acute respiratory failure with hypoxia; I50.33 Acute on chronic diastolic (congestive) heart failure; J69.0 Pneumonitis due to inhalation of food and vomit; K22.11 Ulcer of esophagus with bleeding; K25.4 Chronic or unspecified gastric ulcer with hemorrhage; K26.4 Chronic or unspecified duodenal ulcer with hemorrhage; K56.3 Gallstone ileus; N39.0 Urinary tract infection, site not specified; E87.20 Acidosis, unspecified; E87.0 Hyperosmolality and hypernatremia; B49 Unspecified mycosis; D62 Acute posthemorrhagic anemia; F03.911 Unspecified dementia, unspecified severity, with agitation; Z16.24 Resistance to multiple antibiotics; N17.9 Acute kidney failure, unspecified; I11.0 Hypertensive heart disease with heart failure; E11.65 Type 2 diabetes mellitus with hyperglycemia; K80.20 Calculus of gallbladder without cholecystitis without obstruction; N20.0 Calculus of kidney; E83.52 Hypercalcemia; E86.1 Hypovolemia; E03.9 Hypothyroidism, unspecified; E83.39 Other disorders of phosphorus metabolism; B96.5 Pseudomonas (aeruginosa) (mallei) (pseudomallei) as the cause of diseases classified elsewhere; E78.5 Hyperlipidemia, unspecified; D69.6 Thrombocytopenia, unspecified; I46.9 Cardiac arrest, cause unspecified; I48.91 Unspecified atrial fibrillation; E87.6 Hypokalemia; I69.30 Unspecified sequelae of cerebral infarction; Z66 Do not resuscitate; Z93.1 Gastrostomy status; Z51.5 Encounter for palliative care; Z74.01 Bed confinement status
CPT/HCPCS: 36415; 36600; 71045; 74177; 76705; 80053; 80202; 81001; 82803; 83605; 83690; 83735; 83880; 84100; 84132; 84145; 84484; 85014; 85018; 85025; 85610; 85730; 86850; 86900; 86901; 86923; 87040; 87077; 87081; 87086; 87106; 87186; 87205; 87811; 93005; 93306; 94002; 94003; 94640; 94664; 94667; 96361; 96365; 96366; 96375; 99291; A4649; A9270; J0290; J1643; J1644; J1650; J1815; J1940; J2060; J2185; J2247; J2250; J2270; J2371; J2405; J2470; J2543; J2704; J2765; J2919; J3010; J3371; J3475; J3480; J3490; J7030; J7050; J7120; P9016; P9047; Q9967; J1596; J2248